=== PATIENT | female | born 1955 | race Hispanic/Latino ===

== ENCOUNTER 2020-09-01 01:18 | Inpatient (IN) | payer MEDICAID ==
[2020-09-01 03:05] LABS: Hematocrit 48.5 % (30.3-42.9); Hemoglobin 16.3 gm/dl (10.1-14.3); Mean Corpuscular HGB Conc 34 % (30-34); Mean Corpuscular Volume 88 fl (79-97); Platelet Count 312 K/mm3 (140-440); Red Blood Count 5.49 M/mm3 (3.65-5.03)
[2020-09-01 03:14] LABS: Calcium 10.5 mg/dL (8.4-10.2)
[2020-09-01 04:36] LABS: Bilirubin,Urine NEG (Negative); Blood,Urine NEG (Negative); Color,Urine Yellow (Yellow); Mucus,Urine 1+ /HPF
[2020-09-01 05:12] LABS: Band Neutrophils # (Manual) 0.6 K/mm3; Basophils % (Manual) 0 % (0.0-1.8); Eosinophils % (Manual) 0 % (0.0-4.3); Total Cells Counted 100
[2020-09-01 05:13] LABS: Platelet Estimate Consistent w Auto
[2020-09-01] MEDS ORDERED: ONDANSETRON 4 MG/2 ML INJ IV ONE (06:23)
[2020-09-01] MEDS ORDERED: SODIUM CHLORIDE 0.9% 1000 ML 1,000 ML IV ONE (06:23)
[2020-09-01] MEDS ORDERED: MORPHINE 4 MG/1 ML INJ IV ONE (06:33)
--- NOTE | 2020-09-01 07:54 | Emergency Department Report ---
ED Abdominal Pain HPI - General Chief Complaint: Abdominal Pain Stated Complaint: ABDOMINAL PAIN/SOB Time Seen by Provider: 09/01/20 06:21 Source: patient Mode of arrival: Wheelchair Limitations: No Limitations - History of Present Illness Initial Comments: 65-year-old female with a past medical history of right-sided breast cancer diagnosed 2 weeks ago via biopsy (still undergoing work-up) presents to the hospital complaining of sudden onset of abdominal pain with nausea and vomiting at 1 AM. Pain is stabbing in the lower abdomen. At time of onset pain was 10/10 in intensity and currently 5/10. Pain worse with palpation. No alleviating factors. Patient denies urinary symptoms, fever, or diarrhea. No previous abdominal surgeries reported Severity scale (0 -10): 5 - Related Data Allergies Allergy/AdvReac Type Severity Reaction Status Date / Time No Known Allergies Allergy Unverified 09/01/20 02:26 ED Review of Systems ROS: Stated complaint: ABDOMINAL PAIN/SOB Other details as noted in HPI Comment: All other systems reviewed and negative ED Past Medical Hx - Past Medical History Previous Medical History?: Yes Hx of Cancer: Yes (Right breast) - Surgical History Past Surgical History?: No - Social History Smoking Status: Current Every Day Smoker Substance Use Type: None ED Physical Exam - General Limitations: No Limitations - Other Other exam information: General: No acute distress Head: Atraumatic Eyes: normal appearance ENT: Moist mucous membranes Neck: Normal appearance, no midline tenderness Chest: Clear to auscultation bilaterally. Right breast invasive breast mass at skin surface CV: Regular rate and rhythm Abdomen: Soft, normal bowel sounds, diffuse abdominal tenderness greatest in the lower abdomen and right lower quadrant, nondistended, no rebound or guarding Back: Normal inspection Extremity: Normal inspection, full range of motion Neuro: Alert O x 3, no facial asymmetry, speech clear, no gross motor sensory deficit Psych: Appropriate behavior Skin: No rash ED Course Vital Signs 09/01/20 09/01/20 09/01/20 01:34 04:11 06:44 Temperature 97.5 F L 98 F Pulse Rate 77 85 Respiratory 18 18 18 Rate Blood Pressure 124/70 Blood Pressure 127/81 [Left] O2 Sat by Pulse 97 95 Oximetry 09/01/20 08:09 Temperature Pulse Rate 76 Respiratory 16 Rate Blood Pressure Blood Pressure 149/70 [Left] O2 Sat by Pulse 94 Oximetry - Consultations Consultation #1: 10/03/20 08:55 case d/w gen surgeon Mervin who will manage case ED Medical Decision Making - Lab Data Result diagrams: 09/01/20 02:30 09/01/20 02:30 Lab Results 09/01/20 09/01/20 09/01/20 Range/Units 02:26 02:30 02:30 WBC 21.0 H (4.5-11.0) K/mm3 RBC 5.49 H (3.65-5.03) M/mm3 Hgb 16.3 H (10.1-14.3) gm/dl Hct 48.5 H (30.3-42.9) % MCV 88 (79-97) fl MCH 30 (28-32) pg MCHC 34 (30-34) % RDW 15.0 (13.2-15.2) % Plt Count 312 (140-440) K/mm3 Add Manual Diff Complete Total Counted 100 Seg Neutrophils % Hazmat Cdl A Driver Seg Neuts % (Manual) 90.0 H (40.0-70.0) % Band Neutrophils % 3.0 % Lymphocytes % (Manual) 4.0 L (13.4-35.0) % Reactive Lymphs % (Man) 0 % Monocytes % (Manual) 3.0 (0.0-7.3) % Eosinophils % (Manual) 0 (0.0-4.3) % Basophils % (Manual) 0 (0.0-1.8) % Metamyelocytes % 0 % Myelocytes % 0 % Promyelocytes % 0 % Blast Cells % 0 % Nucleated RBC % Not Reportable Seg Neutrophils # Man 18.9 H (1.8-7.7) K/mm3 Band Neutrophils # 0.6 K/mm3 Lymphocytes # (Manual) 0.8 L (1.2-5.4) K/mm3 Abs React Lymphs (Man) 0.0 K/mm3 Monocytes # (Manual) 0.6 (0.0-0.8) K/mm3 Eosinophils # (Manual) 0.0 (0.0-0.4) K/mm3 Basophils # (Manual) 0.0 (0.0-0.1) K/mm3 Metamyelocytes # 0.0 K/mm3 Myelocytes # 0.0 K/mm3 Promyelocytes # 0.0 K/mm3 Blast Cells # 0.0 K/mm3 WBC Morphology Not Reportable Hypersegmented Neuts Not Reportable Hyposegmented Neuts Not Reportable Hypogranular Neuts Not Reportable Smudge Cells Not Reportable Toxic Granulation Not Reportable Toxic Vacuolation Not Reportable Dohle Bodies Not Reportable Pelger-Huet Anomaly Not Reportable [place] Rods Not Reportable Platelet Estimate Consistent w auto Clumped Platelets Not Reportable Plt Clumps, EDTA Not Reportable Large Platelets Not Reportable Giant Platelets Not Reportable Platelet Satelliting Not Reportable Plt Morphology Comment Not Reportable RBC Morphology Not Reportable Dimorphic RBCs Not Reportable Polychromasia Not Reportable Hypochromasia Not Reportable Poikilocytosis Not Reportable Anisocytosis Not Reportable Microcytosis Not Reportable Macrocytosis Not Reportable Spherocytes Not Reportable Pappenheimer Bodies Not Reportable Sickle Cells Not Reportable Target Cells Not Reportable Tear Drop Cells Not Reportable Ovalocytes Not Reportable Helmet Cells Not Reportable [place] Bodies Not Reportable [place] Rings Not Reportable Ginger Cells Not Reportable Bite Cells Not Reportable Crenated Cell Not Reportable Elliptocytes Not Reportable Acanthocytes (Spur) Not Reportable Rouleaux Not Reportable Hemoglobin C Crystals Not Reportable Schistocytes Not Reportable Malaria parasites Not Reportable [place] Bodies Not Reportable Hem Pathologist Commnt No Sodium 134 L (137-145) mmol/L Potassium 3.7 (3.6-5.0) mmol/L Chloride 89.2 L (98-107) mmol/L Carbon Dioxide 29 (22-30) mmol/L Anion Gap 20 mmol/L BUN 20 H (7-17) mg/dL Creatinine 1.1 (0.6-1.2) mg/dL Estimated GFR 50 ml/min BUN/Creatinine Ratio 18 % Glucose 190 H (65-100) mg/dL Calcium 10.5 H (8.4-10.2) mg/dL Total Bilirubin 0.40 (0.1-1.2) mg/dL AST 18 (5-40) units/L ALT 18 (7-56) units/L Alkaline Phosphatase 78 (35-129) units/L Total Protein 8.6 H (6.3-8.2) g/dL Albumin 4.0 (3.9-5) g/dL Albumin/Globulin Ratio 0.9 % Lipase 24 (13-60) units/L Urine Color Yellow (Yellow) Urine Turbidity Clear (Clear) Urine pH 6.0 (5.0-7.0) Ur Specific [place] 1.023 (1.003-1.030) Urine Protein 30 mg/dl (Negative) mg/dL Urine Glucose (UA) Neg (Negative) mg/dL Urine Ketones Neg (Negative) mg/dL Urine Blood Neg (Negative) Urine Nitrite Neg (Negative) Urine Bilirubin Neg (Negative) Urine Urobilinogen 4.0 (<2.0) mg/dL Ur Leukocyte Esterase Tr (Negative) Urine WBC (Auto) 5.0 (0.0-6.0) /HPF Urine RBC (Auto) 4.0 (0.0-6.0) /HPF U Epithel Cells (Auto) 3.0 (0-13.0) /HPF Urine Mucus 1+ /HPF - Radiology Data Radiology results: report reviewed CT ABDOMEN AND PELVIS WITH CONTRAST INDICATION: Right lower quadrant pain with newly diagnosed breast cancer. TECHNIQUE: Axial CT images were obtained through the abdomen and pelvis after 100 cc IV contrast. All CT scans at this location are performed using CT dose reduction for Teladoc by means of automated exposure control. COMPARISON: None available. FINDINGS: LOWER CHEST: Large 4.8 cm incompletely visualized lobulated right breast mass characteristic for patient's known breast cancer. Large 8 cm mass within the right axilla, incompletely visualized. LIVER: No significant abnormality. GALLBLADDER: Calcified gallstones in collapsed gallbladder. BILE DUCTS: No significant abnormality. PANCREAS: No significant abnormality. SPLEEN: No significant abnormality. ADRENALS: Indeterminate bilateral adrenal nodules measuring 2 cm on right and 1.5 cm in left adrenal gland. RIGHT KIDNEY and URETER: No significant abnormality. LEFT KIDNEY and URETER: 2 simple left renal cysts, largest of which measures 3.3 cm. STOMACH and SMALL BOWEL: Suspected ulcer within the anterior aspect of gastric antrum with associated moderate mucosal wall thickening and moderate amount of adjacent inflammation COLON: Moderate colonic diverticulosis without diverticulitis. APPENDIX: Contains appendicolith without CT evidence for acute appendicitis. PERITONEUM: Moderate amount of free pelvic fluid Moderate amount of free air. No fluid collection. LYMPH NODES: No significant adenopathy. AORTA and ARTERIES: No significant abnormality. IVC and VEINS: No significant abnormality. URINARY BLADDER: No significant abnormality. REPRODUCTIVE ORGANS: No significant abnormality. ADDITIONAL FINDINGS: Moderate subcutaneous edema right forearm SKELETAL SYSTEM: No significant abnormality. IMPRESSION: 1. Perforated gastric ulcer with pneumoperitoneum 2. Large right breast mass and axillary adenopathy, incompletely visualized. Chest CT or PET CT scan may be useful for further staging and evaluation. 3. Indeterminate bilateral adrenal nodules suspicious for possible adrenal metastases. Follow-up adrenal MRI or noncontrast CT may be useful to confirm presence or absence of adenomas. 4. Moderate subcutaneous edema right forearm of uncertain etiology. DVT versus cellulitis is in the differential considerations. CRITICAL RESULT: Perforated gastric ulcer - Medical Decision Making Patient presents to the hospital with sudden onset abdominal pain with nausea vomiting. Positive significant leukocytosis. CT shows a perforated gastric ulcer. Patient made n.p.o., treated with normal saline, morphine, Protonix, and Zosyn. Case discussed with general surgeon on-call who will manage patient. Patient to be admitted to the hospitalist service Case discussed with patient's son Will Weinstein per patient's request. He was informed of patient's diagnosis, plan for admission, and probable need for surgical treatment Critical Care Time: No Critical care attestation.: If time is entered above; I have spent that time in minutes in the direct care of this critically ill patient, excluding procedure time. ED Disposition Clinical Impression: Perforated gastric ulcer, Breast cancer Disposition: -09 OP ADMIT IP TO THIS HOSP Is pt being admited?: Yes Condition: Stable Time of Disposition: 08:56 (Dr Marie/hospitalist)
[2020-09-01] MEDS ORDERED: PANTOPRAZOLE 40 MG INJ IV ONE (08:24)
[2020-09-01] MEDS ORDERED: PIPERACIL/TAZOBACTA 4.5/NS 100 4.5 GM/100 ML VIAL IV ONE (08:25)
--- NOTE | 2020-09-01 08:34 | Cat Scan Report ---
CT ABDOMEN AND PELVIS WITH CONTRAST INDICATION: Right lower quadrant pain with newly diagnosed breast cancer. TECHNIQUE: Axial CT images were obtained through the abdomen and pelvis after 100 cc IV contrast. All CT scans at this location are performed using CT dose reduction for ALARA by means of automated exposure contr ol. COMPARISON: None available. FINDINGS: LOWER CHEST: Large 4.8 cm incompletely visualized lobulated right breast mass characteristic for kaylin ent's known breast cancer. Large 8 cm mass within the right axilla, incompletely visualized. LIVER: No significant abnormality. GALLBLADDER: Calcified gallstones in collapsed gallbladder. BILE DUCTS: No significant abnormality. PANCREAS: No significant abnormality. SPLEEN: No significant abnormality. ADRENALS: Indeterminate bilateral adrenal nodules measuring 2 cm on right and 1.5 cm in left adrenal gland. RIGHT KIDNEY and URETER: No significant abnormality. LEFT KIDNEY and URETER: 2 simple left renal cysts, largest of which measures 3.3 cm. STOMACH and SMALL BOWEL: Suspected ulcer within the anterior aspect of gastric antrum with associated moderate mucosal wall thickening and moderate amount of adjacent inflammation COLON: Moderate colonic diverticulosis without diverticulitis. APPENDIX: Contains appendicolith without CT evidence for acute appendicitis. PERITONEUM: Moderate amount of free pelvic fluid Moderate amount of free air. No fluid collection. LYMPH NODES: No significant adenopathy. AORTA and ARTERIES: No significant abnormality. IVC and VEINS: No significant abnormality. URINARY BLADDER: No significant abnormality. REPRODUCTIVE ORGANS: No significant abnormality. ADDITIONAL FINDINGS: Moderate subcutaneous edema right forearm SKELETAL SYSTEM: No significant abnormality. IMPRESSION: 1. Perforated gastric ulcer with pneumoperitoneum 2. Large right breast mass and axillary adenopathy, incompletely visualized. Chest CT or PET CT scan may be useful for further staging and evaluation. 3. Indeterminate bilateral adrenal nodules suspicious for possible adrenal metastases. Follow-up adre nal MRI or noncontrast CT may be useful to confirm presence or absence of adenomas. 4. Moderate subcutaneous edema right forearm of uncertain etiology. DVT versus cellulitis is in the d ifferential considerations. CRITICAL RESULT: Perforated gastric ulcer Time of Discovery: 7:20 AM central time 09/01/2020 Time of Communication: 7:25 AM central time Licensed Practitioner Receiving Report: Jessica Jurado Read Back Performed: Yes. Signer Name: Paxton Gibbs MD Signed: 09/01/2020 8:30 AM Workstation Name: [id number]
--- NOTE | 2020-09-01 09:21 | History and Physical Report ---
History of Present Illness Date of examination: 09/01/20 Date of admission: 09/01/2020 Chief complaint: Abdominal pain History of present illness: 65-year-old female with a past medical history of right-sided breast cancer diagnosed 2 weeks ago via biopsy (still undergoing work-up) presents to the hospital complaining of sudden onset of abdominal pain with nausea and vomiting at 1 AM. Pain is described of a stabbing character in the lower abdomen. Patient reports improvement of the pain from 09/08 to now currently 5/10. Pain worse with palpation. No alleviating factors. Patient denies urinary symptoms, fever, or diarrhea. No previous abdominal surgeries reported. CT scan of the abdomen pelvis reveals perforated gastric ulcer with pneumoperitoneum. Patient denies any hematemesis, hematochezia or melena. Past History Past Medical History: other (Newly diagnosed breast cancer) Past Surgical History: No surgical history Social history: no significant social history Family history: no significant family history Medications and Allergies Allergies Allergy/AdvReac Type Severity Reaction Status Date / Time No Known Allergies Allergy Unverified 09/01/20 02:26 Review of Systems All systems: negative Exam - Constitutional Vitals: Temp Pulse Resp BP Pulse Ox 98 F 76 16 149/70 94 09/01/20 04:11 09/01/20 08:09 09/01/20 08:09 09/01/20 08:09 09/01/20 08:09 General appearance: Present: no acute distress, well-nourished - EENT Eyes: Present: PERRL ENT: hearing intact, clear oral mucosa - Neck Neck: Present: supple, normal ROM - Respiratory Respiratory effort: normal Respiratory: bilateral: CTA - Cardiovascular Heart Sounds: Present: S1 & S2. Absent: rub, click - Extremities Extremities: pulses symmetrical, No edema Peripheral Pulses: within normal limits - Abdominal General gastrointestinal: Present: soft, tender, non-distended, normal bowel sounds Localized gastrointestinal: tender: diffuse Female genitourinary: Present: normal - Integumentary Integumentary: Present: clear, warm, dry - Musculoskeletal Musculoskeletal: gait normal, strength equal bilaterally - Psychiatric Psychiatric: appropriate mood/affect, intact judgment & insight - Neurologic Neurologic: CNII-XII intact, moves all extremities Results - Labs CBC & Chem 7: 09/01/20 02:30 09/01/20 02:30 Labs: Laboratory Last Values WBC 21.0 K/mm3 (4.5-11.0) H 09/01/20 02:30 RBC 5.49 M/mm3 (3.65-5.03) H 09/01/20 02:30 Hgb 16.3 gm/dl (10.1-14.3) H 09/01/20 02:30 Hct 48.5 % (30.3-42.9) H 09/01/20 02:30 MCV 88 fl (79-97) 09/01/20 02:30 MCH 30 pg (28-32) 09/01/20 02:30 MCHC 34 % (30-34) 09/01/20 02:30 RDW 15.0 % (13.2-15.2) 09/01/20 02:30 Plt Count 312 K/mm3 (140-440) 09/01/20 02:30 Add Manual Diff Complete 09/01/20 02:30 Total Counted 100 09/01/20 02:30 Seg Neutrophils % Coding Technician 09/01/20 02:30 Seg Neuts % (Manual) 90.0 % (40.0-70.0) H 09/01/20 02:30 Band Neutrophils % 3.0 % 09/01/20 02:30 Lymphocytes % (Manual) 4.0 % (13.4-35.0) L 09/01/20 02:30 Reactive Lymphs % (Man) 0 % 09/01/20 02:30 Monocytes % (Manual) 3.0 % (0.0-7.3) 09/01/20 02:30 Eosinophils % (Manual) 0 % (0.0-4.3) 09/01/20 02:30 Basophils % (Manual) 0 % (0.0-1.8) 09/01/20 02:30 Metamyelocytes % 0 % 09/01/20 02:30 Myelocytes % 0 % 09/01/20 02:30 Promyelocytes % 0 % 09/01/20 02:30 Blast Cells % 0 % 09/01/20 02:30 Nucleated RBC % Not Reportable 09/01/20 02:30 Seg Neutrophils # Man 18.9 K/mm3 (1.8-7.7) H 09/01/20 02:30 Band Neutrophils # 0.6 K/mm3 09/01/20 02:30 Lymphocytes # (Manual) 0.8 K/mm3 (1.2-5.4) L 09/01/20 02:30 Abs React Lymphs (Man) 0.0 K/mm3 09/01/20 02:30 Monocytes # (Manual) 0.6 K/mm3 (0.0-0.8) 09/01/20 02:30 Eosinophils # (Manual) 0.0 K/mm3 (0.0-0.4) 09/01/20 02:30 Basophils # (Manual) 0.0 K/mm3 (0.0-0.1) 09/01/20 02:30 Metamyelocytes # 0.0 K/mm3 09/01/20 02:30 Myelocytes # 0.0 K/mm3 09/01/20 02:30 Promyelocytes # 0.0 K/mm3 09/01/20 02:30 Blast Cells # 0.0 K/mm3 09/01/20 02:30 WBC Morphology Not Reportable 09/01/20 02:30 Hypersegmented Neuts Not Reportable 09/01/20 02:30 Hyposegmented Neuts Not Reportable 09/01/20 02:30 Hypogranular Neuts Not Reportable 09/01/20 02:30 Smudge Cells Not Reportable 09/01/20 02:30 Toxic Granulation Not Reportable 09/01/20 02:30 Toxic Vacuolation Not Reportable 09/01/20 02:30 Dohle Bodies Not Reportable 09/01/20 02:30 Pelger-Huet Anomaly Not Reportable 09/01/20 02:30 [place] Rods Not Reportable 09/01/20 02:30 Platelet Estimate Consistent w auto 09/01/20 02:30 Clumped Platelets Not Reportable 09/01/20 02:30 Plt Clumps, EDTA Not Reportable 09/01/20 02:30 Large Platelets Not Reportable 09/01/20 02:30 Giant Platelets Not Reportable 09/01/20 02:30 Platelet Satelliting Not Reportable 09/01/20 02:30 Plt Morphology Comment Not Reportable 09/01/20 02:30 RBC Morphology Not Reportable 09/01/20 02:30 Dimorphic RBCs Not Reportable 09/01/20 02:30 Polychromasia Not Reportable 09/01/20 02:30 Hypochromasia Not Reportable 09/01/20 02:30 Poikilocytosis Not Reportable 09/01/20 02:30 Anisocytosis Not Reportable 09/01/20 02:30 Microcytosis Not Reportable 09/01/20 02:30 Macrocytosis Not Reportable 09/01/20 02:30 Spherocytes Not Reportable 09/01/20 02:30 Pappenheimer Bodies Not Reportable 09/01/20 02:30 Sickle Cells Not Reportable 09/01/20 02:30 Target Cells Not Reportable 09/01/20 02:30 Tear Drop Cells Not Reportable 09/01/20 02:30 Ovalocytes Not Reportable 09/01/20 02:30 Helmet Cells Not Reportable 09/01/20 02:30 Fernandez-[place] Bodies Not Reportable 09/01/20 02:30 [place] Rings Not Reportable 09/01/20 02:30 [place] Cells Not Reportable 09/01/20 02:30 Bite Cells Not Reportable 09/01/20 02:30 Crenated Cell Not Reportable 09/01/20 02:30 Elliptocytes Not Reportable 09/01/20 02:30 Acanthocytes (Spur) Not Reportable 09/01/20 02:30 Rouleaux Not Reportable 09/01/20 02:30 Hemoglobin C Crystals Not Reportable 09/01/20 02:30 Schistocytes Not Reportable 09/01/20 02:30 Malaria parasites Not Reportable 09/01/20 02:30 [place] Bodies Not Reportable 09/01/20 02:30 Hem Pathologist Commnt No 09/01/20 02:30 Sodium 134 mmol/L (137-145) L 09/01/20 02:30 Potassium 3.7 mmol/L (3.6-5.0) 09/01/20 02:30 Chloride 89.2 mmol/L (98-107) L 09/01/20 02:30 Carbon Dioxide 29 mmol/L (22-30) 09/01/20 02:30 Anion Gap 20 mmol/L 09/01/20 02:30 BUN 20 mg/dL (7-17) H 09/01/20 02:30 Creatinine 1.1 mg/dL (0.6-1.2) 09/01/20 02:30 Estimated GFR 50 ml/min 09/01/20 02:30 BUN/Creatinine Ratio 18 % 09/01/20 02:30 Glucose 190 mg/dL (65-100) H 09/01/20 02:30 Calcium 10.5 mg/dL (8.4-10.2) H 09/01/20 02:30 Total Bilirubin 0.40 mg/dL (0.1-1.2) 09/01/20 02:30 AST 18 units/L (5-40) 09/01/20 02:30 ALT 18 units/L (7-56) 09/01/20 02:30 Alkaline Phosphatase 78 units/L (35-129) 09/01/20 02:30 Total Protein 8.6 g/dL (6.3-8.2) H 09/01/20 02:30 Albumin 4.0 g/dL (3.9-5) 09/01/20 02:30 Albumin/Globulin Ratio 0.9 % 09/01/20 02:30 Lipase 24 units/L (13-60) 09/01/20 02:30 Urine Color Yellow (Yellow) 09/01/20 02:26 Urine Turbidity Clear (Clear) 09/01/20 02:26 Urine pH 6.0 (5.0-7.0) 09/01/20 02:26 Ur Specific [place] 1.023 (1.003-1.030) 09/01/20 02:26 Urine Protein 30 mg/dl mg/dL (Negative) 09/01/20 02:26 Urine Glucose (UA) Neg mg/dL (Negative) 09/01/20 02:26 Urine Ketones Neg mg/dL (Negative) 09/01/20 02:26 Urine Blood Neg (Negative) 09/01/20 02:26 Urine Nitrite Neg (Negative) 09/01/20 02:26 Urine Bilirubin Neg (Negative) 09/01/20 02:26 Urine Urobilinogen 4.0 mg/dL (<2.0) 09/01/20 02:26 Ur Leukocyte Esterase Tr (Negative) 09/01/20 02:26 Urine WBC (Auto) 5.0 /HPF (0.0-6.0) 09/01/20 02:26 Urine RBC (Auto) 4.0 /HPF (0.0-6.0) 09/01/20 02:26 U Epithel Cells (Auto) 3.0 /HPF (0-13.0) 09/01/20 02:26 Urine Mucus 1+ /HPF 09/01/20 02:26 Carey/IV: IV Catheter Type [Left Hand] INT / [place] Assessment and Plan Assessment and plan: Perforated gastric ulcer with pneumoperitoneum. Surgery has been consulted and awaiting evaluation. Continue n.p.o. status. IV fluid hydration. Patient will likely need TPN. Right breast cancer.? Metastatic. CT scan reveals questionable adrenal metastasis Right upper extremity edema. Etiology likely secondary to occluded lymphatics from breast CA. Right upper extremity ultrasound to rule out DVT given history of cancer.
[2020-09-01] MEDS: SODIUM CHLORIDE 0.9% 1000 ML 1,000 ML IV SCH ×2 (09:49→20:11)
[2020-09-01] MEDS: MORPHINE 2 MG/1 ML INJ IV PRN ×4 (09:49→23:55)
--- NOTE | 2020-09-01 10:30 | Consultation ---
History of Present Illness Consult date: 09/01/20 Reason for consult: abdominal pain - History of present illness History of present illness: 65 yo WF with recent dx metastatic breast cancer undergoing work-up presents with severe abd pain diffusely since 1am today. No hx NSAID abuse. No hx GI dz. +tob abuse (50-60pyhx) Ct with pneumoperitoneum-- suspected perforated gastric ulcer as acute finding- see report for other abnormalities. Past History Past Medical History: COPD, other (Newly diagnosed breast cancer). denies: acute [place], heart failure Past Surgical History: No surgical history Social history: no significant social history, smoking Family history: no significant family history Medications and Allergies Allergies Allergy/AdvReac Type Severity Reaction Status Date / Time No Known Allergies Allergy Unverified 09/01/20 02:26 Active Meds: Active Medications Enoxaparin Sodium (Enoxaparin) 40 mg SUB-Q QDAY JAIME Sodium Chloride (Nacl 0.9% 1000 Ml) 1,000 mls @ 75 mls/hr IV DIRECT JAIME Last Admin: 09/01/20 09:49 Dose: 75 mls/hr Documented by: Morphine Sulfate (Morphine) 2 mg IV Q4H PRN PRN Reason: Pain, Moderate (4-6) Last Admin: 09/01/20 09:49 Dose: 2 mg Documented by: Sodium Chloride (Sodium Chloride Flush Syringe 10 Ml) 10 ml IV BID JAIME Sodium Chloride (Sodium Chloride Flush Syringe 10 Ml) 10 ml IV PRN PRN PRN Reason: LINE FLUSH Exam Vital Signs Temp Pulse Resp BP Pulse Ox 97.5 F L 77 18 124/70 97 09/01/20 01:34 09/01/20 01:34 09/01/20 01:34 09/01/20 01:34 09/01/20 01:34 - General physical appearance Positive: chronically ill - Respiratory Positive: normal respiratory effort wheezing: bilateral, rales: bilateral - Cardiovascular Rhythm: regular - Abdomen Abdomen: Present: tender, rebound, guarding, rigid. Absent: wound, surgical scars Hernia: none (pt clearly in severe pain; wincing often) Results - Labs 09/01/20 02:30 09/01/20 02:30 Abnormal lab results 09/01/20 09/01/20 Range/Units 02:30 02:30 WBC 21.0 H (4.5-11.0) K/mm3 RBC 5.49 H (3.65-5.03) M/mm3 Hgb 16.3 H (10.1-14.3) gm/dl Hct 48.5 H (30.3-42.9) % Seg Neuts % (Manual) 90.0 H (40.0-70.0) % Lymphocytes % (Manual) 4.0 L (13.4-35.0) % Seg Neutrophils # Man 18.9 H (1.8-7.7) K/mm3 Lymphocytes # (Manual) 0.8 L (1.2-5.4) K/mm3 Sodium 134 L (137-145) mmol/L Chloride 89.2 L (98-107) mmol/L BUN 20 H (7-17) mg/dL Glucose 190 H (65-100) mg/dL Calcium 10.5 H (8.4-10.2) mg/dL Total Protein 8.6 H (6.3-8.2) g/dL Diabetes panel 09/01/20 Range/Units 02:30 Sodium 134 L (137-145) mmol/L Potassium 3.7 (3.6-5.0) mmol/L Chloride 89.2 L (98-107) mmol/L Carbon Dioxide 29 (22-30) mmol/L BUN 20 H (7-17) mg/dL Creatinine 1.1 (0.6-1.2) mg/dL Glucose 190 H (65-100) mg/dL Calcium 10.5 H (8.4-10.2) mg/dL AST 18 (5-40) units/L ALT 18 (7-56) units/L Alkaline Phosphatase 78 (35-129) units/L Total Protein 8.6 H (6.3-8.2) g/dL Albumin 4.0 (3.9-5) g/dL Calcium panel 09/01/20 Range/Units 02:30 Calcium 10.5 H (8.4-10.2) mg/dL Albumin 4.0 (3.9-5) g/dL Pituitary panel 09/01/20 Range/Units 02:30 Sodium 134 L (137-145) mmol/L Potassium 3.7 (3.6-5.0) mmol/L Chloride 89.2 L (98-107) mmol/L Carbon Dioxide 29 (22-30) mmol/L BUN 20 H (7-17) mg/dL Creatinine 1.1 (0.6-1.2) mg/dL Glucose 190 H (65-100) mg/dL Calcium 10.5 H (8.4-10.2) mg/dL Adrenal panel 09/01/20 Range/Units 02:30 Sodium 134 L (137-145) mmol/L Potassium 3.7 (3.6-5.0) mmol/L Chloride 89.2 L (98-107) mmol/L Carbon Dioxide 29 (22-30) mmol/L BUN 20 H (7-17) mg/dL Creatinine 1.1 (0.6-1.2) mg/dL Glucose 190 H (65-100) mg/dL Calcium 10.5 H (8.4-10.2) mg/dL Total Bilirubin 0.40 (0.1-1.2) mg/dL AST 18 (5-40) units/L ALT 18 (7-56) units/L Alkaline Phosphatase 78 (35-129) units/L Total Protein 8.6 H (6.3-8.2) g/dL Albumin 4.0 (3.9-5) g/dL Assessment and Plan Pneumoperitoneum-- to OR for Ex Lap/oversew perforated ulcer Ulcer likely to be duodenal over gastric by my review of Ct images/most common pathology. No known risk factors. Due to pt's metastatic cancer and COPD, she will be high-risk pt with higher than normal complication rates. Surgical risks d/w pt in front of RN- see consent signed. Pt will likely need ICU bed post-op
[2020-09-01] MEDS ORDERED: HYDROmorphone 2 MG/1 ML INJ IV ONE (11:00)
--- NOTE | 2020-09-01 11:34 | Progress Note ---
Subjective Narrative: Note: unable to reach lenora (pt's son) by phone- number disconnected. Went to waiting room- not present x2 over 45min span. Will attempt to reach after surgery Objective Vital Signs - 12hr 09/01/20 09/01/20 09/01/20 01:34 04:11 06:44 Temperature 97.5 F L 98 F Pulse Rate 77 85 Respiratory 18 18 18 Rate Blood Pressure 124/70 Blood Pressure 127/81 [Left] O2 Sat by Pulse 97 95 Oximetry 09/01/20 09/01/20 09/01/20 08:09 10:15 10:47 Temperature Pulse Rate 76 65 72 Respiratory 16 16 16 Rate Blood Pressure Blood Pressure 149/70 113/65 140/100 [Left] O2 Sat by Pulse 94 96 96 Oximetry 09/01/20 11:18 Temperature Pulse Rate 72 Respiratory 16 Rate Blood Pressure Blood Pressure 148/76 [Left] O2 Sat by Pulse 96 Oximetry - Labs 09/01/20 02:30 09/01/20 02:30 Diabetes panel 09/01/20 Range/Units 02:30 Sodium 134 L (137-145) mmol/L Potassium 3.7 (3.6-5.0) mmol/L Chloride 89.2 L (98-107) mmol/L Carbon Dioxide 29 (22-30) mmol/L BUN 20 H (7-17) mg/dL Creatinine 1.1 (0.6-1.2) mg/dL Glucose 190 H (65-100) mg/dL Calcium 10.5 H (8.4-10.2) mg/dL AST 18 (5-40) units/L ALT 18 (7-56) units/L Alkaline Phosphatase 78 (35-129) units/L Total Protein 8.6 H (6.3-8.2) g/dL Albumin 4.0 (3.9-5) g/dL Calcium panel 09/01/20 Range/Units 02:30 Calcium 10.5 H (8.4-10.2) mg/dL Albumin 4.0 (3.9-5) g/dL Pituitary panel 09/01/20 Range/Units 02:30 Sodium 134 L (137-145) mmol/L Potassium 3.7 (3.6-5.0) mmol/L Chloride 89.2 L (98-107) mmol/L Carbon Dioxide 29 (22-30) mmol/L BUN 20 H (7-17) mg/dL Creatinine 1.1 (0.6-1.2) mg/dL Glucose 190 H (65-100) mg/dL Calcium 10.5 H (8.4-10.2) mg/dL Adrenal panel 09/01/20 Range/Units 02:30 Sodium 134 L (137-145) mmol/L Potassium 3.7 (3.6-5.0) mmol/L Chloride 89.2 L (98-107) mmol/L Carbon Dioxide 29 (22-30) mmol/L BUN 20 H (7-17) mg/dL Creatinine 1.1 (0.6-1.2) mg/dL Glucose 190 H (65-100) mg/dL Calcium 10.5 H (8.4-10.2) mg/dL Total Bilirubin 0.40 (0.1-1.2) mg/dL AST 18 (5-40) units/L ALT 18 (7-56) units/L Alkaline Phosphatase 78 (35-129) units/L Total Protein 8.6 H (6.3-8.2) g/dL Albumin 4.0 (3.9-5) g/dL
--- NOTE | 2020-09-01 11:47 | Anesthesia Consultation ---
Anesthesia Consult and Med Hx Date of service: 09/01/20 - Airway Anesthetic Teeth Evaluation: Poor ROM Head & Neck: Adequate Mental/Hyoid Distance: Adequate Mallampati Class: Class I Intubation Access Assessment: Probably Good - Pulmonary Exam CTA: Yes - Cardiac Exam Cardiac Exam: RRR - Pre-Operative Health Status ASA Pre-Surgery Classification: ASA3, Emergency Proposed Anesthetic Plan: General - Pulmonary Hx Smoking: Yes (1 pk. per day) SOB: Yes COPD: Yes (As per ER physician) Home Oxygen Therapy: No Hx Sleep Apnea: No - Cardiovascular System Hx Heart Attack/AMI: No Hx Angina: No - Central Nervous System Hx Neuromuscular Disorder: No Hx Seizures: No CVA: No Hx Psychiatric Problems: No - Gastrointestinal Hx Gastroesophageal Reflux Disease: No - Endocrine Hx Renal Disease: No Hx Liver Disease: No Hx Insulin Dependent Diabetes: No Hx Non-Insulin Dependent Diabetes: No Hx Thyroid Disease: No - Hematic Hx Anemia: No - Other Systems Hx Alcohol Use: No Hx Substance Use: No Hx Cancer: Yes (Right Breast) Hx Obesity: No - Additional Comments Anesthesia Medical History Comments: Patient denied previous anesthesia complications
--- NOTE | 2020-09-01 11:47 | Anesthesia Day of Surgery ---
Anesthesia Day of Surgery - Day of Surgery Patient Examined: Yes Patient H&P Reviewed: Yes Patient is NPO: Yes Beta Blockers: No Cardiac Clearance: No Pulmonary Clearance: No
[2020-09-01] MEDS ORDERED: ONDANSETRON 4 MG/2 ML INJ ONE (11:56)
[2020-09-01] MEDS ORDERED: ROCURONIUM 50 MG/5 ML INJ IV ONE (11:56)
[2020-09-01] MEDS ORDERED: LIDOCAINE MPF (2%) 20 MG/1 ML VIAL 5 ML ONE (11:56)
[2020-09-01] MEDS ORDERED: fentaNYL 100 MCG/2 ML INJ ONE (11:56)
[2020-09-01] MEDS ORDERED: propofoL 200 MG/20 ML VIAL IV ONE (11:56)
[2020-09-01] MEDS ORDERED: SUCCINYLCHOLINE CHLORIDE 200 MG/10 ML INJ MDV ONE (12:27)
[2020-09-01] MEDS ORDERED: LACTATED RINGERS 1,000 ML ONE ×2 (13:16)
[2020-09-01] MEDS ORDERED: HYDROmorphone 1 MG/1 ML INJ ONE (13:26)
--- NOTE | 2020-09-01 14:20 | Consultation ---
History of Present Illness Consult date: 09/01/20 Requesting physician: CHARY KEMP Reason for consult: other (Acute Hypoxemic Respiratyory Failure; Perforated Abdominal Viscus) History of present illness: PULMONARY/CCM CONSULT NOTE (Full dictation # [id number]) Please see dictated notes for full details Past History Past Medical History: COPD, other (Newly diagnosed breast cancer). denies: acute [place], heart failure Past Surgical History: No surgical history Social history: no significant social history, smoking Family history: no significant family history Medications and Allergies Allergies Allergy/AdvReac Type Severity Reaction Status Date / Time No Known Allergies Allergy Unverified 09/01/20 02:26 Active Meds: Active Medications Enoxaparin Sodium (Enoxaparin) 40 mg SUB-Q QDAY JAIME Sodium Chloride (Nacl 0.9% 1000 Ml) 1,000 mls @ 75 mls/hr IV DIRECT JAIME Last Admin: 09/01/20 09:49 Dose: 75 mls/hr Documented by: Morphine Sulfate (Morphine) 2 mg IV Q4H PRN PRN Reason: Pain, Moderate (4-6) Last Admin: 09/01/20 09:49 Dose: 2 mg Documented by: Sodium Chloride (Sodium Chloride Flush Syringe 10 Ml) 10 ml IV BID JAIME Sodium Chloride (Sodium Chloride Flush Syringe 10 Ml) 10 ml IV PRN PRN PRN Reason: LINE FLUSH Physical Examination Vital signs: Vital Signs Temp Pulse Resp BP Pulse Ox 97.5 F L 77 18 124/70 97 09/01/20 01:34 09/01/20 01:34 09/01/20 01:34 09/01/20 01:34 09/01/20 01:34 Results - Laboratory Findings CBC and BMP: 09/01/20 02:30 09/01/20 02:30 Abnormal lab findings: Abnormal Labs 09/01/20 09/01/20 02:30 02:30 WBC 21.0 H RBC 5.49 H Hgb 16.3 H Hct 48.5 H Seg Neuts % (Manual) 90.0 H Lymphocytes % (Manual) 4.0 L Seg Neutrophils # Man 18.9 H Lymphocytes # (Manual) 0.8 L Sodium 134 L Chloride 89.2 L BUN 20 H Glucose 190 H Calcium 10.5 H Total Protein 8.6 H
[2020-09-01] MEDS ORDERED: ONDANSETRON 4 MG/2 ML INJ IV PRN (14:35)
[2020-09-01] MEDS: HYDROmorphone 1 MG/1 ML INJ IV PRN ×2 (14:40→14:50)
[2020-09-01] MEDS ORDERED: fentaNYL 100 MCG/2 ML INJ IV PRN (14:47)
[2020-09-01] MEDS ORDERED: MINERAL OIL/PETROLATUM, WHITE OPHTH OINT 3.5 GM OU PRN (14:47)
[2020-09-01] MEDS ORDERED: LIP THERAPY VASELINE TP PRN (14:47)
--- NOTE | 2020-09-01 14:47 | Post Anesthesia Evaluation ---
- Post Anesthesia Evaluation Patient Participated: No Airway Patent: Yes Stable Respiratory Function: No Nausea/Vomiting: No Temp > 96.8F: Yes Pain Manageable: Yes Adequeate Hydration: Yes Anesthesia Complications: No Block Receding Appropriately: Not Applicable Patient on Ventilator: Yes (Transferred to Surgical ICU for further management.) Other Comments: Patient presented with history of metastatic breast cancer, COPD and Tobacco abuse of one pack per day for more than 30 years. Her oxygen saturation was 90% pre-induction and no intra-operative complications were noted. For a more cautious post-operative management, Dr. Vargas consented to ICU transfer.
[2020-09-01] MEDS ORDERED: fentaNYL DRIP Premix 2,000 MCG/100 ML BAG IV SCH (15:00)
--- NOTE | 2020-09-01 15:10 | Consultation ---
PULMONARY CRITICAL CARE CONSULTATION NOTE CONSULTING PHYSICIAN: Dr. Dillon Vargas. REASON FOR CONSULTATION: 1. Perforated abdominal viscus. 2. Acute respiratory failure, on mechanical ventilatory support. CHIEF COMPLAINT AND HISTORY OF PRESENT ILLNESS: The patient is a now 65-year-old female with past medical history most significant for recently diagnosed right-sided breast cancer about 2 weeks ago via biopsy, presented to the Emergency Room complaining of sudden onset of abdominal pain with nausea, vomiting, stabbing in nature, 10/10 in intensity, evaluated in the Emergency Room. Denied any prior history of abdominal surgeries. After evaluation, a CT of the abdomen and pelvis revealed a perforated gastric ulcer with pneumoperitoneum. She was taken to the operating room and postoperatively received a call from the surgeon asking that she be brought back into the Intensive Care Unit on mechanical ventilatory support, just to observe overnight and see if she can be weaned. When I stopped by to see her, she was resting in bed, on mechanical ventilator, able to respond appropriately. Denied any acute uncontrolled pain. She does have a 50+ pack year tobacco smoking history. She was having nausea and vomiting, but denied overt aspiration prior to coming to the hospital. This really is as much of the history of presentation as I have. PAST MEDICAL HISTORY: Again, significant for the right breast cancer, tobacco abuse. PAST SURGICAL HISTORY: Now status post right breast biopsy and now status post exploratory laparotomy with repair of perforated abdominal viscus. MEDICATIONS: She was on at the time I stopped by to see her were reviewed, pertinent medications include the following: Lovenox 40 mg subcutaneous daily, morphine 2 mg IV q.4 hours p.r.n. mild pain or fevers. ALLERGIES: No known drug allergies. DIET: Well-built lady. Denies significant weight loss or gain preceding few weeks to months. FAMILY AND SOCIAL HISTORY: Lives in the community. No current alcohol or illicit drug use or abuse. She does admit to about a 14-[id number] tobacco smoking history. FAMILY HISTORY: Otherwise, unknown. REVIEW OF SYSTEMS: Difficult to obtain secondary the patient's medical and mental condition. Since she has been here, she has had no gross hematochezia or melena. No gross hematuria. She denies dysuria. She had emesis. Denies hematemesis. Denies heat or cold intolerance. Denies polydipsia or polyuria. Complete 13-system review of systems obtained as best as I could. Pertinent positives and/or negatives as in body of the history above, otherwise are noncontributory. PHYSICAL EXAMINATION: VITAL SIGNS: On examination at presentation in the Emergency Room shows afebrile, temperature 97.5 degrees Fahrenheit with a pulse of 77, respiratory rate of 18, blood pressure 124/70, O2 sats were 97%, inspired oxygen concentration at that time was not recorded. When I stopped by to see her, O2 sats were 99% that was on the mechanical ventilator, assist control, tidal volumes 400, rate of 24, PEEP of 6, and 50% FiO2. GENERAL: She is elderly looking female, normocephalic, atraumatic, on the mechanical ventilator with mildly increased respiratory effort at rest. HEAD, EYES, EARS, NOSE AND THROAT: Anicteric. No conjunctival erythema. Oropharynx was moist. Endotracheal tube was taped at the lips around 23-24 cm. No gross jugular venous distention, no thyromegaly. NECK: Grossly, there were no palpable lymph nodes in the supraclavicular lymph node chains. She has a large right axillary lymph node. LUNGS: Auscultation of both lung nguyễn. Good bilateral air movement, slightly diminished. No wheezing. HEART: Heart sounds 1 and 2 are heard. They were regular in rate and rhythm at time of my evaluation without overt rubs or murmurs. Of note, she had a right breast mass. Examination was deferred at that time by which having a full breast examination. ABDOMEN: Soft. Bowel sounds are positive, but hypoactive. Mildly tender in the perioperative nguyễn. No palpable hepatosplenomegaly. EXTREMITIES: Without overt digital clubbing, no cyanosis, no pedal edema. Pedal pulses are 2+ bilaterally. She has subcutaneous compression devices to both lower extremities. NEUROLOGIC: Pupils are equal, round, about 3 mm, reactive to light. Extraocular muscle movements were intact. She moves all 4 extremities spontaneously. SKIN: Normal turgor without overt cellulitis or rash. She has the postoperative changes. Please see the wound care nurse's notes for full description of her skin. PSYCHIATRIC: Mood and affect were flat. LABORATORY DATA: From my review are as follows: White cell count 21,000, hemoglobin 16.3, hematocrit 48.5, platelet count 312. Only 3% band forms reported. Serum sodium 137, potassium 3.7, chloride 89, bicarbonate was 29, BUN 20, creatinine 1.1, glucose 190. Liver function tests essentially within normal limits. Calcium was slightly elevated at 10.5. Urinalysis was negative for nitrites. It showed trace leukocyte esterase with 5 white cells per high power field, no bacteria. No microbiology studies for my review. A CT of the abdomen and pelvis was done. I have reviewed the image and I have also reviewed the radiologist's interpretation, essentially shows a perforated gastric ulcer with a pneumoperitoneum, a large right breast mass and axillary adenopathy, indeterminate bilateral adrenal lymph node suspicious for possible metastasis, moderate subcutaneous edema in the right forearm of uncertain etiology, could not rule out a deep venous thrombosis. The long windows do not show any significant consolidation. ASSESSMENT: 1. Acute hypoxemic respiratory failure, now on mechanical ventilatory support. 2. Perforated gastric ulcer with pneumoperitoneum, status post exploratory laparotomy. 3. Breast cancer, possibly metastatic with right axillary lymphadenopathy. 4. Bilateral adrenal enlargement. 5. Oropharyngeal dysphagia. 6. Tobacco use disorder. 7. Leukocytosis. 8. Hemoconcentration. 9. Mild hyponatremia. 10. Hyperglycemia. 11. Right upper extremity swelling. PLAN: We will keep on full mechanical ventilatory support in the short term. Ventilator-associated pneumonia bundle has been introduced. Oxygen will be weaned to keep sats greater than or equal to about 90%. Aspiration precautions included will be maintained. I will get an arterial blood gas and make changes from there. We will plan to begin daily spontaneous breathing trials as early as tomorrow. Sedation will be for a target RASS scale of about 0 to -1. She will remain n.p.o. for now. I am bothered about a possible deep venous thrombosis. I will order bilateral upper extremity Dopplers and address as necessary. For now, she will remain on DVT prophylaxis doses of anticoagulation. She will also be placed on GI prophylaxis. I will put her empirically on broad-spectrum antibiotic therapy, but in particular targeting GI pathogens. I will probably go with Flagyl and Levaquin in case we are also dealing with a urinary tract infection. I will send urine for cultures. Again oxygen will be weaned to keep sats greater than or equal to about 90%. P.r.n. analgesia will be per her pain score. Flu and pneumonia vaccination will be addressed per protocol. Oncology consultation will be at the behest of the attending physician. Thank you very much for the consult. We will follow along and make further recommendations as picture progresses/becomes clearer as she is critically ill, on life-sustaining interventions including mechanical ventilatory support at very high risk of from cardiopulmonary system and GI system decompensation. At this time, I spent about 35-40 minutes of critical care time without overlap excluding any procedural time that may be necessary. JOB# [id number] YADIRA/GOLDEN MEDINA
--- NOTE | 2020-09-01 15:47 | XRay Report ---
CHEST 1 VIEW, 09/01/2020 2:33 PM CLINICAL INFORMATION/INDICATION: Endotracheal tube placement COMPARISON: None. FINDINGS: SUPPORT DEVICES: An endotracheal tube is present with tip approximately 3 cm above the level of the c [place]. An esophagogastric tube is also present with distal end overlying the stomach. HEART: The cardiac silhouette is normal in size. LUNGS/PLEURA: The lungs appear clear of focal airspace disease or significant pleural effusion. A sma ll calcified granuloma is incidentally noted in the left upper lung field. ADDITIONAL FINDINGS: No additional acute findings. IMPRESSION: 1. Placement of esophagogastric tube and endotracheal tube as above. Signer Name: Bhakti Jean MD Signed: 09/01/2020 3:42 PM Workstation Name: [id number]
[2020-09-01] MEDS: ENOXAPARIN 40 MG/0.4 ML INJ SUB-Q SCH (16:11)
[2020-09-01] MEDS: metroNIDAZOLE/NS 500 MG/100 ML 500 MG/100 ML BAG IV SCH ×2 (16:12→23:15)
[2020-09-01] MEDS ORDERED: FLUCONAZOLE 400 MG 200 ML IV ONE (17:00)
[2020-09-01] MEDS: PANTOPRAZOLE 80 MG in SODIUM CHLORIDE 0.9% 100 ML IV SCH (22:14)
[2020-09-02 06:03] LABS: ABG Base Excess 0.3 mmol/L (-2.0-3.0); ABG HCO3 23.7 mmol/L (20.0-26.0); ABG Methemoglobin 0.4 % (0.0-1.5); ABG Oxygen Saturation 99.5 % (95.0-99.0); ABG PCO2 34.7 mm Hg; ABG PH 7.452 pH Units (7.350-7.450)
[2020-09-02 06:14] LABS: Calcium 8.5 mg/dL (8.4-10.2)
[2020-09-02 06:20] LABS: ABG PO2 270.7 mm Hg (80.0-90.0)
[2020-09-02 06:25] LABS: Red Blood Count TNR M/mm3 (3.65-5.03)
[2020-09-02 06:26] LABS: Hematocrit TNR % (30.3-42.9); Hemoglobin TNR gm/dl (10.1-14.3); Mean Corpuscular HGB Conc TNR % (30-34); Mean Corpuscular Volume TNR fl (79-97); Mean Platelet Volume TNR fl (6-12); Red Cell Distribution Width TNR % (13.2-15.2)
[2020-09-02 06:27] LABS: Basophils % (Auto) TNR % (0.0-1.8); Eosinophils % (Auto) TNR % (0.0-4.3); Lymphocytes # (Auto) TNR K/mm3 (1.2-5.4); Lymphocytes % (Auto) TNR % (13.4-35.0); Monocytes # (Auto) TNR K/mm3 (0.0-0.8); Monocytes % (Auto) TNR % (0.0-7.3)
[2020-09-02 06:28] LABS: Basophils # (Auto) TNR K/mm3 (0.0-0.1); Eosinophils # (Auto) TNR K/mm3 (0.0-0.4); Platelet Count TNR K/mm3 (140-440)
[2020-09-02] MEDS: PANTOPRAZOLE 80 MG in SODIUM CHLORIDE 0.9% 100 ML IV SCH ×2 (07:12→18:14)
[2020-09-02] MEDS: metroNIDAZOLE/NS 500 MG/100 ML 500 MG/100 ML BAG IV SCH ×3 (08:30→23:46)
[2020-09-02] MEDS ORDERED: ePHEDrine SULFATE 50 MG/1 ML INJ ONE (08:46)
[2020-09-02 09:20] LABS: Basophils % (Auto) 0.1 % (0.0-1.8); Hematocrit 40.6 % (30.3-42.9); Hemoglobin 13.5 gm/dl (10.1-14.3); Lymphocytes # (Auto) 0.7 K/mm3 (1.2-5.4); Mean Corpuscular HGB Conc 33 % (30-34); Mean Corpuscular Volume 89 fl (79-97); Monocytes # (Auto) 1.1 K/mm3 (0.0-0.8); Monocytes % (Auto) 6.1 % (0.0-7.3); Platelet Count 224 K/mm3 (140-440); Red Blood Count 4.54 M/mm3 (3.65-5.03); Red Cell Distribution Width 15.1 % (13.2-15.2)
[2020-09-02] MEDS: ENOXAPARIN 40 MG/0.4 ML INJ SUB-Q SCH (09:27)
--- NOTE | 2020-09-02 09:41 | Progress Note ---
Assessment and Plan Assessment and plan: Perforated gastric ulcer with pneumoperitoneum. Surgery has been consulted and awaiting evaluation. Continue n.p.o. status. IV fluid hydration. Patient will likely need TPN. Sepsis. Present on admission. Etiology secondary to intra-abdominal source secondary to above. Continue antibiotics. Metastatic breast cancer. Continue supportive care Right upper extremity edema. Etiology likely secondary to occluded lymphatics from breast CA. Right upper extremity ultrasound to rule out DVT given history of cancer. 09/02/2020. Patient s/p exploratory laparotomy for repair of perforated viscus. Continue IV anti-infectives of Diflucan, Levaquin and Flagyl. Patient currently intubated postoperatively with PSVT FiO2 40% pressure support 10 and PEEP of 6. Extubate per pulmonary. Initiate TPN. The high probability of a clinically significant, sudden or life threatening deterioration of the [respiratory and GI] system(s) required my full and direct attention, intervention and personal management. The aggregate critical care time was [32] minutes. This time is in addition to time spent performing reported procedures but includes the following: [x] Data Review and interpretation [x] Patient assessment and monitoring of vital signs [x] Documentation [x] Medication orders and management History Interval history: No new issues overnight. Hospitalist Physical - Constitutional Vitals: Temp Pulse Resp BP Pulse Ox 98.7 F 79 26 H 134/73 94 09/02/20 08:00 09/02/20 07:41 09/02/20 07:41 09/02/20 07:41 09/02/20 07:41 General appearance: Present: no acute distress, well-nourished - EENT Eyes: Present: PERRL, EOM intact ENT: hearing intact, clear oral mucosa, dentition normal - Neck Neck: Present: supple, normal ROM - Respiratory Respiratory effort: normal Respiratory: bilateral: CTA - Cardiovascular Rhythm: regular Heart Sounds: Present: S1 & S2. Absent: gallop, rub - Extremities Extremities: no ischemia, No edema, Full ROM - Abdominal General gastrointestinal: soft, non-tender, non-distended, normal bowel sounds - Integumentary Integumentary: Present: clear, warm, dry - Neurologic Neurologic: CNII-XII intact, moves all extremities Results - Labs CBC & Chem 7: 09/02/20 08:40 09/02/20 05:15 Labs: Laboratory Last Values WBC 18.2 K/mm3 (4.5-11.0) H 09/02/20 08:40 RBC 4.54 M/mm3 (3.65-5.03) 09/02/20 08:40 Hgb 13.5 gm/dl (10.1-14.3) 09/02/20 08:40 Hct 40.6 % (30.3-42.9) D 09/02/20 08:40 MCV 89 fl (79-97) 09/02/20 08:40 MCH 30 pg (28-32) 09/02/20 08:40 MCHC 33 % (30-34) 09/02/20 08:40 RDW 15.1 % (13.2-15.2) 09/02/20 08:40 Plt Count 224 K/mm3 (140-440) 09/02/20 08:40 Lymph % (Auto) 4.0 % (13.4-35.0) L 09/02/20 08:40 Wright % (Auto) 6.1 % (0.0-7.3) 09/02/20 08:40 Eos % (Auto) 0.0 % (0.0-4.3) 09/02/20 08:40 Baso % (Auto) 0.1 % (0.0-1.8) 09/02/20 08:40 Lymph # (Auto) 0.7 K/mm3 (1.2-5.4) L 09/02/20 08:40 Wright # (Auto) 1.1 K/mm3 (0.0-0.8) H 09/02/20 08:40 Eos # (Auto) 0.0 K/mm3 (0.0-0.4) 09/02/20 08:40 Baso # (Auto) 0.0 K/mm3 (0.0-0.1) 09/02/20 08:40 Add Manual Diff TNR 09/02/20 05:15 Total Counted 100 09/01/20 02:30 Seg Neutrophils % 89.8 % (40.0-70.0) H 09/02/20 08:40 Seg Neuts % (Manual) 90.0 % (40.0-70.0) H 09/01/20 02:30 Band Neutrophils % 3.0 % 09/01/20 02:30 Lymphocytes % (Manual) 4.0 % (13.4-35.0) L 09/01/20 02:30 Reactive Lymphs % (Man) 0 % 09/01/20 02:30 Monocytes % (Manual) 3.0 % (0.0-7.3) 09/01/20 02:30 Eosinophils % (Manual) 0 % (0.0-4.3) 09/01/20 02:30 Basophils % (Manual) 0 % (0.0-1.8) 09/01/20 02:30 Metamyelocytes % 0 % 09/01/20 02:30 Myelocytes % 0 % 09/01/20 02:30 Promyelocytes % 0 % 09/01/20 02:30 Blast Cells % 0 % 09/01/20 02:30 Nucleated RBC % Not Reportable 09/01/20 02:30 Seg Neutrophils # 16.3 K/mm3 (1.8-7.7) H 09/02/20 08:40 Seg Neutrophils # Man 18.9 K/mm3 (1.8-7.7) H 09/01/20 02:30 Band Neutrophils # 0.6 K/mm3 09/01/20 02:30 Lymphocytes # (Manual) 0.8 K/mm3 (1.2-5.4) L 09/01/20 02:30 Abs React Lymphs (Man) 0.0 K/mm3 09/01/20 02:30 Monocytes # (Manual) 0.6 K/mm3 (0.0-0.8) 09/01/20 02:30 Eosinophils # (Manual) 0.0 K/mm3 (0.0-0.4) 09/01/20 02:30 Basophils # (Manual) 0.0 K/mm3 (0.0-0.1) 09/01/20 02:30 Metamyelocytes # 0.0 K/mm3 09/01/20 02:30 Myelocytes # 0.0 K/mm3 09/01/20 02:30 Promyelocytes # 0.0 K/mm3 09/01/20 02:30 Blast Cells # 0.0 K/mm3 09/01/20 02:30 WBC Morphology Not Reportable 09/01/20 02:30 Hypersegmented Neuts Not Reportable 09/01/20 02:30 Hyposegmented Neuts Not Reportable 09/01/20 02:30 Hypogranular Neuts Not Reportable 09/01/20 02:30 Smudge Cells Not Reportable 09/01/20 02:30 Toxic Granulation Not Reportable 09/01/20 02:30 Toxic Vacuolation Not Reportable 09/01/20 02:30 Dohle Bodies Not Reportable 09/01/20 02:30 Pelger-Huet Anomaly Not Reportable 09/01/20 02:30 [place] Rods Not Reportable 09/01/20 02:30 Platelet Estimate Consistent w auto 09/01/20 02:30 Clumped Platelets Not Reportable 09/01/20 02:30 Plt Clumps, EDTA Not Reportable 09/01/20 02:30 Large Platelets Not Reportable 09/01/20 02:30 Giant Platelets Not Reportable 09/01/20 02:30 Platelet Satelliting Not Reportable 09/01/20 02:30 Plt Morphology Comment Not Reportable 09/01/20 02:30 RBC Morphology Not Reportable 09/01/20 02:30 Dimorphic RBCs Not Reportable 09/01/20 02:30 Polychromasia Not Reportable 09/01/20 02:30 Hypochromasia Not Reportable 09/01/20 02:30 Poikilocytosis Not Reportable 09/01/20 02:30 Anisocytosis Not Reportable 09/01/20 02:30 Microcytosis Not Reportable 09/01/20 02:30 Macrocytosis Not Reportable 09/01/20 02:30 Spherocytes Not Reportable 09/01/20 02:30 Pappenheimer Bodies Not Reportable 09/01/20 02:30 Sickle Cells Not Reportable 09/01/20 02:30 Target Cells Not Reportable 09/01/20 02:30 Tear Drop Cells Not Reportable 09/01/20 02:30 Ovalocytes Not Reportable 09/01/20 02:30 Helmet Cells Not Reportable 09/01/20 02:30 Fernandez-Keenes Bodies Not Reportable 09/01/20 02:30 Elk Rings Not Reportable 09/01/20 02:30 Chrisney Cells Not Reportable 09/01/20 02:30 Bite Cells Not Reportable 09/01/20 02:30 Crenated Cell Not Reportable 09/01/20 02:30 Elliptocytes Not Reportable 09/01/20 02:30 Acanthocytes (Spur) Not Reportable 09/01/20 02:30 Rouleaux Not Reportable 09/01/20 02:30 Hemoglobin C Crystals Not Reportable 09/01/20 02:30 Schistocytes Not Reportable 09/01/20 02:30 Malaria parasites Not Reportable 09/01/20 02:30 Quinton Bodies Not Reportable 09/01/20 02:30 Hem Pathologist Commnt No 09/01/20 02:30 ABG pH 7.452 pH Units (7.350-7.450) H 09/02/20 05:20 POC ABG pCO2 36.5 mmHg (32.0-48.0) 09/01/20 14:42 ABG pCO2 34.7 mm Hg 09/02/20 05:20 POC ABG pO2 182.2 mmHg (83-108) H 09/01/20 14:42 ABG pO2 270.7 mm Hg (80.0-90.0) H 09/02/20 05:20 POC ABG HCO3 23.8 09/01/20 14:42 ABG HCO3 23.7 mmol/L (20.0-26.0) 09/02/20 05:20 ABG O2 Saturation 99.5 % (95.0-99.0) H 09/02/20 05:20 ABG O2 Content 20.6 (0.0-44) 09/02/20 05:20 POC ABG Base Excess 0 09/01/20 14:42 ABG Base Excess 0.3 mmol/L (-2.0-3.0) 09/02/20 05:20 ABG Hemoglobin 14.5 gm/dl (12.0-16.0) 09/02/20 05:20 ABG Carboxyhemoglobin 1.3 % (0.0-5.0) 09/02/20 05:20 ABG Methemoglobin 0.4 % (0.0-1.5) 09/02/20 05:20 ABG Sodium 133.4 mmol/L (136.0-145.0) L 09/01/20 14:42 ABG Potassium 3.9 mmol/L (3.40-4.50) 09/01/20 14:42 ABG Chloride 100.0 mmol/L (98-107) 09/01/20 14:42 ABG Glucose 132 mg/dL (65-95) H 09/01/20 14:42 Oxyhemoglobin 97.7 % (95.0-99.0) 09/02/20 05:20 FiO2 50 % 09/02/20 05:20 Sodium 139 mmol/L (137-145) 09/02/20 05:15 Potassium 4.4 mmol/L (3.6-5.0) 09/02/20 05:15 Chloride 101.2 mmol/L (98-107) 09/02/20 05:15 Carbon Dioxide 24 mmol/L (22-30) 09/02/20 05:15 Anion Gap 18 mmol/L 09/02/20 05:15 BUN 18 mg/dL (7-17) H 09/02/20 05:15 Creatinine 1.0 mg/dL (0.6-1.2) 09/02/20 05:15 Estimated GFR 56 ml/min 09/02/20 05:15 BUN/Creatinine Ratio 18 % 09/02/20 05:15 Glucose 93 mg/dL (65-100) 09/02/20 05:15 POC Glucose 79 (70-105) 09/02/20 05:41 Calcium 8.5 mg/dL (8.4-10.2) D 09/02/20 05:15 Phosphorus 5.40 mg/dL (2.5-4.5) H 09/01/20 15:22 Magnesium 1.90 mg/dL (1.7-2.3) 09/01/20 15:22 Total Bilirubin 0.40 mg/dL (0.1-1.2) 09/01/20 02:30 AST 18 units/L (5-40) 09/01/20 02:30 ALT 18 units/L (7-56) 09/01/20 02:30 Alkaline Phosphatase 78 units/L (35-129) 09/01/20 02:30 Total Protein 8.6 g/dL (6.3-8.2) H 09/01/20 02:30 Albumin 4.0 g/dL (3.9-5) 09/01/20 02:30 Albumin/Globulin Ratio 0.9 % 09/01/20 02:30 Lipase 24 units/L (13-60) 09/01/20 02:30 Arterial Blood Glucose 132 mg/dL (65-95) H 09/01/20 14:42 Arterial Blood Ionized Calcium 4.7 mg/dL (4.6-5.3) 09/01/20 14:42 Urine Color Yellow (Yellow) 09/01/20 02:26 Urine Turbidity Clear (Clear) 09/01/20 02:26 Urine pH 6.0 (5.0-7.0) 09/01/20 02:26 Ur Specific Cammal 1.023 (1.003-1.030) 09/01/20 02:26 Urine Protein 30 mg/dl mg/dL (Negative) 09/01/20 02:26 Urine Glucose (UA) Neg mg/dL (Negative) 09/01/20 02:26 Urine Ketones Neg mg/dL (Negative) 09/01/20 02:26 Urine Blood Neg (Negative) 09/01/20 02:26 Urine Nitrite Neg (Negative) 09/01/20 02:26 Urine Bilirubin Neg (Negative) 09/01/20 02:26 Urine Urobilinogen 4.0 mg/dL (<2.0) 09/01/20 02:26 Ur Leukocyte Esterase Tr (Negative) 09/01/20 02:26 Urine WBC (Auto) 5.0 /HPF (0.0-6.0) 09/01/20 02:26 Urine RBC (Auto) 4.0 /HPF (0.0-6.0) 09/01/20 02:26 U Epithel Cells (Auto) 3.0 /HPF (0-13.0) 09/01/20 02:26 Urine Mucus 1+ /HPF 09/01/20 02:26 Carey/IV: Voiding Method Indwelling Catheter IV Catheter Type [Left Peripheral IV Antecubital] IV Catheter Type [Left Forearm Peripheral IV ] IV Catheter Type [Left Hand] INT / Saline Lock Active Medications - Current Medications Current Medications: Generic Name Dose Route Start Last Admin Trade Name Freq PRN Reason Stop Dose Admin Enoxaparin Sodium 40 mg 09/01/20 10:00 09/02/20 09:27 Enoxaparin SUB-Q 40 mg QDAY JAIME Administration Fentanyl 50 mcg 09/01/20 14:47 Sublimaze IV Q10MIN PRN ANALGESIA Hydromorphone HCl 0.5 mg 09/01/20 14:35 09/01/20 14:50 Dilaudid IV 0.5 mg Q10MIN PRN Administration Pain , Severe (7-10) Hydrophilic Ointment 1 applic 09/01/20 14:47 Vaseline Lip Therapy TP Q2H PRN Dry Lips Sodium Chloride 1,000 mls @ 75 mls/hr 09/01/20 09:30 09/01/20 20:11 Nacl 0.9% 1000 Ml IV 75 mls/hr DIRECT JAIME Administration Fentanyl Citrate 2,000 mcg in 100 mls @ 4.309 mls/hr 09/01/20 15:00 Fentanyl Drip Premix IV TITR JAIME Protocol 1 MCG/KG/HR Metronidazole 500 mg in 100 mls @ 100 mls/hr 09/01/20 16:00 09/02/20 08:30 Flagyl 500 Mg/100 Ml IV 100 mls/hr Q8H JAIME Administration Protocol Levofloxacin/Dextrose 250 mg in 50 mls @ 100 mls/hr 09/02/20 17:00 Levaquin 250mg/50ml IV Q24H JAIME Fluconazole 200 mg in 100 mls @ 100 mls/hr 09/02/20 17:00 Diflucan IV Q24H JAIME Protocol Pantoprazole Sodium 80 mg/ 100 mls @ 10 mls/hr 09/01/20 22:00 09/02/20 07:12 Sodium Chloride IV 8 mg/hr DIRECT JAIME 10 mls/hr Administration 8 MG/HR Morphine Sulfate 2 mg 09/01/20 09:21 09/01/20 23:55 Morphine IV 2 mg Q4H PRN Administration Pain, Moderate (4-6) Multi-Ingred Cream/Lotion/Oil/Oint 1 applic 09/01/20 14:47 Artificial Tears Ophth Oint OU Q4H PRN Dry Eye(s) Sodium Chloride 10 ml 09/01/20 10:00 09/02/20 09:28 Sodium Chloride Flush Syringe 10 Ml IV 10 ml BID JAIME Administration Sodium Chloride 10 ml 09/01/20 09:21 Sodium Chloride Flush Syringe 10 Ml IV PRN PRN LINE FLUSH
--- NOTE | 2020-09-02 09:55 | XRay Report ---
CHEST 1 VIEW, 09/02/2020 9:06 AM CLINICAL INFORMATION/INDICATION: Respiratory failure COMPARISON: Chest radiograph, 09/01/2020 at 3:14 PM FINDINGS: SUPPORT DEVICES: The endotracheal tube and esophagogastric tube project in stable position. HEART: The cardiac silhouette is normal in size. LUNGS/PLEURA: No focal airspace consolidation or pneumothorax is visualized. ADDITIONAL FINDINGS: No additional acute findings. IMPRESSION: 1. Stable appearance of the chest. Signer Name: Bhakti Jean MD Signed: 09/02/2020 9:51 AM Workstation Name: [id number]
--- NOTE | 2020-09-02 12:41 | Progress Note ---
Assessment and Plan s/p Ex alp with oversew perforated duodenal ulcer--- appreciate ICU/hosp care Cont NGT/drain/NPO/TPN Abx/anti-fungals Protonix drip Doing well overall- hopefully extubate today Rec GI consult to meet pt for f/u as outpt for EGD/etc Subjective Date of service: 09/02/20 Patient Reports: Positive: no new complaints (pt intubated but awake/alert/appropriate-- comm by writing pad) Objective Vital Signs - 12hr 09/02/20 09/02/20 09/02/20 01:00 01:30 02:00 Temperature Pulse Rate 72 68 74 Pulse Rate [ From Monitor] Respiratory 17 18 19 Rate Blood Pressure 108/58 119/58 121/65 O2 Sat by Pulse 89 87 89 Oximetry 09/02/20 09/02/20 09/02/20 02:30 03:00 03:30 Temperature Pulse Rate 103 H 80 82 Pulse Rate [ From Monitor] Respiratory 21 18 21 Rate Blood Pressure 121/65 103/67 123/72 O2 Sat by Pulse 93 90 93 Oximetry 09/02/20 09/02/20 09/02/20 04:00 04:30 05:00 Temperature 99.7 F H Pulse Rate 79 79 71 Pulse Rate [ 71 From Monitor] Respiratory 21 20 19 Rate Blood Pressure 123/72 128/67 129/69 O2 Sat by Pulse 94 94 91 Oximetry 09/02/20 09/02/20 09/02/20 05:30 06:00 06:30 Temperature Pulse Rate 80 81 79 Pulse Rate [ From Monitor] Respiratory 23 18 19 Rate Blood Pressure 121/64 131/74 132/73 O2 Sat by Pulse 85 88 87 Oximetry 09/02/20 09/02/20 09/02/20 07:00 07:30 07:37 Temperature Pulse Rate 76 74 73 Pulse Rate [ From Monitor] Respiratory 24 21 Rate Blood Pressure 127/69 134/73 134/73 O2 Sat by Pulse 88 88 95 Oximetry 09/02/20 09/02/20 09/02/20 07:41 08:00 08:30 Temperature 98.7 F Pulse Rate 79 76 74 Pulse Rate [ From Monitor] Respiratory 26 H 22 23 Rate Blood Pressure 134/73 142/73 134/76 O2 Sat by Pulse 94 85 87 Oximetry 09/02/20 09/02/20 09/02/20 09:00 09:30 10:00 Temperature Pulse Rate 73 72 80 Pulse Rate [ From Monitor] Respiratory 21 24 25 H Rate Blood Pressure 139/73 137/71 142/74 O2 Sat by Pulse 84 86 85 Oximetry 09/02/20 09/02/20 09/02/20 10:30 11:00 11:30 Temperature Pulse Rate 80 71 77 Pulse Rate [ From Monitor] Respiratory 26 H 22 26 H Rate Blood Pressure 137/71 151/82 155/83 O2 Sat by Pulse 93 90 92 Oximetry 09/02/20 09/02/20 11:34 12:00 Temperature Pulse Rate 78 77 Pulse Rate [ From Monitor] Respiratory 27 H 22 Rate Blood Pressure 155/83 147/74 O2 Sat by Pulse 95 84 Oximetry - Abdomen soft, tender, bowel sounds hypoactive (drain- serosang; approp TTP) - Labs 09/02/20 08:40 09/02/20 05:15 Diabetes panel 09/02/20 Range/Units 05:15 Sodium 139 (137-145) mmol/L Potassium 4.4 (3.6-5.0) mmol/L Chloride 101.2 (98-107) mmol/L Carbon Dioxide 24 (22-30) mmol/L BUN 18 H (7-17) mg/dL Creatinine 1.0 (0.6-1.2) mg/dL Glucose 93 (65-100) mg/dL Calcium 8.5 D (8.4-10.2) mg/dL Calcium panel 09/01/20 09/02/20 Range/Units 15:22 05:15 Calcium 8.5 D (8.4-10.2) mg/dL Phosphorus 5.40 H (2.5-4.5) mg/dL Pituitary panel 09/02/20 Range/Units 05:15 Sodium 139 (137-145) mmol/L Potassium 4.4 (3.6-5.0) mmol/L Chloride 101.2 (98-107) mmol/L Carbon Dioxide 24 (22-30) mmol/L BUN 18 H (7-17) mg/dL Creatinine 1.0 (0.6-1.2) mg/dL Glucose 93 (65-100) mg/dL Calcium 8.5 D (8.4-10.2) mg/dL Adrenal panel 09/02/20 Range/Units 05:15 Sodium 139 (137-145) mmol/L Potassium 4.4 (3.6-5.0) mmol/L Chloride 101.2 (98-107) mmol/L Carbon Dioxide 24 (22-30) mmol/L BUN 18 H (7-17) mg/dL Creatinine 1.0 (0.6-1.2) mg/dL Glucose 93 (65-100) mg/dL Calcium 8.5 D (8.4-10.2) mg/dL
--- NOTE | 2020-09-02 13:51 | Consultation ---
History of Present Illness - Reason for Consult Consult date: 09/02/20 Sepsis Requesting physician: MARYELLEN DENNISON - History of Present Illness The patient is a 55-year-old female with a recent diagnosis of breast cancer undergoing work-up was admitted to the hospital with abdominal pain. CT scan of her abdomen and pelvis revealed a perforated gastric ulcer with pneumoperitoneum. She was seen by general surgery and on 09/01/2020, underwent an exploratory laparotomy and was found to have a perforated duodenal ulcer which was repaired. She is currently intubated, afebrile. In ICU. Infectious diseases was consulted for sepsis. Review of Systems: Limited due to vent. Past History Past Medical History: COPD, other (Newly diagnosed breast cancer). denies: acute [place], heart failure Past Surgical History: No surgical history Social history: no significant social history, smoking Family history: no significant family history Medications and Allergies Allergies Allergy/AdvReac Type Severity Reaction Status Date / Time No Known Allergies Allergy Unverified 09/01/20 02:26 Active Meds: Active Medications Enoxaparin Sodium (Enoxaparin) 40 mg SUB-Q QDAY [facility] Last Admin: 09/02/20 09:27 Dose: 40 mg Documented by: Fentanyl (Sublimaze) 50 mcg IV Q10MIN PRN PRN Reason: ANALGESIA Hydromorphone HCl (Dilaudid) 0.5 mg IV Q10MIN PRN PRN Reason: Pain , Severe (7-10) Last Admin: 09/01/20 14:50 Dose: 0.5 mg Documented by: Hydrophilic Ointment (Vaseline Lip Therapy) 1 applic TP Q2H PRN PRN Reason: Dry Lips Sodium Chloride (Nacl 0.9% 1000 Ml) 1,000 mls @ 75 mls/hr IV DIRECT JAIME Stop: 09/02/20 20:00 Last Admin: 09/01/20 20:11 Dose: 75 mls/hr Documented by: Fentanyl Citrate (Fentanyl Drip Premix) 2,000 mcg in 100 mls @ 4.309 mls/hr IV TITR JAIME; Protocol Metronidazole (Flagyl 500 Mg/100 Ml) 500 mg in 100 mls @ 100 mls/hr IV Q8H JAIME; Protocol Last Admin: 09/02/20 08:30 Dose: 100 mls/hr Documented by: Levofloxacin/Dextrose (Levaquin 250mg/50ml) 250 mg in 50 mls @ 100 mls/hr IV Q24H JAIME Fluconazole (Diflucan) 200 mg in 100 mls @ 100 mls/hr IV Q24H JAIME; Protocol Pantoprazole Sodium 80 mg/ (Sodium Chloride) 100 mls @ 10 mls/hr IV DIRECT JAIME Last Admin: 09/02/20 07:12 Dose: 8 mg/hr, 10 mls/hr Documented by: Amino Acids/Electrolytes/Dextrose (Tpn Adult) 2,016 mls @ 84 mls/hr IV DA AIME@1999 JAIME; Protocol Stop: 09/03/20 19:59 Morphine Sulfate (Morphine) 2 mg IV Q4H PRN PRN Reason: Pain, Moderate (4-6) Last Admin: 09/01/20 23:55 Dose: 2 mg Documented by: Multi-Ingred Cream/Lotion/Oil/Oint (Artificial Tears Ophth Oint) 1 applic OU Q4H PRN PRN Reason: Dry Eye(s) Sodium Chloride (Sodium Chloride Flush Syringe 10 Ml) 10 ml IV BID JAIME Last Admin: 09/02/20 09:28 Dose: 10 ml Documented by: Sodium Chloride (Sodium Chloride Flush Syringe 10 Ml) 10 ml IV PRN PRN PRN Reason: LINE FLUSH Physical Examination - Physical Exam Narrative exam: Physical Exam: Constitutional: Awake, intubated, on the vent Head, Ears, Nose: Normocephalic, atraumatic. External ears, nose normal Eyes: Conjunctivae/corneas clear. No icterus. No ptosis. Neck: intubated Oral: intubated Cardiovascular: S1, S2 + Respiratory: AE fair bilaterally and equal GI: Soft, bowel sounds hypoactive Musculoskeletal: No pedal edema, no cyanosis. Skin: No rash or abscess Hem/Lymphatic: No palpable cervical or supraclavicular nodes. No lymphangitis Psych: no agitation Neurological: Awake, intubated, on the vent, exam limited - Constitutional Vitals: Vital Signs Temp Pulse Resp BP Pulse Ox 99.3 F 77 22 147/74 84 09/02/20 12:00 09/02/20 12:00 09/02/20 12:00 09/02/20 12:00 09/02/20 12:00 Temperature -Last 24 Hours Temperature 99.3 F Temperature 98.7 F Temperature 99.7 F Temperature 98.8 F Temperature 98.0 F Temperature 97.9 F Temperature 97.6 F Temperature 97.4 F Results - Labs CBC & Chem 7: 09/02/20 08:40 09/02/20 05:15 Labs: Abnormal lab results 09/01/20 09/01/20 09/02/20 Range/Units 14:42 15:22 05:15 WBC (4.5-11.0) K/mm3 Lymph % (Auto) (13.4-35.0) % Lymph # (Auto) (1.2-5.4) K/mm3 [place] # (Auto) (0.0-0.8) K/mm3 Seg Neutrophils % (40.0-70.0) % Seg Neutrophils # (1.8-7.7) K/mm3 ABG pH (7.350-7.450) pH Units POC ABG pO2 182.2 H (83-108) mmHg ABG pO2 (80.0-90.0) mm Hg ABG O2 Saturation (95.0-99.0) % ABG Sodium 133.4 L (136.0-145.0) mmol/L ABG Glucose 132 H (65-95) mg/dL BUN 18 H (7-17) mg/dL Phosphorus 5.40 H (2.5-4.5) mg/dL Arterial Blood Glucose 132 H (65-95) mg/dL 09/02/20 09/02/20 09/02/20 Range/Units 05:20 08:40 11:24 WBC 18.2 H (4.5-11.0) K/mm3 Lymph % (Auto) 4.0 L (13.4-35.0) % Lymph # (Auto) 0.7 L (1.2-5.4) K/mm3 [place] # (Auto) 1.1 H (0.0-0.8) K/mm3 Seg Neutrophils % 89.8 H (40.0-70.0) % Seg Neutrophils # 16.3 H (1.8-7.7) K/mm3 ABG pH 7.452 H (7.350-7.450) pH Units POC ABG pO2 75.5 L (83-108) mmHg ABG pO2 270.7 H (80.0-90.0) mm Hg ABG O2 Saturation 99.5 H (95.0-99.0) % ABG Sodium 134.2 L (136.0-145.0) mmol/L ABG Glucose (65-95) mg/dL BUN (7-17) mg/dL Phosphorus (2.5-4.5) mg/dL Arterial Blood Glucose (65-95) mg/dL - Imaging and Cardiology Chest x-ray: report reviewed, image reviewed (ET tube +. No pneumonia) Assessment and Plan Cultures: None A/P: 55-year-old female with a recent diagnosis of breast cancer undergoing work-up was admitted to the hospital with abdominal pain: #Sepsis, secondary to perforated duodenal ulcer: Status post exploratory laparotomy and repair by Dr. Vargas on 09/01/2020. Recs: IV Ceftriaxone, Flagyl and fluconazole Bobbi Samaniego MD, FACP [facility] O: [phone] F: [phone]
[2020-09-02] MEDS: cefTRIAXone/NS 2 GM/100 ML 2 GM/100 ML BAG IV SCH (14:14)
[2020-09-02] MEDS: MORPHINE 2 MG/1 ML INJ IV PRN ×2 (15:12→23:44)
[2020-09-02] MEDS: SODIUM CHLORIDE 0.9% 1000 ML 1,000 ML IV SCH (15:13)
--- NOTE | 2020-09-02 16:08 | Progress Note ---
Assessment and Plan Acute hypoxemic respiratory failure, now on mechanical ventilatory support. Perforated gastric ulcer with pneumoperitoneum, status post exploratory laparotomy. Breast cancer, possibly metastatic with right axillary lymphadenopathy. Bilateral adrenal enlargement. Oropharyngeal dysphagia. Tobacco use disorder. Leukocytosis. Hemoconcentration. Mild hyponatremia. Hyperglycemia. Right upper extremity swelling. - continue Daily SAT and SBT assessment as tolerated (tentative extubation today if passes SBT) - continue accuchecks with glycemic control per SSI (While critically ill target blood glucose of 140-180 mg/dL; avoid hypoglycemia) - sedation prn for target RASS 0 to -1 - continue to wean supplemental oxygen for target O2 sat's > 90% acutely - VAP bundle addressed - continue lung protective strategies - continue bronchodilators with pulmonary hygiene per RT - wean per pulmonary driven protocols otherwise - avoid nephrotoxins, renally dose all medications - continue to avoid benzodiazepine's, reduce the possibility of delirium - AB's per ID rec's - prn analgesia per CPOT score - Maintenance of sleep-wake cycle, avoid delirium - enteral nutritional support at goal rate as tolerated (NPO till cleared by surgery) - G.I. & VTE prophylaxis - PT/OT/ROM exercises - continue mobility protocols for pressure ulcer prophylaxis - Monitor hemodynamics closely - continue other care per attending / other consultants - discharge planning ongoing concurrently .... Re-evaluate in am & prn CONDITION: CRITICAL PROGNOSIS: GUARDED CODE STATUS: FULL CODE The high probability of a clinically significant, sudden or life-threatening deterioration of the [respiratory, cardiovascular, GI & neurologic] system(s) required my full and direct attention, intervention and personal management. The aggregate critical care time was [35] minutes without overlap. Time includes spent on; [x] Data Review and interpretation [x] Patient assessment and monitoring of vital signs [x] Documentation [x] Medication orders and management Subjective Date of service: 09/02/20 Principal diagnosis: Ac hypoxemic resp failure; Perforated gastric ulcer; pne umoperitoneum Interval history: Patient is seen today for: Acute hypoxemic respiratory failure; Perforated gastric; pneumoperitoneum; Breast cancer; Oropharyngeal dysphagia; Tobacco use disorder; Leukocytosis. Seen and examined at bedside; 24hour events reviewed; nursing and respiratory care staff consulted; no adverse overnight events reported to me; resting peacefully in bed; on SBT and tolerating very well; alert; No N/V/F/C; denies acute chest or abdominal pain Objective Vital Signs - 12hr 09/02/20 09/02/20 09/02/20 04:30 05:00 05:30 Temperature Pulse Rate 79 71 80 Respiratory 20 19 23 Rate Blood Pressure 128/67 129/69 121/64 O2 Sat by Pulse 94 91 85 Oximetry 09/02/20 09/02/20 09/02/20 06:00 06:30 07:00 Temperature Pulse Rate 81 79 76 Respiratory 18 19 24 Rate Blood Pressure 131/74 132/73 127/69 O2 Sat by Pulse 88 87 88 Oximetry 09/02/20 09/02/20 09/02/20 07:30 07:37 07:41 Temperature Pulse Rate 74 73 79 Respiratory 21 26 H Rate Blood Pressure 134/73 134/73 134/73 O2 Sat by Pulse 88 95 94 Oximetry 09/02/20 09/02/20 09/02/20 08:00 08:30 09:00 Temperature 98.7 F Pulse Rate 76 74 73 Respiratory 22 23 21 Rate Blood Pressure 142/73 134/76 139/73 O2 Sat by Pulse 85 87 84 Oximetry 09/02/20 09/02/20 09/02/20 09:30 10:00 10:30 Temperature Pulse Rate 72 80 80 Respiratory 24 25 H 26 H Rate Blood Pressure 137/71 142/74 137/71 O2 Sat by Pulse 86 85 93 Oximetry 09/02/20 09/02/20 09/02/20 11:00 11:30 11:34 Temperature Pulse Rate 71 77 78 Respiratory 22 26 H 27 H Rate Blood Pressure 151/82 155/83 155/83 O2 Sat by Pulse 90 92 95 Oximetry 09/02/20 09/02/20 12:00 14:45 Temperature 99.3 F Pulse Rate 77 Respiratory 22 Rate Blood Pressure 147/74 O2 Sat by Pulse 84 95 Oximetry Constitutional: no acute distress, other (elderly female with normal respiratory effort at rest on MVS) Eyes: non-icteric ENT: oropharynx moist, other (ETT 23 cm NATASHA) Effort: normal Ascultation: Bilateral: diminished breath sounds, rhonchi (scant in bases) Percussion: Bilateral: not dull Cardiovascular: regular rate and rhythm Gastrointestinal: hypoactive bowel sounds, soft, non-tender, non-distended (protuberant) Integumentary: normal, other (post-op changes) Extremities: no cyanosis, pink and warm, pulses normal, edema (trace) Neurologic: normal mental status, non-focal exam, pupils equal and round, motor strength normal and Psychiatric: mood appropriate, affect normal CBC and BMP: 09/02/20 08:40 09/02/20 05:15 ABG, PT/INR, D-dimer: ABG ABG pH 7.412 (7.320-7.450) 09/02/20 11:24 POC ABG pCO2 39.8 mmHg (32.0-48.0) 09/02/20 11:24 ABG pCO2 34.7 mm Hg 09/02/20 05:20 POC ABG pO2 75.5 mmHg (83-108) L 09/02/20 11:24 ABG pO2 270.7 mm Hg (80.0-90.0) H 09/02/20 05:20 POC ABG HCO3 24.8 09/02/20 11:24 ABG O2 Saturation 99.5 % (95.0-99.0) H 09/02/20 05:20 Abnormal lab findings: Abnormal Labs 09/01/20 09/01/20 09/01/20 02:30 02:30 14:42 WBC 21.0 H RBC 5.49 H Hgb 16.3 H Hct 48.5 H Lymph % (Auto) Lymph # (Auto) [place] # (Auto) Seg Neutrophils % Seg Neuts % (Manual) 90.0 H Lymphocytes % (Manual) 4.0 L Seg Neutrophils # Seg Neutrophils # Man 18.9 H Lymphocytes # (Manual) 0.8 L ABG pH POC ABG pO2 182.2 H ABG pO2 ABG O2 Saturation ABG Sodium 133.4 L ABG Glucose 132 H Sodium 134 L Chloride 89.2 L BUN 20 H Glucose 190 H Calcium 10.5 H Phosphorus Total Protein 8.6 H Arterial Blood Glucose 132 H 09/01/20 09/02/20 09/02/20 15:22 05:15 05:20 WBC RBC Hgb Hct Lymph % (Auto) Lymph # (Auto) [place] # (Auto) Seg Neutrophils % Seg Neuts % (Manual) Lymphocytes % (Manual) Seg Neutrophils # Seg Neutrophils # Man Lymphocytes # (Manual) ABG pH 7.452 H POC ABG pO2 ABG pO2 270.7 H ABG O2 Saturation 99.5 H ABG Sodium ABG Glucose Sodium Chloride BUN 18 H Glucose Calcium Phosphorus 5.40 H Total Protein Arterial Blood Glucose 09/02/20 09/02/20 08:40 11:24 WBC 18.2 H RBC Hgb Hct Lymph % (Auto) 4.0 L Lymph # (Auto) 0.[address] [place] # (Auto) 1.1 H Seg Neutrophils % 89.8 H Seg Neuts % (Manual) Lymphocytes % (Manual) Seg Neutrophils # 16.3 H Seg Neutrophils # Man Lymphocytes # (Manual) ABG pH POC ABG pO2 75.5 L ABG pO2 ABG O2 Saturation ABG Sodium 134.2 L ABG Glucose Sodium Chloride BUN Glucose Calcium Phosphorus Total Protein Arterial Blood Glucose Chest x-ray: image reviewed Allied health notes reviewed: nursing
[2020-09-02] MEDS: FLUCONAZOLE 200 MG 200 MG/100 ML BAG IV SCH (16:58)
[2020-09-02] MEDS ORDERED: DEXTROSE 50% IN WATER (25GM) 50 ML SYRINGE IV PRN (18:38)
[2020-09-02] MEDS ORDERED: TOTAL PARENTERAL NUTRITION 2,016 ML IV SCH (20:00)
[2020-09-02] MEDS ORDERED: cloNIDine TTS 0.2 MG/24 HR PATCH TD SCH (22:00)
--- NOTE | 2020-09-03 03:58 | XRay Report ---
CHEST 1 VIEW INDICATION: follow up respiratory failure COMPARISON: One day prior. FINDINGS: Support devices: Unchanged. Heart: Normal and unchanged Lungs/Pleura: Slight parenchymal density in the left base, probably atelectasis, is unchanged. No new disease. IMPRESSION: 1. No significant change. Signer Name: Nishant Bush MD Signed: 09/03/2020 3:54 AM Workstation Name: [id number]
[2020-09-03] MEDS: PANTOPRAZOLE 80 MG in SODIUM CHLORIDE 0.9% 100 ML IV SCH (04:45)
[2020-09-03 05:32] LABS: Hematocrit 42.8 % (30.3-42.9); Hemoglobin 14.4 gm/dl (10.1-14.3); Mean Corpuscular HGB Conc 34 % (30-34); Mean Corpuscular Volume 89 fl (79-97); Platelet Count 202 K/mm3 (140-440); Red Cell Distribution Width 15.2 % (13.2-15.2)
[2020-09-03 05:49] LABS: BUN/Creatinine Ratio 29; Blood Urea Nitrogen 23 mg/dL (7-17); Calcium 9.1 mg/dL (8.4-10.2); Hemolysis Index 3
[2020-09-03] MEDS: metroNIDAZOLE/NS 500 MG/100 ML 500 MG/100 ML BAG IV SCH ×2 (09:26→15:44)
[2020-09-03 09:51] LABS: Band Neutrophils # (Manual) 0.2 K/mm3; Basophils % (Manual) 0 % (0.0-1.8); Eosinophils % (Manual) 0 % (0.0-4.3); Platelet Estimate Consistent w Auto; RBC Morphology Normal; Total Cells Counted 100
--- NOTE | 2020-09-03 10:16 | Progress Note ---
Assessment and Plan Assessment and plan: Perforated gastric ulcer with pneumoperitoneum. Surgery has been consulted and awaiting evaluation. Continue n.p.o. status. IV fluid hydration. Patient will likely need TPN. Sepsis. Present on admission. Etiology secondary to intra-abdominal source secondary to above. Continue antibiotics. Metastatic breast cancer. Continue supportive care Right upper extremity edema. Etiology likely secondary to occluded lymphatics from breast CA. Right upper extremity ultrasound to rule out DVT given history of cancer. 09/02/2020. Patient s/p exploratory laparotomy for repair of perforated viscus. Continue IV anti-infectives of Diflucan, Levaquin and Flagyl. Patient currently intubated postoperatively with PSVT FiO2 40% pressure support 10 and PEEP of 6. Extubate per pulmonary. Initiate TPN. 09/03/2020. Patient s/p exploratory laparotomy for repair of perforated duodenal ulcer. Continue IV ceftriaxone, Flagyl and fluconazole per ID recommendations. TPN has been initiated. Patient is extubated and stable. We will transfer to the floor. The high probability of a clinically significant, sudden or life threatening deterioration of the [respiratory and GI] system(s) required my full and direct attention, intervention and personal management. The aggregate critical care time was [32] minutes. This time is in addition to time spent performing reported procedures but includes the following: [x] Data Review and interpretation [x] Patient assessment and monitoring of vital signs [x] Documentation [x] Medication orders and management History Interval history: No new issues overnight. Hospitalist Physical - Constitutional Vitals: Temp Pulse Resp BP Pulse Ox 97.5 F L 72 23 185/98 96 09/03/20 08:00 09/03/20 09:00 09/03/20 09:00 09/03/20 09:00 09/03/20 09:00 General appearance: Present: no acute distress, well-nourished - EENT Eyes: Present: PERRL, EOM intact ENT: hearing intact, clear oral mucosa, dentition normal - Neck Neck: Present: supple, normal ROM - Respiratory Respiratory effort: normal Respiratory: bilateral: CTA - Cardiovascular Rhythm: regular Heart Sounds: Present: S1 & S2. Absent: gallop, rub - Extremities Extremities: no ischemia, No edema, Full ROM - Abdominal General gastrointestinal: soft, non-tender, non-distended, normal bowel sounds - Integumentary Integumentary: Present: clear, warm, dry - Neurologic Neurologic: CNII-XII intact, moves all extremities Results - Labs CBC & Chem 7: 09/03/20 04:00 09/03/20 04:00 Labs: Laboratory Last Values WBC 19.1 K/mm3 (4.5-11.0) H 09/03/20 04:00 RBC 4.80 M/mm3 (3.65-5.03) 09/03/20 04:00 Hgb 14.4 gm/dl (10.1-14.3) H 09/03/20 04:00 Hct 42.8 % (30.3-42.9) 09/03/20 04:00 MCV 89 fl (79-97) 09/03/20 04:00 MCH 30 pg (28-32) 09/03/20 04:00 MCHC 34 % (30-34) 09/03/20 04:00 RDW 15.2 % (13.2-15.2) 09/03/20 04:00 Plt Count 202 K/mm3 (140-440) 09/03/20 04:00 Lymph % (Auto) 4.0 % (13.4-35.0) L 09/02/20 08:40 [place] % (Auto) 6.1 % (0.0-7.3) 09/02/20 08:40 Eos % (Auto) 0.0 % (0.0-4.3) 09/02/20 08:40 Baso % (Auto) 0.1 % (0.0-1.8) 09/02/20 08:40 Lymph # (Auto) 0.7 K/mm3 (1.2-5.4) L 09/02/20 08:40 [place] # (Auto) 1.1 K/mm3 (0.0-0.8) H 09/02/20 08:40 Eos # (Auto) 0.0 K/mm3 (0.0-0.4) 09/02/20 08:40 Baso # (Auto) 0.0 K/mm3 (0.0-0.1) 09/02/20 08:40 Add Manual Diff Complete 09/03/20 04:00 Total Counted 100 09/03/20 04:00 Seg Neutrophils % [employer] 09/03/20 04:00 Seg Neuts % (Manual) 93.0 % (40.0-70.0) H 09/03/20 04:00 Band Neutrophils % 1.0 % 09/03/20 04:00 Lymphocytes % (Manual) 3.0 % (13.4-35.0) L 09/03/20 04:00 Reactive Lymphs % (Man) 0 % 09/03/20 04:00 Monocytes % (Manual) 3.0 % (0.0-7.3) 09/03/20 04:00 Eosinophils % (Manual) 0 % (0.0-4.3) 09/03/20 04:00 Basophils % (Manual) 0 % (0.0-1.8) 09/03/20 04:00 Metamyelocytes % 0 % 09/03/20 04:00 Myelocytes % 0 % 09/03/20 04:00 Promyelocytes % 0 % 09/03/20 04:00 Blast Cells % 0 % 09/03/20 04:00 Nucleated RBC % Not Reportable 09/03/20 04:00 Seg Neutrophils # 16.3 K/mm3 (1.8-7.7) H 09/02/20 08:40 Seg Neutrophils # Man 17.8 K/mm3 (1.8-7.7) H 09/03/20 04:00 Band Neutrophils # 0.2 K/mm3 09/03/20 04:00 Lymphocytes # (Manual) 0.6 K/mm3 (1.2-5.4) L 09/03/20 04:00 Abs React Lymphs (Man) 0.0 K/mm3 09/03/20 04:00 Monocytes # (Manual) 0.6 K/mm3 (0.0-0.8) 09/03/20 04:00 Eosinophils # (Manual) 0.0 K/mm3 (0.0-0.4) 09/03/20 04:00 Basophils # (Manual) 0.0 K/mm3 (0.0-0.1) 09/03/20 04:00 Metamyelocytes # 0.0 K/mm3 09/03/20 04:00 Myelocytes # 0.0 K/mm3 09/03/20 04:00 Promyelocytes # 0.0 K/mm3 09/03/20 04:00 Blast Cells # 0.0 K/mm3 09/03/20 04:00 WBC Morphology Not Reportable 09/03/20 04:00 Hypersegmented Neuts Not Reportable 09/03/20 04:00 Hyposegmented Neuts Not Reportable 09/03/20 04:00 Hypogranular Neuts Not Reportable 09/03/20 04:00 Smudge Cells Not Reportable 09/03/20 04:00 Toxic Granulation Not Reportable 09/03/20 04:00 Toxic Vacuolation Not Reportable 09/03/20 04:00 Dohle Bodies Not Reportable 09/03/20 04:00 Pelger-Huet Anomaly Not Reportable 09/03/20 04:00 [place] Rods Not Reportable 09/03/20 04:00 Platelet Estimate Consistent w auto 09/03/20 04:00 Clumped Platelets Not Reportable 09/03/20 04:00 Plt Clumps, EDTA Not Reportable 09/03/20 04:00 Large Platelets Not Reportable 09/03/20 04:00 Giant Platelets Not Reportable 09/03/20 04:00 Platelet Satelliting Not Reportable 09/03/20 04:00 Plt Morphology Comment Not Reportable 09/03/20 04:00 RBC Morphology Normal 09/03/20 04:00 Dimorphic RBCs Not Reportable 09/03/20 04:00 Polychromasia Not Reportable 09/03/20 04:00 Hypochromasia Not Reportable 09/03/20 04:00 Poikilocytosis Not Reportable 09/03/20 04:00 Anisocytosis Not Reportable 09/03/20 04:00 Microcytosis Not Reportable 09/03/20 04:00 Macrocytosis Not Reportable 09/03/20 04:00 Spherocytes Not Reportable 09/03/20 04:00 Pappenheimer Bodies Not Reportable 09/03/20 04:00 Sickle Cells Not Reportable 09/03/20 04:00 Target Cells Not Reportable 09/03/20 04:00 Tear Drop Cells Not Reportable 09/03/20 04:00 Ovalocytes Not Reportable 09/03/20 04:00 Helmet Cells Not Reportable 09/03/20 04:00 [place] Bodies Not Reportable 09/03/20 04:00 [place] Rings Not Reportable 09/03/20 04:00 [place] Cells Not Reportable 09/03/20 04:00 Bite Cells Not Reportable 09/03/20 04:00 Crenated Cell Not Reportable 09/03/20 04:00 Elliptocytes Not Reportable 09/03/20 04:00 Acanthocytes (Spur) Not Reportable 09/03/20 04:00 Rouleaux Not Reportable 09/03/20 04:00 Hemoglobin C Crystals Not Reportable 09/03/20 04:00 Schistocytes Not Reportable 09/03/20 04:00 Malaria parasites Not Reportable 09/03/20 04:00 [place] Bodies Not Reportable 09/03/20 04:00 Hem Pathologist Commnt No 09/03/20 04:00 ABG pH 7.412 (7.320-7.450) 09/02/20 11:24 POC ABG pCO2 39.8 mmHg (32.0-48.0) 09/02/20 11:24 ABG pCO2 34.7 mm Hg 09/02/20 05:20 POC ABG pO2 75.5 mmHg (83-108) L 09/02/20 11:24 ABG pO2 270.7 mm Hg (80.0-90.0) H 09/02/20 05:20 POC ABG HCO3 24.8 09/02/20 11:24 ABG HCO3 23.7 mmol/L (20.0-26.0) 09/02/20 05:20 ABG O2 Saturation 99.5 % (95.0-99.0) H 09/02/20 05:20 ABG O2 Content 20.6 (0.0-44) 09/02/20 05:20 POC ABG Base Excess 0.2 09/02/20 11:24 ABG Base Excess 0.3 mmol/L (-2.0-3.0) 09/02/20 05:20 ABG Hemoglobin 13.9 (12.0-17.5) 09/02/20 11:24 ABG Carboxyhemoglobin 1.3 % (0.0-5.0) 09/02/20 05:20 ABG Methemoglobin 0.4 % (0.0-1.5) 09/02/20 05:20 ABG Sodium 134.2 mmol/L (136.0-145.0) L 09/02/20 11:24 ABG Potassium 4.0 mmol/L (3.40-4.50) 09/02/20 11:24 ABG Chloride 103.0 mmol/L (98-107) 09/02/20 11:24 ABG Glucose 84 mg/dL (65-95) 09/02/20 11:24 Oxyhemoglobin 97.7 % (95.0-99.0) 09/02/20 05:20 FiO2 40.0 09/02/20 11:24 Sodium 139 mmol/L (137-145) 09/03/20 04:00 Potassium 3.6 mmol/L (3.6-5.0) 09/03/20 04:00 Chloride 101.4 mmol/L (98-107) 09/03/20 04:00 Carbon Dioxide 24 mmol/L (22-30) 09/03/20 04:00 Anion Gap 17 mmol/L 09/03/20 04:00 BUN 23 mg/dL (7-17) H 09/03/20 04:00 Creatinine 0.8 mg/dL (0.6-1.2) 09/03/20 04:00 Estimated GFR > 60 ml/min 09/03/20 04:00 BUN/Creatinine Ratio 29 % 09/03/20 04:00 Glucose 124 mg/dL (65-100) H 09/03/20 04:00 POC Glucose 123 (70-105) H 09/03/20 05:48 Calcium 9.1 mg/dL (8.4-10.2) 09/03/20 04:00 Phosphorus 2.80 mg/dL (2.5-4.5) D 09/03/20 04:00 Magnesium 2.00 mg/dL (1.7-2.3) 09/03/20 04:00 Total Bilirubin 0.40 mg/dL (0.1-1.2) 09/01/20 02:30 AST 18 units/L (5-40) 09/01/20 02:30 ALT 18 units/L (7-56) 09/01/20 02:30 Alkaline Phosphatase 78 units/L (35-129) 09/01/20 02:30 Total Protein 8.6 g/dL (6.3-8.2) H 09/01/20 02:30 Albumin 4.0 g/dL (3.9-5) 09/01/20 02:30 Albumin/Globulin Ratio 0.9 % 09/01/20 02:30 Lipase 24 units/L (13-60) 09/01/20 02:30 Procalcitonin 5.44 ng/mL (<0.15) 09/01/20 20:23 Arterial Blood Glucose 84 mg/dL (65-95) 09/02/20 11:24 Arterial Blood Ionized Calcium 4.7 mg/dL (4.6-5.3) 09/02/20 11:24 Urine Color Yellow (Yellow) 09/01/20 02:26 Urine Turbidity Clear (Clear) 09/01/20 02:26 Urine pH 6.0 (5.0-7.0) 09/01/20 02:26 Ur Specific [place] 1.023 (1.003-1.030) 09/01/20 02:26 Urine Protein 30 mg/dl mg/dL (Negative) 09/01/20 02:26 Urine Glucose (UA) Neg mg/dL (Negative) 09/01/20 02:26 Urine Ketones Neg mg/dL (Negative) 09/01/20 02:26 Urine Blood Neg (Negative) 09/01/20 02:26 Urine Nitrite Neg (Negative) 09/01/20 02:26 Urine Bilirubin Neg (Negative) 09/01/20 02:26 Urine Urobilinogen 4.0 mg/dL (<2.0) 09/01/20 02:26 Ur Leukocyte Esterase Tr (Negative) 09/01/20 02:26 Urine WBC (Auto) 5.0 /HPF (0.0-6.0) 09/01/20 02:26 Urine RBC (Auto) 4.0 /HPF (0.0-6.0) 09/01/20 02:26 U Epithel Cells (Auto) 3.0 /HPF (0-13.0) 09/01/20 02:26 Urine Mucus 1+ /HPF 09/01/20 02:26 Carey/IV: Voiding Method Indwelling Catheter IV Catheter Type [Left Peripheral IV Antecubital] IV Catheter Type [Left Upper PICC Line arm] IV Catheter Type [Left Forearm Peripheral IV ] IV Catheter Type [Left Hand] INT / Saline Lock Active Medications - Current Medications Current Medications: Generic Name Dose Route Start Last Admin Trade Name Freq PRN Reason Stop Dose Admin Clonidine HCl 0.2 mg 09/02/20 22:00 09/02/20 21:16 Catapres-Tts Patch TD 0.2 mg Gary JAIME Administration Dextrose 25 ml 09/02/20 18:38 09/02/20 18:50 D50w (25gm) Syringe IV 15 ml Q30MIN PRN Administration Hypoglycemia Protocol Enoxaparin Sodium 40 mg 09/01/20 10:00 09/02/20 09:27 Enoxaparin SUB-Q 40 mg QDAY JAIME Administration Fentanyl 50 mcg 09/01/20 14:47 Sublimaze IV Q10MIN PRN ANALGESIA Hydrophilic Ointment 1 applic 09/01/20 14:47 Vaseline Lip Therapy TP Q2H PRN Dry Lips Fentanyl Citrate 2,000 mcg in 100 mls @ 4.309 mls/hr 09/01/20 15:00 Fentanyl Drip Premix IV TITR JAIME Protocol 1 MCG/KG/HR Metronidazole 500 mg in 100 mls @ 100 mls/hr 09/01/20 16:00 09/03/20 09:26 Flagyl 500 Mg/100 Ml IV 100 mls/hr Q8H JAIME Administration Protocol Fluconazole 200 mg in 100 mls @ 100 mls/hr 09/02/20 17:00 09/02/20 16:58 Diflucan IV 100 mls/hr Q24H JAIME Administration Protocol Pantoprazole Sodium 80 mg/ 100 mls @ 10 mls/hr 09/01/20 22:00 09/03/20 04:45 Sodium Chloride IV 8 mg/hr DIRECT JAIME 10 mls/hr Administration 8 MG/HR Amino Acids/Electrolytes/Dextrose 2,016 mls @ 84 mls/hr 09/02/20 20:00 09/02/20 21:00 Tpn Adult IV 09/03/20 19:59 84 mls/hr DAILY@2000 JAIME Administration Protocol Ceftriaxone Sodium 2 gm in 100 mls @ 200 mls/hr 09/02/20 14:00 09/02/20 14:14 Rocephin/Ns 2 Gm/100 Ml IV 200 mls/hr Q24H JAIME Administration Protocol Labetalol HCl 10 mg 09/02/20 17:42 09/02/20 23:45 Labetalol IV 09/07/20 17:41 10 mg Q6H PRN Administration blood pressure Morphine Sulfate 2 mg 09/01/20 09:21 09/02/20 23:44 Morphine IV 2 mg Q4H PRN Administration Pain, Moderate (4-6) Multi-Ingred Cream/Lotion/Oil/Oint 1 applic 09/01/20 14:47 Artificial Tears Ophth Oint OU Q4H PRN Dry Eye(s) Sodium Chloride 10 ml 09/01/20 10:00 09/02/20 21:14 Sodium Chloride Flush Syringe 10 Ml IV 10 ml BID JAIME Administration Sodium Chloride 10 ml 09/01/20 09:21 Sodium Chloride Flush Syringe 10 Ml IV PRN PRN LINE FLUSH Nutrition/Malnutrition Assess - Dietary Evaluation Nutrition/Malnutrition Findings: Nutrition Notes Start: 09/02/20 09:42 Freq: Status: Active Protocol: Document 09/02/20 09:42 LP (Rec: 09/02/20 10:23 LP [id number]) Nutrition Notes Need for Assessment generated from: MD Order Initial or Follow up Assessment Current Diagnosis COPD Other Pertinent Diagnosis Breast Ca with Mets, Abdominal pain S/P exp lap Current Diet NPO Labs/Tests Reviewed Pertinent Medications NS at 75ml/hr Height 5 ft 11 in Weight 86.183 kg [facility] Body Weight (kg) 70.45 BMI 26.4 Weight Status Overweight Subjective/Other Information Consult for TPN. Pt on vent. Unable to obtain nutrition hx at this time. Had sudden onset of abdominal pain and had exp lap. Burn Absent Trauma Absent GI Symptoms Other Food Allergy No Current % PO Negligible Minimum of two criteria No physical signs of malnutrition #1 Nutrition Diagnosis Inadequate oral intake Etiology ARF As Evidenced by Signs and Symptoms Pt on vent unable to consume PO Is patient on ventilator? Yes Is Patient Ambulatory and/or Out of Bed No REE-([facility]-confined to bed) 5921.319 Calculation Used for Recommendations [facility] Additional Notes Protein needs are 103-172g (1. 2-2g/kg) Fluid needs are 1ml/kcal Nutrition Intervention Change Diet Order: PPN Nutrition Support: PPN at 84ml/hr: 5% dextrose, 3 .7% amino acid, 150mEq Na, 30mEq K, 5mEq Mg, 5mEq CA, 0mmol phos, Chloride:Acetate 50:50, MVI, Thiamine. Osmolality: 809 Kcal 640 Protein (gm) 75 Carbohydrates (gm) 100 Fat (gm) 0 Fluid (mL) 2,016 Fiber (gm) 0 Goal #1 Meet kcal and protein needs as best as possible via PPN Anticipated Discharge Needs: Unable to determine at this time Follow-Up By: 09/03/20 Additional Comments Labs in AM: Mg ROOPA. Sanchezs
--- NOTE | 2020-09-03 10:43 | Progress Note ---
Assessment and Plan Cultures: None A/P: 55-year-old female with a recent diagnosis of breast cancer undergoing work-up was admitted to the hospital with abdominal pain: #Sepsis, secondary to perforated duodenal ulcer: Status post exploratory laparotomy and repair by Dr. Vargas on 09/01/2020. Recs: Continue IV Ceftriaxone, Flagyl and Fluconazole, plan to stop at day 3-5 post surgical source control Drain output is serous Leucocytosis is likely reactive Bobbi Samaniego MD, FACP [facility] O: [phone] F: [phone] Subjective Date of service: 09/03/20 Principal diagnosis: Ac hypoxemic resp failure; Perforated gastric ulcer; pneumoperitoneum Interval history: No fever. Extubated. Denies any complaints. No gas or BM yet. Objective - Exam Narrative Exam: Physical Exam: Constitutional: Awake, alert, no distress Head, Ears, Nose: Normocephalic, atraumatic. External ears, nose normal Eyes: Conjunctivae/corneas clear. No icterus. No ptosis. Neck: supple, no meningeal signs Cardiovascular: S1, S2 + Respiratory: AE fair bilaterally and equal GI: Soft, bowel sounds hypoactive, drain + serous output Musculoskeletal: No pedal edema, no cyanosis. Skin: No rash or abscess Hem/Lymphatic: No palpable cervical or supraclavicular nodes. No lymphangitis Psych: no agitation Neurological: Awake, alert, answers questions - Constitutional Vitals: Vital Signs Temp Pulse Resp BP Pulse Ox 97.5 F L 72 23 185/98 96 09/03/20 08:00 09/03/20 09:00 09/03/20 09:00 09/03/20 09:00 09/03/20 09:00 Temperature -Last 24 Hours Temperature 97.5 F Temperature 97.5 F Temperature 99.0 F Temperature 98.2 F Temperature 98.8 F Temperature 98.9 F Temperature 99.3 F - Labs CBC & Chem 7: 09/03/20 04:00 09/03/20 04:00 Labs: Abnormal lab results 09/02/20 09/02/20 09/03/20 Range/Units 11:24 17:35 00:01 WBC (4.5-11.0) K/mm3 Hgb (10.1-14.3) gm/dl Seg Neuts % (Manual) (40.0-70.0) % Lymphocytes % (Manual) (13.4-35.0) % Seg Neutrophils # Man (1.8-7.7) K/mm3 Lymphocytes # (Manual) (1.2-5.4) K/mm3 POC ABG pO2 75.5 L (83-108) mmHg ABG Sodium 134.2 L (136.0-145.0) mmol/L BUN (7-17) mg/dL Glucose (65-100) mg/dL POC Glucose 68 L 114 H (70-105) 09/03/20 09/03/20 09/03/20 Range/Units 04:00 04:00 05:48 WBC 19.1 H (4.5-11.0) K/mm3 Hgb 14.4 H (10.1-14.3) gm/dl Seg Neuts % (Manual) 93.0 H (40.0-70.0) % Lymphocytes % (Manual) 3.0 L (13.4-35.0) % Seg Neutrophils # Man 17.8 H (1.8-7.7) K/mm3 Lymphocytes # (Manual) 0.6 L (1.2-5.4) K/mm3 POC ABG pO2 (83-108) mmHg ABG Sodium (136.0-145.0) mmol/L BUN 23 H (7-17) mg/dL Glucose 124 H (65-100) mg/dL POC Glucose 123 H (70-105)
--- NOTE | 2020-09-03 11:17 | Progress Note ---
Assessment and Plan Acute hypoxemic respiratory failure, s/p mechanical ventilatory support. Perforated gastric ulcer with pneumoperitoneum, status post exploratory laparotomy. Breast cancer, possibly metastatic with right axillary lymphadenopathy. Bilateral adrenal enlargement. Oropharyngeal dysphagia. Tobacco use disorder. Leukocytosis. Hemoconcentration. Mild hyponatremia. Hyperglycemia. Right upper extremity swelling. LUExt thrombus at the tip of PICC - continue to wean supplemental oxygen for target O2 sats > 90% - continue bronchodilators with pulmonary hygiene per RT -Incentive spirometry - avoid nephrotoxins, renally dose all medications - continue to avoid benzodiazepines, reduce the possibility of delirium - Antibitoics per ID recs to complete course ( Ceftriaxone, Metronidazole, Fluconazole) - prn analgesia per CPOT score - Maintenance of sleep-wake cycle, avoid delirium -TPN (NPO till cleared by surgery) - Stress ulcer prophylaxis -Therapeutic anticoagulation fro DVT. Once the TPN is stopped and PICC line is discontinued, change therapeutic anticoagulation to VTE prophylaxis dosing - PT/OT/ROM exercises - continue mobility protocols for pressure ulcer prevention -Nicotine withdrawal precautions, smoking cessation counselling - Monitor hemodynamics closely - continue other care per attending / other consultants Stable to transfer out of ICU Subjective Date of service: 09/03/20 Principal diagnosis: Ac hypoxemic resp failure; Perforated gastric ulcer; pneumoperitoneum Interval history: Patient is seen today for: Acute hypoxemic respiratory failure; Perforated gastric; pneumoperitoneum; Breast cancer; Oropharyngeal dysphagia; Tobacco use disorder; Leukocytosis. Seen and examined at bedside; 24hour events reviewed; nursing and respiratory care staff consulted; no adverse overnight events reported to me; resting peacefully in bed; extubated, tolerating very well; alert; No N/V/F/C; denies acute chest or abdominal pain wants something to drink on TPN Objective Vital Signs - 12hr 09/02/20 09/02/20 09/02/20 23:25 23:26 23:30 Temperature Pulse Rate 64 63 Pulse Rate [ From Monitor] Respiratory 23 22 Rate Blood Pressure 161/89 161/89 180/89 O2 Sat by Pulse 98 98 Oximetry 09/02/20 09/03/20 09/03/20 23:45 00:00 00:30 Temperature 98.2 F Pulse Rate 67 62 75 Pulse Rate [ 62 From Monitor] Respiratory 18 16 Rate Blood Pressure 180/89 184/88 169/88 O2 Sat by Pulse 98 98 Oximetry 09/03/20 09/03/20 09/03/20 01:00 02:00 02:30 Temperature Pulse Rate 74 67 66 Pulse Rate [ From Monitor] Respiratory 21 18 18 Rate Blood Pressure 176/100 169/90 162/90 O2 Sat by Pulse 98 97 97 Oximetry 09/03/20 09/03/20 09/03/20 03:00 03:30 04:00 Temperature 99.0 F Pulse Rate 72 62 67 Pulse Rate [ 67 From Monitor] Respiratory 25 H 23 26 H Rate Blood Pressure 171/91 170/85 178/90 O2 Sat by Pulse 97 97 97 Oximetry 09/03/20 09/03/20 09/03/20 04:31 05:00 05:30 Temperature Pulse Rate 62 56 L 62 Pulse Rate [ From Monitor] Respiratory 29 H 23 18 Rate Blood Pressure 178/90 167/87 168/88 O2 Sat by Pulse 96 96 96 Oximetry 09/03/20 09/03/20 09/03/20 06:00 06:30 07:00 Temperature Pulse Rate 65 60 62 Pulse Rate [ From Monitor] Respiratory 28 H 23 20 Rate Blood Pressure 167/87 169/92 176/85 O2 Sat by Pulse 98 98 98 Oximetry 09/03/20 09/03/20 09/03/20 07:30 07:50 08:00 Temperature 97.5 F L Pulse Rate 59 L 67 60 Pulse Rate [ 67 From Monitor] Respiratory 17 26 H 16 Rate Blood Pressure 179/86 192/87 O2 Sat by Pulse 98 97 95 Oximetry 09/03/20 09/03/20 09/03/20 08:30 09:00 09:30 Temperature Pulse Rate 63 72 63 Pulse Rate [ From Monitor] Respiratory 18 23 22 Rate Blood Pressure 183/90 185/98 185/92 O2 Sat by Pulse 97 96 97 Oximetry 09/03/20 09/03/20 09/03/20 10:00 10:30 11:00 Temperature Pulse Rate 67 71 Pulse Rate [ From Monitor] Respiratory 29 H 22 27 H Rate Blood Pressure 183/85 176/90 168/90 O2 Sat by Pulse 96 98 97 Oximetry Constitutional: no acute distress, alert Eyes: non-icteric ENT: oropharynx moist, other (ETT 23 cm NATASHA) Effort: normal, other (Chest wall- right mastectomy scar with nodularity of the scar) Ascultation: Bilateral: diminished breath sounds, rhonchi (scant in bases) Percussion: Bilateral: not dull Cardiovascular: regular rate and rhythm, other (S1,S2) Gastrointestinal: hypoactive bowel sounds, soft, non-tender, non-distended (protuberant), other (midline clean, dry surgical dressing, AMARI lizy) Integumentary: normal, other (post-op changes) Extremities: no cyanosis, pink and warm, pulses normal, edema (trace) Neurologic: normal mental status, non-focal exam, pupils equal and round, motor strength normal and Psychiatric: mood appropriate, affect normal CBC and BMP: 09/03/20 04:00 09/04/20 06:00 ABG, PT/INR, D-dimer: ABG ABG pH 7.412 (7.320-7.450) 09/02/20 11:24 POC ABG pCO2 39.8 mmHg (32.0-48.0) 09/02/20 11:24 ABG pCO2 34.7 mm Hg 09/02/20 05:20 POC ABG pO2 75.5 mmHg (83-108) L 09/02/20 11:24 ABG pO2 270.7 mm Hg (80.0-90.0) H 09/02/20 05:20 POC ABG HCO3 24.8 09/02/20 11:24 ABG O2 Saturation 99.5 % (95.0-99.0) H 09/02/20 05:20 Abnormal lab findings: Abnormal Labs 09/01/20 09/01/20 09/01/20 02:30 02:30 14:42 WBC 21.0 H RBC 5.49 H Hgb 16.3 H Hct 48.5 H Lymph % (Auto) Lymph # (Auto) [place] # (Auto) Seg Neutrophils % Seg Neuts % (Manual) 90.0 H Lymphocytes % (Manual) 4.0 L Seg Neutrophils # Seg Neutrophils # Man 18.9 H Lymphocytes # (Manual) 0.8 L ABG pH POC ABG pO2 182.2 H ABG pO2 ABG O2 Saturation ABG Sodium 133.4 L ABG Glucose 132 H Sodium 134 L Chloride 89.2 L BUN 20 H Glucose 190 H POC Glucose Calcium 10.5 H Phosphorus Total Protein 8.6 H Arterial Blood Glucose 132 H 09/01/20 09/02/20 09/02/20 15:22 05:15 05:20 WBC RBC Hgb Hct Lymph % (Auto) Lymph # (Auto) [place] # (Auto) Seg Neutrophils % Seg Neuts % (Manual) Lymphocytes % (Manual) Seg Neutrophils # Seg Neutrophils # Man Lymphocytes # (Manual) ABG pH 7.452 H POC ABG pO2 ABG pO2 270.7 H ABG O2 Saturation 99.5 H ABG Sodium ABG Glucose Sodium Chloride BUN 18 H Glucose POC Glucose Calcium Phosphorus 5.40 H Total Protein Arterial Blood Glucose 09/02/20 09/02/20 09/02/20 08:40 11:24 17:35 WBC 18.2 H RBC Hgb Hct Lymph % (Auto) 4.0 L Lymph # (Auto) 0.7 L [place] # (Auto) 1.1 H Seg Neutrophils % 89.8 H Seg Neuts % (Manual) Lymphocytes % (Manual) Seg Neutrophils # 16.3 H Seg Neutrophils # Man Lymphocytes # (Manual) ABG pH POC ABG pO2 75.5 L ABG pO2 ABG O2 Saturation ABG Sodium 134.2 L ABG Glucose Sodium Chloride BUN Glucose POC Glucose 68 L Calcium Phosphorus Total Protein Arterial Blood Glucose 09/03/20 09/03/20 09/03/20 00:01 04:00 04:00 WBC 19.1 H RBC Hgb 14.4 H Hct Lymph % (Auto) Lymph # (Auto) [place] # (Auto) Seg Neutrophils % Seg Neuts % (Manual) 93.0 H Lymphocytes % (Manual) 3.0 L Seg Neutrophils # Seg Neutrophils # Man 17.8 H Lymphocytes # (Manual) 0.6 L ABG pH POC ABG pO2 ABG pO2 ABG O2 Saturation ABG Sodium ABG Glucose Sodium Chloride BUN 23 H Glucose 124 H POC Glucose 114 H Calcium Phosphorus Total Protein Arterial Blood Glucose 09/03/20 05:48 WBC RBC Hgb Hct Lymph % (Auto) Lymph # (Auto) [place] # (Auto) Seg Neutrophils % Seg Neuts % (Manual) Lymphocytes % (Manual) Seg Neutrophils # Seg Neutrophils # Man Lymphocytes # (Manual) ABG pH POC ABG pO2 ABG pO2 ABG O2 Saturation ABG Sodium ABG Glucose Sodium Chloride BUN Glucose POC Glucose 123 H Calcium Phosphorus Total Protein Arterial Blood Glucose Chest x-ray: image reviewed Allied health notes reviewed: RT
[2020-09-03] MEDS: ENOXAPARIN 40 MG/0.4 ML INJ SUB-Q SCH (11:23)
[2020-09-03] MEDS: MORPHINE 2 MG/1 ML INJ IV PRN ×2 (12:13→23:29)
--- NOTE | 2020-09-03 13:14 | Vascular Lab Report ---
BILATERAL UPPER EXTREMITY VENOUS DOPPLER ULTRASOUND HISTORY: Upper extremity pain and swelling. COMPARISON: None. TECHNIQUE: Grayscale, color and spectral Doppler imaging of the venous system of both upper extremiti es was performed. FINDINGS: Right Upper Extremity: Internal Jugular Vein: Normal grayscale appearance and flow. Subclavian Vein: Normal grayscale appearance and flow. Axillary Vein: Normal venous flow, compressibility and augmentation. Brachial vein: Normal venous flow, compressibility and augmentation. Radial vein: Normal venous flow, compressibility and augmentation. Ulnar vein: Normal venous flow, compressibility and augmentation. Left Upper Extremity: Internal Jugular Vein: Normal grayscale appearance and flow. Subclavian Vein: Normal grayscale appearance and flow. Axillary Vein: Normal venous flow, compressibility and augmentation. Brachial vein: Normal venous flow, compressibility and augmentation. Radial vein: Normal venous flow, compressibility and augmentation. Ulnar vein: Normal venous flow, compressibility and augmentation. Additional Findings: Nonoccluding acute thrombus is noted in the left basilic vein just proximal to t he elbow at the level of the PICC line. IMPRESSION: No evidence for deep venous thrombosis. Focal superficial venous thrombosis is noted in the left basilic vein along the PICC line. Signer Name: Mark Mcdonald Jr, MD Signed: 09/03/2020 1:09 PM Workstation Name: [id number]
--- NOTE | 2020-09-03 13:43 | Operative Report ---
STAFF PHYSICIAN: Dillon Vargas MD PREOPERATIVE DIAGNOSES: 1. Pneumoperitoneum. 2. Suspected perforated duodenal or gastric ulcer. POSTOPERATIVE DIAGNOSES: 1. Pneumoperitoneum. 2. Perforated duodenal ulcer. OPERATION PERFORMED: 1. Exploratory laparotomy. 2. Oversew of perforated duodenal ulcer. INDICATIONS: A 65-year-old female with past medical history significant for recently diagnosed metastatic breast cancer and COPD, brought to the operating room emergently after one day of pain and CAT scan evidence consistent with pneumoperitoneum and possible perforated gastric or duodenal ulcer. The patient was brought to the operating room emergently. ANESTHESIA: General endotracheal anesthesia. SPECIMEN SENT: None. FINDINGS: 1. Approximately 1 cm perforated ulcer in proximal duodenum very close to the pylorus. 2. Extravasated gastric contents with some inflammatory peel throughout all aspects of the abdomen with bilious drainage near the actual perforation. BLOOD LOSS: Minimal. COMPLICATIONS: None. DRAINS: A 15-[place] Chad near the duodenal repair. DESCRIPTION OF PROCEDURE: After informed consent was obtained, the patient was taken to the operating room, placed under general endotracheal anesthesia, the patient was prepped and draped in standard surgical fashion. Surgical timeout was performed. Routine antibiotic prophylaxis had been given appropriately, then made an upper midline incision and a section in the abdominal cavity was performed without complication. The patient had a virgin abdomen and this was done easily. Then, placed a Bookwalter retraction and found the given pathology, which was noted as above. We suctioned out all the abnormal fluid in the abdomen upon entry and irrigated out with 3 liters of warm saline. We then closed the duodenal ulcer as the tissue around it was of adequate strength and closed it with interrupted 2-0 silk sutures x 3. We then placed an omental patch over the repair and sew that in also with interrupted 3-0 silk sutures x 3. We placed a drain through a separate stab incision and placed it right near the repair and sewed it in with a silk suture. We then closed the abdomen with #1 PDS running looped suture in 7-8 mm staggered bites, irrigated the wound out thoroughly and ensured full hemostasis and closed the skin with diane. Sterile dressings were applied. The patient was extubated and taken to recovery room in stable fashion. JOB# [id number] TF/NTS
[2020-09-03] MEDS: cefTRIAXone/NS 2 GM/100 ML 2 GM/100 ML BAG IV SCH (17:06)
[2020-09-03] MEDS ORDERED: dilTIAZem 25 MG/5 ML INJ IV ONE (18:15)
[2020-09-03] MEDS: dilTIAZem/D5W 100 MG/100 ML BAG IV SCH (18:41)
--- NOTE | 2020-09-03 19:26 | Progress Note ---
Assessment and Plan POD#2 Perforated Duodenal Ulcer Repair-- cont NPO/NGT/TPN will check UGI to monitor for healing in 2-3 days Inc act-- rec PT consult (once cardiac situation stable) Afib-- per RN report to me; management per cards Subjective Date of service: 09/03/20 Patient Reports: Positive: no new complaints, still having pain, pain is less, no flatus, other (npo/tpn; NOT oob YET; PAIN CONTROLLED) Objective Vital Signs - 12hr 09/03/20 09/03/20 09/03/20 07:30 07:50 08:00 Temperature 97.5 F L Pulse Rate 59 L 67 60 Pulse Rate [ 67 From Monitor] Respiratory 17 26 H 16 Rate Blood Pressure 179/86 192/87 Blood Pressure [Left] O2 Sat by Pulse 98 97 95 Oximetry 09/03/20 09/03/20 09/03/20 08:30 09:00 09:30 Temperature Pulse Rate 63 72 63 Pulse Rate [ From Monitor] Respiratory 18 23 22 Rate Blood Pressure 183/90 185/98 185/92 Blood Pressure [Left] O2 Sat by Pulse 97 96 97 Oximetry 09/03/20 09/03/20 09/03/20 10:00 10:30 11:00 Temperature Pulse Rate 67 71 Pulse Rate [ From Monitor] Respiratory 29 H 22 27 H Rate Blood Pressure 183/85 176/90 168/90 Blood Pressure [Left] O2 Sat by Pulse 96 98 97 Oximetry 09/03/20 09/03/20 09/03/20 11:21 11:30 11:41 Temperature Pulse Rate 63 58 L 67 Pulse Rate [ From Monitor] Respiratory 26 H 16 24 Rate Blood Pressure 168/90 173/85 173/85 Blood Pressure [Left] O2 Sat by Pulse 98 98 97 Oximetry 09/03/20 09/03/20 09/03/20 11:51 12:31 15:52 Temperature 99.1 F 98.6 F Pulse Rate 65 66 Pulse Rate [ From Monitor] Respiratory 20 20 18 Rate Blood Pressure 173/85 170/90 Blood Pressure 165/98 [Left] O2 Sat by Pulse 97 92 93 Oximetry 09/03/20 09/03/20 17:21 18:54 Temperature Pulse Rate 64 85 Pulse Rate [ From Monitor] Respiratory Rate Blood Pressure 171/90 148/94 Blood Pressure [Left] O2 Sat by Pulse Oximetry - Abdomen soft, tender, bowel sounds normal, distended, other (keven- SEROSANG) - Labs 09/03/20 04:00 09/03/20 04:00 Diabetes panel 09/03/20 Range/Units 04:00 Sodium 139 (137-145) mmol/L Potassium 3.6 (3.6-5.0) mmol/L Chloride 101.4 (98-107) mmol/L Carbon Dioxide 24 (22-30) mmol/L BUN 23 H (7-17) mg/dL Creatinine 0.8 (0.6-1.2) mg/dL Glucose 124 H (65-100) mg/dL Calcium 9.1 (8.4-10.2) mg/dL Calcium panel 09/03/20 Range/Units 04:00 Calcium 9.1 (8.4-10.2) mg/dL Phosphorus 2.80 D (2.5-4.5) mg/dL Pituitary panel 09/03/20 Range/Units 04:00 Sodium 139 (137-145) mmol/L Potassium 3.6 (3.6-5.0) mmol/L Chloride 101.4 (98-107) mmol/L Carbon Dioxide 24 (22-30) mmol/L BUN 23 H (7-17) mg/dL Creatinine 0.8 (0.6-1.2) mg/dL Glucose 124 H (65-100) mg/dL Calcium 9.1 (8.4-10.2) mg/dL Adrenal panel 09/03/20 Range/Units 04:00 Sodium 139 (137-145) mmol/L Potassium 3.6 (3.6-5.0) mmol/L Chloride 101.4 (98-107) mmol/L Carbon Dioxide 24 (22-30) mmol/L BUN 23 H (7-17) mg/dL Creatinine 0.8 (0.6-1.2) mg/dL Glucose 124 H (65-100) mg/dL Calcium 9.1 (8.4-10.2) mg/dL
[2020-09-03] MEDS ORDERED: TOTAL PARENTERAL NUTRITION 2,016 ML IV SCH (20:00)
[2020-09-03] MEDS: FLUCONAZOLE 200 MG 200 MG/100 ML BAG IV SCH (21:59)
[2020-09-04] MEDS: metroNIDAZOLE/NS 500 MG/100 ML 500 MG/100 ML BAG IV SCH ×4 (03:30→23:08)
[2020-09-04 06:54] LABS: Blood Urea Nitrogen 27 mg/dL (7-17); Calcium 8.9 mg/dL (8.4-10.2); Hemolysis Index 7; Prealbumin 0.109 g/L (0.200-0.400)
[2020-09-04 06:55] LABS: BUN/Creatinine Ratio 45
--- NOTE | 2020-09-04 08:32 | XRay Report ---
CHEST 1 VIEW INDICATION / CLINICAL INFORMATION: follow up respiratory failure. FINDINGS: SUPPORT DEVICES: No significant change in position. HEART / MEDIASTINUM: The cardiomediastinal silhouette has not significantly changed in the interim. LUNGS / PLEURA: Worsening pleural-parenchymal opacity of the left lower lung when compared to yesterd ay's exam. Signer Name: Chalres Bañuelos MD Signed: 09/04/2020 8:28 AM Workstation Name: [id number]
[2020-09-04] MEDS: ENOXAPARIN 40 MG/0.4 ML INJ SUB-Q SCH (09:37)
--- NOTE | 2020-09-04 10:39 | Progress Note ---
Assessment and Plan Assessment and plan: --Perforated gastric ulcer with pneumoperitoneum: 09/01/20 s/p exploratory laparotomy for repair of perforated duodenal ulcer. Patient on TPN and supportive care Postop care per surgery --Sepsis. Present on admission. Perforated viscus secondary to intra-abdominal source secondary to above. Continue Rocephin Flagyl and Diflucan, ID following --Hypertension uncontrolled; Partly due to pain, optimal pain medications Increase PRN labetalol to every 4 hours, increase clonidine --Metastatic breast cancer. Continue supportive care --Right upper extremity edema: Etiology likely secondary to occluded lymphatics from breast CA. RUE Doppler .negative for DVT superficial thrombophlebitis Continue supportive care --DVT prophylaxis; Lovenox We will closely monitor the patient and adjust management as needed 09/02/2020. Patient s/p exploratory laparotomy for repair of perforated viscus. Continue IV anti-infectives of Diflucan, Levaquin and Flagyl. Patient currently intubated postoperatively with PSVT FiO2 40% pressure support 10 and PEEP of 6. Extubate per pulmonary. Initiate TPN. 09/03/2020. Patient s/p exploratory laparotomy for repair of perforated duodenal ulcer. Continue IV ceftriaxone, Flagyl and fluconazole per ID recommendations. TPN has been initiated. Patient is extubated and stable. We will transfer to the floor 09/04: Add IV hydralazine, closely monitor blood pressures and adjust as needed. The high probability of a clinically significant, sudden or life threatening deterioration of the [respiratory and GI] system(s) required my full and direct attention, intervention and personal management. The aggregate critical care time was [32] minutes. This time is in addition to time spent performing reported procedures but includes the following: [x] Data Review and interpretation [x] Patient assessment and monitoring of vital signs [x] Documentation [x] Medication orders and management History Interval history: I have seen and examined the patient at the bedside this morning Patient's chart and medications reviewed Patient had an episode of hypoxemia with O2 sats of 82% however After rechecking by respiratory therapist, patient's O2 sats are more than 90 Patient had flatus On TPN and Protonix drip Hospitalist Physical - Constitutional Vitals: Temp Pulse Resp BP Pulse Ox 98.3 F 73 28 H 142/90 93 09/04/20 07:51 09/04/20 07:51 09/04/20 08:31 09/04/20 07:51 09/04/20 10:00 General appearance: Present: mild distress, well-nourished - EENT Eyes: Present: PERRL, EOM intact - Neck Neck: Present: supple, other (Dobbhoff in place) - Respiratory Respiratory effort: normal Respiratory: bilateral: diminished, rales, negative: rhonchi, wheezing - Cardiovascular Rhythm: regular Heart Sounds: Present: S1 & S2 - Extremities Extremities: no ischemia, No edema - Abdominal General gastrointestinal: soft, tender (No guarding no rigidity), hypoactive bowel sounds - Integumentary Integumentary: Present: clear, warm - Psychiatric Psychiatric: appropriate mood/affect, cooperative - Neurologic Neurologic: CNII-XII intact, moves all extremities Results - Labs CBC & Chem 7: 09/03/20 04:00 09/04/20 06:00 Labs: Laboratory Last Values WBC 19.1 K/mm3 (4.5-11.0) H 09/03/20 04:00 RBC 4.80 M/mm3 (3.65-5.03) 09/03/20 04:00 Hgb 14.4 gm/dl (10.1-14.3) H 09/03/20 04:00 Hct 42.8 % (30.3-42.9) 09/03/20 04:00 MCV 89 fl (79-97) 09/03/20 04:00 MCH 30 pg (28-32) 09/03/20 04:00 MCHC 34 % (30-34) 09/03/20 04:00 RDW 15.2 % (13.2-15.2) 09/03/20 04:00 Plt Count 202 K/mm3 (140-440) 09/03/20 04:00 Lymph % (Auto) 4.0 % (13.4-35.0) L 09/02/20 08:40 [place] % (Auto) 6.1 % (0.0-7.3) 09/02/20 08:40 Eos % (Auto) 0.0 % (0.0-4.3) 09/02/20 08:40 Baso % (Auto) 0.1 % (0.0-1.8) 09/02/20 08:40 Lymph # (Auto) 0.7 K/mm3 (1.2-5.4) L 09/02/20 08:40 [place] # (Auto) 1.1 K/mm3 (0.0-0.8) H 09/02/20 08:40 Eos # (Auto) 0.0 K/mm3 (0.0-0.4) 09/02/20 08:40 Baso # (Auto) 0.0 K/mm3 (0.0-0.1) 09/02/20 08:40 Add Manual Diff Complete 09/03/20 04:00 Total Counted 100 09/03/20 04:00 Seg Neutrophils % [employer] 09/03/20 04:00 Seg Neuts % (Manual) 93.0 % (40.0-70.0) H 09/03/20 04:00 Band Neutrophils % 1.0 % 09/03/20 04:00 Lymphocytes % (Manual) 3.0 % (13.4-35.0) L 09/03/20 04:00 Reactive Lymphs % (Man) 0 % 09/03/20 04:00 Monocytes % (Manual) 3.0 % (0.0-7.3) 09/03/20 04:00 Eosinophils % (Manual) 0 % (0.0-4.3) 09/03/20 04:00 Basophils % (Manual) 0 % (0.0-1.8) 09/03/20 04:00 Metamyelocytes % 0 % 09/03/20 04:00 Myelocytes % 0 % 09/03/20 04:00 Promyelocytes % 0 % 09/03/20 04:00 Blast Cells % 0 % 09/03/20 04:00 Nucleated RBC % Not Reportable 09/03/20 04:00 Seg Neutrophils # 16.3 K/mm3 (1.8-7.7) H 09/02/20 08:40 Seg Neutrophils # Man 17.8 K/mm3 (1.8-7.7) H 09/03/20 04:00 Band Neutrophils # 0.2 K/mm3 09/03/20 04:00 Lymphocytes # (Manual) 0.6 K/mm3 (1.2-5.4) L 09/03/20 04:00 Abs React Lymphs (Man) 0.0 K/mm3 09/03/20 04:00 Monocytes # (Manual) 0.6 K/mm3 (0.0-0.8) 09/03/20 04:00 Eosinophils # (Manual) 0.0 K/mm3 (0.0-0.4) 09/03/20 04:00 Basophils # (Manual) 0.0 K/mm3 (0.0-0.1) 09/03/20 04:00 Metamyelocytes # 0.0 K/mm3 09/03/20 04:00 Myelocytes # 0.0 K/mm3 09/03/20 04:00 Promyelocytes # 0.0 K/mm3 09/03/20 04:00 Blast Cells # 0.0 K/mm3 09/03/20 04:00 WBC Morphology Not Reportable 09/03/20 04:00 Hypersegmented Neuts Not Reportable 09/03/20 04:00 Hyposegmented Neuts Not Reportable 09/03/20 04:00 Hypogranular Neuts Not Reportable 09/03/20 04:00 Smudge Cells Not Reportable 09/03/20 04:00 Toxic Granulation Not Reportable 09/03/20 04:00 Toxic Vacuolation Not Reportable 09/03/20 04:00 Dohle Bodies Not Reportable 09/03/20 04:00 Pelger-Huet Anomaly Not Reportable 09/03/20 04:00 [place] Rods Not Reportable 09/03/20 04:00 Platelet Estimate Consistent w auto 09/03/20 04:00 Clumped Platelets Not Reportable 09/03/20 04:00 Plt Clumps, EDTA Not Reportable 09/03/20 04:00 Large Platelets Not Reportable 09/03/20 04:00 Giant Platelets Not Reportable 09/03/20 04:00 Platelet Satelliting Not Reportable 09/03/20 04:00 Plt Morphology Comment Not Reportable 09/03/20 04:00 RBC Morphology Normal 09/03/20 04:00 Dimorphic RBCs Not Reportable 09/03/20 04:00 Polychromasia Not Reportable 09/03/20 04:00 Hypochromasia Not Reportable 09/03/20 04:00 Poikilocytosis Not Reportable 09/03/20 04:00 Anisocytosis Not Reportable 09/03/20 04:00 Microcytosis Not Reportable 09/03/20 04:00 Macrocytosis Not Reportable 09/03/20 04:00 Spherocytes Not Reportable 09/03/20 04:00 Pappenheimer Bodies Not Reportable 09/03/20 04:00 Sickle Cells Not Reportable 09/03/20 04:00 Target Cells Not Reportable 09/03/20 04:00 Tear Drop Cells Not Reportable 09/03/20 04:00 Ovalocytes Not Reportable 09/03/20 04:00 Helmet Cells Not Reportable 09/03/20 04:00 Fernandez-Frazer Bodies Not Reportable 09/03/20 04:00 Stanton Rings Not Reportable 09/03/20 04:00 Ginger Cells Not Reportable 09/03/20 04:00 Bite Cells Not Reportable 09/03/20 04:00 Crenated Cell Not Reportable 09/03/20 04:00 Elliptocytes Not Reportable 09/03/20 04:00 Acanthocytes (Spur) Not Reportable 09/03/20 04:00 Rouleaux Not Reportable 09/03/20 04:00 Hemoglobin C Crystals Not Reportable 09/03/20 04:00 Schistocytes Not Reportable 09/03/20 04:00 Malaria parasites Not Reportable 09/03/20 04:00 [place] Bodies Not Reportable 09/03/20 04:00 Hem Pathologist Commnt No 09/03/20 04:00 ABG pH 7.463 (7.320-7.450) H 09/04/20 09:27 POC ABG pCO2 30.1 mmHg (32.0-48.0) L 09/04/20 09:27 ABG pCO2 34.7 mm Hg 09/02/20 05:20 POC ABG pO2 45.6 mmHg (83-108) L 09/04/20 09:27 ABG pO2 270.7 mm Hg (80.0-90.0) H 09/02/20 05:20 POC ABG HCO3 21.1 09/04/20 09:27 ABG HCO3 23.7 mmol/L (20.0-26.0) 09/02/20 05:20 ABG O2 Saturation 99.5 % (95.0-99.0) H 09/02/20 05:20 ABG O2 Content 20.6 (0.0-44) 09/02/20 05:20 POC ABG Base Excess -1.4 09/04/20 09:27 ABG Base Excess 0.3 mmol/L (-2.0-3.0) 09/02/20 05:20 ABG Hemoglobin 15.8 (12.0-17.5) 09/04/20 09:27 ABG Carboxyhemoglobin 1.3 % (0.0-5.0) 09/02/20 05: ABG Methemoglobin 0.4 % (0.0-1.5) 09/02/20 05:20 ABG Sodium 132.6 mmol/L (136.0-145.0) L 09/04/20 09:27 ABG Potassium 3.7 mmol/L (3.40-4.50) 09/04/20 09:27 ABG Chloride 102.0 mmol/L (98-107) 09/04/20 09:27 ABG Glucose 135 mg/dL (65-95) H 09/04/20 09:27 Oxyhemoglobin 97.7 % (95.0-99.0) 09/02/20 05: FiO2 21.0 09/04/20 09:27 Sodium 137 mmol/L (137-145) 09/04/20 06:00 Potassium 3.6 mmol/L (3.6-5.0) 09/04/20 06:00 Chloride 99.3 mmol/L (98-107) 09/04/20 06:00 Carbon Dioxide 29 mmol/L (22-30) 09/04/20 06:00 Anion Gap 12 mmol/L 09/04/20 06:00 BUN 27 mg/dL (7-17) H 09/04/20 06:00 Creatinine 0.6 mg/dL (0.6-1.2) 09/04/20 06:00 Estimated GFR > 60 ml/min 09/04/20 06:00 BUN/Creatinine Ratio 45 % 09/04/20 06:00 Glucose 113 mg/dL (65-100) H 09/04/20 06:00 POC Glucose 121 (70-105) H 09/04/20 00:57 Calcium 8.9 mg/dL (8.4-10.2) 09/04/20 06:00 Phosphorus 2.90 mg/dL (2.5-4.5) 09/04/20 06:00 Magnesium 1.90 mg/dL (1.7-2.3) 09/04/20 06:00 Total Bilirubin 0.40 mg/dL (0.1-1.2) 09/01/20 02:30 AST 18 units/L (5-40) 09/01/20 02:30 ALT 18 units/L (7-56) 09/01/20 02:30 Alkaline Phosphatase 78 units/L (35-129) 09/01/20 02:30 Total Protein 8.6 g/dL (6.3-8.2) H 09/01/20 02:30 Albumin 4.0 g/dL (3.9-5) 09/01/20 02:30 Albumin/Globulin Ratio 0.9 % 09/01/20 02:30 Prealbumin 0.109 g/L (0.200-0.400) L 09/04/20 06:00 Triglycerides 86 mg/dL (2-149) 09/04/20 06:00 Lipase 24 units/L (13-60) 09/01/20 02:30 Procalcitonin 5.44 ng/mL (<0.15) 09/01/20 20:23 Arterial Blood Glucose 135 mg/dL (65-95) H 09/04/20 09:27 Arterial Blood Ionized Calcium 4.9 mg/dL (4.6-5.3) 09/04/20 09:27 Urine Color Yellow (Yellow) 09/01/20 02:26 Urine Turbidity Clear (Clear) 09/01/20 02:26 Urine pH 6.0 (5.0-7.0) 09/01/20 02:26 Ur Specific [place] 1.023 (1.003-1.030) 09/01/20 02:26 Urine Protein 30 mg/dl mg/dL (Negative) 09/01/20 02:26 Urine Glucose (UA) Neg mg/dL (Negative) 09/01/20 02:26 Urine Ketones Neg mg/dL (Negative) 09/01/20 02:26 Urine Blood Neg (Negative) 09/01/20 02:26 Urine Nitrite Neg (Negative) 09/01/20 02:26 Urine Bilirubin Neg (Negative) 09/01/20 02:26 Urine Urobilinogen 4.0 mg/dL (<2.0) 09/01/20 02:26 Ur Leukocyte Esterase Tr (Negative) 09/01/20 02:26 Urine WBC (Auto) 5.0 /HPF (0.0-6.0) 09/01/20 02:26 Urine RBC (Auto) 4.0 /HPF (0.0-6.0) 09/01/20 02:26 U Epithel Cells (Auto) 3.0 /HPF (0-13.0) 09/01/20 02:26 Urine Mucus 1+ /HPF 09/01/20 02:26 Carey/IV: Voiding Method Indwelling Catheter IV Catheter Type [Left Peripheral IV Antecubital] IV Catheter Type [Left Upper PICC Line arm] IV Catheter Type [Left Forearm Peripheral IV ] IV Catheter Type [Left Hand] INT / Saline Lock Active Medications - Current Medications Current Medications: Generic Name Dose Route Start Last Admin Trade Name Freq PRN Reason Stop Dose Admin Clonidine HCl 0.2 mg 09/02/20 22:00 09/02/20 21:16 Catapres-Tts Patch TD 0.2 mg Gary JAIME Administration Dextrose 25 ml 09/02/20 18:38 09/02/20 18:50 D50w (25gm) Syringe IV 15 ml Q30MIN PRN Administration Hypoglycemia Protocol Enoxaparin Sodium 40 mg 09/01/20 10:00 09/04/20 09:37 Enoxaparin SUB-Q 40 mg QDAY JAIME Administration Hydrophilic Ointment 1 applic 09/01/20 14:47 Vaseline Lip Therapy TP Q2H PRN Dry Lips Metronidazole 500 mg in 100 mls @ 100 mls/hr 09/01/20 16:00 09/04/20 03:30 Flagyl 500 Mg/100 Ml IV 100 mls/hr Q8H JAIME Administration Protocol Fluconazole 200 mg in 100 mls @ 100 mls/hr 09/02/20 17:00 09/03/20 21:59 Diflucan IV 100 mls/hr Q24H JAIME Administration Protocol Pantoprazole Sodium 80 mg/ 100 mls @ 10 mls/hr 09/01/20 22:00 09/03/20 04:45 Sodium Chloride IV 8 mg/hr DIRECT JAMIE 10 mls/hr Administration 8 MG/HR Ceftriaxone Sodium 2 gm in 100 mls @ 200 mls/hr 09/02/20 14:00 09/03/20 17:06 Rocephin/Ns 2 Gm/100 Ml IV 200 mls/hr Q24H JAIME Administration Protocol Amino Acids/Electrolytes/Dextrose 2,016 mls @ 84 mls/hr 09/03/20 20:00 09/03/20 22:44 Tpn Adult IV 09/04/20 19:59 84 mls/hr DAILY@2000 JAIME Administration Protocol Diltiazem HCl 100 mg in 100 mls @ 7.5 mls/hr 09/03/20 19:00 09/03/20 18:41 Cardizem/D5w 100mg/100ml IV 7.5 mg/hr DIRECT JAIME 7.5 mls/hr Administration Protocol 7.5 MG/HR Labetalol HCl 10 mg 09/02/20 17:42 09/03/20 17:21 Labetalol IV 09/07/20 17:41 10 mg Q6H PRN Administration blood pressure Morphine Sulfate 2 mg 09/01/20 09:21 09/03/20 23:29 Morphine IV 2 mg Q4H PRN Administration Pain, Moderate (4-6) Multi-Ingred Cream/Lotion/Oil/Oint 1 applic 09/01/20 14:47 Artificial Tears Ophth Oint OU Q4H PRN Dry Eye(s) Sodium Chloride 10 ml 09/01/20 10:00 09/03/20 22:07 Sodium Chloride Flush Syringe 10 Ml IV 10 ml BID JAIME Administration Sodium Chloride 10 ml 09/01/20 09:21 09/03/20 23:33 Sodium Chloride Flush Syringe 10 Ml IV 10 ml PRN PRN Administration LINE FLUSH Nutrition/Malnutrition Assess - Dietary Evaluation Nutrition/Malnutrition Findings: Nutrition Notes Start: 09/02/20 09:42 Freq: Status: Active Protocol: Document 09/03/20 12:27 (Rec: 09/03/20 13:49 [id number]) Nutrition Notes Initial or Follow up Reassessment Current Diagnosis COPD Other Pertinent Diagnosis Breast Ca with Mets, Abdominal pain S/P exp lap Current Diet CPN at 84 ml/hr Labs/Tests BUN 23 Pertinent Medications Reviewed Height 5 ft 11 in Weight 86.183 kg [place] Body Weight (kg) 70.45 BMI 26.4 Weight Status Overweight Subjective/Other Information CPN day 2. Pt extubated. Pt reports no unintended wt loss and is feeling hungry. Percent of energy/protein needs met: 35%/73% Burn Absent Trauma Absent GI Symptoms Other Food Allergy No Current % PO Negligible Minimum of two criteria No physical signs of malnutrition #1 Nutrition Diagnosis Inadequate oral intake Etiology perforated duodenal ulcer As Evidenced by Signs and Symptoms NPO Diagnosis Progress(for reassessment Continues documentation) Is patient on ventilator? No Is Patient Ambulatory and/or Out of Bed No REE-([facility]-confined to bed) [phone] Calculation Used for Recommendations [facility] Additional Notes Protein needs are 86-103g (1-1 .2g/kg) Fluid needs are 1ml/kcal Nutrition Intervention Change Diet Order: CPN Nutrition Support: CPN at 84 ml/hr: 7.4% dextrose , 4.5% amino acid, 90 mEq K, 25 mEq phos, MTV, Thaimine. Osmolality: 1066 Kcal 870 Protein (gm) 90 Carbohydrates (gm) 150 Fat (gm) 0 Fluid (mL) 2,016 Fiber (gm) 0 Goal #1 Meet kcal and protein needs as best as possible via CPN Anticipated Discharge Needs: Unable to determine at this time Follow-Up By: 09/04/20 Additional Comments Labs in AM: BMP, Mg. Phos, Triglycerides
--- NOTE | 2020-09-04 12:11 | Progress Note ---
Assessment and Plan Patient alert, awake, resting on 4 litres O2. O2 saturation 94%. No complaint of chest pain, shortness of breath or cough. ABG on room air ABG pH 7.463 (7.320-7.450) H 09/04/20 09:27 POC ABG pCO2 30.1 mmHg (32.0-48.0) L 09/04/20 09:27 ABG pCO2 34.7 mm Hg 09/02/20 05:20 POC ABG pO2 45.6 mmHg (83-108) L 09/04/20 09:27 ABG pO2 270.7 mm Hg (80.0-90.0) H 09/02/20 05:20 POC ABG HCO3 21.1 09/04/20 09:27 ABG O2 Saturation 99.5 % (95.0-99.0) H 09/02/20 05:20 Patient is candidate for home O2. Chest xray 09/04/20 reported Worsening pleural-parenchymal opacity of the left lower lung when compared to yesterday's exam. Appears Atelectasis. Recommend Chest PT. Continue incentive spirometry. Patient afebrile. Has leukocytosis. Patient is on ceftriaxone and metronidazole and Fluconazole. Venous doppler studies of legs reported superficial thrombosis. Patient is on S/C Lovenox. - Patient Problems (1) Breast cancer Current Visit: Yes Status: Acute Plan to address problem: Management as per primary care and Oncology. (2) Perforated gastric ulcer Current Visit: Yes Status: Acute Plan to address problem: S/P Exploratory laparotomy and repair of perforated gastric ulcer. Management as per surgery. (3) Atelectasis of left lung Current Visit: Yes Status: Acute Plan to address problem: O2 supplementation 4 litres. Recommend Chest PT. Continue incentive spirometry. Patient afebrile. Has leukocytosis. Patient is on ceftriaxone and metronidazole and Fluconazole. Subjective Date of service: 09/04/20 Principal diagnosis: Ac hypoxemic resp failure; Perforated gastric ulcer; pneumoperitoneum Interval history: Patient alert, awake, resting on 4 litres O2. O2 saturation 94%. No complaint of chest pain, shortness of breath or cough. ABG on room air ABG pH 7.463 (7.320-7.450) H 09/04/20 09:27 POC ABG pCO2 30.1 mmHg (32.0-48.0) L 09/04/20 09:27 ABG pCO2 34.7 mm Hg 09/02/20 05:20 POC ABG pO2 45.6 mmHg (83-108) L 09/04/20 09:27 ABG pO2 270.7 mm Hg (80.0-90.0) H 09/02/20 05:20 POC ABG HCO3 21.1 09/04/20 09:27 ABG O2 Saturation 99.5 % (95.0-99.0) H 09/02/20 05:20 Patient is candidate for home O2. Chest xray 09/04/20 reported Worsening pleural-parenchymal opacity of the left lower lung when compared to yesterday's exam. Appears Atelectasis. Recommend Chest PT. Continue incentive spirometry. Patient afebrile. Has leukocytosis. Patient is on ceftriaxone and metronidazole and Fluconazole. Venous doppler studies of legs reported superficial thrombosis. Patient is on S/C Lovenox. Objective Vital Signs - 12hr 09/04/20 09/04/20 09/04/20 04:00 05:00 07:51 Temperature 98.3 F Pulse Rate 86 73 Pulse Rate [ 67 From Monitor] Pulse Rate [ 100 H Right Dorsalis Pedis] Respiratory 26 H 20 Rate Blood Pressure 142/90 O2 Sat by Pulse 97 82 L Oximetry 09/04/20 09/04/20 09/04/20 08:00 08:31 10:00 Temperature Pulse Rate 67 Pulse Rate [ From Monitor] Pulse Rate [ Right Dorsalis Pedis] Respiratory 28 H Rate Blood Pressure O2 Sat by Pulse 86 93 Oximetry Constitutional: no acute distress, alert, other (elderly female with normal respiratory effort at rest.) Eyes: non-icteric ENT: oropharynx moist, other (ETT 23 cm NATASHA) Effort: normal Ascultation: Bilateral: diminished breath sounds, rhonchi (scant in bases), other (Diminished breath sounds left lower lobe.) Cardiovascular: regular rate and rhythm Gastrointestinal: hypoactive bowel sounds, soft, non-tender, non-distended (protuberant) Integumentary: normal, other (post-op changes) Extremities: no cyanosis, pink and warm, pulses normal, edema (trace) Neurologic: normal mental status, non-focal exam, pupils equal and round, motor strength normal and Psychiatric: mood appropriate, affect normal CBC and BMP: 09/03/20 04:00 09/04/20 06:00 ABG, PT/INR, D-dimer: ABG ABG pH 7.463 (7.320-7.450) H 09/04/20 09:27 POC ABG pCO2 30.1 mmHg (32.0-48.0) L 09/04/20 09:27 ABG pCO2 34.7 mm Hg 09/02/20 05:20 POC ABG pO2 45.6 mmHg (83-108) L 09/04/20 09:27 ABG pO2 270.7 mm Hg (80.0-90.0) H 09/02/20 05:20 POC ABG HCO3 21.1 09/04/20 09:27 ABG O2 Saturation 99.5 % (95.0-99.0) H 09/02/20 05:20 Abnormal lab findings: Abnormal Labs 09/01/20 09/01/20 09/01/20 02:30 02:30 14:42 WBC 21.0 H RBC 5.49 H Hgb 16.3 H Hct 48.5 H Lymph % (Auto) Lymph # (Auto) [place] # (Auto) Seg Neutrophils % Seg Neuts % (Manual) 90.0 H Lymphocytes % (Manual) 4.0 L Seg Neutrophils # Seg Neutrophils # Man 18.9 H Lymphocytes # (Manual) 0.8 L ABG pH POC ABG pCO2 POC ABG pO2 182.2 H ABG pO2 ABG O2 Saturation ABG Sodium 133.4 L ABG Glucose 132 H Sodium 134 L Chloride 89.2 L BUN 20 H Glucose 190 H POC Glucose Calcium 10.5 H Phosphorus Total Protein 8.6 H Prealbumin Arterial Blood Glucose 132 H 09/01/20 09/02/20 09/02/20 15:22 05:15 05:20 WBC RBC Hgb Hct Lymph % (Auto) Lymph # (Auto) [place] # (Auto) Seg Neutrophils % Seg Neuts % (Manual) Lymphocytes % (Manual) Seg Neutrophils # Seg Neutrophils # Man Lymphocytes # (Manual) ABG pH 7.452 H POC ABG pCO2 POC ABG pO2 ABG pO2 270.7 H ABG O2 Saturation 99.5 H ABG Sodium ABG Glucose Sodium Chloride BUN 18 H Glucose POC Glucose Calcium Phosphorus 5.40 H Total Protein Prealbumin Arterial Blood Glucose 10/03/1909/02/20 09/02/20 08:40 11:24 17:35 WBC 18.2 H RBC Hgb Hct Lymph % (Auto) 4.0 L Lymph # (Auto) 0.7 L [place] # (Auto) 1.1 H Seg Neutrophils % 89.8 H Seg Neuts % (Manual) Lymphocytes % (Manual) Seg Neutrophils # 16.3 H Seg Neutrophils # Man Lymphocytes # (Manual) ABG pH POC ABG pCO2 POC ABG pO2 75.5 L ABG pO2 ABG O2 Saturation ABG Sodium 134.2 L ABG Glucose Sodium Chloride BUN Glucose POC Glucose 68 L Calcium Phosphorus Total Protein Prealbumin Arterial Blood Glucose 09/03/20 09/03/20 09/03/20 00:01 04:00 04:00 WBC 19.1 H RBC Hgb 14.4 H Hct Lymph % (Auto) Lymph # (Auto) [place] # (Auto) Seg Neutrophils % Seg Neuts % (Manual) 93.0 H Lymphocytes % (Manual) 3.0 L Seg Neutrophils # Seg Neutrophils # Man 17.8 H Lymphocytes # (Manual) 0.6 L ABG pH POC ABG pCO2 POC ABG pO2 ABG pO2 ABG O2 Saturation ABG Sodium ABG Glucose Sodium Chloride BUN 23 H Glucose 124 H POC Glucose 114 H Calcium Phosphorus Total Protein Prealbumin Arterial Blood Glucose 09/03/20 09/03/20 09/04/20 05:48 17:01 00:57 WBC RBC Hgb Hct Lymph % (Auto) Lymph # (Auto) [place] # (Auto) Seg Neutrophils % Seg Neuts % (Manual) Lymphocytes % (Manual) Seg Neutrophils # Seg Neutrophils # Man Lymphocytes # (Manual) ABG pH POC ABG pCO2 POC ABG pO2 ABG pO2 ABG O2 Saturation ABG Sodium ABG Glucose Sodium Chloride BUN Glucose POC Glucose 123 H 120 H 121 H Calcium Phosphorus Total Protein Prealbumin Arterial Blood Glucose 09/04/20 09/04/20 06:00 09:27 WBC RBC Hgb Hct Lymph % (Auto) Lymph # (Auto) [place] # (Auto) Seg Neutrophils % Seg Neuts % (Manual) Lymphocytes % (Manual) Seg Neutrophils # Seg Neutrophils # Man Lymphocytes # (Manual) ABG pH 7.463 H POC ABG pCO2 30.1 L POC ABG pO2 45.6 L ABG pO2 ABG O2 Saturation ABG Sodium 132.6 L ABG Glucose 135 H Sodium Chloride BUN 27 H Glucose 113 H POC Glucose Calcium Phosphorus Total Protein Prealbumin 0.109 L Arterial Blood Glucose 135 H Chest x-ray: report reviewed, image reviewed Prior PFT's, U/S of legs: report reviewed (Reported superficial thrombosis.), image reviewed Additional Studies: CHEST 1 VIEW 09/04/20 INDICATION / CLINICAL INFORMATION: follow up respiratory failure. FINDINGS: SUPPORT DEVICES: No significant change in position. HEART / MEDIASTINUM: The cardiomediastinal silhouette has not significantly changed in the interim. LUNGS / PLEURA: Worsening pleural-parenchymal opacity of the left lower lung when compared to yesterday's exam. CHEST 1 VIEW 09/03/20 INDICATION: follow up respiratory failure COMPARISON: One day prior. FINDINGS: Support devices: Unchanged. Heart: Normal and unchanged Lungs/Pleura: Slight parenchymal density in the left base, probably atelectasis, is unchanged. No new disease. IMPRESSION: 1. No significant change. Allied health notes reviewed: nursing
[2020-09-04] MEDS: dilTIAZem/D5W 100 MG/100 ML BAG IV SCH ×2 (12:55→16:28)
[2020-09-04] MEDS: PANTOPRAZOLE 80 MG in SODIUM CHLORIDE 0.9% 100 ML IV SCH ×2 (12:55→23:08)
--- NOTE | 2020-09-04 13:04 | XRay Report ---
ABDOMEN ONE VIEW INDICATION / CLINICAL INFORMATION: tube placement verification. COMPARISON: None available. FINDINGS: A nasogastric tube is present with the tip superimposed over the expected position of the hypopharynx Signer Name: Eleazar Lima MD FACR Signed: 09/04/2020 12:59 PM Workstation Name: [id number]
--- NOTE | 2020-09-04 13:06 | Consultation ---
History of Present Illness Consult date: 09/04/20 Requesting physician: FRANKLIN JUÁREZ Consult reason: atrial fibrillation History of present illness: The pt is a 65-year-old female with a past medical history of right-sided breast cancer diagnosed 2 weeks ago via biopsy (still undergoing work-up), HTN, nonobstructive CAD, SBO, TIA (per Pep discharge summary from 2012). She is previously unknown to our practice. She presented on 09/01 with c/o of sudden onset abdominal pain with nausea and vomiting. CT scan of the abdomen pelvis showed perforated gastric ulcer with pneumoperitoneum. Pt subsequently underwent exploratory laparotomy and perforated duodenal ulcer repair on 09/01/2020. Pt was noted to have atrial fibrillation and thus cardiology has been consulted. Pt denies any known prior cardiac issues or cardiac complaints. Initial ECG done yesterday evening shows AFib with HR 104bpm. Telemetry was initiated yesterday evening. Telemetry reviewed - pt in AFib with HR 120s yesterday evening, she was initiated on IV cardizem overnight and currently in AFib HR 60-70s. She is strict NPO, receiving TPN. LHC done 02/2014 showed moderate nonobstructive CAD - LI's in LM, 50% mid LAD, LI's in LCx, 40% prox and distal RCA. Medical therapy was recommended. tte done 10/2013 showed EF 60-65%, no significant abnormalities. Past History Past Medical History: other (as per HPI) Social history: smoking Medications and Allergies Allergies Allergy/AdvReac Type Severity Reaction Status Date / Time No Known Allergies Allergy Unverified 09/01/20 02:26 Home Medications Medication Instructions Recorded Confirmed Last Taken Type Unobtainable 09/02/20 09/02/20 Unknown History Active Meds: Active Medications Clonidine HCl (Catapres-Tts Patch) 0.2 mg TD Gary JAIME Last Admin: 09/02/20 21:16 Dose: 0.2 mg Documented by: Dextrose (D50w (25gm) Syringe) 25 ml IV Q30MIN PRN; Protocol PRN Reason: Hypoglycemia Last Admin: 09/02/20 18:50 Dose: 15 ml Documented by: Enoxaparin Sodium (Enoxaparin) 40 mg SUB-Q QDAY JAIME Last Admin: 09/04/20 09:37 Dose: 40 mg Documented by: Hydrophilic Ointment (Vaseline Lip Therapy) 1 applic TP Q2H PRN PRN Reason: Dry Lips Metronidazole (Flagyl 500 Mg/100 Ml) 500 mg in 100 mls @ 100 mls/hr IV Q8H JAIME; Protocol Last Admin: 09/04/20 12:56 Dose: 100 mls/hr Documented by: Fluconazole (Diflucan) 200 mg in 100 mls @ 100 mls/hr IV Q24H JAIME; Protocol Last Admin: 09/03/20 21:59 Dose: 100 mls/hr Documented by: Pantoprazole Sodium 80 mg/ (Sodium Chloride) 100 mls @ 10 mls/hr IV DIRECT JAIME Last Admin: 09/04/20 12:55 Dose: 8 mg/hr, 10 mls/hr Documented by: Ceftriaxone Sodium (Rocephin/Ns 2 Gm/100 Ml) 2 gm in 100 mls @ 200 mls/hr IV Q24H JAIME; Protocol Last Admin: 09/03/20 17:06 Dose: 200 mls/hr Documented by: Amino Acids/Electrolytes/Dextrose (Tpn Adult) 2,016 mls @ 84 mls/hr IV DAILY@1999 [facility]; Protocol Stop: 09/04/20 19:59 Last Admin: 09/03/20 22:44 Dose: 84 mls/hr Documented by: Diltiazem HCl (Cardizem/D5w 100mg/100ml) 100 mg in 100 mls @ 7.5 mls/hr IV DIRECT JAIME; Protocol Last Admin: 09/04/20 12:55 Dose: 7.5 mg/hr, 7.5 mls/hr Documented by: Amino Acids/Electrolytes/Dextrose (Tpn Adult) 2,016 mls @ 84 mls/hr IV DAILY@1999 JAIME; Protocol Stop: 09/05/20 19:59 Labetalol HCl (Labetalol) 10 mg IV Q6H PRN PRN Reason: blood pressure Stop: 09/07/20 17:41 Last Admin: 09/03/20 17:21 Dose: 10 mg Documented by: Morphine Sulfate (Morphine) 2 mg IV Q4H PRN PRN Reason: Pain, Moderate (4-6) Last Admin: 09/03/20 23:29 Dose: 2 mg Documented by: Multi-Ingred Cream/Lotion/Oil/Oint (Artificial Tears Ophth Oint) 1 applic OU Q4H PRN PRN Reason: Dry Eye(s) Sodium Chloride (Sodium Chloride Flush Syringe 10 Ml) 10 ml IV BID JAIME Last Admin: 09/04/20 12:56 Dose: 10 ml Documented by: Sodium Chloride (Sodium Chloride Flush Syringe 10 Ml) 10 ml IV PRN PRN PRN Reason: LINE FLUSH Last Admin: 09/03/20 23:33 Dose: 10 ml Documented by: Review of Systems Constitutional: no fever, no chills, no sweats Ears, nose, mouth and throat: no ear pain, no nose pain, no sinus pressure, no sinus pain Cardiovascular: no chest pain, no orthopnea, no palpitations, no rapid/irregular heart beat, no edema, no syncope, no lightheadedness, no shortness of breath, no dyspnea on exertion, no high blood pressure Respiratory: no cough, no shortness of breath, no dyspnea on exertion, no congestion, no wheezing, no pain on inspiration Gastrointestinal: abdominal pain, nausea, vomiting, no diarrhea, no constipation Genitourinary Female: no pelvic pain, no flank pain, no dysuria, no urinary frequency, no urgency Musculoskeletal: no neck stiffness, no neck pain, no shooting arm pain, no arm numbness/tingling, no low back pain, no shooting leg pain Integumentary: no rash, no pruritis, no redness, no sores Neurological: no head injury, no paralysis, no weakness, no parathesias, no numbness, no tingling, no seizures, no syncope Psychiatric: no anxiety Endocrine: no cold intolerance, no heat intolerance Hematologic/Lymphatic: no easy bruising, no easy bleeding Allergic/Immunologic: no urticaria Physical Examination Vital Signs Temp Pulse Resp BP Pulse Ox 97.5 F L 77 18 124/70 97 09/01/20 01:34 09/01/20 01:34 09/01/20 01:34 09/01/20 01:34 09/01/20 01:34 General appearance: other (lethargic, NGT in place) HEENT: Positive: PERRL Neck: Positive: neck supple, trachea midline Cardiac: Positive: irregularly irregular, S1/S2 Lungs: Positive: Decreased Breath Sounds Neuro: Positive: Grossly Intact Abdomen: Negative: Tender Skin: Negative: Rash Extremities: Absent: edema Results 09/03/20 04:00 09/04/20 06:00 Lipids 09/04/20 Range/Units 06:00 Triglycerides 86 (2-149) mg/dL Comprehensive Metabolic Panel 09/04/20 Range/Units 06:00 Sodium 137 (137-145) mmol/L Potassium 3.6 (3.6-5.0) mmol/L Chloride 99.3 (98-107) mmol/L Carbon Dioxide 29 (22-30) mmol/L BUN 27 H (7-17) mg/dL Creatinine 0.6 (0.6-1.2) mg/dL Glucose 113 H (65-100) mg/dL Calcium 8.9 (8.4-10.2) mg/dL - Imaging and Cardiology Echo: report reviewed (10/2013 showed EF 60-65%, no significant abnormalities. ) Cardiac cath: report reviewed (02/2014 showed moderate nonobstructive CAD - LI's in LM, 50% mid LAD, LI's in LCx, 40% prox and distal RCA. Medical therapy was recommended. ) EKG: report reviewed, image reviewed EKG interpretations - Telemetry EKG Rhythm: Atrial Fibrillation - EKG Supraventricular dysrhythmia: atrial fibrillation Assessment and Plan Agree with IV cardizem in setting of currently strict NPO status. Will plan to transition to PO cardizem once enteral intake is resumed. Pt would benefit from supervisor shuttle veneering systemic AC. However, given recent surgical intervention, will defer recommendations regarding timing of initiation of OAC to general surgery team. Check thyroid profile and await echo. Cont to monitor closely on telemetry. Will follow. The patient has been seen in conjunction with Dr. Arnett who agrees with the assessment and plan of care. - Patient Problems (1) Atrial fibrillation with RVR Current Visit: Yes Status: Acute (2) Perforated gastric ulcer Current Visit: Yes Status: Acute (3) Metastatic breast cancer Current Visit: Yes Status: Acute (4) HTN (hypertension) Current Visit: Yes Status: Chronic (5) Nonobstructive atherosclerosis of coronary artery Current Visit: Yes Status: Chronic (6) History of TIA (transient ischemic attack) Current Visit: Yes Status: Chronic
[2020-09-04] MEDS: cefTRIAXone/NS 2 GM/100 ML 2 GM/100 ML BAG IV SCH (14:37)
--- NOTE | 2020-09-04 16:00 | Progress Note ---
Assessment and Plan s/p[ Perf Ulcer repair---> check UGI tomorrow and if OK, start clears and adv diet over 1-2 days. Will allow NGT to remain out now as pt refusing to have it replaced. I told her that if she has n/v, it will need to go back in. Pneumonia/Afib per other [facility] act Subjective Date of service: 09/04/20 Patient Reports: Positive: no new complaints, feels better, pain is less (NGT fell out) Objective Vital Signs - 12hr 09/04/20 09/04/20 09/04/20 04:00 05:00 07:51 Temperature 98.3 F Pulse Rate 86 73 Pulse Rate [ 67 From Monitor] Pulse Rate [ 100 H Right Dorsalis Pedis] Respiratory 26 H 20 Rate Blood Pressure 142/90 O2 Sat by Pulse 97 82 L Oximetry 09/04/20 09/04/20 09/04/20 08:00 08:31 09:38 Temperature Pulse Rate 67 72 Pulse Rate [ From Monitor] Pulse Rate [ Right Dorsalis Pedis] Respiratory 28 H Rate Blood Pressure O2 Sat by Pulse 86 87 Oximetry 09/04/20 09/04/20 10:00 12:36 Temperature 99.4 F Pulse Rate 68 Pulse Rate [ From Monitor] Pulse Rate [ Right Dorsalis Pedis] Respiratory 22 Rate Blood Pressure 181/88 O2 Sat by Pulse 93 92 Oximetry - Abdomen soft, bowel sounds normal, wound (wound c/d/i; soft, approp TTP; ND; +bs) - Labs 09/03/20 04:00 09/04/20 06:00 Diabetes panel 09/04/20 Range/Units 06:00 Sodium 137 (137-145) mmol/L Potassium 3.6 (3.6-5.0) mmol/L Chloride 99.3 (98-107) mmol/L Carbon Dioxide 29 (22-30) mmol/L BUN 27 H (7-17) mg/dL Creatinine 0.6 (0.6-1.2) mg/dL Glucose 113 H (65-100) mg/dL Calcium 8.9 (8.4-10.2) mg/dL Triglycerides 86 (2-149) mg/dL Thyroid panel 09/04/20 Range/Units 14:16 TSH 0.776 (0.270-4.200) mlU/mL Calcium panel 09/04/20 Range/Units 06:00 Calcium 8.9 (8.4-10.2) mg/dL Phosphorus 2.90 (2.5-4.5) mg/dL Pituitary panel 09/04/20 09/04/20 Range/Units 06:00 14:16 Sodium 137 (137-145) mmol/L Potassium 3.6 (3.6-5.0) mmol/L Chloride 99.3 (98-107) mmol/L Carbon Dioxide 29 (22-30) mmol/L BUN 27 H (7-17) mg/dL Creatinine 0.6 (0.6-1.2) mg/dL Glucose 113 H (65-100) mg/dL Calcium 8.9 (8.4-10.2) mg/dL TSH 0.776 (0.270-4.200) mlU/mL Adrenal panel 09/04/20 Range/Units 06:00 Sodium 137 (137-145) mmol/L Potassium 3.6 (3.6-5.0) mmol/L Chloride 99.3 (98-107) mmol/L Carbon Dioxide 29 (22-30) mmol/L BUN 27 H (7-17) mg/dL Creatinine 0.6 (0.6-1.2) mg/dL Glucose 113 H (65-100) mg/dL Calcium 8.9 (8.4-10.2) mg/dL
[2020-09-04] MEDS: FLUCONAZOLE 200 MG 200 MG/100 ML BAG IV SCH (16:06)
--- NOTE | 2020-09-04 16:26 | Progress Note ---
Assessment and Plan Cultures: None A/P: 55-year-old female with a recent diagnosis of breast cancer undergoing work-up was admitted to the hospital with abdominal pain: #Sepsis, secondary to perforated duodenal ulcer: Status post exploratory laparotomy and repair by Dr. Vargas on 09/01/2020. Recs: Continue IV Ceftriaxone, Flagyl and Fluconazole, D3 recheck CBC in AM, if improved, plan to stop abx Bobbi Samaniego MD, FACP [facility] O: [phone] F: [phone] Subjective Date of service: 09/04/20 Principal diagnosis: Ac hypoxemic resp failure; Perforated gastric ulcer; pneumoperitoneum Interval history: No fever. NG tube out. Passing gas, no BM yet. Sitting in a chair. Asking for water Objective - Exam Narrative Exam: Physical Exam: Constitutional: Awake, alert, no distress Head, Ears, Nose: Normocephalic, atraumatic. External ears, nose normal Eyes: Conjunctivae/corneas clear. No icterus. No ptosis. Neck: supple, no meningeal signs Cardiovascular: S1, S2 + Respiratory: AE fair bilaterally and equal GI: Soft, bowel sounds+ drain + serous output Musculoskeletal: No pedal edema, no cyanosis. Skin: No rash or abscess Hem/Lymphatic: No palpable cervical or supraclavicular nodes. No lymphangitis Psych: no agitation Neurological: Awake, alert, answers questions - Constitutional Vitals: Vital Signs Temp Pulse Resp BP Pulse Ox 99.4 F 68 22 181/88 92 09/04/20 12:36 09/04/20 12:36 09/04/20 12:36 09/04/20 12:36 09/04/20 12:36 Temperature -Last 24 Hours Temperature 99.4 F Temperature 98.3 F - Labs CBC & Chem 7: 09/03/20 04:00 09/04/20 06:00 Labs: Abnormal lab results 09/03/20 09/04/20 09/04/20 Range/Units 17:01 00:57 06:00 ABG pH (7.320-7.450) POC ABG pCO2 (32.0-48.0) mmHg POC ABG pO2 (83-108) mmHg ABG Sodium (136.0-145.0) mmol/L ABG Glucose (65-95) mg/dL BUN 27 H (7-17) mg/dL Glucose 113 H (65-100) mg/dL POC Glucose 120 H 121 H (70-105) Prealbumin 0.109 L (0.200-0.400) g/L Arterial Blood Glucose (65-95) mg/dL 09/04/20 Range/Units 09:27 ABG pH 7.463 H (7.320-7.450) POC ABG pCO2 30.1 L (32.0-48.0) mmHg POC ABG pO2 45.6 L (83-108) mmHg ABG Sodium 132.6 L (136.0-145.0) mmol/L ABG Glucose 135 H (65-95) mg/dL BUN (7-17) mg/dL Glucose (65-100) mg/dL POC Glucose (70-105) Prealbumin (0.200-0.400) g/L Arterial Blood Glucose 135 H (65-95) mg/dL
[2020-09-04] MEDS ORDERED: TOTAL PARENTERAL NUTRITION 2,016 ML IV SCH (20:00)
[2020-09-04] MEDS: hydrALAZINE 20 MG/1 ML INJ IV SCH (20:18)
[2020-09-04] MEDS: MORPHINE 2 MG/1 ML INJ IV PRN (21:04)
[2020-09-05] MEDS: hydrALAZINE 20 MG/1 ML INJ IV SCH ×3 (02:27→15:22)
[2020-09-05] MEDS: dilTIAZem/D5W 100 MG/100 ML BAG IV SCH ×2 (06:16→17:55)
[2020-09-05 06:51] LABS: Hematocrit 40.8 % (30.3-42.9); Hemoglobin 13.4 gm/dl (10.1-14.3); Mean Corpuscular HGB Conc 33 % (30-34); Mean Corpuscular Volume 90 fl (79-97); Platelet Count 183 K/mm3 (140-440); Red Blood Count 4.54 M/mm3 (3.65-5.03); Red Cell Distribution Width 15.1 % (13.2-15.2)
[2020-09-05] MEDS: metroNIDAZOLE/NS 500 MG/100 ML 500 MG/100 ML BAG IV SCH (08:26)
[2020-09-05 08:34] LABS: Alanine Aminotransferase 8 units/L (7-56); Albumin 2.3 g/dL (3.9-5); Blood Urea Nitrogen 25 mg/dL (7-17); Calcium 8.5 mg/dL (8.4-10.2); Hemolysis Index 35
[2020-09-05 08:35] LABS: BUN/Creatinine Ratio 50
--- NOTE | 2020-09-05 10:15 | Progress Note ---
Assessment and Plan Assessment and plan: --A. fib with RVR; On Cardizem drip., Cardiology evaluation noted and appreciated No anticoagulation at this point in view of postop state --Hypertension uncontrolled; Partly due to pain, optimal pain medications Increase PRN labetalol to every 4 hours, increase clonidine to TTS 0.3 mg q. weekly --Perforated gastric ulcer with pneumoperitoneum: 09/01/20 s/p exploratory laparotomy for repair of perforated duodenal ulcer. Patient on TPN and supportive care Postop care per surgery, follow-up with GI if no leak or obstruction, start clears --Sepsis. Present on admission. Perforated viscus secondary to intra-abdominal source secondary to above. Continue Rocephin Flagyl and Diflucan, ID following --Metastatic breast cancer. Continue supportive care --Right upper extremity edema: Etiology likely secondary to occluded lymphatics from breast CA. RUE Doppler .negative for DVT superficial thrombophlebitis, Elevate the limb --Severe protein calorie malnutrition; Continue TPN and supportive care --DVT prophylaxis; Lovenox We will closely monitor the patient and adjust management as needed 09/02/2020. Patient s/p exploratory laparotomy for repair of perforated viscus. Continue IV anti-infectives of Diflucan, Levaquin and Flagyl. Patient currently intubated postoperatively with PSVT FiO2 40% pressure support 10 and PEEP of 6. Extubate per pulmonary. Initiate TPN. 09/03/2020. Patient s/p exploratory laparotomy for repair of perforated duodenal ulcer. Continue IV ceftriaxone, Flagyl and fluconazole per ID recommendations. TPN has been initiated. Patient is extubated and stable. We will transfer to the floor 09/04: Add IV hydralazine, closely monitor blood pressures and adjust as needed. 09/05; A. fib with rapid ventricular rate on Cardizem drip, upper GI, if negative start clear liquids Discussed with surgeon Dr. Barnes History Interval history: I have seen and examined the patient at the bedside this morning Patient's chart and medications reviewed Patient feels slightly better Scheduled for upper GI Vital signs noted Patient has A. fib with rapid ventricular rate On Cardizem drip, cardiology following Hospitalist Physical - Constitutional Vitals: Temp Pulse Resp BP Pulse Ox 97.2 F L 75 23 182/94 99 09/05/20 07:20 09/05/20 08:26 09/05/20 07:20 09/05/20 07:20 09/05/20 03:36 General appearance: Present: mild distress, well-nourished - EENT Eyes: Present: PERRL, EOM intact - Neck Neck: Present: supple, normal ROM - Respiratory Respiratory effort: normal Respiratory: bilateral: diminished, negative: rales, rhonchi, wheezing - Cardiovascular Rhythm: regular Heart Sounds: Present: S1 & S2 - Extremities Extremities: no ischemia, No edema - Abdominal General gastrointestinal: soft, non-tender, non-distended, hypoactive bowel sounds - Integumentary Integumentary: Present: clear, warm - Psychiatric Psychiatric: appropriate mood/affect, cooperative - Neurologic Neurologic: moves all extremities Results - Labs CBC & Chem 7: 09/05/20 06:20 09/05/20 07:12 Labs: Laboratory Last Values WBC 12.8 K/mm3 (4.5-11.0) H 09/05/20 06:20 RBC 4.54 M/mm3 (3.65-5.03) 09/05/20 06:20 Hgb 13.4 gm/dl (10.1-14.3) 09/05/20 06:20 Hct 40.8 % (30.3-42.9) 09/05/20 06:20 MCV 90 fl (79-97) 09/05/20 06:20 MCH 30 pg (28-32) 09/05/20 06:20 MCHC 33 % (30-34) 09/05/20 06:20 RDW 15.1 % (13.2-15.2) 09/05/20 06:20 Plt Count 183 K/mm3 (140-440) 09/05/20 06:20 Lymph % (Auto) 4.0 % (13.4-35.0) L 09/02/20 08:40 [place] % (Auto) 6.1 % (0.0-7.3) 09/02/20 08:40 Eos % (Auto) 0.0 % (0.0-4.3) 09/02/20 08:40 Baso % (Auto) 0.1 % (0.0-1.8) 09/02/20 08:40 Lymph # (Auto) 0.7 K/mm3 (1.2-5.4) L 09/02/20 08:40 [place] # (Auto) 1.1 K/mm3 (0.0-0.8) H 09/02/20 08:40 Eos # (Auto) 0.0 K/mm3 (0.0-0.4) 09/02/20 08:40 Baso # (Auto) 0.0 K/mm3 (0.0-0.1) 09/02/20 08:40 Add Manual Diff Complete 09/03/20 04:00 Total Counted 100 09/03/20 04:00 Seg Neutrophils % Toy Designer 09/03/20 04:00 Seg Neuts % (Manual) 93.0 % (40.0-70.0) H 09/03/20 04:00 Band Neutrophils % 1.0 % 09/03/20 04:00 Lymphocytes % (Manual) 3.0 % (13.4-35.0) L 09/03/20 04:00 Reactive Lymphs % (Man) 0 % 09/03/20 04:00 Monocytes % (Manual) 3.0 % (0.0-7.3) 09/03/20 04:00 Eosinophils % (Manual) 0 % (0.0-4.3) 09/03/20 04:00 Basophils % (Manual) 0 % (0.0-1.8) 09/03/20 04:00 Metamyelocytes % 0 % 09/03/20 04:00 Myelocytes % 0 % 09/03/20 04:00 Promyelocytes % 0 % 09/03/20 04:00 Blast Cells % 0 % 09/03/20 04:00 Nucleated RBC % Not Reportable 09/03/20 04:00 Seg Neutrophils # 16.3 K/mm3 (1.8-7.7) H 09/02/20 08:40 Seg Neutrophils # Man 17.8 K/mm3 (1.8-7.7) H 09/03/20 04:00 Band Neutrophils # 0.2 K/mm3 09/03/20 04:00 Lymphocytes # (Manual) 0.6 K/mm3 (1.2-5.4) L 09/03/20 04:00 Abs React Lymphs (Man) 0.0 K/mm3 09/03/20 04:00 Monocytes # (Manual) 0.6 K/mm3 (0.0-0.8) 09/03/20 04:00 Eosinophils # (Manual) 0.0 K/mm3 (0.0-0.4) 09/03/20 04:00 Basophils # (Manual) 0.0 K/mm3 (0.0-0.1) 09/03/20 04:00 Metamyelocytes # 0.0 K/mm3 09/03/20 04:00 Myelocytes # 0.0 K/mm3 09/03/20 04:00 Promyelocytes # 0.0 K/mm3 09/03/20 04:00 Blast Cells # 0.0 K/mm3 09/03/20 04:00 WBC Morphology Not Reportable 09/03/20 04:00 Hypersegmented Neuts Not Reportable 09/03/20 04:00 Hyposegmented Neuts Not Reportable 09/03/20 04:00 Hypogranular Neuts Not Reportable 09/03/20 04:00 Smudge Cells Not Reportable 09/03/20 04:00 Toxic Granulation Not Reportable 09/03/20 04:00 Toxic Vacuolation Not Reportable 09/03/20 04:00 Dohle Bodies Not Reportable 09/03/20 04:00 Pelger-Huet Anomaly Not Reportable 09/03/20 04:00 [place] Rods Not Reportable 09/03/20 04:00 Platelet Estimate Consistent w auto 09/03/20 04:00 Clumped Platelets Not Reportable 09/03/20 04:00 Plt Clumps, EDTA Not Reportable 09/03/20 04:00 Large Platelets Not Reportable 09/03/20 04:00 Giant Platelets Not Reportable 09/03/20 04:00 Platelet Satelliting Not Reportable 09/03/20 04:00 Plt Morphology Comment Not Reportable 09/03/20 04:00 RBC Morphology Normal 09/03/20 04:00 Dimorphic RBCs Not Reportable 09/03/20 04:00 Polychromasia Not Reportable 09/03/20 04:00 Hypochromasia Not Reportable 09/03/20 04:00 Poikilocytosis Not Reportable 09/03/20 04:00 Anisocytosis Not Reportable 09/03/20 04:00 Microcytosis Not Reportable 09/03/20 04:00 Macrocytosis Not Reportable 09/03/20 04:00 Spherocytes Not Reportable 09/03/20 04:00 Pappenheimer Bodies Not Reportable 09/03/20 04:00 Sickle Cells Not Reportable 09/03/20 04:00 Target Cells Not Reportable 09/03/20 04:00 Tear Drop Cells Not Reportable 09/03/20 04:00 Ovalocytes Not Reportable 09/03/20 04:00 Helmet Cells Not Reportable 09/03/20 04:00 Fernandez-[place] Bodies Not Reportable 09/03/20 04:00 [place] Rings Not Reportable 09/03/20 04:00 [place] Cells Not Reportable 09/03/20 04:00 Bite Cells Not Reportable 09/03/20 04:00 Crenated Cell Not Reportable 09/03/20 04:00 Elliptocytes Not Reportable 09/03/20 04:00 Acanthocytes (Spur) Not Reportable 09/03/20 04:00 Rouleaux Not Reportable 09/03/20 04:00 Hemoglobin C Crystals Not Reportable 09/03/20 04:00 Schistocytes Not Reportable 09/03/20 04:00 Malaria parasites Not Reportable 09/03/20 04:00 [place] Bodies Not Reportable 09/03/20 04:00 Hem Pathologist Commnt No 09/03/20 04:00 ABG pH 7.463 (7.320-7.450) H 09/04/20 09:27 POC ABG pCO2 30.1 mmHg (32.0-48.0) L 09/04/20 09:27 ABG pCO2 34.7 mm Hg 09/02/20 05:20 POC ABG pO2 45.6 mmHg (83-108) L 09/04/20 09:27 ABG pO2 270.7 mm Hg (80.0-90.0) H 09/02/20 05:20 POC ABG HCO3 21.1 09/04/20 09:27 ABG HCO3 23.7 mmol/L (20.0-26.0) 09/02/20 05:20 ABG O2 Saturation 99.5 % (95.0-99.0) H 09/02/20 05:20 ABG O2 Content 20.6 (0.0-44) 09/02/20 05:20 POC ABG Base Excess -1.4 09/04/20 09:27 ABG Base Excess 0.3 mmol/L (-2.0-3.0) 09/02/20 05:20 ABG Hemoglobin 15.8 (12.0-17.5) 09/04/20 09:27 ABG Carboxyhemoglobin 1.3 % (0.0-5.0) 09/02/20 05:20 ABG Methemoglobin 0.4 % (0.0-1.5) 09/02/20 05:20 ABG Sodium 132.6 mmol/L (136.0-145.0) L 09/04/20 09:27 ABG Potassium 3.7 mmol/L (3.40-4.50) 09/04/20 09:27 ABG Chloride 102.0 mmol/L (98-107) 09/04/20 09:27 ABG Glucose 135 mg/dL (65-95) H 09/04/20 09:27 Oxyhemoglobin 97.7 % (95.0-99.0) 09/02/20 05:20 FiO2 21.0 09/04/20 09:27 Sodium 136 mmol/L (137-145) L 09/05/20 07:12 Potassium 4.0 mmol/L (3.6-5.0) 09/05/20 07:12 Chloride 100.2 mmol/L (98-107) 09/05/20 07:12 Carbon Dioxide 27 mmol/L (22-30) 09/05/20 07:12 Anion Gap 13 mmol/L 09/05/20 07:12 BUN 25 mg/dL (7-17) H 09/05/20 07:12 Creatinine 0.5 mg/dL (0.6-1.2) L 09/05/20 07:12 Estimated GFR > 60 ml/min 09/05/20 07:12 BUN/Creatinine Ratio 50 % 09/05/20 07:12 Glucose 113 mg/dL (65-100) H 09/05/20 07:12 POC Glucose 100 (70-105) 09/05/20 07:41 Calcium 8.5 mg/dL (8.4-10.2) 09/05/20 07:12 Phosphorus 3.30 mg/dL (2.5-4.5) 09/05/20 07:12 Magnesium 1.70 mg/dL (1.7-2.3) 09/05/20 07:12 Total Bilirubin 0.30 mg/dL (0.1-1.2) 09/05/20 07:12 AST 17 units/L (5-40) 09/05/20 07:12 ALT 8 units/L (7-56) 09/05/20 07:12 Alkaline Phosphatase 52 units/L (35-129) 09/05/20 07:12 Total Protein 5.7 g/dL (6.3-8.2) L D 09/05/20 07:12 Albumin 2.3 g/dL (3.9-5) L 09/05/20 07:12 Albumin/Globulin Ratio 0.7 % 09/05/20 07:12 Prealbumin 0.109 g/L (0.200-0.400) L 09/04/20 06:00 Triglycerides 86 mg/dL (2-149) 09/04/20 06:00 Lipase 24 units/L (13-60) 09/01/20 02:30 Procalcitonin 5.44 ng/mL (<0.15) 09/01/20 20:23 TSH 0.776 mlU/mL (0.270-4.200) 09/04/20 14:16 Free T4 0.89 ng/dL (0.76-1.46) 09/04/20 14:16 Arterial Blood Glucose 135 mg/dL (65-95) H 09/04/20 09:27 Arterial Blood Ionized Calcium 4.9 mg/dL (4.6-5.3) 09/04/20 09:27 Urine Color Yellow (Yellow) 09/01/20 02:26 Urine Turbidity Clear (Clear) 09/01/20 02:26 Urine pH 6.0 (5.0-7.0) 09/01/20 02:26 Ur Specific [place] 1.023 (1.003-1.030) 09/01/20 02:26 Urine Protein 30 mg/dl mg/dL (Negative) 09/01/20 02:26 Urine Glucose (UA) Neg mg/dL (Negative) 09/01/20 02:26 Urine Ketones Neg mg/dL (Negative) 09/01/20 02:26 Urine Blood Neg (Negative) 09/01/20 02:26 Urine Nitrite Neg (Negative) 09/01/20 02:26 Urine Bilirubin Neg (Negative) 09/01/20 02:26 Urine Urobilinogen 4.0 mg/dL (<2.0) 09/01/20 02:26 Ur Leukocyte Esterase Tr (Negative) 09/01/20 02:26 Urine WBC (Auto) 5.0 /HPF (0.0-6.0) 09/01/20 02:26 Urine RBC (Auto) 4.0 /HPF (0.0-6.0) 09/01/20 02:26 U Epithel Cells (Auto) 3.0 /HPF (0-13.0) 09/01/20 02:26 Urine Mucus 1+ /HPF 09/01/20 02:26 - Diagnostic Impressions Diagnostic Impressions: Echocardiogram 09/03/20 18:17 Transthoracic Echocardiogram Indication: A-fib BP: 142/90 HR: 67 Conclusions *The left ventricular chamber size is normal. *Global left ventricular wall motion and contractility are within normal limits. *The estimated ejection fraction is 60-65%. *Abnormal left ventricular diastolic filling is observed, consistent with impaired relaxation. *The right ventricular cavity size is normal. *The right ventricular systolic pressure is calculated at 27 mmHg. *There is a moderate pleural effusion. Findings Left Ventricle: The left ventricular chamber size is normal. Global left ventricular wall motion and contractility are within normal limits. Global left ventricular systolic function is normal. The estimated ejection fraction is 60-65%. Abnormal left ventricular diastolic filling is observed, consistent with impaired relaxation. Right Ventricle: The right ventricular cavity size is normal. Right Atrium: The right atrial cavity size is normal. Aortic Valve: The aortic valve leaflets are mildly thickened. There is no evidence of aortic regurgitation. Mitral Valve: The mitral valve leaflets are mildly thickened. There is no evidence of mitral regurgitation. Tricuspid Valve: The tricuspid valve leaflets are normal. There is trace tricuspid regurgitation. The right ventricular systolic pressure is calculated at 27 mmHg. Pulmonic Valve: The pulmonic valve appears normal. There is trace pulmonic regurgitation. Pericardium: There is no pericardial effusion. There is a moderate pleural effusion. Aorta: The aorta appears normal. Venous: The inferior vena cava is not visualized. Measurements Chambers 2D Name Value Normal Range IVSd (2D) 0.94 cm (0.6 - 1.1) LVPWd (2D) 0.99 cm (0.6 - 1.1) LVIDd (2D) 4.76 cm (3.7 - 5.6) LVIDs (2D) 2.72 cm (2 - 3.8) LV FS (2D) 42.82 % - EF Teichholz (2D) 73.86 % - Ao root diameter (2D) 3.08 cm (2 - 3.7) Volumes/Mass Name Value Normal Range LA ESV SP 4CH (A/L) 32.25 ml - LA ESV SP 2CH (A/L) 31.78 ml - LA ESV BP (A/L) 34.38 ml - LA ESV BP (A/L) index 16.69 ml/m2 - LA ESV SP 4CH (MOD) 29.95 ml - LA ESV SP 2CH (MOD) 29.49 ml - LA ESV BP (MOD) 31.87 ml - LA ESV BP (MOD) index 15.47 ml/m2 - Diastolic/Systolic Function Name Value Normal Range MV E-wave Vmax 0.63 m/sec - MV deceleration time 180.43 msec - MV A-wave Vmax 0.71 m/sec - MV E:A ratio 0.89 ratio - Aortic Valve Name Value Normal Range AV Vmax 1.81 m/sec - AV VTI 29.91 cm - AV peak gradient 13.12 mmHg - AV mean gradient 6.84 mmHg - LVOT diameter 2.02 cm - LVOT Vmax 1.34 m/sec - LVOT VTI 24.44 cm - LVOT peak gradient 7.15 mmHg - LVOT mean gradient 3.72 mmHg - SV LVOT 77.91 ml - JUANITA (continuity Vmax) 2.35 cm2 - JUANITA (continuity VTI) 2.6 cm2 - Tricuspid Valve Name Value Normal Range TR Vmax 2.46 m/sec - TR peak gradient 24 mmHg - RAP 3 mmHg - RVSP 27 mmHg - Pulmonic Valve/Qp:Qs Name Value Normal Range PV Vmax 0.82 m/sec - PV peak gradient 2.67 mmHg - PV acceleration time 102.76 msec - Carey/IV: Voiding Method Bedpan IV Catheter Type [Left Peripheral IV Antecubital] IV Catheter Type [Left Upper PICC Line arm] IV Catheter Type [Left Forearm Peripheral IV ] IV Catheter Type [Left Hand] INT / Saline Lock Active Medications - Current Medications Current Medications: Generic Name Dose Route Start Last Admin Trade Name Freq PRN Reason Stop Dose Admin Clonidine HCl 0.2 mg 09/02/20 22:00 09/02/20 21:16 Catapres-Tts Patch TD 0.2 mg Gary JAIME Administration Dextrose 25 ml 09/02/20 18:38 09/02/20 18:50 D50w (25gm) Syringe IV 15 ml Q30MIN PRN Administration Hypoglycemia Protocol Enoxaparin Sodium 40 mg 09/01/20 10:00 09/04/20 09:37 Enoxaparin SUB-Q 40 mg QDAY JAIME Administration Hydralazine HCl 20 mg 09/04/20 20:00 09/05/20 08:28 Apresoline IV Not Given Q6H JAIME Hydrophilic Ointment 1 applic 09/01/20 14:47 Vaseline Lip Therapy TP Q2H PRN Dry Lips Metronidazole 500 mg in 100 mls @ 100 mls/hr 09/01/20 16:00 09/05/20 08:26 Flagyl 500 Mg/100 Ml IV 100 mls/hr Q8H JAIME Administration Protocol Fluconazole 200 mg in 100 mls @ 100 mls/hr 09/02/20 17:00 09/04/20 16:06 Diflucan IV 100 mls/hr Q24H JAIME Administration Protocol Pantoprazole Sodium 80 mg/ 100 mls @ 10 mls/hr 09/01/20 22:00 09/04/20 23:08 Sodium Chloride IV 8 mg/hr DIRECT JAIME 10 mls/hr Administration 8 MG/HR Ceftriaxone Sodium 2 gm in 100 mls @ 200 mls/hr 09/02/20 14:00 09/04/20 14:37 Rocephin/Ns 2 Gm/100 Ml IV 200 mls/hr Q24H JAIME Administration Protocol Diltiazem HCl 100 mg in 100 mls @ 5 mls/hr 09/03/20 19:00 09/05/20 06:16 Cardizem/D5w 100mg/100ml IV 7.5 mg/hr DIRECT JAIME 7.5 mls/hr Administration Protocol 5 MG/HR Amino Acids/Electrolytes/Dextrose 2,016 mls @ 84 mls/hr 09/04/20 20:00 10/06/20 21:09 Tpn Adult IV 09/05/20 19:59 84 mls/hr DAILY@2000 JAIME Administration Protocol Labetalol HCl 10 mg 09/04/20 19:01 09/05/20 08:26 Labetalol IV 09/07/20 17:41 10 mg Q4H PRN Administration HTN >160/90 Morphine Sulfate 2 mg 09/01/20 09:21 09/04/20 21:04 Morphine IV 2 mg Q4H PRN Administration Pain, Moderate (4-6) Multi-Ingred Cream/Lotion/Oil/Oint 1 applic 09/01/20 14:47 Artificial Tears Ophth Oint OU Q4H PRN Dry Eye(s) Sodium Chloride 10 ml 09/01/20 10:00 09/04/20 21:12 Sodium Chloride Flush Syringe 10 Ml IV 10 ml BID JAIME Administration Sodium Chloride 10 ml 09/01/20 09:21 09/03/20 23:33 Sodium Chloride Flush Syringe 10 Ml IV 10 ml PRN PRN Administration LINE FLUSH Nutrition/Malnutrition Assess - Dietary Evaluation Nutrition/Malnutrition Findings: Nutrition Notes Start: 09/02/20 09:42 Freq: Status: Active Protocol: Document 09/04/20 12:42 YANIRA (Rec: 09/04/20 13:12 YANIRA [id number]) Co-Sign 09/04/20 12:42 SHAEALL Nutrition Notes Initial or Follow up Reassessment Current Diagnosis COPD Other Pertinent Diagnosis Breast Ca with Mets, Abdominal pain S/P exp lap Current Diet CPN at 84 ml/hr Labs/Tests Reviewed Pertinent Medications Reviewed Height 5 ft 11 in Weight 86.183 kg [place] Body Weight (kg) 70.45 BMI 26.4 Weight Status Overweight Subjective/Other Information CPN day 3. Pt has onset Afib and high BP. Percent of energy/protein needs met: 48%/100% Burn Absent Trauma Absent GI Symptoms Other Food Allergy No Current % PO Negligible Minimum of two criteria No physical signs of malnutrition #1 Nutrition Diagnosis Inadequate oral intake Diagnosis Progress(for reassessment Continues documentation) Is patient on ventilator? No Is Patient Ambulatory and/or Out of Bed No REE-([facility]-confined to bed) 5748.316 Calculation Used for Recommendations [facility] Additional Notes Protein needs are 86-103g (1-1 .2g/kg) Fluid needs are 1ml/kcal Nutrition Intervention Change Diet Order: CPN Nutrition Support: CPN at 84ml/hr: 9.9% dextrose, MVI, Thiamine. Osmolality: 1190 Kcal 1,040 Protein (gm) 90 Carbohydrates (gm) 200 Fat (gm) 0 Fluid (mL) 2,016 Fiber (gm) 0 Goal #1 Meet kcal and protein needs as best as possible via CPN Anticipated Discharge Needs: Unable to determine at this time Follow-Up By: 09/05/20 Additional Comments Labs in AM: CMP, Mg, Phos
--- NOTE | 2020-09-05 10:40 | Progress Note ---
Assessment and Plan tte reviewed - EF 60-65%, impaired relaxation, mod pleural effusion. Thyroid profile WNL. Tele reviewed - pt converted to NSR yesterday evening and remains in NSR on evaluation. Reduce cardizem gtt to 5mg/hr. Will plan to transition to PO cardizem once enteral intake is resumed. Pt would benefit from correction systemic AC. However, given recent surgical intervention, will defer recommendations regarding timing of initiation of OAC to general surgery team. The patient has been seen in conjunction with Dr. Astorga who agrees with the assessment and plan of care. - Patient Problems (1) Atrial fibrillation with RVR Current Visit: Yes Status: Acute Plan to address problem: --> NSR (2) Perforated gastric ulcer Current Visit: Yes Status: Acute (3) Metastatic breast cancer Current Visit: Yes Status: Acute (4) HTN (hypertension) Current Visit: Yes Status: Chronic (5) Nonobstructive atherosclerosis of coronary artery Current Visit: Yes Status: Chronic (6) History of TIA (transient ischemic attack) Current Visit: Yes Status: Chronic Subjective Date of service: 09/05/20 Principal diagnosis: Ac hypoxemic resp failure; Perforated gastric ulcer; pneumoperitoneum Interval history: pt sitting up at bedside, feeling a little better today. NGT in place, had BM last night. tele reviewed - pt converted to NSR yesterday evening and remains in NSR on evaluation. Cardizem gtt infusing @ 7.5mg/hr. Objective Last Vital Signs Temp 97.2 F L 09/05/20 07:20 Pulse 75 09/05/20 08:26 Resp 23 09/05/20 07:20 BP 182/94 09/05/20 07:20 Pulse Ox 99 09/05/20 03:36 - Physical Examination General: No Apparent Distress HEENT: Positive: PERRL Neck: Positive: neck supple, trachea midline Cardiac: Positive: Reg Rate and Rhythm, S1/S2 Lungs: Positive: Decreased Breath Sounds Neuro: Positive: Grossly Intact Skin: Negative: Rash Extremities: Absent: edema - Labs and Meds Cardiac Enzymes 09/05/20 Range/Units 07:12 AST 17 (5-40) units/L CBC 09/05/20 Range/Units 06:20 WBC 12.8 H (4.5-11.0) K/mm3 RBC 4.54 (3.65-5.03) M/mm3 Hgb 13.4 (10.1-14.3) gm/dl Hct 40.8 (30.3-42.9) % Plt Count 183 (140-440) K/mm3 Comprehensive Metabolic Panel 09/05/20 Range/Units 07:12 Sodium 136 L (137-145) mmol/L Potassium 4.0 (3.6-5.0) mmol/L Chloride 100.2 (98-107) mmol/L Carbon Dioxide 27 (22-30) mmol/L BUN 25 H (7-17) mg/dL Creatinine 0.5 L (0.6-1.2) mg/dL Glucose 113 H (65-100) mg/dL Calcium 8.5 (8.4-10.2) mg/dL AST 17 (5-40) units/L ALT 8 (7-56) units/L Alkaline Phosphatase 52 (35-129) units/L Total Protein 5.7 L D (6.3-8.2) g/dL Albumin 2.3 L (3.9-5) g/dL - Imaging and Cardiology EKG: report reviewed, image reviewed Echo: report reviewed (10/2013 showed EF 60-65%, no significant abnormalities. ) Cardiac cath: report reviewed (02/2014 showed moderate nonobstructive CAD - LI's in LM, 50% mid LAD, LI's in LCx, 40% prox and distal RCA. Medical therapy was recommended. ) - Telemetry EKG Rhythm: Sinus Rhythm - Allied health notes Allied health notes reviewed: nursing
[2020-09-05 11:05] LABS: Total Cells Counted 100
[2020-09-05 11:06] LABS: Band Neutrophils # (Manual) 0.1 K/mm3; Basophils % (Manual) 0 % (0.0-1.8); Eosinophils % (Manual) 0 % (0.0-4.3); Platelet Estimate Consistent w Auto; RBC Morphology Normal
[2020-09-05] MEDS: ENOXAPARIN 40 MG/0.4 ML INJ SUB-Q SCH (11:06)
--- NOTE | 2020-09-05 11:22 | Progress Note ---
Assessment and Plan POD#4 Await UGI-- if no leak, can start clears and adv diet over 3-4 days as pt strength improves. She has several family members at home to assist her- does not want rehab. Cont abx/anti-fungals/PPI Subjective Date of service: 09/05/20 Patient Reports: Positive: no new complaints, pain is less, other (ambulating small amts; pain controlled; AMARI pulled out; NPO; UGI not done yet) Objective Vital Signs - 12hr 09/04/20 09/05/20 09/05/20 23:48 02:26 03:36 Temperature 98.0 F 98 F Pulse Rate 62 62 68 Respiratory 18 18 Rate Blood Pressure 178/95 178/95 Blood Pressure 161/100 [Left] O2 Sat by Pulse 96 99 Oximetry 09/05/20 09/05/20 07:20 08:26 Temperature 97.2 F L Pulse Rate 75 Respiratory 23 Rate Blood Pressure 182/94 Blood Pressure [Left] O2 Sat by Pulse Oximetry pt looks like she is working to breath but OK - Abdomen soft, tender, bowel sounds normal, not distended, wound (wound c/d/i; AMARI pulled out beyond black dot- no suction) - Labs 09/05/20 06:20 09/05/20 07:12 Diabetes panel 09/05/20 Range/Units 07:12 Sodium 136 L (137-145) mmol/L Potassium 4.0 (3.6-5.0) mmol/L Chloride 100.2 (98-107) mmol/L Carbon Dioxide 27 (22-30) mmol/L BUN 25 H (7-17) mg/dL Creatinine 0.5 L (0.6-1.2) mg/dL Glucose 113 H (65-100) mg/dL Calcium 8.5 (8.4-10.2) mg/dL AST 17 (5-40) units/L ALT 8 (7-56) units/L Alkaline Phosphatase 52 (35-129) units/L Total Protein 5.7 L D (6.3-8.2) g/dL Albumin 2.3 L (3.9-5) g/dL Thyroid panel 09/04/20 Range/Units 14:16 TSH 0.776 (0.270-4.200) mlU/mL Calcium panel 09/05/20 Range/Units 07:12 Calcium 8.5 (8.4-10.2) mg/dL Phosphorus 3.30 (2.5-4.5) mg/dL Albumin 2.3 L (3.9-5) g/dL Pituitary panel 09/04/20 09/05/20 Range/Units 14:16 07:12 Sodium 136 L (137-145) mmol/L Potassium 4.0 (3.6-5.0) mmol/L Chloride 100.2 (98-107) mmol/L Carbon Dioxide 27 (22-30) mmol/L BUN 25 H (7-17) mg/dL Creatinine 0.5 L (0.6-1.2) mg/dL Glucose 113 H (65-100) mg/dL Calcium 8.5 (8.4-10.2) mg/dL TSH 0.776 (0.270-4.200) mlU/mL Adrenal panel 09/05/20 Range/Units 07:12 Sodium 136 L (137-145) mmol/L Potassium 4.0 (3.6-5.0) mmol/L Chloride 100.2 (98-107) mmol/L Carbon Dioxide 27 (22-30) mmol/L BUN 25 H (7-17) mg/dL Creatinine 0.5 L (0.6-1.2) mg/dL Glucose 113 H (65-100) mg/dL Calcium 8.5 (8.4-10.2) mg/dL Total Bilirubin 0.30 (0.1-1.2) mg/dL AST 17 (5-40) units/L ALT 8 (7-56) units/L Alkaline Phosphatase 52 (35-129) units/L Total Protein 5.7 L D (6.3-8.2) g/dL Albumin 2.3 L (3.9-5) g/dL
[2020-09-05] MEDS: cloNIDine TTS 0.3 MG/24 HR PATCH TD SCH (12:59)
--- NOTE | 2020-09-05 13:48 | Progress Note ---
Assessment and Plan Patient alert, awake, resting on 4 litres O2. O2 saturation 95%. No complaint of chest pain, shortness of breath or cough. Patient says breathing better. ABG on room air ABG pH 7.463 (7.320-7.450) H 09/04/20 09:27 POC ABG pCO2 30.1 mmHg (32.0-48.0) L 09/04/20 09:27 ABG pCO2 34.7 mm Hg 09/02/20 05:20 POC ABG pO2 45.6 mmHg (83-108) L 09/04/20 09:27 ABG pO2 270.7 mm Hg (80.0-90.0) H 09/02/20 05:20 POC ABG HCO3 21.1 09/04/20 09:27 ABG O2 Saturation 99.5 % (95.0-99.0) H 09/02/20 05:20 Patient is candidate for home O2. Chest xray 09/04/20 reported Worsening pleural-parenchymal opacity of the left lower lung when compared to yesterday's exam. Appears Atelectasis. Recommend Chest PT. Continue incentive spirometry. Patient afebrile. Has leukocytosis. Patient is on ceftriaxone and metronidazole and Fluconazole. Venous doppler studies of legs reported superficial thrombosis. Patient is on S/C Lovenox. - Patient Problems (1) Breast cancer Current Visit: Yes Status: Acute Plan to address problem: Management as per primary care and Oncology. (2) Perforated gastric ulcer Current Visit: Yes Status: Acute Plan to address problem: S/P Exploratory laparotomy and repair of perforated gastric ulcer. Management as per surgery. (3) Atelectasis of left lung Current Visit: Yes Status: Acute Plan to address problem: O2 supplementation 3 litres. Recommend Chest PT. Continue incentive spirometry. Albuterol/atrovent aerosol treatments q 6 hours. Patient afebrile. Has leukocytosis. Patient is on ceftriaxone and metronidazole and Fluconazole. Subjective Date of service: 09/05/20 Principal diagnosis: Ac hypoxemic resp failure; Perforated gastric ulcer; pneumoperitoneum Interval history: Patient alert, awake, resting on 4 litres O2. O2 saturation 95%. No complaint of chest pain, shortness of breath or cough. Patient says breathing better. ABG on room air ABG pH 7.463 (7.320-7.450) H 09/04/20 09:27 POC ABG pCO2 30.1 mmHg (32.0-48.0) L 09/04/20 09:27 ABG pCO2 34.7 mm Hg 09/02/20 05:20 POC ABG pO2 45.6 mmHg (83-108) L 09/04/20 09:27 ABG pO2 270.7 mm Hg (80.0-90.0) H 09/02/20 05:20 POC ABG HCO3 21.1 09/04/20 09:27 ABG O2 Saturation 99.5 % (95.0-99.0) H 09/02/20 05:20 Patient is candidate for home O2. Chest xray 09/04/20 reported Worsening pleural-parenchymal opacity of the left lower lung when compared to yesterday's exam. Appears Atelectasis. Recommend Chest PT. Continue incentive spirometry. Patient afebrile. Has leukocytosis. Patient is on ceftriaxone and metronidazole and Fluconazole. Venous doppler studies of legs reported superficial thrombosis. Patient is on S/C Lovenox. Objective Vital Signs - 12hr 09/05/20 09/05/20 09/05/20 02:26 03:36 07:20 Temperature 98 F 97.2 F L Pulse Rate 62 68 Respiratory 18 23 Rate Blood Pressure 178/95 182/94 Blood Pressure 161/100 [Left] O2 Sat by Pulse 99 Oximetry 09/05/20 09/05/20 08:26 11:11 Temperature Pulse Rate 75 72 Respiratory 31 H Rate Blood Pressure 161/96 Blood Pressure [Left] O2 Sat by Pulse 91 Oximetry Constitutional: no acute distress, alert, other (elderly female with normal respiratory effort at rest.) Eyes: non-icteric ENT: oropharynx moist, other (ETT 23 cm NATASHA) Effort: normal Ascultation: Bilateral: diminished breath sounds, rhonchi (scant in bases), other (Diminished breath sounds left lower lobe.) Percussion: Bilateral: not dull Cardiovascular: regular rate and rhythm Gastrointestinal: hypoactive bowel sounds, soft, non-tender, non-distended (protuberant) Integumentary: normal, other (post-op changes) Extremities: no cyanosis, pink and warm, pulses normal, edema (trace) Neurologic: normal mental status, non-focal exam, pupils equal and round, motor strength normal and Psychiatric: mood appropriate, affect normal CBC and BMP: 09/05/20 06:20 09/05/20 07:12 ABG, PT/INR, D-dimer: ABG ABG pH 7.463 (7.320-7.450) H 09/04/20 09:27 POC ABG pCO2 30.1 mmHg (32.0-48.0) L 09/04/20 09:27 ABG pCO2 34.7 mm Hg 09/02/20 05:20 POC ABG pO2 45.6 mmHg (83-108) L 09/04/20 09:27 ABG pO2 270.7 mm Hg (80.0-90.0) H 09/02/20 05:20 POC ABG HCO3 21.1 09/04/20 09:27 ABG O2 Saturation 99.5 % (95.0-99.0) H 09/02/20 05:20 Abnormal lab findings: Abnormal Labs 09/01/20 09/01/20 09/01/20 02:30 02:30 14:42 WBC 21.0 H RBC 5.49 H Hgb 16.3 H Hct 48.5 H Lymph % (Auto) Lymph # (Auto) [place] # (Auto) Seg Neutrophils % Seg Neuts % (Manual) 90.0 H Lymphocytes % (Manual) 4.0 L Seg Neutrophils # Seg Neutrophils # Man 18.9 H Lymphocytes # (Manual) 0.8 L ABG pH POC ABG pCO2 POC ABG pO2 182.2 H ABG pO2 ABG O2 Saturation ABG Sodium 133.4 L ABG Glucose 132 H Sodium 134 L Chloride 89.2 L BUN 20 H Creatinine Glucose 190 H POC Glucose Calcium 10.5 H Phosphorus Total Protein 8.6 H Albumin Prealbumin Arterial Blood Glucose 132 H 09/01/20 09/02/20 09/02/20 15:22 05:15 05:20 WBC RBC Hgb Hct Lymph % (Auto) Lymph # (Auto) [place] # (Auto) Seg Neutrophils % Seg Neuts % (Manual) Lymphocytes % (Manual) Seg Neutrophils # Seg Neutrophils # Man Lymphocytes # (Manual) ABG pH 7.452 H POC ABG pCO2 POC ABG pO2 ABG pO2 270.7 H ABG O2 Saturation 99.5 H ABG Sodium ABG Glucose Sodium Chloride BUN 18 H Creatinine Glucose POC Glucose Calcium Phosphorus 5.40 H Total Protein Albumin Prealbumin Arterial Blood Glucose 09/02/20 09/02/20 09/02/20 08:40 11:24 17:35 WBC 18.2 H RBC Hgb Hct Lymph % (Auto) 4.0 L Lymph # (Auto) 0.7 L [place] # (Auto) 1.1 H Seg Neutrophils % 89.8 H Seg Neuts % (Manual) Lymphocytes % (Manual) Seg Neutrophils # 16.3 H Seg Neutrophils # Man Lymphocytes # (Manual) ABG pH POC ABG pCO2 POC ABG pO2 75.5 L ABG pO2 ABG O2 Saturation ABG Sodium 134.2 L ABG Glucose Sodium Chloride BUN Creatinine Glucose POC Glucose 68 L Calcium Phosphorus Total Protein Albumin Prealbumin Arterial Blood Glucose 09/03/20 09/03/20 09/03/20 00:01 04:00 04:00 WBC 19.1 H RBC Hgb 14.4 H Hct Lymph % (Auto) Lymph # (Auto) [place] # (Auto) Seg Neutrophils % Seg Neuts % (Manual) 93.0 H Lymphocytes % (Manual) 3.0 L Seg Neutrophils # Seg Neutrophils # Man 17.8 H Lymphocytes # (Manual) 0.6 L ABG pH POC ABG pCO2 POC ABG pO2 ABG pO2 ABG O2 Saturation ABG Sodium ABG Glucose Sodium Chloride BUN 23 H Creatinine Glucose 124 H POC Glucose 114 H Calcium Phosphorus Total Protein Albumin Prealbumin Arterial Blood Glucose 09/03/20 09/03/20 09/04/20 05:48 17:01 00:57 WBC RBC Hgb Hct Lymph % (Auto) Lymph # (Auto) [place] # (Auto) Seg Neutrophils % Seg Neuts % (Manual) Lymphocytes % (Manual) Seg Neutrophils # Seg Neutrophils # Man Lymphocytes # (Manual) ABG pH POC ABG pCO2 POC ABG pO2 ABG pO2 ABG O2 Saturation ABG Sodium ABG Glucose Sodium Chloride BUN Creatinine Glucose POC Glucose 123 H 120 H 121 H Calcium Phosphorus Total Protein Albumin Prealbumin Arterial Blood Glucose 09/04/20 09/04/20 09/05/20 06:00 09:27 06:20 WBC 12.8 H RBC Hgb Hct Lymph % (Auto) Lymph # (Auto) [place] # (Auto) Seg Neutrophils % Seg Neuts % (Manual) 92.0 H Lymphocytes % (Manual) 4.0 L Seg Neutrophils # Seg Neutrophils # Man 11.8 H Lymphocytes # (Manual) 0.5 L ABG pH 7.463 H POC ABG pCO2 30.1 L POC ABG pO2 45.6 L ABG pO2 ABG O2 Saturation ABG Sodium 132.6 L ABG Glucose 135 H Sodium Chloride BUN 27 H Creatinine Glucose 113 H POC Glucose Calcium Phosphorus Total Protein Albumin Prealbumin 0.109 L Arterial Blood Glucose 135 H 09/05/20 09/05/20 09/05/20 06:34 07:12 11:39 WBC RBC Hgb Hct Lymph % (Auto) Lymph # (Auto) [place] # (Auto) Seg Neutrophils % Seg Neuts % (Manual) Lymphocytes % (Manual) Seg Neutrophils # Seg Neutrophils # Man Lymphocytes # (Manual) ABG pH POC ABG pCO2 POC ABG pO2 ABG pO2 ABG O2 Saturation ABG Sodium ABG Glucose Sodium 136 L Chloride BUN 25 H Creatinine 0.5 L Glucose 113 H POC Glucose 123 H 115 H Calcium Phosphorus Total Protein 5.7 L D Albumin 2.3 L Prealbumin Arterial Blood Glucose Allied health notes reviewed: nursing
--- NOTE | 2020-09-05 14:06 | Progress Note ---
Assessment and Plan Cultures: None A/P: 55-year-old female with a recent diagnosis of breast cancer undergoing work-up was admitted to the hospital with abdominal pain: #Sepsis, secondary to perforated duodenal ulcer: Status post exploratory laparotomy and repair by Dr. Vargas on 09/01/2020. Recs: doing well clinically. antibiotics stopped f/u UGI series to eval for leak Bobbi Samaniego MD, FACP [facility] ([facility] O: [phone] F: [phone] Subjective Date of service: 09/05/20 Principal diagnosis: Ac hypoxemic resp failure; Perforated gastric ulcer; pneumoperitoneum Interval history: No fever. Passing gas, had a small BM yesterday. Feels well. Pain is controlled. Objective - Exam Narrative Exam: Physical Exam: Constitutional: Awake, alert, no distress Head, Ears, Nose: Normocephalic, atraumatic. External ears, nose normal Eyes: Conjunctivae/corneas clear. No icterus. No ptosis. Neck: supple, no meningeal signs Cardiovascular: S1, S2 + Respiratory: AE fair bilaterally and equal GI: Soft, bowel sounds+ drain + serous output Musculoskeletal: No pedal edema, no cyanosis. Skin: No rash or abscess Hem/Lymphatic: No palpable cervical or supraclavicular nodes. No lymphangitis Psych: no agitation Neurological: Awake, alert, answers questions - Constitutional Vitals: Vital Signs Temp Pulse Resp BP Pulse Ox 97.2 F L 72 31 H 161/96 91 09/05/20 07:20 09/05/20 11:11 09/05/20 11:11 09/05/20 11:11 09/05/20 11:11 Temperature -Last 24 Hours Temperature 97.2 F Temperature 98 F Temperature 98.0 F Temperature 98.5 F Temperature 98.9 F - Labs CBC & Chem 7: 09/05/20 06:20 09/05/20 07:12 Labs: Abnormal lab results 09/05/20 09/05/20 09/05/20 Range/Units 06:20 06:34 07:12 WBC 12.8 H (4.5-11.0) K/mm3 Seg Neuts % (Manual) 92.0 H (40.0-70.0) % Lymphocytes % (Manual) 4.0 L (13.4-35.0) % Seg Neutrophils # Man 11.8 H (1.8-7.7) K/mm3 Lymphocytes # (Manual) 0.5 L (1.2-5.4) K/mm3 Sodium 136 L (137-145) mmol/L BUN 25 H (7-17) mg/dL Creatinine 0.5 L (0.6-1.2) mg/dL Glucose 113 H (65-100) mg/dL POC Glucose 123 H (70-105) Total Protein 5.7 L D (6.3-8.2) g/dL Albumin 2.3 L (3.9-5) g/dL 09/05/20 Range/Units 11:39 WBC (4.5-11.0) K/mm3 Seg Neuts % (Manual) (40.0-70.0) % Lymphocytes % (Manual) (13.4-35.0) % Seg Neutrophils # Man (1.8-7.7) K/mm3 Lymphocytes # (Manual) (1.2-5.4) K/mm3 Sodium (137-145) mmol/L BUN (7-17) mg/dL Creatinine (0.6-1.2) mg/dL Glucose (65-100) mg/dL POC Glucose 115 H (70-105) Total Protein (6.3-8.2) g/dL Albumin (3.9-5) g/dL
--- NOTE | 2020-09-05 14:20 | Fluoroscopy Report ---
UPPER GI SERIES HISTORY: Perforated duodenal ulcer repair, evaluate for leak COMPARISON: CT abdomen pelvis dated 09/01/2020 FINDINGS: [employer] film of the abdomen demonstrates moderate gas throughout the abdomen consistent with a mild dif fuse ileus. Gastrografin was ingested under fluoroscopic observation. The distal esophagus, stomach a nd duodenum are unremarkable. There is no evidence for obstruction or extravasation of oral contrast. IMPRESSION: No evidence for obstruction or extravasation of contrast. Fluoroscopy time: 3.6 minutes. Fluoroscopic images: 15 Signer Name: Mark Mcdonald Jr, MD Signed: 09/05/2020 2:15 PM Workstation Name: [id number]
[2020-09-05] MEDS: cefTRIAXone/NS 2 GM/100 ML 2 GM/100 ML BAG IV SCH (15:22)
[2020-09-05] MEDS ORDERED: TOTAL PARENTERAL NUTRITION 2,016 ML IV SCH (20:00)
[2020-09-05] MEDS: PANTOPRAZOLE 40 MG INJ IV SCH (21:10)
[2020-09-05] MEDS: IPRATROPIUM 0.02% NEBU 2.5 ML IH SCH (21:36)
[2020-09-05] MEDS: ALBUTEROL 2.5 MG/3 ML NEBU IH SCH (21:36)
[2020-09-06] MEDS: IPRATROPIUM 0.02% NEBU 2.5 ML IH SCH ×4 (02:38→21:39)
[2020-09-06] MEDS: ALBUTEROL 2.5 MG/3 ML NEBU IH SCH ×4 (02:38→21:39)
[2020-09-06 08:36] LABS: Hemoglobin 13.5 gm/dl (10.1-14.3); Mean Corpuscular HGB Conc 34 % (30-34); Mean Corpuscular Volume 88 fl (79-97); Platelet Count 171 K/mm3 (140-440); Red Blood Count 4.54 M/mm3 (3.65-5.03)
[2020-09-06 09:11] LABS: Blood Urea Nitrogen 20 mg/dL (7-17); Calcium 8.6 mg/dL (8.4-10.2); Hemolysis Index 1
[2020-09-06 09:15] LABS: BUN/Creatinine Ratio 40
[2020-09-06 09:33] LABS: Basophils % (Manual) 0 % (0.0-1.8); Total Cells Counted 100
[2020-09-06 09:36] LABS: Platelet Estimate Consistent w Auto; RBC Morphology Normal
[2020-09-06] MEDS: PANTOPRAZOLE 40 MG INJ IV SCH ×2 (11:17→22:04)
--- NOTE | 2020-09-06 11:55 | Progress Note ---
Assessment and Plan tte reviewed - EF 60-65%, impaired relaxation, mod pleural effusion. Thyroid profile WNL. Pt remains in NSR. NGT removed and clear liquid diet initiated. D/c IV cardizem and initiate PO cardizem CD. Pt would benefit from [facility] systemic AC. However, given recent surgical intervention, will defer recommendations regarding timing of initiation of OAC to general surgery team. The patient has been seen in conjunction with Dr. Arnett who agrees with the assessment and plan of care. - Patient Problems (1) Atrial fibrillation with RVR Current Visit: Yes Status: Acute Plan to address problem: --> NSR (2) Perforated gastric ulcer Current Visit: Yes Status: Acute (3) Metastatic breast cancer Current Visit: Yes Status: Acute (4) HTN (hypertension) Current Visit: Yes Status: Chronic (5) Nonobstructive atherosclerosis of coronary artery Current Visit: Yes Status: Chronic (6) History of TIA (transient ischemic attack) Current Visit: Yes Status: Chronic Subjective Date of service: 09/06/20 Principal diagnosis: Ac hypoxemic resp failure; Perforated gastric ulcer; pneumoperitoneum Interval history: pt resting in bed, feeling a little better today. NGT removed and she has been advanced to clear liquid diet. tele reviewed - pt remains in NSR. Cardizem gtt infusing. Objective Last Vital Signs Temp 98.6 F 09/06/20 08:32 Pulse 62 09/06/20 09:07 Resp 18 09/06/20 09:07 BP 174/83 09/06/20 08:32 Pulse Ox 91 09/06/20 09:12 - Physical Examination General: No Apparent Distress HEENT: Positive: PERRL Neck: Positive: neck supple, trachea midline Cardiac: Positive: Reg Rate and Rhythm, S1/S2 Lungs: Positive: Decreased Breath Sounds Neuro: Positive: Grossly Intact Skin: Negative: Rash Extremities: Absent: edema - Labs and Meds CBC 09/06/20 Range/Units 08:12 WBC 14.3 H (4.5-11.0) K/mm3 RBC 4.54 (3.65-5.03) M/mm3 Hgb 13.5 (10.1-14.3) gm/dl Hct 40.0 (30.3-42.9) % Plt Count 171 (140-440) K/mm3 Comprehensive Metabolic Panel 10/08/20 Range/Units 08:12 Sodium 141 (137-145) mmol/L Potassium 3.5 L (3.6-5.0) mmol/L Chloride 101.0 (98-107) mmol/L Carbon Dioxide 29 (22-30) mmol/L BUN 20 H (7-17) mg/dL Creatinine 0.5 L (0.6-1.2) mg/dL Glucose 138 H (65-100) mg/dL Calcium 8.6 (8.4-10.2) mg/dL - Imaging and Cardiology EKG: report reviewed, image reviewed Echo: report reviewed (08/2020: EF 60-65%, impaired relaxation, mod pleural effusion. 10/2013 showed EF 60-65%, no significant abnormalities. ) Cardiac cath: report reviewed (02/2014 showed moderate nonobstructive CAD - LI's in LM, 50% mid LAD, LI's in LCx, 40% prox and distal RCA. Medical therapy was recommended. ) - Telemetry EKG Rhythm: Sinus Rhythm - Allied health notes Allied health notes reviewed: nursing
[2020-09-06] MEDS: ENOXAPARIN 40 MG/0.4 ML INJ SUB-Q SCH (12:38)
--- NOTE | 2020-09-06 13:09 | Progress Note ---
Assessment and Plan Cultures: None A/P: 55-year-old female with a recent diagnosis of breast cancer undergoing work-up was admitted to the hospital with abdominal pain: #Sepsis, secondary to perforated duodenal ulcer: Status post exploratory laparotomy and repair by Dr. Vargas on 09/01/2020. UGI series did not show any leak. Tolerating clear liquids. Recs: -clinically improving, abx stopped -monitor for fever and WBC count Bobbi Samaniego MD, FACP [facility] O: [phone] F: [phone] Subjective Date of service: 09/06/20 Principal diagnosis: Ac hypoxemic resp failure; Perforated gastric ulcer; pneumoperitoneum Interval history: No fever. Feeling well, started clear liquids. BM +, passing gas + Objective - Exam Narrative Exam: Physical Exam: Constitutional: Awake, alert, no distress Head, Ears, Nose: Normocephalic, atraumatic. External ears, nose normal Eyes: Conjunctivae/corneas clear. No icterus. No ptosis. Neck: supple, no meningeal signs Cardiovascular: S1, S2 + Respiratory: AE fair bilaterally and equal GI: Soft, bowel sounds+, midline line dressing + Musculoskeletal: No pedal edema, no cyanosis. Skin: No rash or abscess Hem/Lymphatic: No palpable cervical or supraclavicular nodes. No lymphangitis Psych: no agitation Neurological: Awake, alert, answers questions - Constitutional Vitals: Vital Signs Temp Pulse Resp BP Pulse Ox 98.6 F 62 18 174/83 91 09/06/20 08:32 09/06/20 09:07 09/06/20 09:07 09/06/20 08:32 09/06/20 09:12 Temperature -Last 24 Hours Temperature 98.6 F Temperature 97.7 F Temperature 97.9 F Temperature 100.2 F - Labs CBC & Chem 7: 09/06/20 08:12 09/06/20 08:12 Labs: Abnormal lab results 09/05/20 09/06/20 09/06/20 Range/Units 15:54 01:16 07:03 WBC (4.5-11.0) K/mm3 Seg Neuts % (Manual) (40.0-70.0) % Lymphocytes % (Manual) (13.4-35.0) % Seg Neutrophils # Man (1.8-7.7) K/mm3 Potassium (3.6-5.0) mmol/L BUN (7-17) mg/dL Creatinine (0.6-1.2) mg/dL Glucose (65-100) mg/dL POC Glucose 116 H 130 H 115 H (70-105) 09/06/20 09/06/20 09/06/20 Range/Units 08:12 08:12 11:46 WBC 14.3 H (4.5-11.0) K/mm3 Seg Neuts % (Manual) 84.0 H (40.0-70.0) % Lymphocytes % (Manual) 13.0 L (13.4-35.0) % Seg Neutrophils # Man 12.0 H (1.8-7.7) K/mm3 Potassium 3.5 L (3.6-5.0) mmol/L BUN 20 H (7-17) mg/dL Creatinine 0.5 L (0.6-1.2) mg/dL Glucose 138 H (65-100) mg/dL POC Glucose 126 H (70-105)
[2020-09-06] MEDS: MORPHINE 2 MG/1 ML INJ IV PRN (14:00)
[2020-09-06] MEDS: dilTIAZem CD 120 MG CAP PO SCH (14:17)
--- NOTE | 2020-09-06 14:52 | Progress Note ---
Assessment and Plan Assessment and plan: --A. fib with RVR; On Cardizem drip transitioned to oral Cardizem, Cardiology evaluation noted and appreciated No anticoagulation at this point in view of postop state --Hypertension uncontrolled; Partly due to pain, optimal pain medications Increase PRN labetalol to every 4 hours, increase clonidine to TTS 0.3 mg q. weekly --Perforated gastric ulcer with pneumoperitoneum: 09/01/20 s/p exploratory laparotomy for repair of perforated duodenal ulcer. Patient on TPN and supportive care Postop care per surgery, Upper GI 09/05/2020; no leak no obstruction --Sepsis. Present on admission. Perforated viscus secondary to intra-abdominal source secondary to above. Continue Rocephin Flagyl and Diflucan, ID following --Metastatic breast cancer. Continue supportive care --Right upper extremity edema: Etiology likely secondary to occluded lymphatics from breast CA. RUE Doppler .negative for DVT superficial thrombophlebitis, Elevate the limb --Severe protein calorie malnutrition; Continue TPN and supportive care --DVT prophylaxis; Lovenox We will closely monitor the patient and adjust management as needed Surgery recommendations noted and appreciated 09/02/2020. Patient s/p exploratory laparotomy for repair of perforated viscus. Continue IV anti-infectives of Diflucan, Levaquin and Flagyl. Patient currently intubated postoperatively with PSVT FiO2 40% pressure support 10 and PEEP of 6. Extubate per pulmonary. Initiate TPN. 09/03/2020. Patient s/p exploratory laparotomy for repair of perforated duodenal ulcer. Continue IV ceftriaxone, Flagyl and fluconazole per ID recommendations. TPN has been initiated. Patient is extubated and stable. We will transfer to the floor 09/04: Add IV hydralazine, closely monitor blood pressures and adjust as needed. 09/05; A. fib with rapid ventricular rate on Cardizem drip, upper GI, if negative start clear liquids Discussed with surgeon Dr. Barnes 09/06; Cardizem drip transition to oral Cardizem, on TPN and clear liquids History Interval history: I have seen and examined the patient at the bedside Patient's chart and medications reviewed Patient is tolerating clear liquids Feels slightly better Vital signs noted Hospitalist Physical - Constitutional Vitals: Temp Pulse Resp BP Pulse Ox 98.0 F 67 20 171/84 100 09/06/20 14:34 10/08/20 14:34 09/06/20 14:34 09/06/20 14:34 09/06/20 14:34 General appearance: Present: no acute distress, well-nourished - EENT Eyes: Present: PERRL, EOM intact - Neck Neck: Present: supple, normal ROM - Respiratory Respiratory effort: normal Respiratory: bilateral: diminished, negative: rales, rhonchi, wheezing - Cardiovascular Rhythm: regular Heart Sounds: Present: S1 & S2 - Extremities Extremities: no ischemia, No edema - Abdominal General gastrointestinal: soft, non-tender, non-distended - Integumentary Integumentary: Present: clear, warm - Psychiatric Psychiatric: appropriate mood/affect, cooperative - Neurologic Neurologic: moves all extremities Results - Labs CBC & Chem 7: 09/06/20 08:12 09/06/20 08:12 Labs: Laboratory Last Values WBC 14.3 K/mm3 (4.5-11.0) H 09/06/20 08:12 RBC 4.54 M/mm3 (3.65-5.03) 09/06/20 08:12 Hgb 13.5 gm/dl (10.1-14.3) 09/06/20 08:12 Hct 40.0 % (30.3-42.9) 09/06/20 08:12 MCV 88 fl (79-97) 09/06/20 08:12 MCH 30 pg (28-32) 09/06/20 08:12 MCHC 34 % (30-34) 09/06/20 08:12 RDW 15.0 % (13.2-15.2) 09/06/20 08:12 Plt Count 171 K/mm3 (140-440) 09/06/20 08:12 Lymph % (Auto) 4.0 % (13.4-35.0) L 09/02/20 08:40 [place] % (Auto) 6.1 % (0.0-7.3) 09/02/20 08:40 Eos % (Auto) 0.0 % (0.0-4.3) 09/02/20 08:40 Baso % (Auto) 0.1 % (0.0-1.8) 09/02/20 08:40 Lymph # (Auto) 0.7 K/mm3 (1.2-5.4) L 09/02/20 08:40 [place] # (Auto) 1.1 K/mm3 (0.0-0.8) H 09/02/20 08:40 Eos # (Auto) 0.0 K/mm3 (0.0-0.4) 09/02/20 08:40 Baso # (Auto) 0.0 K/mm3 (0.0-0.1) 09/02/20 08:40 Add Manual Diff Complete 09/06/20 08:12 Total Counted 100 09/06/20 08:12 Seg Neutrophils % Charge Machine Operator 09/03/20 04:00 Seg Neuts % (Manual) 84.0 % (40.0-70.0) H 09/06/20 08:12 Band Neutrophils % 0 % 09/06/20 08:12 Lymphocytes % (Manual) 13.0 % (13.4-35.0) L 09/06/20 08:12 Reactive Lymphs % (Man) 0 % 09/06/20 08:12 Monocytes % (Manual) 2.0 % (0.0-7.3) 09/06/20 08:12 Eosinophils % (Manual) 1.0 % (0.0-4.3) 09/06/20 08:12 Basophils % (Manual) 0 % (0.0-1.8) 09/06/20 08:12 Metamyelocytes % 0 % 09/06/20 08:12 Myelocytes % 0 % 09/06/20 08:12 Promyelocytes % 0 % 09/06/20 08:12 Blast Cells % 0 % 09/06/20 08:12 Nucleated RBC % Not Reportable 09/06/20 08:12 Seg Neutrophils # 16.3 K/mm3 (1.8-7.7) H 09/02/20 08:40 Seg Neutrophils # Man 12.0 K/mm3 (1.8-7.7) H 09/06/20 08:12 Band Neutrophils # 0.0 K/mm3 09/06/20 08:12 Lymphocytes # (Manual) 1.9 K/mm3 (1.2-5.4) 09/06/20 08:12 Abs React Lymphs (Man) 0.0 K/mm3 09/06/20 08:12 Monocytes # (Manual) 0.3 K/mm3 (0.0-0.8) 09/06/20 08:12 Eosinophils # (Manual) 0.1 K/mm3 (0.0-0.4) 09/06/20 08:12 Basophils # (Manual) 0.0 K/mm3 (0.0-0.1) 09/06/20 08:12 Metamyelocytes # 0.0 K/mm3 09/06/20 08:12 Myelocytes # 0.0 K/mm3 09/06/20 08:12 Promyelocytes # 0.0 K/mm3 09/06/20 08:12 Blast Cells # 0.0 K/mm3 09/06/20 08:12 WBC Morphology Not Reportable 09/06/20 08:12 Hypersegmented Neuts Not Reportable 09/06/20 08:12 Hyposegmented Neuts Not Reportable 09/06/20 08:12 Hypogranular Neuts Not Reportable 09/06/20 08:12 Smudge Cells Not Reportable 09/06/20 08:12 Toxic Granulation Not Reportable 09/06/20 08:12 Toxic Vacuolation Not Reportable 09/06/20 08:12 Dohle Bodies Not Reportable 09/06/20 08:12 Pelger-Huet Anomaly Not Reportable 09/06/20 08:12 [place] Rods Not Reportable 09/06/20 08:12 Platelet Estimate Consistent w auto 09/06/20 08:12 Clumped Platelets Not Reportable 09/06/20 08:12 Plt Clumps, EDTA Not Reportable 09/06/20 08:12 Large Platelets Not Reportable 09/06/20 08:12 Giant Platelets Not Reportable 09/06/20 08:12 Platelet Satelliting Not Reportable 09/06/20 08:12 Plt Morphology Comment Not Reportable 09/06/20 08:12 RBC Morphology Normal 09/06/20 08:12 Dimorphic RBCs Not Reportable 09/06/20 08:12 Polychromasia Not Reportable 09/06/20 08:12 Hypochromasia Not Reportable 09/06/20 08:12 Poikilocytosis Not Reportable 09/06/20 08:12 Anisocytosis Not Reportable 09/06/20 08:12 Microcytosis Not Reportable 09/06/20 08:12 Macrocytosis Not Reportable 09/06/20 08:12 Spherocytes Not Reportable 09/06/20 08:12 Pappenheimer Bodies Not Reportable 09/06/20 08:12 Sickle Cells Not Reportable 09/06/20 08:12 Target Cells Not Reportable 09/06/20 08:12 Tear Drop Cells Not Reportable 09/06/20 08:12 Ovalocytes Not Reportable 09/06/20 08:12 Helmet Cells Not Reportable 09/06/20 08:12 Fernandez-[place] Bodies Not Reportable 09/06/20 08:12 [place] Rings Not Reportable 09/06/20 08:12 Ina Cells Not Reportable 09/06/20 08:12 Bite Cells Not Reportable 09/06/20 08:12 Crenated Cell Not Reportable 09/06/20 08:12 Elliptocytes Not Reportable 09/06/20 08:12 Acanthocytes (Spur) Not Reportable 09/06/20 08:12 Rouleaux Not Reportable 09/06/20 08:12 Hemoglobin C Crystals Not Reportable 09/06/20 08:12 Schistocytes Not Reportable 09/06/20 08:12 Malaria parasites Not Reportable 09/06/20 08:12 [place] Bodies Not Reportable 09/06/20 08:12 Hem Pathologist Commnt No 09/06/20 08:12 ABG pH 7.463 (7.320-7.450) H 09/04/20 09:27 POC ABG pCO2 30.1 mmHg (32.0-48.0) L 09/04/20 09:27 ABG pCO2 34.7 mm Hg 09/02/20 05:20 POC ABG pO2 45.6 mmHg (83-108) L 09/04/20 09:27 ABG pO2 270.7 mm Hg (80.0-90.0) H 09/02/20 05:20 POC ABG HCO3 21.1 09/04/20 09:27 ABG HCO3 23.7 mmol/L (20.0-26.0) 09/02/20 05:20 ABG O2 Saturation 99.5 % (95.0-99.0) H 09/02/20 05:20 ABG O2 Content 20.6 (0.0-44) 09/02/20 05:20 POC ABG Base Excess -1.4 09/04/20 09:27 ABG Base Excess 0.3 mmol/L (-2.0-3.0) 09/02/20 05:20 ABG Hemoglobin 15.8 (12.0-17.5) 09/04/20 09:27 ABG Carboxyhemoglobin 1.3 % (0.0-5.0) 09/02/20 05:20 ABG Methemoglobin 0.4 % (0.0-1.5) 09/02/20 05:20 ABG Sodium 132.6 mmol/L (136.0-145.0) L 09/04/20 09:27 ABG Potassium 3.7 mmol/L (3.40-4.50) 09/04/20 09:27 ABG Chloride 102.0 mmol/L (98-107) 09/04/20 09:27 ABG Glucose 135 mg/dL (65-95) H 09/04/20 09:27 Oxyhemoglobin 97.7 % (95.0-99.0) 09/02/20 05:20 FiO2 21.0 09/04/20 09:27 Sodium 141 mmol/L (137-145) 09/06/20 08:12 Potassium 3.5 mmol/L (3.6-5.0) L 09/06/20 08:12 Chloride 101.0 mmol/L (98-107) 09/06/20 08:12 Carbon Dioxide 29 mmol/L (22-30) 09/06/20 08:12 Anion Gap 15 mmol/L 09/06/20 08:12 BUN 20 mg/dL (7-17) H 09/06/20 08:12 Creatinine 0.5 mg/dL (0.6-1.2) L 09/06/20 08:12 Estimated GFR > 60 ml/min 09/06/20 08:12 BUN/Creatinine Ratio 40 % 09/06/20 08:12 Glucose 138 mg/dL (65-100) H 09/06/20 08:12 POC Glucose 126 (70-105) H 09/06/20 11:46 Calcium 8.6 mg/dL (8.4-10.2) 09/06/20 08:12 Phosphorus 3.10 mg/dL (2.5-4.5) 09/06/20 08:12 Magnesium 1.80 mg/dL (1.7-2.3) 09/06/20 08:12 Total Bilirubin 0.30 mg/dL (0.1-1.2) 09/05/20 07:12 AST 17 units/L (5-40) 09/05/20 07:12 ALT 8 units/L (7-56) 09/05/20 07:12 Alkaline Phosphatase 52 units/L (35-129) 09/05/20 07:12 Total Protein 5.7 g/dL (6.3-8.2) L D 09/05/20 07:12 Albumin 2.3 g/dL (3.9-5) L 09/05/20 07:12 Albumin/Globulin Ratio 0.7 % 09/05/20 07:12 Prealbumin 0.109 g/L (0.200-0.400) L 09/04/20 06:00 Triglycerides 86 mg/dL (2-149) 09/04/20 06:00 Lipase 24 units/L (13-60) 09/01/20 02:30 Procalcitonin 5.44 ng/mL (<0.15) 09/01/20 20:23 TSH 0.776 mlU/mL (0.270-4.200) 09/04/20 14:16 Free T4 0.89 ng/dL (0.76-1.46) 09/04/20 14:16 Arterial Blood Glucose 135 mg/dL (65-95) H 09/04/20 09:27 Arterial Blood Ionized Calcium 4.9 mg/dL (4.6-5.3) 09/04/20 09:27 Urine Color Yellow (Yellow) 09/01/20 02:26 Urine Turbidity Clear (Clear) 09/01/20 02:26 Urine pH 6.0 (5.0-7.0) 09/01/20 02:26 Ur Specific [place] 1.023 (1.003-1.030) 09/01/20 02:26 Urine Protein 30 mg/dl mg/dL (Negative) 09/01/20 02:26 Urine Glucose (UA) Neg mg/dL (Negative) 09/01/20 02:26 Urine Ketones Neg mg/dL (Negative) 09/01/20 02:26 Urine Blood Neg (Negative) 09/01/20 02:26 Urine Nitrite Neg (Negative) 09/01/20 02:26 Urine Bilirubin Neg (Negative) 09/01/20 02:26 Urine Urobilinogen 4.0 mg/dL (<2.0) 09/01/20 02:26 Ur Leukocyte Esterase Tr (Negative) 09/01/20 02:26 Urine WBC (Auto) 5.0 /HPF (0.0-6.0) 09/01/20 02:26 Urine RBC (Auto) 4.0 /HPF (0.0-6.0) 09/01/20 02:26 U Epithel Cells (Auto) 3.0 /HPF (0-13.0) 09/01/20 02:26 Urine Mucus 1+ /HPF 09/01/20 02:26 - Diagnostic Impressions Diagnostic Impressions: Echocardiogram 09/03/20 18:17 Transthoracic Echocardiogram Indication: A-fib BP: 142/90 HR: 67 Conclusions *The left ventricular chamber size is normal. *Global left ventricular wall motion and contractility are within normal limits. *The estimated ejection fraction is 60-65%. *Abnormal left ventricular diastolic filling is observed, consistent with impaired relaxation. *The right ventricular cavity size is normal. *The right ventricular systolic pressure is calculated at 27 mmHg. *There is a moderate pleural effusion. Findings Left Ventricle: The left ventricular chamber size is normal. Global left ventricular wall motion and contractility are within normal limits. Global left ventricular systolic function is normal. The estimated ejection fraction is 60-65%. Abnormal left ventricular diastolic filling is observed, consistent with impaired relaxation. Right Ventricle: The right ventricular cavity size is normal. Right Atrium: The right atrial cavity size is normal. Aortic Valve: The aortic valve leaflets are mildly thickened. There is no evidence of aortic regurgitation. Mitral Valve: The mitral valve leaflets are mildly thickened. There is no evidence of mitral regurgitation. Tricuspid Valve: The tricuspid valve leaflets are normal. There is trace tricuspid regurgitation. The right ventricular systolic pressure is calculated at 27 mmHg. Pulmonic Valve: The pulmonic valve appears normal. There is trace pulmonic regurgitation. Pericardium: There is no pericardial effusion. There is a moderate pleural effusion. Aorta: The aorta appears normal. Venous: The inferior vena cava is not visualized. Measurements Chambers 2D Name Value Normal Range IVSd (2D) 0.94 cm (0.6 - 1.1) LVPWd (2D) 0.99 cm (0.6 - 1.1) LVIDd (2D) 4.76 cm (3.7 - 5.6) LVIDs (2D) 2.72 cm (2 - 3.8) LV FS (2D) 42.82 % - EF Teichholz (2D) 73.86 % - Ao root diameter (2D) 3.08 cm (2 - 3.7) Volumes/Mass Name Value Normal Range LA ESV SP 4CH (A/L) 32.25 ml - LA ESV SP 2CH (A/L) 31.78 ml - LA ESV BP (A/L) 34.38 ml - LA ESV BP (A/L) index 16.69 ml/m2 - LA ESV SP 4CH (MOD) 29.95 ml - LA ESV SP 2CH (MOD) 29.49 ml - LA ESV BP (MOD) 31.87 ml - LA ESV BP (MOD) index 15.47 ml/m2 - Diastolic/Systolic Function Name Value Normal Range MV E-wave Vmax 0.63 m/sec - MV deceleration time 180.43 msec - MV A-wave Vmax 0.71 m/sec - MV E:A ratio 0.89 ratio - Aortic Valve Name Value Normal Range AV Vmax 1.81 m/sec - AV VTI 29.91 cm - AV peak gradient 13.12 mmHg - AV mean gradient 6.84 mmHg - LVOT diameter 2.02 cm - LVOT Vmax 1.34 m/sec - LVOT VTI 24.44 cm - LVOT peak gradient 7.15 mmHg - LVOT mean gradient 3.72 mmHg - SV LVOT 77.91 ml - JUANITA (continuity Vmax) 2.35 cm2 - JUANITA (continuity VTI) 2.6 cm2 - Tricuspid Valve Name Value Normal Range TR Vmax 2.46 m/sec - TR peak gradient 24 mmHg - RAP 3 mmHg - RVSP 27 mmHg - Pulmonic Valve/Qp:Qs Name Value Normal Range PV Vmax 0.82 m/sec - PV peak gradient 2.67 mmHg - PV acceleration time 102.76 msec - Carey/IV: Voiding Method Bedpan IV Catheter Type [Left Peripheral IV Antecubital] IV Catheter Type [Left Upper PICC Line arm] IV Catheter Type [Left Forearm Peripheral IV ] IV Catheter Type [Left Hand] INT / Saline Lock Active Medications - Current Medications Current Medications: Generic Name Dose Route Start Last Admin Trade Name Freq PRN Reason Stop Dose Admin Albuterol 2.5 mg 09/05/20 20:00 09/06/20 09:06 Proventil IH 2.5 mg Q6HRT JAIME Administration Clonidine HCl 0.3 mg 09/05/20 11:00 09/05/20 12:59 Catapres-Tts Patch TD 0.3 mg We JAIME Administration Dextrose 25 ml 09/02/20 18:38 09/02/20 18:50 D50w (25gm) Syringe IV 15 ml Q30MIN PRN Administration Hypoglycemia Protocol Diltiazem HCl 120 mg 09/06/20 12:00 Cardizem Cd PO QDAY JAIME Enoxaparin Sodium 40 mg 09/01/20 10:00 09/06/20 12:38 Enoxaparin SUB-Q 40 mg QDAY [facility] Administration Hydrophilic Ointment 1 applic 09/01/20 14:47 Vaseline Lip Therapy TP Q2H PRN Dry Lips Amino Acids/Electrolytes/Dextrose 2,016 mls @ 84 mls/hr 09/05/20 20:00 20:55 Tpn Adult IV 09/06/20 19:59 84 mls/hr DAILY@[email or web address] [facility] Administration Protocol Amino Acids/Electrolytes/Dextrose 2,016 mls @ 84 mls/hr 09/06/20 20:00 Tpn Adult IV 09/07/20 19:59 DAILY@[email or web address] [facility] Protocol Ipratropium [place] 0.5 mg 09/05/20 20:00 09/06/20 09:06 Atrovent IH 0.5 mg Q6HRT JAIME Administration Labetalol HCl 10 mg 09/04/20 19:01 09/06/20 14:40 Labetalol IV 09/07/20 17:41 10 mg Q4H PRN Administration HTN >160/90 Morphine Sulfate 2 mg 09/01/20 09:21 09/04/20 21:04 Morphine IV 2 mg Q4H PRN Administration Pain, Moderate (4-6) Multi-Ingred Cream/Lotion/Oil/Oint 1 applic 09/01/20 14:47 Artificial Tears Ophth Oint OU Q4H PRN Dry Eye(s) Oxycodone/Acetaminophen 1 tab 10/08/20 14:07 Percocet 5/325 PO Q6H PRN Pain, Moderate (4-6) Pantoprazole Sodium 40 mg 09/05/20 22:00 09/05/20 21:10 Protonix IV 40 mg BID JAIME Administration Sodium Chloride 10 ml 09/01/20 10:00 09/06/20 14:39 Sodium Chloride Flush Syringe 10 Ml IV 10 ml BID JAIME Administration Sodium Chloride 10 ml 09/01/20 09:21 09/03/20 23:33 Sodium Chloride Flush Syringe 10 Ml IV 10 ml PRN PRN Administration LINE FLUSH Nutrition/Malnutrition Assess - Dietary Evaluation Nutrition/Malnutrition Findings: Nutrition Notes Start: 09/02/20 09:42 Freq: Status: Active Protocol: Document 09/06/20 11:10 LP (Rec: 09/06/20 11:14 LP [id number]) Nutrition Notes Initial or Follow up Reassessment Current Diagnosis COPD Other Pertinent Diagnosis Breast Ca with Mets, perforated gastric ulcer S/P exp lap Current Diet CPN at 84 ml/hr Labs/Tests Reviewed Pertinent Medications Reviewed Height 5 ft 11 in Weight 86.[address] [place] Body Weight (kg) 70.45 BMI 26.4 Weight Status Overweight Subjective/Other Information CPN day 5. Pt noted with dark stool X6 last night. Percent of energy/protein needs met: 67%/100% Burn Absent Trauma Absent GI Symptoms Other Food Allergy No Current % PO Negligible Minimum of two criteria No physical signs of malnutrition #1 Nutrition Diagnosis Inadequate oral intake Diagnosis Progress(for reassessment Continues documentation) Is patient on ventilator? No Is Patient Ambulatory and/or Out of Bed No REE-([facility]-confined to bed) 2276.607 Calculation Used for Recommendations [facility] Additional Notes Protein needs are 86-103g (1-1 .2g/kg) Fluid needs are 1ml/kcal Nutrition Intervention Change Diet Order: CPN Nutrition Support: CPN at 84ml/hr: 120mEq K, MVI. Osmolality: 1344 Kcal 1,210 Protein (gm) 90 Carbohydrates (gm) 250 Fat (gm) 0 Fluid (mL) 2,016 Fiber (gm) 0 Goal #1 Meet kcal and protein needs as best as possible via CPN Anticipated Discharge Needs: Unable to determine at this time Follow-Up By: 09/07/20 Additional Comments Labs in AM: Mg Abelardo BLAS
[2020-09-06] MEDS: oxyCODONE /ACETAMINOPHEN 5-325MG TAB PO PRN (16:15)
--- NOTE | 2020-09-06 17:31 | Progress Note ---
Assessment and Plan POD#5 Doing well. UGI shows healing of perf ulcer repair. Max clears- to full liquid diet tomorrow and reg the next day. OK to start oral anti-coagulation as we are far enough out from surgery. WBC slightly up (noted that abx were stopped by ID)- follow trend From surg standpoint, may be able to be d/c as soon as Sat if cont to max a dvancing diet Subjective Date of service: 09/06/20 Patient Reports: Positive: no new complaints, feels better, pain is less, tolerating liquids well Narrative: ambulated in [place] yesterday Objective Vital Signs - 12hr 09/06/20 09/06/20 09/06/20 06:10 08:32 09:07 Temperature 98.6 F Pulse Rate 70 54 L Pulse Rate [ 62 Anterior Bilateral Throughout] Respiratory 18 Rate Respiratory 18 Rate [Anterior Bilateral Throughout] Blood Pressure 171/91 174/83 Blood Pressure [Left] O2 Sat by Pulse 90 Oximetry 09/06/20 09/06/20 09/06/20 09:12 14:34 15:12 Temperature 98.0 F 99.5 F Pulse Rate 67 59 L Pulse Rate [ Anterior Bilateral Throughout] Respiratory 20 18 Rate Respiratory Rate [Anterior Bilateral Throughout] Blood Pressure 149/83 Blood Pressure 171/84 [Left] O2 Sat by Pulse 91 100 95 Oximetry 09/06/20 15:23 Temperature Pulse Rate Pulse Rate [ 65 Anterior Bilateral Throughout] Respiratory Rate Respiratory 18 Rate [Anterior Bilateral Throughout] Blood Pressure Blood Pressure [Left] O2 Sat by Pulse Oximetry pt looks good; slight breathing difficulty (4L nc O2) but close to baseline - Abdomen soft, tender, bowel sounds normal, not distended, wound (wound c/d/i; drain out (fell partially out yest); approp TTP) - Labs 09/06/20 08:12 09/06/20 08:12 Diabetes panel 09/06/20 Range/Units 08:12 Sodium 141 (137-145) mmol/L Potassium 3.5 L (3.6-5.0) mmol/L Chloride 101.0 (98-107) mmol/L Carbon Dioxide 29 (22-30) mmol/L BUN 20 H (7-17) mg/dL Creatinine 0.5 L (0.6-1.2) mg/dL Glucose 138 H (65-100) mg/dL Calcium 8.6 (8.4-10.2) mg/dL Calcium panel 09/06/20 Range/Units 08:12 Calcium 8.6 (8.4-10.2) mg/dL Phosphorus 3.10 (2.5-4.5) mg/dL Pituitary panel 09/06/20 Range/Units 08:12 Sodium 141 (137-145) mmol/L Potassium 3.5 L (3.6-5.0) mmol/L Chloride 101.0 (98-107) mmol/L Carbon Dioxide 29 (22-30) mmol/L BUN 20 H (7-17) mg/dL Creatinine 0.5 L (0.6-1.2) mg/dL Glucose 138 H (65-100) mg/dL Calcium 8.6 (8.4-10.2) mg/dL Adrenal panel 09/06/20 Range/Units 08:12 Sodium 141 (137-145) mmol/L Potassium 3.5 L (3.6-5.0) mmol/L Chloride 101.0 (98-107) mmol/L Carbon Dioxide 29 (22-30) mmol/L BUN 20 H (7-17) mg/dL Creatinine 0.5 L (0.6-1.2) mg/dL Glucose 138 H (65-100) mg/dL Calcium 8.6 (8.4-10.2) mg/dL
--- NOTE | 2020-09-06 17:33 | Progress Note ---
Assessment and Plan Cont TPN until pt max reg diet for malnutrition (alb=2.3 and metastatic breast cancer). Objective Vital Signs - 12hr 09/06/20 09/06/20 09/06/20 06:10 08:32 09:07 Temperature 98.6 F Pulse Rate 70 54 L Pulse Rate [ 62 Anterior Bilateral Throughout] Respiratory 18 Rate Respiratory 18 Rate [Anterior Bilateral Throughout] Blood Pressure 171/91 174/83 Blood Pressure [Left] O2 Sat by Pulse 90 Oximetry 09/06/20 09/06/20 09/06/20 09:12 14:34 15:12 Temperature 98.0 F 99.5 F Pulse Rate 67 59 L Pulse Rate [ Anterior Bilateral Throughout] Respiratory 20 18 Rate Respiratory Rate [Anterior Bilateral Throughout] Blood Pressure 149/83 Blood Pressure 171/84 [Left] O2 Sat by Pulse 91 100 95 Oximetry 09/06/20 15:23 Temperature Pulse Rate Pulse Rate [ 65 Anterior Bilateral Throughout] Respiratory Rate Respiratory 18 Rate [Anterior Bilateral Throughout] Blood Pressure Blood Pressure [Left] O2 Sat by Pulse Oximetry - Labs 09/06/20 08:12 09/06/20 08:12 Diabetes panel 09/06/20 Range/Units 08:12 Sodium 141 (137-145) mmol/L Potassium 3.5 L (3.6-5.0) mmol/L Chloride 101.0 (98-107) mmol/L Carbon Dioxide 29 (22-30) mmol/L BUN 20 H (7-17) mg/dL Creatinine 0.5 L (0.6-1.2) mg/dL Glucose 138 H (65-100) mg/dL Calcium 8.6 (8.4-10.2) mg/dL Calcium panel 09/06/20 Range/Units 08:12 Calcium 8.6 (8.4-10.2) mg/dL Phosphorus 3.10 (2.5-4.5) mg/dL Pituitary panel 09/06/20 Range/Units 08:12 Sodium 141 (137-145) mmol/L Potassium 3.5 L (3.6-5.0) mmol/L Chloride 101.0 (98-107) mmol/L Carbon Dioxide 29 (22-30) mmol/L BUN 20 H (7-17) mg/dL Creatinine 0.5 L (0.6-1.2) mg/dL Glucose 138 H (65-100) mg/dL Calcium 8.6 (8.4-10.2) mg/dL Adrenal panel 09/06/20 Range/Units 08:12 Sodium 141 (137-145) mmol/L Potassium 3.5 L (3.6-5.0) mmol/L Chloride 101.0 (98-107) mmol/L Carbon Dioxide 29 (22-30) mmol/L BUN 20 H (7-17) mg/dL Creatinine 0.5 L (0.6-1.2) mg/dL Glucose 138 H (65-100) mg/dL Calcium 8.6 (8.4-10.2) mg/dL
[2020-09-06] MEDS ORDERED: TOTAL PARENTERAL NUTRITION 2,016 ML IV SCH (20:00)
[2020-09-07] MEDS: MORPHINE 2 MG/1 ML INJ IV PRN ×2 (03:25→09:46)
[2020-09-07] MEDS: ALBUTEROL 2.5 MG/3 ML NEBU IH SCH ×3 (04:48→14:21)
[2020-09-07] MEDS: IPRATROPIUM 0.02% NEBU 2.5 ML IH SCH ×3 (04:48→14:21)
[2020-09-07 08:44] LABS: Blood Urea Nitrogen 18 mg/dL (7-17); Calcium 8.7 mg/dL (8.4-10.2); Hemolysis Index 1
[2020-09-07 08:58] LABS: BUN/Creatinine Ratio 30
[2020-09-07] MEDS: PANTOPRAZOLE 40 MG INJ IV SCH (09:42)
[2020-09-07] MEDS: ENOXAPARIN 40 MG/0.4 ML INJ SUB-Q SCH (09:43)
[2020-09-07] MEDS: dilTIAZem CD 120 MG CAP PO SCH (09:43)
--- NOTE | 2020-09-07 10:38 | Progress Note ---
Assessment and Plan Pt remains in NSR HR 60s - 70s. Cont PO cardizem CD. BPs elevated - hydralazine initiated today per primary team. Pt would benefit from skilled nursing systemic AC. However, given recent surgical intervention, will defer recommendations regarding timing of initiation of OAC to general surgery team. Recommend Eliquis 5mg BID if/when anticoagulation may be initiated. Currently stable cardiac status. Nothing further to add from cardiac perspective at this time. Will sign off. Recommend pt follow up in our office with Dr. Arnett within 2 weeks of discharge ([phone]). The patient has been seen in conjunction with Dr. Arnett who agrees with the assessment and plan of care. - Patient Problems (1) Atrial fibrillation with RVR Current Visit: Yes Status: Acute Plan to address problem: --> NSR (2) Perforated gastric ulcer Current Visit: Yes Status: Acute (3) Metastatic breast cancer Current Visit: Yes Status: Acute (4) HTN (hypertension) Current Visit: Yes Status: Chronic (5) Nonobstructive atherosclerosis of coronary artery Current Visit: Yes Status: Chronic (6) History of TIA (transient ischemic attack) Current Visit: Yes Status: Chronic Subjective Date of service: 09/07/20 Principal diagnosis: Ac hypoxemic resp failure; Perforated gastric ulcer; pneumoperitoneum Interval history: pt resting in bed, feeling better today, tolerating clear liquid diet. tele reviewed - pt remains in NSR HR 60-70s. Objective Last Vital Signs Temp 98.0 F 09/07/20 04:02 Pulse 69 09/07/20 09:43 Resp 20 09/07/20 08:17 BP 201/88 09/07/20 09:43 Pulse Ox 97 09/07/20 09:05 - Physical Examination General: No Apparent Distress HEENT: Positive: PERRL Neck: Positive: neck supple, trachea midline Cardiac: Positive: Reg Rate and Rhythm, S1/S2 Lungs: Positive: Decreased Breath Sounds Neuro: Positive: Grossly Intact Abdomen: Negative: Tender Skin: Negative: Rash Extremities: Absent: edema - Labs and Meds Comprehensive Metabolic Panel 09/07/20 Range/Units 04:35 Sodium 147 H (137-145) mmol/L Potassium 4.3 D (3.6-5.0) mmol/L Chloride 103.8 (98-107) mmol/L Carbon Dioxide 24 (22-30) mmol/L BUN 18 H (7-17) mg/dL Creatinine 0.6 (0.6-1.2) mg/dL Glucose 114 H (65-100) mg/dL Calcium 8.7 (8.4-10.2) mg/dL - Imaging and Cardiology EKG: report reviewed, image reviewed Echo: report reviewed (08/2020: EF 60-65%, impaired relaxation, mod pleural effusion. 10/2013 showed EF 60-65%, no significant abnormalities. ) Cardiac cath: report reviewed (02/2014 showed moderate nonobstructive CAD - LI's in LM, 50% mid LAD, LI's in LCx, 40% prox and distal RCA. Medical therapy was recommended. ) - Telemetry EKG Rhythm: Sinus Rhythm - Allied health notes Allied health notes reviewed: nursing
--- NOTE | 2020-09-07 12:12 | Progress Note ---
Assessment and Plan Cultures: None A/P: 55-year-old female with a recent diagnosis of breast cancer undergoing work-up was admitted to the hospital with abdominal pain: #Sepsis, secondary to perforated duodenal ulcer: Status post exploratory laparotomy and repair by Dr. Vargas on 09/01/2020. UGI series did not show any leak. Tolerating clear liquids. Recs: -remains stable and clinically improving, off abx Will sign off. Please call with questions. Bobbi Samaniego MD, FACP [facility] ([facility] O: [phone] F: [phone] Subjective Date of service: 09/07/20 Principal diagnosis: Ac hypoxemic resp failure; Perforated gastric ulcer; pneumoperitoneum Interval history: No fever. Feeling well, tolerating clear liquids. Objective - Exam Narrative Exam: Physical Exam: Constitutional: Awake, alert, no distress Head, Ears, Nose: Normocephalic, atraumatic. External ears, nose normal Eyes: Conjunctivae/corneas clear. No icterus. No ptosis. Neck: supple, no meningeal signs Cardiovascular: S1, S2 + Respiratory: AE fair bilaterally and equal GI: Soft, bowel sounds+, midline line dressing + Musculoskeletal: No pedal edema, no cyanosis. Skin: No rash or abscess Hem/Lymphatic: No palpable cervical or supraclavicular nodes. No lymphangitis Psych: no agitation Neurological: Awake, alert, answers questions - Constitutional Vitals: Vital Signs Temp Pulse Resp BP Pulse Ox 98.0 F 72 20 163/79 97 09/07/20 04:02 09/07/20 10:52 09/07/20 08:17 09/07/20 10:52 09/07/20 09:05 Temperature -Last 24 Hours Temperature 98.0 F Temperature 98.0 F Temperature 98.2 F Temperature 99.5 F Temperature 98.0 F - Labs CBC & Chem 7: 09/06/20 08:12 09/07/20 04:35 Labs: Abnormal lab results 09/06/20 09/07/20 09/07/20 Range/Units 16:49 04:35 06:19 Sodium 147 H (137-145) mmol/L BUN 18 H (7-17) mg/dL Glucose 114 H (65-100) mg/dL POC Glucose 119 H 111 H (70-105)
[2020-09-07] MEDS: hydrALAZINE 25 MG TAB PO SCH ×2 (13:55→22:35)
--- NOTE | 2020-09-07 14:15 | Progress Note ---
Assessment and Plan POD#6 Repair of perforated duodenal ulcer Adv to reg diet. Can stop TPN after this bag. Pt may be d/c'd from my standpoint tomorrow if max reg diet. Pt needs GI f/u for etiology of ulcer and poss EGD to eval healing/rule out tumor. Dr. Pena will be covering me this weekend- will NOT round on pt unless asked to. Please call him if surgical problems/issues. Pt aware. WBC elevated yesterday. I ordered CBC this AM-not done as of now- RN to correct. May need CXR to eval pneumonia. Low suspicion of operative intra-abd complication but would obtain CT A/P with oral and IV contrast IF pt leukocytosis worsens and/or other clinical signs--- per hospitalist please. Will sign off. Subjective Date of service: 09/07/20 Patient Reports: Positive: no new complaints, pain is less, tolerating liquids well, flatus, bowel movement Objective Vital Signs - 12hr 09/07/20 09/07/20 09/07/20 04:02 08:00 08:17 Temperature 98.0 F Pulse Rate 71 69 Pulse Rate [ 73 Anterior Bilateral Throughout] Respiratory 18 Rate Respiratory 20 Rate [Anterior Bilateral Throughout] Blood Pressure 173/87 201/88 O2 Sat by Pulse 97 Oximetry 09/07/20 09/07/20 09/07/20 09:05 09:43 10:52 Temperature Pulse Rate 69 72 Pulse Rate [ Anterior Bilateral Throughout] Respiratory Rate Respiratory Rate [Anterior Bilateral Throughout] Blood Pressure 201/88 163/79 O2 Sat by Pulse 97 Oximetry 09/07/20 13:55 Temperature Pulse Rate 76 Pulse Rate [ Anterior Bilateral Throughout] Respiratory Rate Respiratory Rate [Anterior Bilateral Throughout] Blood Pressure 163/79 O2 Sat by Pulse Oximetry - General physical appearance Narrative Exam: pt looks good; NAD - Abdomen soft, tender, bowel sounds normal, not distended, wound (wound c/d/i; approp TTP; +BS) - Labs 09/06/20 08:12 09/07/20 04:35 Diabetes panel 09/07/20 Range/Units 04:35 Sodium 147 H (137-145) mmol/L Potassium 4.3 D (3.6-5.0) mmol/L Chloride 103.8 (98-107) mmol/L Carbon Dioxide 24 (22-30) mmol/L BUN 18 H (7-17) mg/dL Creatinine 0.6 (0.6-1.2) mg/dL Glucose 114 H (65-100) mg/dL Calcium 8.7 (8.4-10.2) mg/dL Calcium panel 09/07/20 Range/Units 04:35 Calcium 8.7 (8.4-10.2) mg/dL Phosphorus 3.30 (2.5-4.5) mg/dL Pituitary panel 09/07/20 Range/Units 04:35 Sodium 147 H (137-145) mmol/L Potassium 4.3 D (3.6-5.0) mmol/L Chloride 103.8 (98-107) mmol/L Carbon Dioxide 24 (22-30) mmol/L BUN 18 H (7-17) mg/dL Creatinine 0.6 (0.6-1.2) mg/dL Glucose 114 H (65-100) mg/dL Calcium 8.7 (8.4-10.2) mg/dL Adrenal panel 09/07/20 Range/Units 04:35 Sodium 147 H (137-145) mmol/L Potassium 4.3 D (3.6-5.0) mmol/L Chloride 103.8 (98-107) mmol/L Carbon Dioxide 24 (22-30) mmol/L BUN 18 H (7-17) mg/dL Creatinine 0.6 (0.6-1.2) mg/dL Glucose 114 H (65-100) mg/dL Calcium 8.7 (8.4-10.2) mg/dL
[2020-09-07 15:21] LABS: Hematocrit 39.8 % (30.3-42.9); Hemoglobin 13.3 gm/dl (10.1-14.3); Mean Corpuscular HGB Conc 33 % (30-34); Mean Corpuscular Volume 88 fl (79-97); Platelet Count 172 K/mm3 (140-440); Red Blood Count 4.52 M/mm3 (3.65-5.03); Red Cell Distribution Width 15.1 % (13.2-15.2)
[2020-09-07] MEDS: PANTOPRAZOLE 40 MG TAB PO SCH (16:30)
[2020-09-07 17:07] LABS: Basophils % (Manual) 0 % (0.0-1.8); RBC Morphology Normal; Total Cells Counted 100
[2020-09-07] MEDS ORDERED: ALBUTEROL 2.5 MG/3 ML NEBU IH PRN (17:46)
--- NOTE | 2020-09-07 18:13 | Progress Note ---
Assessment and Plan Assessment and plan: --A. fib with RVR; On Cardizem drip transitioned to oral Cardizem, Cardiology evaluation noted and appreciated No anticoagulation at this point in view of postop state --Hypertension uncontrolled; Partly due to pain, optimal pain medications Increase PRN labetalol to every 4 hours, increase clonidine to TTS 0.3 mg q. weekly --Perforated gastric ulcer with pneumoperitoneum: 09/01/20 s/p exploratory laparotomy for repair of perforated duodenal ulcer. Taper and DC TPN Postop care per surgery, Upper GI 09/05/2020; no leak no obstruction --Sepsis. Present on admission. Perforated viscus secondary to intra-abdominal source secondary to above. Completed Rocephin Flagyl and Diflucan, per ID , monitor off antibiotics --Metastatic breast cancer. Continue supportive care --Right upper extremity edema: Etiology likely secondary to occluded lymphatics from breast CA. RUE Doppler .negative for DVT superficial thrombophlebitis, Elevate the limb --Severe protein calorie malnutrition; Continue TPN and supportive care --DVT prophylaxis; Lovenox We will closely monitor the patient and adjust management as needed Surgery recommendations noted and appreciated 09/02/2020. Patient s/p exploratory laparotomy for repair of perforated viscus. Continue IV anti-infectives of Diflucan, Levaquin and Flagyl. Patient currently intubated postoperatively with PSVT FiO2 40% pressure support 10 and PEEP of 6. Extubate per pulmonary. Initiate TPN. 09/03/2020. Patient s/p exploratory laparotomy for repair of perforated duodenal ulcer. Continue IV ceftriaxone, Flagyl and fluconazole per ID recommendations. TPN has been initiated. Patient is extubated and stable. We will transfer to the floor 09/04: Add IV hydralazine, closely monitor blood pressures and adjust as needed. 09/05; A. fib with rapid ventricular rate on Cardizem drip, upper GI, if negative start clear liquids Discussed with surgeon Dr. Barnes 09/06; Cardizem drip transition to oral Cardizem, on TPN and clear liquids 09/07; patient on regular diet, ambulate as tolerated, DC TPN History Interval history: I have seen and examined the patient at the bedside Patient's chart and medications reviewed Patient feels slightly better Sitting in the chair not in acute distress Vital signs noted Tolerating regular diet Hospitalist Physical - Constitutional Vitals: Temp Pulse Resp BP Pulse Ox 98.3 F 70 20 137/70 94 09/07/20 15:16 09/07/20 15:16 09/07/20 15:16 09/07/20 15:16 09/07/20 15:16 General appearance: Present: no acute distress, well-nourished - EENT Eyes: Present: PERRL, EOM intact - Neck Neck: Present: supple, normal ROM - Respiratory Respiratory effort: normal Respiratory: bilateral: diminished, negative: rales, rhonchi, wheezing - Cardiovascular Rhythm: regular Heart Sounds: Present: S1 & S2 - Extremities Extremities: no ischemia, No edema - Abdominal General gastrointestinal: soft, non-tender, non-distended, normal bowel sounds - Integumentary Integumentary: Present: clear, warm - Psychiatric Psychiatric: appropriate mood/affect, cooperative - Neurologic Neurologic: moves all extremities Results - Labs CBC & Chem 7: 09/07/20 14:57 09/07/20 04:35 Labs: Laboratory Last Values WBC 14.1 K/mm3 (4.5-11.0) H 09/07/20 14:57 RBC 4.52 M/mm3 (3.65-5.03) 09/07/20 14:57 Hgb 13.3 gm/dl (10.1-14.3) 09/07/20 14:57 Hct 39.8 % (30.3-42.9) 09/07/20 14:57 MCV 88 fl (79-97) 09/07/20 14:57 MCH 29 pg (28-32) 09/07/20 14:57 MCHC 33 % (30-34) 09/07/20 14:57 RDW 15.1 % (13.2-15.2) 09/07/20 14:57 Plt Count 172 K/mm3 (140-440) 09/07/20 14:57 Lymph % (Auto) 4.0 % (13.4-35.0) L 09/02/20 08:40 [place] % (Auto) 6.1 % (0.0-7.3) 09/02/20 08:40 Eos % (Auto) 0.0 % (0.0-4.3) 09/02/20 08:40 Baso % (Auto) 0.1 % (0.0-1.8) 09/02/20 08:40 Lymph # (Auto) 0.7 K/mm3 (1.2-5.4) L 09/02/20 08:40 [place] # (Auto) 1.1 K/mm3 (0.0-0.8) H 09/02/20 08:40 Eos # (Auto) 0.0 K/mm3 (0.0-0.4) 09/02/20 08:40 Baso # (Auto) 0.0 K/mm3 (0.0-0.1) 09/02/20 08:40 Add Manual Diff Complete 09/07/20 14:57 Total Counted 100 09/07/20 14:57 Seg Neutrophils % [employer] 09/03/20 04:00 Seg Neuts % (Manual) 78.0 % (40.0-70.0) H 09/07/20 14:57 Band Neutrophils % 0 % 09/07/20 14:57 Lymphocytes % (Manual) 9.0 % (13.4-35.0) L 09/07/20 14:57 Reactive Lymphs % (Man) 0 % 09/07/20 14:57 Monocytes % (Manual) 9.0 % (0.0-7.3) H 09/07/20 14:57 Eosinophils % (Manual) 4.0 % (0.0-4.3) 09/07/20 14:57 Basophils % (Manual) 0 % (0.0-1.8) 09/07/20 14:57 Metamyelocytes % 0 % 09/07/20 14:57 Myelocytes % 0 % 09/07/20 14:57 Promyelocytes % 0 % 09/07/20 14:57 Blast Cells % 0 % 09/07/20 14:57 Nucleated RBC % Not Reportable 09/07/20 14:57 Seg Neutrophils # 16.3 K/mm3 (1.8-7.7) H 09/02/20 08:40 Seg Neutrophils # Man 11.0 K/mm3 (1.8-7.7) H 09/07/20 14:57 Band Neutrophils # 0.0 K/mm3 09/07/20 14:57 Lymphocytes # (Manual) 1.3 K/mm3 (1.2-5.4) 09/07/20 14:57 Abs React Lymphs (Man) 0.0 K/mm3 09/07/20 14:57 Monocytes # (Manual) 1.3 K/mm3 (0.0-0.8) H 09/07/20 14:57 Eosinophils # (Manual) 0.6 K/mm3 (0.0-0.4) H 09/07/20 14:57 Basophils # (Manual) 0.0 K/mm3 (0.0-0.1) 09/07/20 14:57 Metamyelocytes # 0.0 K/mm3 09/07/20 14:57 Myelocytes # 0.0 K/mm3 09/07/20 14:57 Promyelocytes # 0.0 K/mm3 09/07/20 14:57 Blast Cells # 0.0 K/mm3 09/07/20 14:57 WBC Morphology Not Reportable 09/07/20 14:57 Hypersegmented Neuts Not Reportable 09/07/20 14:57 Hyposegmented Neuts Not Reportable 09/07/20 14:57 Hypogranular Neuts Not Reportable 09/07/20 14:57 Smudge Cells Not Reportable 09/07/20 14:57 Toxic Granulation Not Reportable 09/07/20 14:57 Toxic Vacuolation Not Reportable 09/07/20 14:57 Dohle Bodies Not Reportable 09/07/20 14:57 Pelger-Huet Anomaly Not Reportable 09/07/20 14:57 [place] Rods Not Reportable 09/07/20 14:57 Platelet Estimate Not Reportable 09/07/20 14:57 Clumped Platelets Not Reportable 09/07/20 14:57 Plt Clumps, EDTA Not Reportable 09/07/20 14:57 Large Platelets Not Reportable 09/07/20 14:57 Giant Platelets Not Reportable 09/07/20 14:57 Platelet Satelliting Not Reportable 09/07/20 14:57 Plt Morphology Comment Not Reportable 09/07/20 14:57 RBC Morphology Normal 09/07/20 14:57 Dimorphic RBCs Not Reportable 09/07/20 14:57 Polychromasia Not Reportable 09/07/20 14:57 Hypochromasia Not Reportable 09/07/20 14:57 Poikilocytosis Not Reportable 09/07/20 14:57 Anisocytosis Not Reportable 09/07/20 14:57 Microcytosis Not Reportable 09/07/20 14:57 Macrocytosis Not Reportable 09/07/20 14:57 Spherocytes Not Reportable 09/07/20 14:57 Pappenheimer Bodies Not Reportable 09/07/20 14:57 Sickle Cells Not Reportable 09/07/20 14:57 Target Cells Not Reportable 09/07/20 14:57 Tear Drop Cells Not Reportable 09/07/20 14:57 Ovalocytes Not Reportable 09/07/20 14:57 Helmet Cells Not Reportable 09/07/20 14:57 [place] Bodies Not Reportable 09/07/20 14:57 [place] Rings Not Reportable 09/07/20 14:57 [place] Cells Not Reportable 09/07/20 14:57 Bite Cells Not Reportable 09/07/20 14:57 Crenated Cell Not Reportable 09/07/20 14:57 Elliptocytes Not Reportable 09/07/20 14:57 Acanthocytes (Spur) Not Reportable 09/07/20 14:57 Rouleaux Not Reportable 09/07/20 14:57 Hemoglobin C Crystals Not Reportable 09/07/20 14:57 Schistocytes Not Reportable 09/07/20 14:57 Malaria parasites Not Reportable 09/07/20 14:57 [place] Bodies Not Reportable 09/07/20 14:57 Hem Pathologist Commnt No 09/07/20 14:57 ABG pH 7.463 (7.320-7.450) H 09/04/20 09:27 POC ABG pCO2 30.1 mmHg (32.0-48.0) L 09/04/20 09:27 ABG pCO2 34.7 mm Hg 09/02/20 05:20 POC ABG pO2 45.6 mmHg (83-108) L 09/04/20 09:27 ABG pO2 270.7 mm Hg (80.0-90.0) H 09/02/20 05:20 POC ABG HCO3 21.1 09/04/20 09:27 ABG HCO3 23.7 mmol/L (20.0-26.0) 09/02/20 05:20 ABG O2 Saturation 99.5 % (95.0-99.0) H 09/02/20 05:20 ABG O2 Content 20.6 (0.0-44) 09/02/20 05:20 POC ABG Base Excess -1.4 09/04/20 09:27 ABG Base Excess 0.3 mmol/L (-2.0-3.0) 09/02/20 05:20 ABG Hemoglobin 15.8 (12.0-17.5) 09/04/20 09:27 ABG Carboxyhemoglobin 1.3 % (0.0-5.0) 09/02/20 05:20 ABG Methemoglobin 0.4 % (0.0-1.5) 09/02/20 05:20 ABG Sodium 132.6 mmol/L (136.0-145.0) L 09/04/20 09:27 ABG Potassium 3.7 mmol/L (3.40-4.50) 09/04/20 09:27 ABG Chloride 102.0 mmol/L (98-107) 09/04/20 09:27 ABG Glucose 135 mg/dL (65-95) H 09/04/20 09:27 Oxyhemoglobin 97.7 % (95.0-99.0) 09/02/20 05:20 FiO2 21.0 09/04/20 09:27 Sodium 147 mmol/L (137-145) H 09/07/20 04:35 Potassium 4.3 mmol/L (3.6-5.0) D 09/07/20 04:35 Chloride 103.8 mmol/L (98-107) 09/07/20 04:35 Carbon Dioxide 24 mmol/L (22-30) 09/07/20 04:35 Anion Gap 24 mmol/L 09/07/20 04:35 BUN 18 mg/dL (7-17) H 09/07/20 04:35 Creatinine 0.6 mg/dL (0.6-1.2) 09/07/20 04:35 Estimated GFR > 60 ml/min 09/07/20 04:35 BUN/Creatinine Ratio 30 % 09/07/20 04:35 Glucose 114 mg/dL (65-100) H 09/07/20 04:35 POC Glucose 88 (70-105) 09/07/20 17:06 Calcium 8.7 mg/dL (8.4-10.2) 09/07/20 04:35 Phosphorus 3.30 mg/dL (2.5-4.5) 09/07/20 04:35 Magnesium 1.80 mg/dL (1.7-2.3) 09/07/20 04:35 Total Bilirubin 0.30 mg/dL (0.1-1.2) 09/05/20 07:12 AST 17 units/L (5-40) 09/05/20 07:12 ALT 8 units/L (7-56) 09/05/20 07:12 Alkaline Phosphatase 52 units/L (35-129) 09/05/20 07:12 Total Protein 5.7 g/dL (6.3-8.2) L D 09/05/20 07:12 Albumin 2.3 g/dL (3.9-5) L 09/05/20 07:12 Albumin/Globulin Ratio 0.7 % 09/05/20 07:12 Prealbumin 0.109 g/L (0.200-0.400) L 09/04/20 06:00 Triglycerides 86 mg/dL (2-149) 09/04/20 06:00 Lipase 24 units/L (13-60) 09/01/20 02:30 Procalcitonin 5.44 ng/mL (<0.15) 09/01/20 20:23 TSH 0.776 mlU/mL (0.270-4.200) 09/04/20 14:16 Free T4 0.89 ng/dL (0.76-1.46) 09/04/20 14:16 Arterial Blood Glucose 135 mg/dL (65-95) H 09/04/20 09:27 Arterial Blood Ionized Calcium 4.9 mg/dL (4.6-5.3) 09/04/20 09:27 Urine Color Yellow (Yellow) 09/01/20 02:26 Urine Turbidity Clear (Clear) 09/01/20 02:26 Urine pH 6.0 (5.0-7.0) 09/01/20 02:26 Ur Specific [place] 1.023 (1.003-1.030) 09/01/20 02:26 Urine Protein 30 mg/dl mg/dL (Negative) 09/01/20 02:26 Urine Glucose (UA) Neg mg/dL (Negative) 09/01/20 02:26 Urine Ketones Neg mg/dL (Negative) 09/01/20 02:26 Urine Blood Neg (Negative) 09/01/20 02:26 Urine Nitrite Neg (Negative) 09/01/20 02:26 Urine Bilirubin Neg (Negative) 09/01/20 02:26 Urine Urobilinogen 4.0 mg/dL (<2.0) 09/01/20 02:26 Ur Leukocyte Esterase Tr (Negative) 09/01/20 02:26 Urine WBC (Auto) 5.0 /HPF (0.0-6.0) 09/01/20 02:26 Urine RBC (Auto) 4.0 /HPF (0.0-6.0) 09/01/20 02:26 U Epithel Cells (Auto) 3.0 /HPF (0-13.0) 09/01/20 02:26 Urine Mucus 1+ /HPF 09/01/20 02:26 - Diagnostic Impressions Diagnostic Impressions: Echocardiogram 09/03/20 18:17 Transthoracic Echocardiogram Indication: A-fib BP: 142/90 HR: 67 Conclusions *The left ventricular chamber size is normal. *Global left ventricular wall motion and contractility are within normal limits. *The estimated ejection fraction is 60-65%. *Abnormal left ventricular diastolic filling is observed, consistent with impaired relaxation. *The right ventricular cavity size is normal. *The right ventricular systolic pressure is calculated at 27 mmHg. *There is a moderate pleural effusion. Findings Left Ventricle: The left ventricular chamber size is normal. Global left ventricular wall motion and contractility are within normal limits. Global left ventricular systolic function is normal. The estimated ejection fraction is 60-65%. Abnormal left ventricular diastolic filling is observed, consistent with impaired relaxation. Right Ventricle: The right ventricular cavity size is normal. Right Atrium: The right atrial cavity size is normal. Aortic Valve: The aortic valve leaflets are mildly thickened. There is no evidence of aortic regurgitation. Mitral Valve: The mitral valve leaflets are mildly thickened. There is no evidence of mitral regurgitation. Tricuspid Valve: The tricuspid valve leaflets are normal. There is trace tricuspid regurgitation. The right ventricular systolic pressure is calculated at 27 mmHg. Pulmonic Valve: The pulmonic valve appears normal. There is trace pulmonic regurgitation. Pericardium: There is no pericardial effusion. There is a moderate pleural effusion. Aorta: The aorta appears normal. Venous: The inferior vena cava is not visualized. Measurements Chambers 2D Name Value Normal Range IVSd (2D) 0.94 cm (0.6 - 1.1) LVPWd (2D) 0.99 cm (0.6 - 1.1) LVIDd (2D) 4.76 cm (3.7 - 5.6) LVIDs (2D) 2.72 cm (2 - 3.8) LV FS (2D) 42.82 % - EF Teichholz (2D) 73.86 % - Ao root diameter (2D) 3.08 cm (2 - 3.7) Volumes/Mass Name Value Normal Range LA ESV SP 4CH (A/L) 32.25 ml - LA ESV SP 2CH (A/L) 31.78 ml - LA ESV BP (A/L) 34.38 ml - LA ESV BP (A/L) index 16.69 ml/m2 - LA ESV SP 4CH (MOD) 29.95 ml - LA ESV SP 2CH (MOD) 29.49 ml - LA ESV BP (MOD) 31.87 ml - LA ESV BP (MOD) index 15.47 ml/m2 - Diastolic/Systolic Function Name Value Normal Range MV E-wave Vmax 0.63 m/sec - MV deceleration time 180.43 msec - MV A-wave Vmax 0.71 m/sec - MV E:A ratio 0.89 ratio - Aortic Valve Name Value Normal Range AV Vmax 1.81 m/sec - AV VTI 29.91 cm - AV peak gradient 13.12 mmHg - AV mean gradient 6.84 mmHg - LVOT diameter 2.02 cm - LVOT Vmax 1.34 m/sec - LVOT VTI 24.44 cm - LVOT peak gradient 7.15 mmHg - LVOT mean gradient 3.72 mmHg - SV LVOT 77.91 ml - JUANITA (continuity Vmax) 2.35 cm2 - JUANITA (continuity VTI) 2.6 cm2 - Tricuspid Valve Name Value Normal Range TR Vmax 2.46 m/sec - TR peak gradient 24 mmHg - RAP 3 mmHg - RVSP 27 mmHg - Pulmonic Valve/Qp:Qs Name Value Normal Range PV Vmax 0.82 m/sec - PV peak gradient 2.67 mmHg - PV acceleration time 102.76 msec - Carey/IV: Voiding Method Bedside Commode IV Catheter Type [Left Peripheral IV Antecubital] IV Catheter Type [Left Upper PICC Line arm] IV Catheter Type [Left Forearm Peripheral IV ] IV Catheter Type [Left Hand] INT / Saline Lock Active Medications - Current Medications Current Medications: Generic Name Dose Route Start Last Admin Trade Name Freq PRN Reason Stop Dose Admin Albuterol 2.5 mg 09/07/20 17:46 Proventil IH Q6HRT PRN Wheezing Albuterol/Ipratropium 1 ampul 09/07/20 20:00 Duoneb *Not For Prn Use* IH Q6HRT JAIME Clonidine HCl 0.3 mg 09/05/20 11:00 09/05/20 12:59 Catapres-Tts Patch TD 0.3 mg We JAIME Administration Dextrose 25 ml 09/02/20 18:38 09/02/20 18:50 D50w (25gm) Syringe IV 15 ml Q30MIN PRN Administration Hypoglycemia Protocol Diltiazem HCl 120 mg 09/06/20 12:00 09/07/20 09:43 Cardizem Cd PO 120 mg QDAY JAIME Administration Enoxaparin Sodium 40 mg 09/01/20 10:00 09/07/20 09:43 Enoxaparin SUB-Q 40 mg QDAY JAIME Administration Hydralazine HCl 50 mg 09/07/20 14:00 09/07/20 13:55 Apresoline PO 50 mg Q8HR JAIME Administration Hydrophilic Ointment 1 applic 09/01/20 14:47 Vaseline Lip Therapy TP Q2H PRN Dry Lips Amino Acids/Electrolytes/Dextrose 2,016 mls @ 84 mls/hr 09/06/20 20:00 09/06/20 22:04 Tpn Adult IV 09/07/20 19:59 84 mls/hr DAILY@[email or web address] JAIME Administration Protocol Amino Acids/Electrolytes/Dextrose 2,400 mls @ 100 mls/hr 09/07/20 20:00 Tpn Adult IV 09/08/20 19:59 DAILY@1999 JAIME Protocol Fat Emulsion Intravenous 250 mls @ 21 mls/hr 09/07/20 20:00 Intralipid 20% IV 09/08/20 08:00 DAILY@1999 JAIME Morphine Sulfate 2 mg 09/01/20 09:21 09/07/20 09:46 Morphine IV 2 mg Q4H PRN Administration Pain, Moderate (4-6) Multi-Ingred Cream/Lotion/Oil/Oint 1 applic 09/01/20 14:47 Artificial Tears Ophth Oint OU Q4H PRN Dry Eye(s) Oxycodone/Acetaminophen 1 tab 09/06/20 14:07 09/06/20 16:15 Percocet 5/325 PO 1 tab Q6H PRN Administration Pain, Moderate (4-6) Pantoprazole Sodium 40 mg 09/07/20 16:30 09/07/20 16:30 Protonix PO 40 mg BIDAC JAIME Administration Sodium Chloride 10 ml 09/01/20 10:00 09/07/20 09:44 Sodium Chloride Flush Syringe 10 Ml IV 10 ml BID JAIME Administration Sodium Chloride 10 ml 09/01/20 09:21 09/03/20 23:33 Sodium Chloride Flush Syringe 10 Ml IV 10 ml PRN PRN Administration LINE FLUSH Nutrition/Malnutrition Assess - Dietary Evaluation Nutrition/Malnutrition Findings: Nutrition Notes Start: 09/02/20 09:42 Freq: Status: Active Protocol: Document 09/07/20 13:28 YANIRA (Rec: 09/07/20 13:40 YANIRA [id number]) Co-Sign 09/07/20 13:28 LM Nutrition Notes Initial or Follow up Reassessment Current Diagnosis COPD Other Pertinent Diagnosis Breast Ca with Mets, perforated gastric ulcer S/P exp lap Current Diet CPN at 84 ml/hr Labs/Tests Na 147 K 4.3 Pertinent Medications Reviewed Height 5 ft 11 in Weight 86.183 kg Usual Body Weight 86.36 kg [place] Body Weight (kg) 70.45 BMI 26.4 Weight change and time frame Pt reported UBW 190lb (86.36kg ) Weight Status Overweight Subjective/Other Information CPN day 6. Pt reported diarrhea resolved. She feels hungry and drinking all her fluids. Did not receive Ensure Clear this morning. Called the kitchen, Ensure will be sent up now. Referred her to the doctor for diet advancement. Percent of energy/protein needs met: 99%/100% Burn Absent Trauma Absent GI Symptoms None Current % PO Poor (25-49%) Minimum of two criteria No physical signs of malnutrition #1 Nutrition Diagnosis Inadequate oral intake As Evidenced by Signs and Symptoms Cl liq diet Diagnosis Progress(for reassessment Continues documentation) Is patient on ventilator? No Is Patient Ambulatory and/or Out of Bed No REE-([facility]-confined to bed) 0074.579 Calculation Used for Recommendations [facility] Additional Notes Protein needs are 86-103g (1-1 .2g/kg) Fluid needs are 1ml/kcal Nutrition Intervention Change Diet Order: advance diet as tolerated. Recommend CPN as main nutrition source until pt able to meet at least 75% of energy needs PO. Nutrition Support: CPN at 100ml/hr: 10.4% dextrose, 3.8% amino acids, 50g lipids, 105 mEq K. Kcal 1,710 Protein (gm) 90 Carbohydrates (gm) 250 Fat (gm) 50 Fluid (mL) 2,400 Fiber (gm) 0 Add Supplement/Snack (indicate name/kcal Ensure Clear Apple /protein ) Provides kCal: 240 Provides Protein (gm) 8 Goal #1 Meet at least 75% energy and protein needs Anticipated Discharge Needs: Unable to determine at this time Follow-Up By: 09/08/20 Additional Comments Labs in AM: BMP, Mg Phos
[2020-09-07] MEDS ORDERED: TOTAL PARENTERAL NUTRITION 2,400 ML IV SCH (20:00)
[2020-09-07] MEDS ORDERED: FAT EMULSIONS 20% 250 ML IV SCH (20:00)
[2020-09-07] MEDS: IPRATROPIUM/ALBUTEROL SULFATE 3 ML AMPUL.NEB IH SCH (20:49)
[2020-09-08] MEDS: IPRATROPIUM/ALBUTEROL SULFATE 3 ML AMPUL.NEB IH SCH ×4 (01:19→21:23)
[2020-09-08] MEDS: hydrALAZINE 25 MG TAB PO SCH ×3 (06:53→21:18)
[2020-09-08] MEDS: PANTOPRAZOLE 40 MG TAB PO SCH ×3 (08:14→16:41)
[2020-09-08] MEDS: dilTIAZem CD 120 MG CAP PO SCH (09:33)
[2020-09-08] MEDS: ENOXAPARIN 40 MG/0.4 ML INJ SUB-Q SCH (09:34)
--- NOTE | 2020-09-08 12:53 | Progress Note ---
Assessment and Plan Acute hypoxemic respiratory failure, s/p mechanical ventilatory support. Perforated gastric ulcer with pneumoperitoneum, status post exploratory laparotomy. Breast cancer, possibly metastatic with right axillary lymphadenopathy. Bilateral adrenal enlargement. Oropharyngeal dysphagia. Tobacco use disorder. Leukocytosis. Hemoconcentration. Mild hyponatremia. Hyperglycemia. Right upper extremity swelling. LUExt thrombus at the tip of PICC -Therapeutic anticoagulation for DVT. Once the TPN is stopped and PICC line is discontinued, change therapeutic anticoagulation to VTE prophylaxis dosing -Tolerating mechanical soft diet, recommend TPN to be disconitued, she has significant rhonchi on clinical exam with mild respiratory distress -Intermittent diuretics while monitoring reanl function and hemodynamics. -Discussed with hospitalist service - continue to wean supplemental oxygen for target O2 sats > 90% - continue bronchodilators with pulmonary hygiene per RT -Incentive spirometry - avoid nephrotoxins, renally dose all medications - continue to avoid benzodiazepines, reduce the possibility of delirium - Antibiotics per ID recs to complete course - Maintenance of sleep-wake cycle, avoid delirium - Stress ulcer prophylaxis - PT/OT/ROM exercises - continue mobility protocols for pressure ulcer prevention -Nicotine withdrawal precautions, smoking cessation counselling - Monitor hemodynamics closely - continue other care per attending / other consultants Subjective Date of service: 09/08/20 Principal diagnosis: Ac hypoxemic resp failure; Perforated gastric ulcer; pneumoperitoneum Interval history: Patient is seen today for: Acute hypoxemic respiratory failure; Perforated gastric; pneumoperitoneum; Breast cancer; Oropharyngeal dysphagia; Tobacco use disorder; Leukocytosis. Seen and examined at bedside; 24hour events reviewed; nursing and respiratory care staff consulted; no adverse overnight events reported to me; resting peacef ully in bed; extubated, tolerating very well; alert; No N/V/F/C; denies acute chest or abdominal pain wants something to drink on TPN Objective Vital Signs - 12hr 09/08/20 09/08/20 09/08/20 01:20 05:14 06:53 Temperature 97.9 F Pulse Rate 70 75 Pulse Rate [ 67 Anterior Bilateral Throughout] Respiratory 20 Rate Respiratory 15 Rate [Anterior Bilateral Throughout] Blood Pressure 138/73 138/73 O2 Sat by Pulse 96 Oximetry 09/08/20 09/08/20 09/08/20 08:00 08:59 09:24 Temperature 99.0 F Pulse Rate 76 Pulse Rate [ 63 Anterior Bilateral Throughout] Respiratory 18 Rate Respiratory 18 Rate [Anterior Bilateral Throughout] Blood Pressure 146/85 O2 Sat by Pulse 95 96 Oximetry 09/08/20 10:00 Temperature Pulse Rate 75 Pulse Rate [ Anterior Bilateral Throughout] Respiratory Rate Respiratory Rate [Anterior Bilateral Throughout] Blood Pressure O2 Sat by Pulse Oximetry Constitutional: no acute distress, alert, other (elderly female with mildly in creased respiratory effort at rest. Left mastectomy with nodular scar) Eyes: non-icteric ENT: oropharynx moist Neck: supple, no lymphadenopathy Effort: mildly labored Ascultation: Bilateral: diminished breath sounds, rhonchi (scant in bases), other (Diminished breath sounds left lower lobe.) Percussion: Bilateral: not dull Cardiovascular: regular rate and rhythm Gastrointestinal: hypoactive bowel sounds, soft, non-tender, non-distended (protuberant) Integumentary: normal, other (post-op changes) Extremities: no cyanosis, pink and warm, pulses normal, other (Left upper extemity lymphedema) Neurologic: normal mental status, non-focal exam, pupils equal and round, motor strength normal and Psychiatric: mood appropriate, affect normal CBC and BMP: 09/09/20 04:03 09/07/20 04:35 ABG, PT/INR, D-dimer: ABG ABG pH 7.463 (7.320-7.450) H 09/04/20 09:27 POC ABG pCO2 30.1 mmHg (32.0-48.0) L 09/04/20 09:27 ABG pCO2 34.7 mm Hg 09/02/20 05:20 POC ABG pO2 45.6 mmHg (83-108) L 09/04/20 09:27 ABG pO2 270.7 mm Hg (80.0-90.0) H 09/02/20 05:20 POC ABG HCO3 21.1 09/04/20 09:27 ABG O2 Saturation 99.5 % (95.0-99.0) H 09/02/20 05:20 Abnormal lab findings: Abnormal Labs 09/01/20 09/01/20 09/01/20 02:30 02:30 14:42 WBC 21.0 H RBC 5.49 H Hgb 16.3 H Hct 48.5 H Lymph % (Auto) Lymph # (Auto) [place] # (Auto) Seg Neutrophils % Seg Neuts % (Manual) 90.0 H Lymphocytes % (Manual) 4.0 L Monocytes % (Manual) Seg Neutrophils # Seg Neutrophils # Man 18.9 H Lymphocytes # (Manual) 0.8 L Monocytes # (Manual) Eosinophils # (Manual) ABG pH POC ABG pCO2 POC ABG pO2 182.2 H ABG pO2 ABG O2 Saturation ABG Sodium 133.4 L ABG Glucose 132 H Sodium 134 L Potassium Chloride 89.2 L BUN 20 H Creatinine Glucose 190 H POC Glucose Calcium 10.5 H Phosphorus Total Protein 8.6 H Albumin Prealbumin Arterial Blood Glucose 132 H 09/01/20 09/02/20 09/02/20 15:22 05:15 05:20 WBC RBC Hgb Hct Lymph % (Auto) Lymph # (Auto) [place] # (Auto) Seg Neutrophils % Seg Neuts % (Manual) Lymphocytes % (Manual) Monocytes % (Manual) Seg Neutrophils # Seg Neutrophils # Man Lymphocytes # (Manual) Monocytes # (Manual) Eosinophils # (Manual) ABG pH 7.452 H POC ABG pCO2 POC ABG pO2 ABG pO2 270.7 H ABG O2 Saturation 99.5 H ABG Sodium ABG Glucose Sodium Potassium Chloride BUN 18 H Creatinine Glucose POC Glucose Calcium Phosphorus 5.40 H Total Protein Albumin Prealbumin Arterial Blood Glucose 09/02/20 09/02/20 09/02/20 08:40 11:24 17:35 WBC 18.2 H RBC Hgb Hct Lymph % (Auto) 4.0 L Lymph # (Auto) 0.7 L [place] # (Auto) 1.1 H Seg Neutrophils % 89.8 H Seg Neuts % (Manual) Lymphocytes % (Manual) Monocytes % (Manual) Seg Neutrophils # 16.3 H Seg Neutrophils # Man Lymphocytes # (Manual) Monocytes # (Manual) Eosinophils # (Manual) ABG pH POC ABG pCO2 POC ABG pO2 75.5 L ABG pO2 ABG O2 Saturation ABG Sodium 134.2 L ABG Glucose Sodium Potassium Chloride BUN Creatinine Glucose POC Glucose 68 L Calcium Phosphorus Total Protein Albumin Prealbumin Arterial Blood Glucose 09/03/20 09/03/20 09/03/20 00:01 04:00 04:00 WBC 19.1 H RBC Hgb 14.4 H Hct Lymph % (Auto) Lymph # (Auto) [place] # (Auto) Seg Neutrophils % Seg Neuts % (Manual) 93.0 H Lymphocytes % (Manual) 3.0 L Monocytes % (Manual) Seg Neutrophils # Seg Neutrophils # Man 17.8 H Lymphocytes # (Manual) 0.6 L Monocytes # (Manual) Eosinophils # (Manual) ABG pH POC ABG pCO2 POC ABG pO2 ABG pO2 ABG O2 Saturation ABG Sodium ABG Glucose Sodium Potassium Chloride BUN 23 H Creatinine Glucose 124 H POC Glucose 114 H Calcium Phosphorus Total Protein Albumin Prealbumin Arterial Blood Glucose 09/03/20 09/03/20 09/04/20 05:48 17:01 00:57 WBC RBC Hgb Hct Lymph % (Auto) Lymph # (Auto) [place] # (Auto) Seg Neutrophils % Seg Neuts % (Manual) Lymphocytes % (Manual) Monocytes % (Manual) Seg Neutrophils # Seg Neutrophils # Man Lymphocytes # (Manual) Monocytes # (Manual) Eosinophils # (Manual) ABG pH POC ABG pCO2 POC ABG pO2 ABG pO2 ABG O2 Saturation ABG Sodium ABG Glucose Sodium Potassium Chloride BUN Creatinine Glucose POC Glucose 123 H 120 H 121 H Calcium Phosphorus Total Protein Albumin Prealbumin Arterial Blood Glucose 09/04/20 09/04/20 09/05/20 06:00 09:27 06:20 WBC 12.8 H RBC Hgb Hct Lymph % (Auto) Lymph # (Auto) [place] # (Auto) Seg Neutrophils % Seg Neuts % (Manual) 92.0 H Lymphocytes % (Manual) 4.0 L Monocytes % (Manual) Seg Neutrophils # Seg Neutrophils # Man 11.8 H Lymphocytes # (Manual) 0.5 L Monocytes # (Manual) Eosinophils # (Manual) ABG pH 7.463 H POC ABG pCO2 30.1 L POC ABG pO2 45.6 L ABG pO2 ABG O2 Saturation ABG Sodium 132.6 L ABG Glucose 135 H Sodium Potassium Chloride BUN 27 H Creatinine Glucose 113 H POC Glucose Calcium Phosphorus Total Protein Albumin Prealbumin 0.109 L Arterial Blood Glucose 135 H 09/05/20 09/05/20 09/05/20 06:34 07:12 11:39 WBC RBC Hgb Hct Lymph % (Auto) Lymph # (Auto) [place] # (Auto) Seg Neutrophils % Seg Neuts % (Manual) Lymphocytes % (Manual) Monocytes % (Manual) Seg Neutrophils # Seg Neutrophils # Man Lymphocytes # (Manual) Monocytes # (Manual) Eosinophils # (Manual) ABG pH POC ABG pCO2 POC ABG pO2 ABG pO2 ABG O2 Saturation ABG Sodium ABG Glucose Sodium 136 L Potassium Chloride BUN 25 H Creatinine 0.5 L Glucose 113 H POC Glucose 123 H 115 H Calcium Phosphorus Total Protein 5.7 L D Albumin 2.3 L Prealbumin Arterial Blood Glucose 09/05/20 09/06/20 09/06/20 15:54 01:16 07:03 WBC RBC Hgb Hct Lymph % (Auto) Lymph # (Auto) [place] # (Auto) Seg Neutrophils % Seg Neuts % (Manual) Lymphocytes % (Manual) Monocytes % (Manual) Seg Neutrophils # Seg Neutrophils # Man Lymphocytes # (Manual) Monocytes # (Manual) Eosinophils # (Manual) ABG pH POC ABG pCO2 POC ABG pO2 ABG pO2 ABG O2 Saturation ABG Sodium ABG Glucose Sodium Potassium Chloride BUN Creatinine Glucose POC Glucose 116 H 130 H 115 H Calcium Phosphorus Total Protein Albumin Prealbumin Arterial Blood Glucose 09/06/20 09/06/20 09/06/20 08:12 08:12 11:46 WBC 14.3 H RBC Hgb Hct Lymph % (Auto) Lymph # (Auto) [place] # (Auto) Seg Neutrophils % Seg Neuts % (Manual) 84.0 H Lymphocytes % (Manual) 13.0 L Monocytes % (Manual) Seg Neutrophils # Seg Neutrophils # Man 12.0 H Lymphocytes # (Manual) Monocytes # (Manual) Eosinophils # (Manual) ABG pH POC ABG pCO2 POC ABG pO2 ABG pO2 ABG O2 Saturation ABG Sodium ABG Glucose Sodium Potassium 3.5 L Chloride BUN 20 H Creatinine 0.5 L Glucose 138 H POC Glucose 126 H Calcium Phosphorus Total Protein Albumin Prealbumin Arterial Blood Glucose 09/06/20 09/07/20 09/07/20 16:49 04:35 06:19 WBC RBC Hgb Hct Lymph % (Auto) Lymph # (Auto) [place] # (Auto) Seg Neutrophils % Seg Neuts % (Manual) Lymphocytes % (Manual) Monocytes % (Manual) Seg Neutrophils # Seg Neutrophils # Man Lymphocytes # (Manual) Monocytes # (Manual) Eosinophils # (Manual) ABG pH POC ABG pCO2 POC ABG pO2 ABG pO2 ABG O2 Saturation ABG Sodium ABG Glucose Sodium 147 H Potassium Chloride BUN 18 H Creatinine Glucose 114 H POC Glucose 119 H 111 H Calcium Phosphorus Total Protein Albumin Prealbumin Arterial Blood Glucose 09/07/20 09/07/20 09/08/20 14:57 23:09 07:25 WBC 14.1 H RBC Hgb Hct Lymph % (Auto) Lymph # (Auto) [place] # (Auto) Seg Neutrophils % Seg Neuts % (Manual) 78.0 H Lymphocytes % (Manual) 9.0 L Monocytes % (Manual) 9.0 H Seg Neutrophils # Seg Neutrophils # Man 11.0 H Lymphocytes # (Manual) Monocytes # (Manual) 1.3 H Eosinophils # (Manual) 0.6 H ABG pH POC ABG pCO2 POC ABG pO2 ABG pO2 ABG O2 Saturation ABG Sodium ABG Glucose Sodium Potassium Chloride BUN Creatinine Glucose POC Glucose 110 H 108 H Calcium Phosphorus Total Protein Albumin Prealbumin Arterial Blood Glucose 09/08/20 12:07 WBC RBC Hgb Hct Lymph % (Auto) Lymph # (Auto) [place] # (Auto) Seg Neutrophils % Seg Neuts % (Manual) Lymphocytes % (Manual) Monocytes % (Manual) Seg Neutrophils # Seg Neutrophils # Man Lymphocytes # (Manual) Monocytes # (Manual) Eosinophils # (Manual) ABG pH POC ABG pCO2 POC ABG pO2 ABG pO2 ABG O2 Saturation ABG Sodium ABG Glucose Sodium Potassium Chloride BUN Creatinine Glucose POC Glucose 129 H Calcium Phosphorus Total Protein Albumin Prealbumin Arterial Blood Glucose Allied health notes reviewed: RT
--- NOTE | 2020-09-08 13:20 | Progress Note ---
Assessment and Plan Assessment and plan: --Acute hypoxic respiratory failure intubated on 09/01/2020 and extubated on 09/02/2020 On nasal cannula oxygen, evaluate for home oxygen Ambulatory nasal cannula oxygen 87% Continue oxygen. Supportive care Will repeat home oxygen evaluation tomorrow And home O2 as needed --A. fib with RVR; On Cardizem drip transitioned to oral Cardizem, Cardiology evaluation noted and appreciated No anticoagulation at this point in view of postop state --Hypertension uncontrolled; Partly due to pain, optimal pain medications Increase PRN labetalol to every 4 hours, increase clonidine to TTS 0.3 mg q. weekly --Perforated gastric ulcer with pneumoperitoneum: 09/01/20 s/p exploratory laparotomy for repair of perforated duodenal ulcer. Taper and DC TPN Postop care per surgery, Upper GI 09/05/2020; no leak no obstruction --Sepsis. Present on admission. Perforated viscus secondary to intra-abdominal source secondary to above. Completed Rocephin Flagyl and Diflucan, per ID , monitor off antibiotics --Metastatic breast cancer. Continue supportive care --Right upper extremity edema: Etiology likely secondary to occluded lymphatics from breast CA. RUE Doppler .negative for DVT superficial thrombophlebitis, Elevate the limb --Severe protein calorie malnutrition; Continue TPN and supportive care --DVT prophylaxis; Lovenox We will closely monitor the patient and adjust management as needed Surgery recommendations noted and appreciated 09/02/2020. Patient s/p exploratory laparotomy for repair of perforated viscus. Continue IV anti-infectives of Diflucan, Levaquin and Flagyl. Patient currently intubated postoperatively with PSVT FiO2 40% pressure support 10 and PEEP of 6. Extubate per pulmonary. Initiate TPN. 09/03/2020. Patient s/p exploratory laparotomy for repair of perforated duodenal ulcer. Continue IV ceftriaxone, Flagyl and fluconazole per ID recommendations. TPN has been initiated. Patient is extubated and stable. We will transfer to the floor 09/04: Add IV hydralazine, closely monitor blood pressures and adjust as needed. 09/05; A. fib with rapid ventricular rate on Cardizem drip, upper GI, if negative start clear liquids Discussed with surgeon Dr. Barnes 09/06; Cardizem drip transition to oral Cardizem, on TPN and clear liquids 09/07; patient on regular diet, ambulate as tolerated, DC TPN 09/08; Home oxygen evaluation, drop in O2 sats on ambulation room air, patient received TPN Give 1 dose of IV Lasix, reevaluate tomorrow for home oxygen, possible discharge home 09/09/20 if stable History Interval history: I have seen and examined the patient and patient's chart and medications reviewed Patient feels slightly better, anxious to go home Tolerating regular food, will DC TPN Vital signs Hospitalist Physical - Constitutional Vitals: Temp Pulse Resp BP Pulse Ox 99.0 F 75 18 146/85 96 09/08/20 08:59 09/08/20 10:00 09/08/20 08:59 09/08/20 08:59 09/08/20 09:24 General appearance: Present: no acute distress, well-nourished - EENT Eyes: Present: PERRL, EOM intact - Neck Neck: Present: supple, normal ROM - Respiratory Respiratory effort: normal Respiratory: bilateral: diminished, rales, negative: rhonchi, wheezing - Cardiovascular Rhythm: regular Heart Sounds: Present: S1 & S2 - Extremities Extremities: no ischemia, No edema - Abdominal General gastrointestinal: soft, non-tender, non-distended, normal bowel sounds - Integumentary Integumentary: Present: clear, warm - Psychiatric Psychiatric: appropriate mood/affect, cooperative - Neurologic Neurologic: moves all extremities Results - Labs CBC & Chem 7: 09/07/20 14:57 09/07/20 04:35 Labs: Laboratory Last Values WBC 14.1 K/mm3 (4.5-11.0) H 09/07/20 14:57 RBC 4.52 M/mm3 (3.65-5.03) 09/07/20 14:57 Hgb 13.3 gm/dl (10.1-14.3) 09/07/20 14:57 Hct 39.8 % (30.3-42.9) 09/07/20 14:57 MCV 88 fl (79-97) 09/07/20 14:57 MCH 29 pg (28-32) 09/07/20 14:57 MCHC 33 % (30-34) 09/07/20 14:57 RDW 15.1 % (13.2-15.2) 09/07/20 14:57 Plt Count 172 K/mm3 (140-440) 09/07/20 14:57 Lymph % (Auto) 4.0 % (13.4-35.0) L 09/02/20 08:40 [place] % (Auto) 6.1 % (0.0-7.3) 09/02/20 08:40 Eos % (Auto) 0.0 % (0.0-4.3) 09/02/20 08:40 Baso % (Auto) 0.1 % (0.0-1.8) 09/02/20 08:40 Lymph # (Auto) 0.7 K/mm3 (1.2-5.4) L 09/02/20 08:40 [place] # (Auto) 1.1 K/mm3 (0.0-0.8) H 09/02/20 08:40 Eos # (Auto) 0.0 K/mm3 (0.0-0.4) 09/02/20 08:40 Baso # (Auto) 0.0 K/mm3 (0.0-0.1) 09/02/20 08:40 Add Manual Diff Complete 09/07/20 14:57 Total Counted 100 09/07/20 14:57 Seg Neutrophils % Artist Woodblock 09/03/20 04:00 Seg Neuts % (Manual) 78.0 % (40.0-70.0) H 09/07/20 14:57 Band Neutrophils % 0 % 09/07/20 14:57 Lymphocytes % (Manual) 9.0 % (13.4-35.0) L 09/07/20 14:57 Reactive Lymphs % (Man) 0 % 09/07/20 14:57 Monocytes % (Manual) 9.0 % (0.0-7.3) H 09/07/20 14:57 Eosinophils % (Manual) 4.0 % (0.0-4.3) 09/07/20 14:57 Basophils % (Manual) 0 % (0.0-1.8) 09/07/20 14:57 Metamyelocytes % 0 % 09/07/20 14:57 Myelocytes % 0 % 09/07/20 14:57 Promyelocytes % 0 % 09/07/20 14:57 Blast Cells % 0 % 09/07/20 14:57 Nucleated RBC % Not Reportable 09/07/20 14:57 Seg Neutrophils # 16.3 K/mm3 (1.8-7.7) H 09/02/20 08:40 Seg Neutrophils # Man 11.0 K/mm3 (1.8-7.7) H 09/07/20 14:57 Band Neutrophils # 0.0 K/mm3 09/07/20 14:57 Lymphocytes # (Manual) 1.3 K/mm3 (1.2-5.4) 09/07/20 14:57 Abs React Lymphs (Man) 0.0 K/mm3 09/07/20 14:57 Monocytes # (Manual) 1.3 K/mm3 (0.0-0.8) H 09/07/20 14:57 Eosinophils # (Manual) 0.6 K/mm3 (0.0-0.4) H 09/07/20 14:57 Basophils # (Manual) 0.0 K/mm3 (0.0-0.1) 09/07/20 14:57 Metamyelocytes # 0.0 K/mm3 09/07/20 14:57 Myelocytes # 0.0 K/mm3 09/07/20 14:57 Promyelocytes # 0.0 K/mm3 09/07/20 14:57 Blast Cells # 0.0 K/mm3 09/07/20 14:57 WBC Morphology Not Reportable 09/07/20 14:57 Hypersegmented Neuts Not Reportable 09/07/20 14:57 Hyposegmented Neuts Not Reportable 09/07/20 14:57 Hypogranular Neuts Not Reportable 09/07/20 14:57 Smudge Cells Not Reportable 09/07/20 14:57 Toxic Granulation Not Reportable 09/07/20 14:57 Toxic Vacuolation Not Reportable 09/07/20 14:57 Dohle Bodies Not Reportable 09/07/20 14:57 Pelger-Huet Anomaly Not Reportable 09/07/20 14:57 [place] Rods Not Reportable 09/07/20 14:57 Platelet Estimate Not Reportable 09/07/20 14:57 Clumped Platelets Not Reportable 09/07/20 14:57 Plt Clumps, EDTA Not Reportable 09/07/20 14:57 Large Platelets Not Reportable 09/07/20 14:57 Giant Platelets Not Reportable 09/07/20 14:57 Platelet Satelliting Not Reportable 09/07/20 14:57 Plt Morphology Comment Not Reportable 09/07/20 14:57 RBC Morphology Normal 09/07/20 14:57 Dimorphic RBCs Not Reportable 09/07/20 14:57 Polychromasia Not Reportable 09/07/20 14:57 Hypochromasia Not Reportable 09/07/20 14:57 Poikilocytosis Not Reportable 09/07/20 14:57 Anisocytosis Not Reportable 09/07/20 14:57 Microcytosis Not Reportable 09/07/20 14:57 Macrocytosis Not Reportable 09/07/20 14:57 Spherocytes Not Reportable 09/07/20 14:57 Pappenheimer Bodies Not Reportable 09/07/20 14:57 Sickle Cells Not Reportable 09/07/20 14:57 Target Cells Not Reportable 09/07/20 14:57 Tear Drop Cells Not Reportable 09/07/20 14:57 Ovalocytes Not Reportable 09/07/20 14:57 Helmet Cells Not Reportable 09/07/20 14:57 [place] Bodies Not Reportable 09/07/20 14:57 [place] Rings Not Reportable 09/07/20 14:57 Ginger Cells Not Reportable 09/07/20 14:57 Bite Cells Not Reportable 09/07/20 14:57 Crenated Cell Not Reportable 09/07/20 14:57 Elliptocytes Not Reportable 09/07/20 14:57 Acanthocytes (Spur) Not Reportable 09/07/20 14:57 Rouleaux Not Reportable 09/07/20 14:57 Hemoglobin C Crystals Not Reportable 09/07/20 14:57 Schistocytes Not Reportable 09/07/20 14:57 Malaria parasites Not Reportable 09/07/20 14:57 [place] Bodies Not Reportable 09/07/20 14:57 Hem Pathologist Commnt No 09/07/20 14:57 ABG pH 7.463 (7.320-7.450) H 09/04/20 09:27 POC ABG pCO2 30.1 mmHg (32.0-48.0) L 09/04/20 09:27 ABG pCO2 34.7 mm Hg 09/02/20 05:20 POC ABG pO2 45.6 mmHg (83-108) L 09/04/20 09:27 ABG pO2 270.7 mm Hg (80.0-90.0) H 09/02/20 05:20 POC ABG HCO3 21.1 09/04/20 09:27 ABG HCO3 23.7 mmol/L (20.0-26.0) 09/02/20 05:20 ABG O2 Saturation 99.5 % (95.0-99.0) H 09/02/20 05:20 ABG O2 Content 20.6 (0.0-44) 09/02/20 05:20 POC ABG Base Excess -1.4 09/04/20 09:27 ABG Base Excess 0.3 mmol/L (-2.0-3.0) 09/02/20 05:20 ABG Hemoglobin 15.8 (12.0-17.5) 09/04/20 09:27 ABG Carboxyhemoglobin 1.3 % (0.0-5.0) 09/02/20 05:20 ABG Methemoglobin 0.4 % (0.0-1.5) 09/02/20 05:20 ABG Sodium 132.6 mmol/L (136.0-145.0) L 09/04/20 09:27 ABG Potassium 3.7 mmol/L (3.40-4.50) 09/04/20 09:27 ABG Chloride 102.0 mmol/L (98-107) 09/04/20 09:27 ABG Glucose 135 mg/dL (65-95) H 09/04/20 09:27 Oxyhemoglobin 97.7 % (95.0-99.0) 09/02/20 05:20 FiO2 21.0 09/04/20 09:27 Sodium 147 mmol/L (137-145) H 09/07/20 04:35 Potassium 4.3 mmol/L (3.6-5.0) D 09/07/20 04:35 Chloride 103.8 mmol/L (98-107) 09/07/20 04:35 Carbon Dioxide 24 mmol/L (22-30) 09/07/20 04:35 Anion Gap 24 mmol/L 09/07/20 04:35 BUN 18 mg/dL (7-17) H 09/07/20 04:35 Creatinine 0.6 mg/dL (0.6-1.2) 09/07/20 04:35 Estimated GFR > 60 ml/min 09/07/20 04:35 BUN/Creatinine Ratio 30 % 09/07/20 04:35 Glucose 114 mg/dL (65-100) H 09/07/20 04:35 POC Glucose 129 (70-105) H 09/08/20 12:07 Calcium 8.7 mg/dL (8.4-10.2) 09/07/20 04:35 Phosphorus 3.30 mg/dL (2.5-4.5) 09/07/20 04:35 Magnesium 1.80 mg/dL (1.7-2.3) 09/07/20 04:35 Total Bilirubin 0.30 mg/dL (0.1-1.2) 09/05/20 07:12 AST 17 units/L (5-40) 09/05/20 07:12 ALT 8 units/L (7-56) 09/05/20 07:12 Alkaline Phosphatase 52 units/L (35-129) 09/05/20 07:12 Total Protein 5.7 g/dL (6.3-8.2) L D 09/05/20 07:12 Albumin 2.3 g/dL (3.9-5) L 09/05/20 07:12 Albumin/Globulin Ratio 0.7 % 09/05/20 07:12 Prealbumin 0.109 g/L (0.200-0.400) L 09/04/20 06:00 Triglycerides 86 mg/dL (2-149) 09/04/20 06:00 Lipase 24 units/L (13-60) 09/01/20 02:30 Procalcitonin 5.44 ng/mL (<0.15) 09/01/20 20:23 TSH 0.776 mlU/mL (0.270-4.200) 09/04/20 14:16 Free T4 0.89 ng/dL (0.76-1.46) 09/04/20 14:16 Arterial Blood Glucose 135 mg/dL (65-95) H 09/04/20 09:27 Arterial Blood Ionized Calcium 4.9 mg/dL (4.6-5.3) 09/04/20 09:27 Urine Color Yellow (Yellow) 09/01/20 02:26 Urine Turbidity Clear (Clear) 09/01/20 02:26 Urine pH 6.0 (5.0-7.0) 09/01/20 02:26 Ur Specific [place] 1.023 (1.003-1.030) 09/01/20 02:26 Urine Protein 30 mg/dl mg/dL (Negative) 09/01/20 02:26 Urine Glucose (UA) Neg mg/dL (Negative) 09/01/20 02:26 Urine Ketones Neg mg/dL (Negative) 09/01/20 02:26 Urine Blood Neg (Negative) 09/01/20 02:26 Urine Nitrite Neg (Negative) 09/01/20 02:26 Urine Bilirubin Neg (Negative) 09/01/20 02:26 Urine Urobilinogen 4.0 mg/dL (<2.0) 09/01/20 02:26 Ur Leukocyte Esterase Tr (Negative) 09/01/20 02:26 Urine WBC (Auto) 5.0 /HPF (0.0-6.0) 09/01/20 02:26 Urine RBC (Auto) 4.0 /HPF (0.0-6.0) 09/01/20 02:26 U Epithel Cells (Auto) 3.0 /HPF (0-13.0) 09/01/20 02:26 Urine Mucus 1+ /HPF 09/01/20 02:26 - Diagnostic Impressions Diagnostic Impressions: Echocardiogram 09/03/20 18:17 Transthoracic Echocardiogram Indication: A-fib BP: 142/90 HR: 67 Conclusions *The left ventricular chamber size is normal. *Global left ventricular wall motion and contractility are within normal limits. *The estimated ejection fraction is 60-65%. *Abnormal left ventricular diastolic filling is observed, consistent with impaired relaxation. *The right ventricular cavity size is normal. *The right ventricular systolic pressure is calculated at 27 mmHg. *There is a moderate pleural effusion. Findings Left Ventricle: The left ventricular chamber size is normal. Global left ventricular wall motion and contractility are within normal limits. Global left ventricular systolic function is normal. The estimated ejection fraction is 60-65%. Abnormal left ventricular diastolic filling is observed, consistent with impaired relaxation. Right Ventricle: The right ventricular cavity size is normal. Right Atrium: The right atrial cavity size is normal. Aortic Valve: The aortic valve leaflets are mildly thickened. There is no evidence of aortic regurgitation. Mitral Valve: The mitral valve leaflets are mildly thickened. There is no evidence of mitral regurgitation. Tricuspid Valve: The tricuspid valve leaflets are normal. There is trace tricuspid regurgitation. The right ventricular systolic pressure is calculated at 27 mmHg. Pulmonic Valve: The pulmonic valve appears normal. There is trace pulmonic regurgitation. Pericardium: There is no pericardial effusion. There is a moderate pleural effusion. Aorta: The aorta appears normal. Venous: The inferior vena cava is not visualized. Measurements Chambers 2D Name Value Normal Range IVSd (2D) 0.94 cm (0.6 - 1.1) LVPWd (2D) 0.99 cm (0.6 - 1.1) LVIDd (2D) 4.76 cm (3.7 - 5.6) LVIDs (2D) 2.72 cm (2 - 3.8) LV FS (2D) 42.82 % - EF Teichholz (2D) 73.86 % - Ao root diameter (2D) 3.08 cm (2 - 3.7) Volumes/Mass Name Value Normal Range LA ESV SP 4CH (A/L) 32.25 ml - LA ESV SP 2CH (A/L) 31.78 ml - LA ESV BP (A/L) 34.38 ml - LA ESV BP (A/L) index 16.69 ml/m2 - LA ESV SP 4CH (MOD) 29.95 ml - LA ESV SP 2CH (MOD) 29.49 ml - LA ESV BP (MOD) 31.87 ml - LA ESV BP (MOD) index 15.47 ml/m2 - Diastolic/Systolic Function Name Value Normal Range MV E-wave Vmax 0.63 m/sec - MV deceleration time 180.43 msec - MV A-wave Vmax 0.71 m/sec - MV E:A ratio 0.89 ratio - Aortic Valve Name Value Normal Range AV Vmax 1.81 m/sec - AV VTI 29.91 cm - AV peak gradient 13.12 mmHg - AV mean gradient 6.84 mmHg - LVOT diameter 2.02 cm - LVOT Vmax 1.34 m/sec - LVOT VTI 24.44 cm - LVOT peak gradient 7.15 mmHg - LVOT mean gradient 3.72 mmHg - SV LVOT 77.91 ml - JUANITA (continuity Vmax) 2.35 cm2 - JUANITA (continuity VTI) 2.6 cm2 - Tricuspid Valve Name Value Normal Range TR Vmax 2.46 m/sec - TR peak gradient 24 mmHg - RAP 3 mmHg - RVSP 27 mmHg - Pulmonic Valve/Qp:Qs Name Value Normal Range PV Vmax 0.82 m/sec - PV peak gradient 2.67 mmHg - PV acceleration time 102.76 msec - Carey/IV: Voiding Method Bedside Commode IV Catheter Type [Left Peripheral IV Antecubital] IV Catheter Type [Left Upper PICC Line arm] IV Catheter Type [Left Forearm Peripheral IV ] IV Catheter Type [Left Hand] INT / Saline Lock Active Medications - Current Medications Current Medications: Generic Name Dose Route Start Last Admin Trade Name Freq PRN Reason Stop Dose Admin Albuterol 2.5 mg 09/07/20 17:46 Proventil IH Q6HRT PRN Wheezing Albuterol/Ipratropium 1 ampul 09/07/20 20:00 09/08/20 09:23 Duoneb *Not For Prn Use* IH 1 ampul Q6HRT JAIME Administration Clonidine HCl 0.3 mg 09/05/20 11:00 09/05/20 12:59 Catapres-Tts Patch TD 0.3 mg We JAIME Administration Dextrose 25 ml 09/02/20 18:38 09/02/20 18:50 D50w (25gm) Syringe IV 15 ml Q30MIN PRN Administration Hypoglycemia Protocol Diltiazem HCl 120 mg 09/06/20 12:00 09/08/20 09:33 Cardizem Cd PO 120 mg QDAY JAIME Administration Enoxaparin Sodium 40 mg 09/01/20 10:00 09/08/20 09:34 Enoxaparin SUB-Q 40 mg QDAY JAIME Administration Hydralazine HCl 50 mg 09/07/20 14:00 09/08/20 06:53 Apresoline PO 50 mg Q8HR JAIME Administration Hydrophilic Ointment 1 applic 09/01/20 14:47 Vaseline Lip Therapy TP Q2H PRN Dry Lips Amino Acids/Electrolytes/Dextrose 2,400 mls @ 100 mls/hr 09/07/20 20:00 09/07/20 22:39 Tpn Adult IV 09/08/20 19:59 100 mls/hr DAILY@2000 JAIME Administration Protocol Morphine Sulfate 2 mg 09/01/20 09:21 09/07/20 09:46 Morphine IV 2 mg Q4H PRN Administration Pain, Moderate (4-6) Multi-Ingred Cream/Lotion/Oil/Oint 1 applic 09/01/20 14:47 Artificial Tears Ophth Oint OU Q4H PRN Dry Eye(s) Oxycodone/Acetaminophen 1 tab 09/06/20 14:07 09/06/20 16:15 Percocet 5/325 PO 1 tab Q6H PRN Administration Pain, Moderate (4-6) Pantoprazole Sodium 40 mg 09/07/20 16:30 09/08/20 08:14 Protonix PO 40 mg BIDAC JAIME Administration Sodium Chloride 10 ml 09/01/20 10:00 09/08/20 09:34 Sodium Chloride Flush Syringe 10 Ml IV 10 ml BID JAIME Administration Sodium Chloride 10 ml 09/01/20 09:21 09/03/20 23:33 Sodium Chloride Flush Syringe 10 Ml IV 10 ml PRN PRN Administration LINE FLUSH Nutrition/Malnutrition Assess - Dietary Evaluation Nutrition/Malnutrition Findings: Nutrition Notes Start: 09/02/20 09:42 Freq: Status: Active Protocol: Document 09/08/20 11:21 LM (Rec: 09/08/20 11:28 LM [email or web address]) Nutrition Notes Initial or Follow up Reassessment Current Diagnosis COPD Other Pertinent Diagnosis Breast Ca with Mets, perforated gastric ulcer S/P exp lap Current Diet Regular diet Labs/Tests Reviewed Pertinent Medications Reviewed Height 5 ft 11 in Weight 86.183 kg [place] Body Weight (kg) 70.45 BMI 26.4 Weight Status Overweight Subjective/Other Information CPN will be tapered and D/C'd . Pt started on Regular diet yesterday. Pt stated she ate 100% of dinner and ate an omelet and oatmeal for breakfast this AM. Pt stated she is tolerating regular diet . Percent of energy/protein needs met: 97%/76% (regular diet only) Burn Absent Trauma Absent GI Symptoms None Current % PO Good (75-100%) Minimum of two criteria No physical signs of malnutrition #1 Nutrition Diagnosis Inadequate oral intake As Evidenced by Signs and Symptoms Pt tolerating regular diet and TPN D/C'd Diagnosis Progress(for reassessment Improved documentation) Is patient on ventilator? No Is Patient Ambulatory and/or Out of Bed No REE-([facility]-confined to bed) 5634.349 Calculation Used for Recommendations [facility] Additional Notes Protein needs are 86-103g (1-1 .2g/kg) Fluid needs are 1ml/kcal Nutrition Intervention Change Diet Order: Continue regular diet Nutrition Support: D/C Goal #1 Meet at least 75% energy and protein needs Anticipated Discharge Needs: Regular Follow-Up By: 09/10/20 Additional Comments F/U for stable intakes
[2020-09-08] MEDS ORDERED: FUROSEMIDE 40 MG/4 ML INJ IV ONE ×2 (18:55→22:00)
[2020-09-09 04:35] LABS: Hemoglobin 12.4 gm/dl (10.1-14.3); Mean Corpuscular HGB Conc 34 % (30-34); Mean Corpuscular Volume 87 fl (79-97); Platelet Count 206 K/mm3 (140-440); Red Blood Count 4.27 M/mm3 (3.65-5.03)
[2020-09-09] MEDS: hydrALAZINE 25 MG TAB PO SCH ×3 (05:51→21:47)
[2020-09-09 06:12] LABS: Anisocytosis 1+; Band Neutrophils # (Manual) 0.4 K/mm3; Basophils % (Manual) 0 % (0.0-1.8); Platelet Estimate Consistent w Auto; Total Cells Counted 100
[2020-09-09] MEDS: IPRATROPIUM/ALBUTEROL SULFATE 3 ML AMPUL.NEB IH SCH ×3 (10:27→20:26)
[2020-09-09] MEDS: ENOXAPARIN 40 MG/0.4 ML INJ SUB-Q SCH (11:44)
[2020-09-09] MEDS: dilTIAZem CD 120 MG CAP PO SCH (11:44)
[2020-09-09] MEDS: FUROSEMIDE 40 MG/4 ML INJ IV SCH (11:44)
--- NOTE | 2020-09-09 13:02 | Progress Note ---
Assessment and Plan Acute hypoxemic respiratory failure, s/p mechanical ventilatory support. Perforated gastric ulcer with pneumoperitoneum, status post exploratory laparotomy. Breast cancer, possibly metastatic with right axillary lymphadenopathy. Bilateral adrenal enlargement. Oropharyngeal dysphagia. Tobacco use disorder. Leukocytosis. Hemoconcentration. Mild hyponatremia. Hyperglycemia. Right upper extremity swelling. LUExt thrombus at the tip of PICC -Therapeutic anticoagulation for DVT. Once the TPN is stopped and PICC line is discontinued, change therapeutic anticoagulation to VTE prophylaxis dosing -Tolerating mechanical soft diet, recommend TPN to be discontinued, she has significant rhonchi on clinical exam with mild respiratory distress -Intermittent diuretics while monitoring renal function and hemodynamics. -Discussed with hospitalist service -Chest PT, mucolytics and bronchodilators left chest -Evaluate for home oxygen therapy prior to discharge - continue to wean supplemental oxygen for target O2 sats > 90% - continue bronchodilators with pulmonary hygiene per RT -Incentive spirometry - avoid nephrotoxins, renally dose all medications - continue to avoid benzodiazepines, reduce the possibility of delirium - Antibiotics per ID recs to complete course - Maintenance of sleep-wake cycle, avoid delirium - Stress ulcer prophylaxis - PT/OT/ROM exercises - continue mobility protocols for pressure ulcer prevention -Nicotine withdrawal precautions, smoking cessation counselling - Monitor hemodynamics closely - continue other care per attending / other consultants Subjective Date of service: 09/09/20 Principal diagnosis: Ac hypoxemic resp failure; Perforated gastric ulcer; pneumoperitoneum Interval history: Patient is seen today for: Acute hypoxemic respiratory failure; Perforated gastric; pneumoperitoneum; Breast cancer; Oropharyngeal dysphagia; Tobacco use disorder; Leukocytosis. Seen and examined at bedside; 24hour events reviewed; nursing and respiratory care staff consulted; no adverse overnight events reported to me; resting peacefully in bed; extubated, tolerating very well; alert; No N/V/F/C; denies acute chest or abdominal pain wants something to drink on TPN, remains on supplemental; oxygen with some tachypnea. CXR done this morning Objective Vital Signs - 12hr 09/09/20 09/09/20 09/09/20 03:57 05:51 09:51 Temperature 98.0 F 97.8 F Pulse Rate 82 72 83 Pulse Rate [ Anterior Bilateral Throughout] Respiratory 18 18 Rate Respiratory Rate [Anterior Bilateral Throughout] Blood Pressure 143/79 143/79 145/86 O2 Sat by Pulse 96 96 Oximetry 09/09/20 09/09/20 10:26 10:27 Temperature Pulse Rate Pulse Rate [ 75 Anterior Bilateral Throughout] Respiratory Rate Respiratory 18 Rate [Anterior Bilateral Throughout] Blood Pressure O2 Sat by Pulse 97 Oximetry Constitutional: no acute distress, alert, other (elderly female with mildly increased respiratory effort at rest. Left mastectomy with nodular scar) Eyes: non-icteric ENT: oropharynx moist Neck: supple, no lymphadenopathy Effort: mildly labored Ascultation: Bilateral: diminished breath sounds, rhonchi (scant in bases), other (Diminished breath sounds left lower lobe.) Percussion: Bilateral: not dull Cardiovascular: regular rate and rhythm Gastrointestinal: hypoactive bowel sounds, soft, non-tender, non-distended (protuberant) Integumentary: normal, other (post-op changes) Extremities: no cyanosis, pink and warm, pulses normal, other (Left upper extemity lymphedema) Neurologic: normal mental status, non-focal exam, pupils equal and round, motor strength normal and Psychiatric: mood appropriate, affect normal CBC and BMP: 09/10/20 05:56 09/07/20 04:35 ABG, PT/INR, D-dimer: ABG ABG pH 7.463 (7.320-7.450) H 09/04/20 09:27 POC ABG pCO2 30.1 mmHg (32.0-48.0) L 09/04/20 09:27 ABG pCO2 34.7 mm Hg 09/02/20 05:20 POC ABG pO2 45.6 mmHg (83-108) L 09/04/20 09:27 ABG pO2 270.7 mm Hg (80.0-90.0) H 09/02/20 05:20 POC ABG HCO3 21.1 09/04/20 09:27 ABG O2 Saturation 99.5 % (95.0-99.0) H 09/02/20 05:20 Abnormal lab findings: Abnormal Labs 09/01/20 09/01/20 09/01/20 02:30 02:30 14:42 WBC 21.0 H RBC 5.49 H Hgb 16.3 H Hct 48.5 H Lymph % (Auto) Lymph # (Auto) [place] # (Auto) Seg Neutrophils % Seg Neuts % (Manual) 90.0 H Lymphocytes % (Manual) 4.0 L Monocytes % (Manual) Seg Neutrophils # Seg Neutrophils # Man 18.9 H Lymphocytes # (Manual) 0.8 L Monocytes # (Manual) Eosinophils # (Manual) ABG pH POC ABG pCO2 POC ABG pO2 182.2 H ABG pO2 ABG O2 Saturation ABG Sodium 133.4 L ABG Glucose 132 H Sodium 134 L Potassium Chloride 89.2 L BUN 20 H Creatinine Glucose 190 H POC Glucose Calcium 10.5 H Phosphorus Total Protein 8.6 H Albumin Prealbumin Arterial Blood Glucose 132 H 09/01/20 09/02/20 09/02/20 15:22 05:15 05:20 WBC RBC Hgb Hct Lymph % (Auto) Lymph # (Auto) [place] # (Auto) Seg Neutrophils % Seg Neuts % (Manual) Lymphocytes % (Manual) Monocytes % (Manual) Seg Neutrophils # Seg Neutrophils # Man Lymphocytes # (Manual) Monocytes # (Manual) Eosinophils # (Manual) ABG pH 7.452 H POC ABG pCO2 POC ABG pO2 ABG pO2 270.7 H ABG O2 Saturation 99.5 H ABG Sodium ABG Glucose Sodium Potassium Chloride BUN 18 H Creatinine Glucose POC Glucose Calcium Phosphorus 5.40 H Total Protein Albumin Prealbumin Arterial Blood Glucose 09/02/20 09/02/20 09/02/20 08:40 11:24 17:35 WBC 18.2 H RBC Hgb Hct Lymph % (Auto) 4.0 L Lymph # (Auto) 0.7 L [place] # (Auto) 1.1 H Seg Neutrophils % 89.8 H Seg Neuts % (Manual) Lymphocytes % (Manual) Monocytes % (Manual) Seg Neutrophils # 16.3 H Seg Neutrophils # Man Lymphocytes # (Manual) Monocytes # (Manual) Eosinophils # (Manual) ABG pH POC ABG pCO2 POC ABG pO2 75.5 L ABG pO2 ABG O2 Saturation ABG Sodium 134.2 L ABG Glucose Sodium Potassium Chloride BUN Creatinine Glucose POC Glucose 68 L Calcium Phosphorus Total Protein Albumin Prealbumin Arterial Blood Glucose 09/03/20 09/03/20 09/03/20 00:01 04:00 04:00 WBC 19.1 H RBC Hgb 14.4 H Hct Lymph % (Auto) Lymph # (Auto) [place] # (Auto) Seg Neutrophils % Seg Neuts % (Manual) 93.0 H Lymphocytes % (Manual) 3.0 L Monocytes % (Manual) Seg Neutrophils # Seg Neutrophils # Man 17.8 H Lymphocytes # (Manual) 0.6 L Monocytes # (Manual) Eosinophils # (Manual) ABG pH POC ABG pCO2 POC ABG pO2 ABG pO2 ABG O2 Saturation ABG Sodium ABG Glucose Sodium Potassium Chloride BUN 23 H Creatinine Glucose 124 H POC Glucose 114 H Calcium Phosphorus Total Protein Albumin Prealbumin Arterial Blood Glucose 09/03/20 09/03/20 09/04/20 05:48 17:01 00:57 WBC RBC Hgb Hct Lymph % (Auto) Lymph # (Auto) [place] # (Auto) Seg Neutrophils % Seg Neuts % (Manual) Lymphocytes % (Manual) Monocytes % (Manual) Seg Neutrophils # Seg Neutrophils # Man Lymphocytes # (Manual) Monocytes # (Manual) Eosinophils # (Manual) ABG pH POC ABG pCO2 POC ABG pO2 ABG pO2 ABG O2 Saturation ABG Sodium ABG Glucose Sodium Potassium Chloride BUN Creatinine Glucose POC Glucose 123 H 120 H 121 H Calcium Phosphorus Total Protein Albumin Prealbumin Arterial Blood Glucose 09/04/20 09/04/20 09/05/20 06:00 09:27 06:20 WBC 12.8 H RBC Hgb Hct Lymph % (Auto) Lymph # (Auto) [place] # (Auto) Seg Neutrophils % Seg Neuts % (Manual) 92.0 H Lymphocytes % (Manual) 4.0 L Monocytes % (Manual) Seg Neutrophils # Seg Neutrophils # Man 11.8 H Lymphocytes # (Manual) 0.5 L Monocytes # (Manual) Eosinophils # (Manual) ABG pH 7.463 H POC ABG pCO2 30.1 L POC ABG pO2 45.6 L ABG pO2 ABG O2 Saturation ABG Sodium 132.6 L ABG Glucose 135 H Sodium Potassium Chloride BUN 27 H Creatinine Glucose 113 H POC Glucose Calcium Phosphorus Total Protein Albumin Prealbumin 0.109 L Arterial Blood Glucose 135 H 09/05/20 09/05/20 09/05/20 06:34 07:12 11:39 WBC RBC Hgb Hct Lymph % (Auto) Lymph # (Auto) [place] # (Auto) Seg Neutrophils % Seg Neuts % (Manual) Lymphocytes % (Manual) Monocytes % (Manual) Seg Neutrophils # Seg Neutrophils # Man Lymphocytes # (Manual) Monocytes # (Manual) Eosinophils # (Manual) ABG pH POC ABG pCO2 POC ABG pO2 ABG pO2 ABG O2 Saturation ABG Sodium ABG Glucose Sodium 136 L Potassium Chloride BUN 25 H Creatinine 0.5 L Glucose 113 H POC Glucose 123 H 115 H Calcium Phosphorus Total Protein 5.7 L D Albumin 2.3 L Prealbumin Arterial Blood Glucose 09/05/20 09/06/20 09/06/20 15:54 01:16 07:03 WBC RBC Hgb Hct Lymph % (Auto) Lymph # (Auto) [place] # (Auto) Seg Neutrophils % Seg Neuts % (Manual) Lymphocytes % (Manual) Monocytes % (Manual) Seg Neutrophils # Seg Neutrophils # Man Lymphocytes # (Manual) Monocytes # (Manual) Eosinophils # (Manual) ABG pH POC ABG pCO2 POC ABG pO2 ABG pO2 ABG O2 Saturation ABG Sodium ABG Glucose Sodium Potassium Chloride BUN Creatinine Glucose POC Glucose 116 H 130 H 115 H Calcium Phosphorus Total Protein Albumin Prealbumin Arterial Blood Glucose 09/06/20 09/06/20 09/06/20 08:12 08:12 11:46 WBC 14.3 H RBC Hgb Hct Lymph % (Auto) Lymph # (Auto) [place] # (Auto) Seg Neutrophils % Seg Neuts % (Manual) 84.0 H Lymphocytes % (Manual) 13.0 L Monocytes % (Manual) Seg Neutrophils # Seg Neutrophils # Man 12.0 H Lymphocytes # (Manual) Monocytes # (Manual) Eosinophils # (Manual) ABG pH POC ABG pCO2 POC ABG pO2 ABG pO2 ABG O2 Saturation ABG Sodium ABG Glucose Sodium Potassium 3.5 L Chloride BUN 20 H Creatinine 0.5 L Glucose 138 H POC Glucose 126 H Calcium Phosphorus Total Protein Albumin Prealbumin Arterial Blood Glucose 09/06/20 09/07/20 09/07/20 16:49 04:35 06:19 WBC RBC Hgb Hct Lymph % (Auto) Lymph # (Auto) [place] # (Auto) Seg Neutrophils % Seg Neuts % (Manual) Lymphocytes % (Manual) Monocytes % (Manual) Seg Neutrophils # Seg Neutrophils # Man Lymphocytes # (Manual) Monocytes # (Manual) Eosinophils # (Manual) ABG pH POC ABG pCO2 POC ABG pO2 ABG pO2 ABG O2 Saturation ABG Sodium ABG Glucose Sodium 147 H Potassium Chloride BUN 18 H Creatinine Glucose 114 H POC Glucose 119 H 111 H Calcium Phosphorus Total Protein Albumin Prealbumin Arterial Blood Glucose 09/07/20 09/07/20 09/08/20 14:57 23:09 07:25 WBC 14.1 H RBC Hgb Hct Lymph % (Auto) Lymph # (Auto) [place] # (Auto) Seg Neutrophils % Seg Neuts % (Manual) 78.0 H Lymphocytes % (Manual) 9.0 L Monocytes % (Manual) 9.0 H Seg Neutrophils # Seg Neutrophils # Man 11.0 H Lymphocytes # (Manual) Monocytes # (Manual) 1.3 H Eosinophils # (Manual) 0.6 H ABG pH POC ABG pCO2 POC ABG pO2 ABG pO2 ABG O2 Saturation ABG Sodium ABG Glucose Sodium Potassium Chloride BUN Creatinine Glucose POC Glucose 110 H 108 H Calcium Phosphorus Total Protein Albumin Prealbumin Arterial Blood Glucose 09/08/20 09/08/20 09/09/20 12:07 17:18 00:36 WBC RBC Hgb Hct Lymph % (Auto) Lymph # (Auto) [place] # (Auto) Seg Neutrophils % Seg Neuts % (Manual) Lymphocytes % (Manual) Monocytes % (Manual) Seg Neutrophils # Seg Neutrophils # Man Lymphocytes # (Manual) Monocytes # (Manual) Eosinophils # (Manual) ABG pH POC ABG pCO2 POC ABG pO2 ABG pO2 ABG O2 Saturation ABG Sodium ABG Glucose Sodium Potassium Chloride BUN Creatinine Glucose POC Glucose 129 H 122 H 122 H Calcium Phosphorus Total Protein Albumin Prealbumin Arterial Blood Glucose 09/09/20 09/09/20 04:03 12:49 WBC 13.9 H RBC Hgb Hct Lymph % (Auto) Lymph # (Auto) [place] # (Auto) Seg Neutrophils % Seg Neuts % (Manual) 90.0 H Lymphocytes % (Manual) 3.0 L Monocytes % (Manual) Seg Neutrophils # Seg Neutrophils # Man 12.5 H Lymphocytes # (Manual) 0.4 L Monocytes # (Manual) Eosinophils # (Manual) ABG pH POC ABG pCO2 POC ABG pO2 ABG pO2 ABG O2 Saturation ABG Sodium ABG Glucose Sodium Potassium Chloride BUN Creatinine Glucose POC Glucose 113 H Calcium Phosphorus Total Protein Albumin Prealbumin Arterial Blood Glucose Chest x-ray: image reviewed (Left lower lobe infiltre, probable atelectasis) Allied health notes reviewed: RT
--- NOTE | 2020-09-09 14:13 | XRay Report ---
CHEST 1 VIEW INDICATION / CLINICAL INFORMATION: Left lung infiltrates. FINDINGS: SUPPORT DEVICES: See below. HEART / MEDIASTINUM: No significant abnormality. LUNGS / PLEURA: Large left pleural effusion with underlying parenchymal airspace opacity. Left arm PI CC line terminates at the SVC/right atrial junction. Signer Name: Charles Bañuelos MD Signed: 09/09/2020 2:08 PM Workstation Name: [id number]
--- NOTE | 2020-09-09 19:17 | Progress Note ---
Assessment and Plan Assessment and plan: --Acute hypoxic respiratory failure intubated on 09/01/2020 and extubated on 09/02/2020 On nasal cannula oxygen, evaluate for home oxygen Ambulatory nasal cannula oxygen 87% Continue oxygen. Supportive care DC planning per case management Home oxygen/home OT evaluation --A. fib with RVR; rate controlled On Cardizem drip transitioned to oral Cardizem, Cardiology evaluation noted and appreciated No anticoagulation at this point in view of postop state, will check with surgery and start Eliquis if okay --Hypertension moderate control Partly due to pain, optimal pain medications Increase PRN labetalol to every 4 hours, increase clonidine to TTS 0.3 mg q. weekly --Perforated gastric ulcer with pneumoperitoneum: 09/01/20 s/p exploratory laparotomy for repair of perforated duodenal ulcer. TPN DC'd, Postop care per surgery, Upper GI 09/05/2020; no leak no obstruction Patient is stable for discharge --Sepsis. Present on admission. Perforated viscus secondary to intra-abdominal source secondary to above. Completed Rocephin Flagyl and Diflucan, per ID , monitor off antibiotics --Metastatic breast cancer. Continue supportive care --Right upper extremity edema: Etiology likely secondary to occluded lymphatics from breast CA. RUE Doppler .negative for DVT superficial thrombophlebitis, Elevate the limb --Severe protein calorie malnutrition; Continue TPN and supportive care --DVT prophylaxis; Lovenox We will closely monitor the patient and adjust management as needed Surgery recommendations noted and appreciated 09/02/2020. Patient s/p exploratory laparotomy for repair of perforated viscus. Continue IV anti-infectives of Diflucan, Levaquin and Flagyl. Patient currently intubated postoperatively with PSVT FiO2 40% pressure support 10 and PEEP of 6. Extubate per pulmonary. Initiate TPN. 09/03/2020. Patient s/p exploratory laparotomy for repair of perforated duodenal ulcer. Continue IV ceftriaxone, Flagyl and fluconazole per ID recommendations. TPN has been initiated. Patient is extubated and stable. We will transfer to the floor 09/04: Add IV hydralazine, closely monitor blood pressures and adjust as needed. 09/05; A. fib with rapid ventricular rate on Cardizem drip, upper GI, if negative start clear liquids Discussed with surgeon Dr. Barnes 09/06; Cardizem drip transition to oral Cardizem, on TPN and clear liquids 09/07; patient on regular diet, ambulate as tolerated, DC TPN 09/08; Home oxygen evaluation, drop in O2 sats on ambulation room air, patient received TPN Give 1 dose of IV Lasix, reevaluate tomorrow for home oxygen, possible discharge home 09/09/20 if stable 09/09; evaluated and set up home oxygen as needed Discharge home tomorrow if stable Hospitalist Physical - Constitutional Vitals: Temp Pulse Resp BP Pulse Ox 97.8 F 79 18 145/86 97 09/09/20 09:51 09/09/20 17:38 09/09/20 14:22 09/09/20 09:51 09/09/20 10:26 General appearance: Present: no acute distress, well-nourished Results - Labs CBC & Chem 7: 09/09/20 04:03 09/07/20 04:35 Labs: Laboratory Last Values WBC 13.9 K/mm3 (4.5-11.0) H 09/09/20 04:03 RBC 4.27 M/mm3 (3.65-5.03) 09/09/20 04:03 Hgb 12.4 gm/dl (10.1-14.3) 09/09/20 04:03 Hct 37.0 % (30.3-42.9) 09/09/20 04:03 MCV 87 fl (79-97) 09/09/20 04:03 MCH 29 pg (28-32) 09/09/20 04:03 MCHC 34 % (30-34) 09/09/20 04:03 RDW 15.0 % (13.2-15.2) 09/09/20 04:03 Plt Count 206 K/mm3 (140-440) 09/09/20 04:03 Lymph % (Auto) 4.0 % (13.4-35.0) L 09/02/20 08:40 [place] % (Auto) 6.1 % (0.0-7.3) 09/02/20 08:40 Eos % (Auto) 0.0 % (0.0-4.3) 09/02/20 08:40 Baso % (Auto) 0.1 % (0.0-1.8) 09/02/20 08:40 Lymph # (Auto) 0.7 K/mm3 (1.2-5.4) L 09/02/20 08:40 [place] # (Auto) 1.1 K/mm3 (0.0-0.8) H 09/02/20 08:40 Eos # (Auto) 0.0 K/mm3 (0.0-0.4) 09/02/20 08:40 Baso # (Auto) 0.0 K/mm3 (0.0-0.1) 09/02/20 08:40 Add Manual Diff Complete 09/09/20 04:03 Total Counted 100 09/09/20 04:03 Seg Neutrophils % Chief Crna 09/03/20 04:00 Seg Neuts % (Manual) 90.0 % (40.0-70.0) H 09/09/20 04:03 Band Neutrophils % 3.0 % 09/09/20 04:03 Lymphocytes % (Manual) 3.0 % (13.4-35.0) L 09/09/20 04:03 Reactive Lymphs % (Man) 0 % 09/09/20 04:03 Monocytes % (Manual) 2.0 % (0.0-7.3) 09/09/20 04:03 Eosinophils % (Manual) 2.0 % (0.0-4.3) 09/09/20 04:03 Basophils % (Manual) 0 % (0.0-1.8) 09/09/20 04:03 Metamyelocytes % 0 % 09/09/20 04:03 Myelocytes % 0 % 09/09/20 04:03 Promyelocytes % 0 % 09/09/20 04:03 Blast Cells % 0 % 09/09/20 04:03 Nucleated RBC % Not Reportable 09/09/20 04:03 Seg Neutrophils # 16.3 K/mm3 (1.8-7.7) H 09/02/20 08:40 Seg Neutrophils # Man 12.5 K/mm3 (1.8-7.7) H 09/09/20 04:03 Band Neutrophils # 0.4 K/mm3 09/09/20 04:03 Lymphocytes # (Manual) 0.4 K/mm3 (1.2-5.4) L 09/09/20 04:03 Abs React Lymphs (Man) 0.0 K/mm3 09/09/20 04:03 Monocytes # (Manual) 0.3 K/mm3 (0.0-0.8) 09/09/20 04:03 Eosinophils # (Manual) 0.3 K/mm3 (0.0-0.4) 09/09/20 04:03 Basophils # (Manual) 0.0 K/mm3 (0.0-0.1) 09/09/20 04:03 Metamyelocytes # 0.0 K/mm3 09/09/20 04:03 Myelocytes # 0.0 K/mm3 09/09/20 04:03 Promyelocytes # 0.0 K/mm3 09/09/20 04:03 Blast Cells # 0.0 K/mm3 09/09/20 04:03 WBC Morphology Not Reportable 09/09/20 04:03 Hypersegmented Neuts Not Reportable 09/09/20 04:03 Hyposegmented Neuts Not Reportable 09/09/20 04:03 Hypogranular Neuts Not Reportable 09/09/20 04:03 Smudge Cells Not Reportable 09/09/20 04:03 Toxic Granulation Not Reportable 09/09/20 04:03 Toxic Vacuolation Not Reportable 09/09/20 04:03 Dohle Bodies Not Reportable 09/09/20 04:03 Pelger-Huet Anomaly Not Reportable 09/09/20 04:03 [place] Rods Not Reportable 09/09/20 04:03 Platelet Estimate Consistent w auto 09/09/20 04:03 Clumped Platelets Not Reportable 09/09/20 04:03 Plt Clumps, EDTA Not Reportable 09/09/20 04:03 Large Platelets Not Reportable 09/09/20 04:03 Giant Platelets Not Reportable 09/09/20 04:03 Platelet Satelliting Not Reportable 09/09/20 04:03 Plt Morphology Comment Not Reportable 09/09/20 04:03 RBC Morphology Not Reportable 09/09/20 04:03 Dimorphic RBCs Not Reportable 09/09/20 04:03 Polychromasia Not Reportable 09/09/20 04:03 Hypochromasia Not Reportable 09/09/20 04:03 Poikilocytosis Not Reportable 09/09/20 04:03 Anisocytosis 1+ 09/09/20 04:03 Microcytosis Not Reportable 09/09/20 04:03 Macrocytosis Not Reportable 09/09/20 04:03 Spherocytes Not Reportable 09/09/20 04:03 Pappenheimer Bodies Not Reportable 09/09/20 04:03 Sickle Cells Not Reportable 09/09/20 04:03 Target Cells Not Reportable 09/09/20 04:03 Tear Drop Cells Not Reportable 09/09/20 04:03 Ovalocytes Not Reportable 09/09/20 04:03 Helmet Cells Not Reportable 09/09/20 04:03 [place] Bodies Not Reportable 09/09/20 04:03 [place] Rings Not Reportable 09/09/20 04:03 [place] Cells Not Reportable 09/09/20 04:03 Bite Cells Not Reportable 09/09/20 04:03 Crenated Cell Not Reportable 09/09/20 04:03 Elliptocytes Not Reportable 09/09/20 04:03 Acanthocytes (Spur) Not Reportable 09/09/20 04:03 Rouleaux Not Reportable 09/09/20 04:03 Hemoglobin C Crystals Not Reportable 09/09/20 04:03 Schistocytes Not Reportable 09/09/20 04:03 Malaria parasites Not Reportable 09/09/20 04:03 [place] Bodies Not Reportable 09/09/20 04:03 Hem Pathologist Commnt No 09/09/20 04:03 ABG pH 7.463 (7.320-7.450) H 09/04/20 09:27 POC ABG pCO2 30.1 mmHg (32.0-48.0) L 09/04/20 09:27 ABG pCO2 34.7 mm Hg 09/02/20 05:20 POC ABG pO2 45.6 mmHg (83-108) L 09/04/20 09:27 ABG pO2 270.7 mm Hg (80.0-90.0) H 09/02/20 05:20 POC ABG HCO3 21.1 09/04/20 09:27 ABG HCO3 23.7 mmol/L (20.0-26.0) 09/02/20 05:20 ABG O2 Saturation 99.5 % (95.0-99.0) H 09/02/20 05:20 ABG O2 Content 20.6 (0.0-44) 09/02/20 05:20 POC ABG Base Excess -1.4 09/04/20 09:27 ABG Base Excess 0.3 mmol/L (-2.0-3.0) 09/02/20 05:20 ABG Hemoglobin 15.8 (12.0-17.5) 09/04/20 09:27 ABG Carboxyhemoglobin 1.3 % (0.0-5.0) 09/02/20 05:20 ABG Methemoglobin 0.4 % (0.0-1.5) 09/02/20 05:20 ABG Sodium 132.6 mmol/L (136.0-145.0) L 09/04/20 09:27 ABG Potassium 3.7 mmol/L (3.40-4.50) 09/04/20 09:27 ABG Chloride 102.0 mmol/L (98-107) 09/04/20 09:27 ABG Glucose 135 mg/dL (65-95) H 09/04/20 09:27 Oxyhemoglobin 97.7 % (95.0-99.0) 09/02/20 05:20 FiO2 21.0 09/04/20 09:27 Sodium 147 mmol/L (137-145) H 09/07/20 04:35 Potassium 4.3 mmol/L (3.6-5.0) D 09/07/20 04:35 Chloride 103.8 mmol/L (98-107) 09/07/20 04:35 Carbon Dioxide 24 mmol/L (22-30) 09/07/20 04:35 Anion Gap 24 mmol/L 09/07/20 04:35 BUN 18 mg/dL (7-17) H 09/07/20 04:35 Creatinine 0.6 mg/dL (0.6-1.2) 09/07/20 04:35 Estimated GFR > 60 ml/min 09/07/20 04:35 BUN/Creatinine Ratio 30 % 09/07/20 04:35 Glucose 114 mg/dL (65-100) H 09/07/20 04:35 POC Glucose 91 (70-105) 09/09/20 17:21 Calcium 8.7 mg/dL (8.4-10.2) 09/07/20 04:35 Phosphorus 3.30 mg/dL (2.5-4.5) 09/07/20 04:35 Magnesium 1.80 mg/dL (1.7-2.3) 09/07/20 04:35 Total Bilirubin 0.30 mg/dL (0.1-1.2) 09/05/20 07:12 AST 17 units/L (5-40) 09/05/20 07:12 ALT 8 units/L (7-56) 09/05/20 07:12 Alkaline Phosphatase 52 units/L (35-129) 09/05/20 07:12 Total Protein 5.7 g/dL (6.3-8.2) L D 09/05/20 07:12 Albumin 2.3 g/dL (3.9-5) L 09/05/20 07:12 Albumin/Globulin Ratio 0.7 % 09/05/20 07:12 Prealbumin 0.109 g/L (0.200-0.400) L 09/04/20 06:00 Triglycerides 86 mg/dL (2-149) 09/04/20 06:00 Lipase 24 units/L (13-60) 09/01/20 02:30 Procalcitonin 5.44 ng/mL (<0.15) 09/01/20 20:23 TSH 0.776 mlU/mL (0.270-4.200) 09/04/20 14:16 Free T4 0.89 ng/dL (0.76-1.46) 09/04/20 14:16 Arterial Blood Glucose 135 mg/dL (65-95) H 09/04/20 09:27 Arterial Blood Ionized Calcium 4.9 mg/dL (4.6-5.3) 09/04/20 09:27 Urine Color Yellow (Yellow) 09/01/20 02:26 Urine Turbidity Clear (Clear) 09/01/20 02:26 Urine pH 6.0 (5.0-7.0) 09/01/20 02:26 Ur Specific [place] 1.023 (1.003-1.030) 09/01/20 02:26 Urine Protein 30 mg/dl mg/dL (Negative) 09/01/20 02:26 Urine Glucose (UA) Neg mg/dL (Negative) 09/01/20 02:26 Urine Ketones Neg mg/dL (Negative) 09/01/20 02:26 Urine Blood Neg (Negative) 09/01/20 02:26 Urine Nitrite Neg (Negative) 09/01/20 02:26 Urine Bilirubin Neg (Negative) 09/01/20 02:26 Urine Urobilinogen 4.0 mg/dL (<2.0) 09/01/20 02:26 Ur Leukocyte Esterase Tr (Negative) 09/01/20 02:26 Urine WBC (Auto) 5.0 /HPF (0.0-6.0) 09/01/20 02:26 Urine RBC (Auto) 4.0 /HPF (0.0-6.0) 09/01/20 02:26 U Epithel Cells (Auto) 3.0 /HPF (0-13.0) 09/01/20 02:26 Urine Mucus 1+ /HPF 09/01/20 02:26 - Diagnostic Impressions Diagnostic Impressions: Echocardiogram 09/03/20 18:17 Transthoracic Echocardiogram Indication: A-fib BP: 142/90 HR: 67 Conclusions *The left ventricular chamber size is normal. *Global left ventricular wall motion and contractility are within normal limits. *The estimated ejection fraction is 60-65%. *Abnormal left ventricular diastolic filling is observed, consistent with impaired relaxation. *The right ventricular cavity size is normal. *The right ventricular systolic pressure is calculated at 27 mmHg. *There is a moderate pleural effusion. Findings Left Ventricle: The left ventricular chamber size is normal. Global left ventricular wall motion and contractility are within normal limits. Global left ventricular systolic function is normal. The estimated ejection fraction is 60-65%. Abnormal left ventricular diastolic filling is observed, consistent with impaired relaxation. Right Ventricle: The right ventricular cavity size is normal. Right Atrium: The right atrial cavity size is normal. Aortic Valve: The aortic valve leaflets are mildly thickened. There is no evidence of aortic regurgitation. Mitral Valve: The mitral valve leaflets are mildly thickened. There is no evidence of mitral regurgitation. Tricuspid Valve: The tricuspid valve leaflets are normal. There is trace tricuspid regurgitation. The right ventricular systolic pressure is calculated at 27 mmHg. Pulmonic Valve: The pulmonic valve appears normal. There is trace pulmonic regurgitation. Pericardium: There is no pericardial effusion. There is a moderate pleural effusion. Aorta: The aorta appears normal. Venous: The inferior vena cava is not visualized. Measurements Chambers 2D Name Value Normal Range IVSd (2D) 0.94 cm (0.6 - 1.1) LVPWd (2D) 0.99 cm (0.6 - 1.1) LVIDd (2D) 4.76 cm (3.7 - 5.6) LVIDs (2D) 2.72 cm (2 - 3.8) LV FS (2D) 42.82 % - EF Teichholz (2D) 73.86 % - Ao root diameter (2D) 3.08 cm (2 - 3.7) Volumes/Mass Name Value Normal Range LA ESV SP 4CH (A/L) 32.25 ml - LA ESV SP 2CH (A/L) 31.78 ml - LA ESV BP (A/L) 34.38 ml - LA ESV BP (A/L) index 16.69 ml/m2 - LA ESV SP 4CH (MOD) 29.95 ml - LA ESV SP 2CH (MOD) 29.49 ml - LA ESV BP (MOD) 31.87 ml - LA ESV BP (MOD) index 15.47 ml/m2 - Diastolic/Systolic Function Name Value Normal Range MV E-wave Vmax 0.63 m/sec - MV deceleration time 180.43 msec - MV A-wave Vmax 0.71 m/sec - MV E:A ratio 0.89 ratio - Aortic Valve Name Value Normal Range AV Vmax 1.81 m/sec - AV VTI 29.91 cm - AV peak gradient 13.12 mmHg - AV mean gradient 6.84 mmHg - LVOT diameter 2.02 cm - LVOT Vmax 1.34 m/sec - LVOT VTI 24.44 cm - LVOT peak gradient 7.15 mmHg - LVOT mean gradient 3.72 mmHg - SV LVOT 77.91 ml - JUANITA (continuity Vmax) 2.35 cm2 - JUANITA (continuity VTI) 2.6 cm2 - Tricuspid Valve Name Value Normal Range TR Vmax 2.46 m/sec - TR peak gradient 24 mmHg - RAP 3 mmHg - RVSP 27 mmHg - Pulmonic Valve/Qp:Qs Name Value Normal Range PV Vmax 0.82 m/sec - PV peak gradient 2.67 mmHg - PV acceleration time 102.76 msec - Carey/IV: Voiding Method Bedside Commode IV Catheter Type [Left Peripheral IV Antecubital] IV Catheter Type [Left Upper PICC Line arm] IV Catheter Type [Left Forearm Peripheral IV ] IV Catheter Type [Left Hand] INT / Saline Lock Active Medications - Current Medications Current Medications: Generic Name Dose Route Start Last Admin Trade Name Freq PRN Reason Stop Dose Admin Albuterol 2.5 mg 09/07/20 17:46 Proventil IH Q6HRT PRN Wheezing Albuterol/Ipratropium 1 ampul 09/09/20 08:00 09/09/20 14:22 Duoneb *Not For Prn Use* IH 1 ampul TIDRT JAIME Administration Clonidine HCl 0.3 mg 09/05/20 11:00 09/05/20 12:59 Catapres-Tts Patch TD 0.3 mg We JAIME Administration Dextrose 25 ml 09/02/20 18:38 09/02/20 18:50 D50w (25gm) Syringe IV 15 ml Q30MIN PRN Administration Hypoglycemia Protocol Diltiazem HCl 120 mg 09/06/20 12:00 09/09/20 11:44 Cardizem Cd PO 120 mg QDAY JAIME Administration Enoxaparin Sodium 40 mg 09/01/20 10:00 09/09/20 11:44 Enoxaparin SUB-Q 40 mg QDAY JAIME Administration Furosemide 40 mg 09/09/20 10:00 09/09/20 11:44 Lasix IV 40 mg QDAY JAIME Administration Hydralazine HCl 50 mg 09/07/20 14:00 09/09/20 05:51 Apresoline PO 50 mg Q8HR JAIME Administration Hydrophilic Ointment 1 applic 09/01/20 14:47 Vaseline Lip Therapy TP Q2H PRN Dry Lips Morphine Sulfate 2 mg 09/01/20 09:21 09/07/20 09:46 Morphine IV 2 mg Q4H PRN Administration Pain, Moderate (4-6) Multi-Ingred Cream/Lotion/Oil/Oint 1 applic 09/01/20 14:47 Artificial Tears Ophth Oint OU Q4H PRN Dry Eye(s) Oxycodone/Acetaminophen 1 tab 09/06/20 14:07 09/06/20 16:15 Percocet 5/325 PO 1 tab Q6H PRN Administration Pain, Moderate (4-6) Pantoprazole Sodium 40 mg 09/07/20 16:30 09/08/20 16:41 Protonix PO Not Given BIDAC JAIME Sodium Chloride 10 ml 09/01/20 10:00 09/08/20 21:18 Sodium Chloride Flush Syringe 10 Ml IV 10 ml BID JAIME Administration Sodium Chloride 10 ml 09/01/20 09:21 09/03/20 23:33 Sodium Chloride Flush Syringe 10 Ml IV 10 ml PRN PRN Administration LINE FLUSH Nutrition/Malnutrition Assess - Dietary Evaluation Nutrition/Malnutrition Findings: Nutrition Notes Start: 09/02/20 09:42 Freq: Status: Active Protocol: Document 09/08/20 11:21 LM (Rec: 09/08/20 11:28 LM [id number]) Nutrition Notes Initial or Follow up Reassessment Current Diagnosis COPD Other Pertinent Diagnosis Breast Ca with Mets, perforated gastric ulcer S/P exp lap Current Diet Regular diet Labs/Tests Reviewed Pertinent Medications Reviewed Height 5 ft 11 in Weight 86.183 kg [place] Body Weight (kg) 70.45 BMI 26.4 Weight Status Overweight Subjective/Other Information CPN will be tapered and D/C'd . Pt started on Regular diet yesterday. Pt stated she ate 100% of dinner and ate an omelet and oatmeal for breakfast this AM. Pt stated she is tolerating regular diet . Percent of energy/protein needs met: 97%/76% (regular diet only) Burn Absent Trauma Absent GI Symptoms None Current % PO Good (75-100%) Minimum of two criteria No physical signs of malnutrition #1 Nutrition Diagnosis Inadequate oral intake As Evidenced by Signs and Symptoms Pt tolerating regular diet and TPN D/C'd Diagnosis Progress(for reassessment Improved documentation) Is patient on ventilator? No Is Patient Ambulatory and/or Out of Bed No [facility] [phone] Calculation Used for Recommendations [facility] Additional Notes Protein needs are 86-103g (1-1 .2g/kg) Fluid needs are 1ml/kcal Nutrition Intervention Change Diet Order: Continue regular diet Nutrition Support: D/C Goal #1 Meet at least 75% energy and protein needs Anticipated Discharge Needs: Regular Follow-Up By: 09/10/20 Additional Comments F/U for stable intakes
[2020-09-09] MEDS: PANTOPRAZOLE 40 MG TAB PO SCH (20:12)
[2020-09-10] MEDS: hydrALAZINE 25 MG TAB PO SCH ×3 (05:27→21:18)
[2020-09-10 06:38] LABS: Hematocrit 36.2 % (30.3-42.9); Mean Corpuscular HGB Conc 33 % (30-34); Mean Corpuscular Volume 88 fl (79-97); Platelet Count 226 K/mm3 (140-440); Red Cell Distribution Width 15.2 % (13.2-15.2)
[2020-09-10] MEDS: IPRATROPIUM/ALBUTEROL SULFATE 3 ML AMPUL.NEB IH SCH ×3 (08:11→21:51)
[2020-09-10] MEDS: PANTOPRAZOLE 40 MG TAB PO SCH ×2 (08:40→16:27)
--- NOTE | 2020-09-10 09:08 | Progress Note ---
Assessment and Plan Assessment and plan: --Large left pleural effusion; on chest x-ray 09/09/2020 Pulmonary following, Consider thoracentesis tomorrow N.p.o. midnight, pleural fluid analysis --Acute hypoxic respiratory failure intubated on 09/01/2020 and extubated on 09/02/2020 On nasal cannula oxygen, evaluate for home oxygen Ambulatory nasal cannula oxygen 87% Continue oxygen. Supportive care Will repeat home oxygen evaluation tomorrow And home O2 as needed --A. fib with RVR; On Cardizem drip transitioned to oral Cardizem, Cardiology evaluation noted and appreciated No anticoagulation at this point in view of postop state --Hypertension uncontrolled; Partly due to pain, optimal pain medications Increase PRN labetalol to every 4 hours, increase clonidine to TTS 0.3 mg q. weekly --Perforated gastric ulcer with pneumoperitoneum: 09/01/20 s/p exploratory laparotomy for repair of perforated duodenal ulcer. Taper and DC TPN Postop care per surgery, Upper GI 09/05/2020; no leak no obstruction --Sepsis. Present on admission. Perforated viscus secondary to intra-abdominal source secondary to above. Completed Rocephin Flagyl and Diflucan, per ID , monitor off antibiotics --Metastatic breast cancer. Continue supportive care --Right upper extremity edema: Etiology likely secondary to occluded lymphatics from breast CA. RUE Doppler .negative for DVT superficial thrombophlebitis, Elevate the limb --Severe protein calorie malnutrition; Continue TPN and supportive care --DVT prophylaxis; Lovenox We will closely monitor the patient and adjust management as needed Surgery recommendations noted and appreciated 09/02/2020. Patient s/p exploratory laparotomy for repair of perforated viscus. Continue IV anti-infectives of Diflucan, Levaquin and Flagyl. Patient currently intubated postoperatively with PSVT FiO2 40% pressure support 10 and PEEP of 6. Extubate per pulmonary. Initiate TPN. 09/03/2020. Patient s/p exploratory laparotomy for repair of perforated duodenal ulcer. Continue IV ceftriaxone, Flagyl and fluconazole per ID recommendations. TPN has been initiated. Patient is extubated and stable. We will transfer to the floor 09/04: Add IV hydralazine, closely monitor blood pressures and adjust as needed. 09/05; A. fib with rapid ventricular rate on Cardizem drip, upper GI, if negative start clear liquids Discussed with surgeon Dr. Barnes 09/06; Cardizem drip transition to oral Cardizem, on TPN and clear liquids 09/07; patient on regular diet, ambulate as tolerated, DC TPN 09/08; Home oxygen evaluation, drop in O2 sats on ambulation room air, patient received TPN Give 1 dose of IV Lasix, reevaluate tomorrow for home oxygen, possible discharge home 09/09/20 if stable 09/09; evaluation for home oxygen, follow chest x-ray 09/10; large left pleural effusion on chest x-ray, possible left thoracentesis. Pulmonary following History Interval history: I have seen and examined the patient at the bedside this morning Patient's chart and medications reviewed Chest x-ray revealed large left pleural effusion Pulmonary following Patient is slightly hypoxic and in mild distress On nasal cannula oxygen Vital signs noted Hospitalist Physical - Constitutional Vitals: Temp Pulse Resp BP Pulse Ox 97.5 F L 79 20 133/75 18 L 09/10/20 07:24 09/10/20 07:24 09/10/20 05:07 09/10/20 07:24 09/10/20 07:24 General appearance: Present: no acute distress, well-nourished - EENT Eyes: Present: PERRL, EOM intact - Neck Neck: Present: supple, normal ROM - Respiratory Respiratory effort: normal Respiratory: bilateral: diminished (Left more than right), rhonchi, negative: rales, wheezing - Cardiovascular Rhythm: regular Heart Sounds: Present: S1 & S2 - Extremities Extremities: no ischemia, No edema - Abdominal General gastrointestinal: soft, non-tender, non-distended, normal bowel sounds - Integumentary Integumentary: Present: clear, warm - Psychiatric Psychiatric: appropriate mood/affect, cooperative - Neurologic Neurologic: CNII-XII intact, moves all extremities Results - Labs CBC & Chem 7: 09/10/20 05:56 09/07/20 04:35 Labs: Laboratory Last Values WBC 14.7 K/mm3 (4.5-11.0) H 09/10/20 05:56 RBC 4.10 M/mm3 (3.65-5.03) 09/10/20 05:56 Hgb 12.0 gm/dl (10.1-14.3) 09/10/20 05:56 Hct 36.2 % (30.3-42.9) 09/10/20 05:56 MCV 88 fl (79-97) 09/10/20 05:56 MCH 29 pg (28-32) 09/10/20 05:56 MCHC 33 % (30-34) 09/10/20 05:56 RDW 15.2 % (13.2-15.2) 09/10/20 05:56 Plt Count 226 K/mm3 (140-440) 09/10/20 05:56 Lymph % (Auto) 4.0 % (13.4-35.0) L 09/02/20 08:40 [place] % (Auto) 6.1 % (0.0-7.3) 09/02/20 08:40 Eos % (Auto) 0.0 % (0.0-4.3) 09/02/20 08:40 Baso % (Auto) 0.1 % (0.0-1.8) 09/02/20 08:40 Lymph # (Auto) 0.7 K/mm3 (1.2-5.4) L 09/02/20 08:40 [place] # (Auto) 1.1 K/mm3 (0.0-0.8) H 09/02/20 08:40 Eos # (Auto) 0.0 K/mm3 (0.0-0.4) 09/02/20 08:40 Baso # (Auto) 0.0 K/mm3 (0.0-0.1) 09/02/20 08:40 Add Manual Diff Complete 09/09/20 04:03 Total Counted 100 09/09/20 04:03 Seg Neutrophils % Economist Research Assistant 09/03/20 04:00 Seg Neuts % (Manual) 90.0 % (40.0-70.0) H 09/09/20 04:03 Band Neutrophils % 3.0 % 09/09/20 04:03 Lymphocytes % (Manual) 3.0 % (13.4-35.0) L 09/09/20 04:03 Reactive Lymphs % (Man) 0 % 09/09/20 04:03 Monocytes % (Manual) 2.0 % (0.0-7.3) 09/09/20 04:03 Eosinophils % (Manual) 2.0 % (0.0-4.3) 09/09/20 04:03 Basophils % (Manual) 0 % (0.0-1.8) 09/09/20 04:03 Metamyelocytes % 0 % 09/09/20 04:03 Myelocytes % 0 % 09/09/20 04:03 Promyelocytes % 0 % 09/09/20 04:03 Blast Cells % 0 % 09/09/20 04:03 Nucleated RBC % Not Reportable 09/09/20 04:03 Seg Neutrophils # 16.3 K/mm3 (1.8-7.7) H 09/02/20 08:40 Seg Neutrophils # Man 12.5 K/mm3 (1.8-7.7) H 09/09/20 04:03 Band Neutrophils # 0.4 K/mm3 09/09/20 04:03 Lymphocytes # (Manual) 0.4 K/mm3 (1.2-5.4) L 09/09/20 04:03 Abs React Lymphs (Man) 0.0 K/mm3 09/09/20 04:03 Monocytes # (Manual) 0.3 K/mm3 (0.0-0.8) 09/09/20 04:03 Eosinophils # (Manual) 0.3 K/mm3 (0.0-0.4) 09/09/20 04:03 Basophils # (Manual) 0.0 K/mm3 (0.0-0.1) 09/09/20 04:03 Metamyelocytes # 0.0 K/mm3 09/09/20 04:03 Myelocytes # 0.0 K/mm3 09/09/20 04:03 Promyelocytes # 0.0 K/mm3 09/09/20 04:03 Blast Cells # 0.0 K/mm3 09/09/20 04:03 WBC Morphology Not Reportable 09/09/20 04:03 Hypersegmented Neuts Not Reportable 09/09/20 04:03 Hyposegmented Neuts Not Reportable 09/09/20 04:03 Hypogranular Neuts Not Reportable 09/09/20 04:03 Smudge Cells Not Reportable 09/09/20 04:03 Toxic Granulation Not Reportable 09/09/20 04:03 Toxic Vacuolation Not Reportable 09/09/20 04:03 Dohle Bodies Not Reportable 09/09/20 04:03 Pelger-Huet Anomaly Not Reportable 09/09/20 04:03 [place] Rods Not Reportable 09/09/20 04:03 Platelet Estimate Consistent w auto 09/09/20 04:03 Clumped Platelets Not Reportable 09/09/20 04:03 Plt Clumps, EDTA Not Reportable 09/09/20 04:03 Large Platelets Not Reportable 09/09/20 04:03 Giant Platelets Not Reportable 09/09/20 04:03 Platelet Satelliting Not Reportable 09/09/20 04:03 Plt Morphology Comment Not Reportable 09/09/20 04:03 RBC Morphology Not Reportable 09/09/20 04:03 Dimorphic RBCs Not Reportable 09/09/20 04:03 Polychromasia Not Reportable 09/09/20 04:03 Hypochromasia Not Reportable 09/09/20 04:03 Poikilocytosis Not Reportable 09/09/20 04:03 Anisocytosis 1+ 09/09/20 04:03 Microcytosis Not Reportable 09/09/20 04:03 Macrocytosis Not Reportable 09/09/20 04:03 Spherocytes Not Reportable 09/09/20 04:03 Pappenheimer Bodies Not Reportable 09/09/20 04:03 Sickle Cells Not Reportable 09/09/20 04:03 Target Cells Not Reportable 09/09/20 04:03 Tear Drop Cells Not Reportable 09/09/20 04:03 Ovalocytes Not Reportable 09/09/20 04:03 Helmet Cells Not Reportable 09/09/20 04:03 Fernandez-Pierre Part Bodies Not Reportable 09/09/20 04:03 [place] Rings Not Reportable 09/09/20 04:03 Ginger Cells Not Reportable 09/09/20 04:03 Bite Cells Not Reportable 09/09/20 04:03 Crenated Cell Not Reportable 09/09/20 04:03 Elliptocytes Not Reportable 09/09/20 04:03 Acanthocytes (Spur) Not Reportable 09/09/20 04:03 Rouleaux Not Reportable 09/09/20 04:03 Hemoglobin C Crystals Not Reportable 09/09/20 04:03 Schistocytes Not Reportable 09/09/20 04:03 Malaria parasites Not Reportable 09/09/20 04:03 [place] Bodies Not Reportable 09/09/20 04:03 Hem Pathologist Commnt No 09/09/20 04:03 ABG pH 7.463 (7.320-7.450) H 09/04/20 09:27 POC ABG pCO2 30.1 mmHg (32.0-48.0) L 09/04/20 09:27 ABG pCO2 34.7 mm Hg 09/02/20 05:20 POC ABG pO2 45.6 mmHg (83-108) L 09/04/20 09: ABG pO2 270.7 mm Hg (80.0-90.0) H 09/02/20 05:20 POC ABG HCO3 21.1 09/04/20 09: ABG HCO3 23.7 mmol/L (20.0-26.0) 09/02/20 05: ABG O2 Saturation 99.5 % (95.0-99.0) H 09/02/20 05:20 ABG O2 Content 20.6 (0.0-44) 09/02/20 05:20 POC ABG Base Excess -1.4 09/04/20 09: ABG Base Excess 0.3 mmol/L (-2.0-3.0) 09/02/20 05:20 ABG Hemoglobin 15.8 (12.0-17.5) 09/04/20 09:27 ABG Carboxyhemoglobin 1.3 % (0.0-5.0) 09/02/20 05:20 ABG Methemoglobin 0.4 % (0.0-1.5) 09/02/20 05:20 ABG Sodium 132.6 mmol/L (136.0-145.0) L 09/04/20 09:27 ABG Potassium 3.7 mmol/L (3.40-4.50) 09/04/20 09:27 ABG Chloride 102.0 mmol/L (98-107) 09/04/20 09: ABG Glucose 135 mg/dL (65-95) H 09/04/20 09:27 Oxyhemoglobin 97.7 % (95.0-99.0) 09/02/20 05:20 FiO2 21.0 09/04/20 09:27 Sodium 147 mmol/L (137-145) H 09/07/20 04:35 Potassium 4.3 mmol/L (3.6-5.0) D 09/07/20 04:35 Chloride 103.8 mmol/L (98-107) 09/07/20 04:35 Carbon Dioxide 24 mmol/L (22-30) 09/07/20 04:35 Anion Gap 24 mmol/L 09/07/20 04:35 BUN 18 mg/dL (7-17) H 09/07/20 04:35 Creatinine 0.6 mg/dL (0.6-1.2) 09/07/20 04:35 Estimated GFR > 60 ml/min 09/07/20 04:35 BUN/Creatinine Ratio 30 % 09/07/20 04:35 Glucose 114 mg/dL (65-100) H 09/07/20 04:35 POC Glucose 82 (70-105) 09/10/20 07:35 Calcium 8.7 mg/dL (8.4-10.2) 09/07/20 04:35 Phosphorus 3.30 mg/dL (2.5-4.5) 09/07/20 04:35 Magnesium 1.80 mg/dL (1.7-2.3) 09/07/20 04:35 Total Bilirubin 0.30 mg/dL (0.1-1.2) 09/05/20 07:12 AST 17 units/L (5-40) 09/05/20 07:12 ALT 8 units/L (7-56) 09/05/20 07:12 Alkaline Phosphatase 52 units/L (35-129) 09/05/20 07:12 Total Protein 5.7 g/dL (6.3-8.2) L D 09/05/20 07:12 Albumin 2.3 g/dL (3.9-5) L 09/05/20 07:12 Albumin/Globulin Ratio 0.7 % 09/05/20 07:12 Prealbumin 0.109 g/L (0.200-0.400) L 09/04/20 06:00 Triglycerides 86 mg/dL (2-149) 09/04/20 06:00 Lipase 24 units/L (13-60) 09/01/20 02:30 Procalcitonin 5.44 ng/mL (<0.15) 09/01/20 20:23 TSH 0.776 mlU/mL (0.270-4.200) 09/04/20 14:16 Free T4 0.89 ng/dL (0.76-1.46) 09/04/20 14:16 Arterial Blood Glucose 135 mg/dL (65-95) H 09/04/20 09:27 Arterial Blood Ionized Calcium 4.9 mg/dL (4.6-5.3) 09/04/20 09:27 Urine Color Yellow (Yellow) 09/01/20 02:26 Urine Turbidity Clear (Clear) 09/01/20 02:26 Urine pH 6.0 (5.0-7.0) 09/01/20 02:26 Ur Specific [place] 1.023 (1.003-1.030) 09/01/20 02:26 Urine Protein 30 mg/dl mg/dL (Negative) 09/01/20 02:26 Urine Glucose (UA) Neg mg/dL (Negative) 09/01/20 02:26 Urine Ketones Neg mg/dL (Negative) 09/01/20 02:26 Urine Blood Neg (Negative) 09/01/20 02:26 Urine Nitrite Neg (Negative) 09/01/20 02:26 Urine Bilirubin Neg (Negative) 09/01/20 02:26 Urine Urobilinogen 4.0 mg/dL (<2.0) 09/01/20 02:26 Ur Leukocyte Esterase Tr (Negative) 09/01/20 02:26 Urine WBC (Auto) 5.0 /HPF (0.0-6.0) 09/01/20 02:26 Urine RBC (Auto) 4.0 /HPF (0.0-6.0) 09/01/20 02:26 U Epithel Cells (Auto) 3.0 /HPF (0-13.0) 09/01/20 02:26 Urine Mucus 1+ /HPF 09/01/20 02:26 - Diagnostic Impressions Diagnostic Impressions: Echocardiogram 09/03/20 18:17 Transthoracic Echocardiogram Indication: A-fib BP: 142/90 HR: 67 Conclusions *The left ventricular chamber size is normal. *Global left ventricular wall motion and contractility are within normal limits. *The estimated ejection fraction is 60-65%. *Abnormal left ventricular diastolic filling is observed, consistent with impaired relaxation. *The right ventricular cavity size is normal. *The right ventricular systolic pressure is calculated at 27 mmHg. *There is a moderate pleural effusion. Findings Left Ventricle: The left ventricular chamber size is normal. Global left ventricular wall motion and contractility are within normal limits. Global left ventricular systolic function is normal. The estimated ejection fraction is 60-65%. Abnormal left ventricular diastolic filling is observed, consistent with impaired relaxation. Right Ventricle: The right ventricular cavity size is normal. Right Atrium: The right atrial cavity size is normal. Aortic Valve: The aortic valve leaflets are mildly thickened. There is no evidence of aortic regurgitation. Mitral Valve: The mitral valve leaflets are mildly thickened. There is no evidence of mitral regurgitation. Tricuspid Valve: The tricuspid valve leaflets are normal. There is trace tricuspid regurgitation. The right ventricular systolic pressure is calculated at 27 mmHg. Pulmonic Valve: The pulmonic valve appears normal. There is trace pulmonic regurgitation. Pericardium: There is no pericardial effusion. There is a moderate pleural effusion. Aorta: The aorta appears normal. Venous: The inferior vena cava is not visualized. Measurements Chambers 2D Name Value Normal Range IVSd (2D) 0.94 cm (0.6 - 1.1) LVPWd (2D) 0.99 cm (0.6 - 1.1) LVIDd (2D) 4.76 cm (3.7 - 5.6) LVIDs (2D) 2.72 cm (2 - 3.8) LV FS (2D) 42.82 % - EF Teichholz (2D) 73.86 % - Ao root diameter (2D) 3.08 cm (2 - 3.7) Volumes/Mass Name Value Normal Range LA ESV SP 4CH (A/L) 32.25 ml - LA ESV SP 2CH (A/L) 31.78 ml - LA ESV BP (A/L) 34.38 ml - LA ESV BP (A/L) index 16.69 ml/m2 - LA ESV SP 4CH (MOD) 29.95 ml - LA ESV SP 2CH (MOD) 29.49 ml - LA ESV BP (MOD) 31.87 ml - LA ESV BP (MOD) index 15.47 ml/m2 - Diastolic/Systolic Function Name Value Normal Range MV E-wave Vmax 0.63 m/sec - MV deceleration time 180.43 msec - MV A-wave Vmax 0.71 m/sec - MV E:A ratio 0.89 ratio - Aortic Valve Name Value Normal Range AV Vmax 1.81 m/sec - AV VTI 29.91 cm - AV peak gradient 13.12 mmHg - AV mean gradient 6.84 mmHg - LVOT diameter 2.02 cm - LVOT Vmax 1.34 m/sec - LVOT VTI 24.44 cm - LVOT peak gradient 7.15 mmHg - LVOT mean gradient 3.72 mmHg - SV LVOT 77.91 ml - JUANITA (continuity Vmax) 2.35 cm2 - JUANITA (continuity VTI) 2.6 cm2 - Tricuspid Valve Name Value Normal Range TR Vmax 2.46 m/sec - TR peak gradient 24 mmHg - RAP 3 mmHg - RVSP 27 mmHg - Pulmonic Valve/Qp:Qs Name Value Normal Range PV Vmax 0.82 m/sec - PV peak gradient 2.67 mmHg - PV acceleration time 102.76 msec - Carey/IV: Voiding Method Bedside Commode IV Catheter Type [Left Peripheral IV Antecubital] IV Catheter Type [Left Upper PICC Line arm] IV Catheter Type [Left Forearm Peripheral IV ] IV Catheter Type [Left Hand] INT / Saline Lock Active Medications - Current Medications Current Medications: Generic Name Dose Route Start Last Admin Trade Name Freq PRN Reason Stop Dose Admin Albuterol 2.5 mg 09/07/20 17:46 Proventil IH Q6HRT PRN Wheezing Albuterol/Ipratropium 1 ampul 09/09/20 08:00 09/10/20 08:11 Duoneb *Not For Prn Use* IH 1 ampul TIDRT JAMIE Administration Clonidine HCl 0.3 mg 09/05/20 11:00 09/05/20 12:59 Catapres-Tts Patch TD 0.3 mg We JAIME Administration Dextrose 25 ml 09/02/20 18:38 09/02/20 18:50 D50w (25gm) Syringe IV 15 ml Q30MIN PRN Administration Hypoglycemia Protocol Diltiazem HCl 120 mg 09/06/20 12:00 09/09/20 11:44 Cardizem Cd PO 120 mg QDAY JAIME Administration Enoxaparin Sodium 40 mg 09/01/20 10:00 09/09/20 11:44 Enoxaparin SUB-Q 40 mg QDAY JAIME Administration Furosemide 40 mg 09/09/20 10:00 09/09/20 11:44 Lasix IV 40 mg QDAY JAIME Administration Hydralazine HCl 50 mg 09/07/20 14:00 09/10/20 05:27 Apresoline PO 50 mg Q8HR JAIME Administration Hydrophilic Ointment 1 applic 09/01/20 14:47 Vaseline Lip Therapy TP Q2H PRN Dry Lips Morphine Sulfate 2 mg 09/01/20 09:21 09/07/20 09:46 Morphine IV 2 mg Q4H PRN Administration Pain, Moderate (4-6) Multi-Ingred Cream/Lotion/Oil/Oint 1 applic 09/01/20 14:47 Artificial Tears Ophth Oint OU Q4H PRN Dry Eye(s) Oxycodone/Acetaminophen 1 tab 09/06/20 14:07 09/06/20 16:15 Percocet 5/325 PO 1 tab Q6H PRN Administration Pain, Moderate (4-6) Pantoprazole Sodium 40 mg 09/07/20 16:30 09/09/20 20:12 Protonix PO Not Given BIDAC JAIME Sodium Chloride 10 ml 09/01/20 10:00 09/09/20 21:48 Sodium Chloride Flush Syringe 10 Ml IV 10 ml BID JAIME Administration Sodium Chloride 10 ml 09/01/20 09:21 09/03/20 23:33 Sodium Chloride Flush Syringe 10 Ml IV 10 ml PRN PRN Administration LINE FLUSH Nutrition/Malnutrition Assess - Dietary Evaluation Nutrition/Malnutrition Findings: Nutrition Notes Start: 09/02/20 09:42 Freq: Status: Active Protocol: Document 09/08/20 11:21 LM (Rec: 09/08/20 11:28 LM [id number]) Nutrition Notes Initial or Follow up Reassessment Current Diagnosis COPD Other Pertinent Diagnosis Breast Ca with Mets, perforated gastric ulcer S/P exp lap Current Diet Regular diet Labs/Tests Reviewed Pertinent Medications Reviewed Height 5 ft 11 in Weight 86.183 kg [place] Body Weight (kg) 70.45 BMI 26.4 Weight Status Overweight Subjective/Other Information CPN will be tapered and D/C'd . Pt started on Regular diet yesterday. Pt stated she ate 100% of dinner and ate an omelet and oatmeal for breakfast this AM. Pt stated she is tolerating regular diet . Percent of energy/protein needs met: 97%/76% (regular diet only) Burn Absent Trauma Absent GI Symptoms None Current % PO Good (75-100%) Minimum of two criteria No physical signs of malnutrition #1 Nutrition Diagnosis Inadequate oral intake As Evidenced by Signs and Symptoms Pt tolerating regular diet and TPN D/C'd Diagnosis Progress(for reassessment Improved documentation) Is patient on ventilator? No Is Patient Ambulatory and/or Out of Bed No REE-([facility]-confined to bed) [phone] Calculation Used for Recommendations [facility] Additional Notes Protein needs are 86-103g (1-1 .2g/kg) Fluid needs are 1ml/kcal Nutrition Intervention Change Diet Order: Continue regular diet Nutrition Support: D/C Goal #1 Meet at least 75% energy and protein needs Anticipated Discharge Needs: Regular Follow-Up By: 09/10/20 Additional Comments F/U for stable intakes
[2020-09-10 09:09] LABS: Band Neutrophils # (Manual) 0.3 K/mm3; Basophils % (Manual) 0 % (0.0-1.8); Total Cells Counted 100
[2020-09-10 09:10] LABS: Anisocytosis 1+; Platelet Estimate Consistent w Auto
[2020-09-10] MEDS: ENOXAPARIN 40 MG/0.4 ML INJ SUB-Q SCH (09:14)
[2020-09-10] MEDS: dilTIAZem CD 120 MG CAP PO SCH (09:15)
[2020-09-10] MEDS: FUROSEMIDE 40 MG/4 ML INJ IV SCH (09:16)
--- NOTE | 2020-09-10 16:35 | Progress Note ---
Assessment and Plan Patient alert, awake, resting on 2 litres O2. O2 saturation 94%. Complaining shortness of breath at times. No complaint of chest pain, or cough. ABG on room air ABG pH 7.463 (7.320-7.450) H 09/04/20 09:27 POC ABG pCO2 30.1 mmHg (32.0-48.0) L 09/04/20 09:27 ABG pCO2 34.7 mm Hg 09/02/20 05:20 POC ABG pO2 45.6 mmHg (83-108) L 09/04/20 09:27 ABG pO2 270.7 mm Hg (80.0-90.0) H 09/02/20 05:20 POC ABG HCO3 21.1 09/04/20 09:27 ABG O2 Saturation 99.5 % (95.0-99.0) H 09/02/20 05:20 Patient is candidate for home O2. Chest xray 09/04/20 reported Worsening pleural-parenchymal opacity of the left lower lung when compared to yesterday's exam. Appears Atelectasis. Recommend Chest PT. Continue incentive spirometry. Patient afebrile. Has leukocytosis. Patient was treated with ceftriaxone and metronidazole and Fluconazole. Venous doppler studies of legs reported superficial thrombosis. Patient is on Apixaban. - Patient Problems (1) Breast cancer Current Visit: Yes Status: Acute Plan to address problem: Management as per primary care and Oncology. (2) Perforated gastric ulcer Current Visit: Yes Status: Acute Plan to address problem: S/P Exploratory laparotomy and repair of perforated gastric ulcer. Management as per surgery. (3) Atelectasis of left lung Current Visit: Yes Status: Acute Plan to address problem: O2 supplementation 2 litres. Recommend Chest PT. Continue incentive spirometry. Albuterol/atrovent aerosol treatments q 6 hours. Patient afebrile. Has leukocytosis. Patient was treated with ceftriaxone and metronidazole and Fluconazole. Subjective Date of service: 09/10/20 Principal diagnosis: Ac hypoxemic resp failure; Perforated gastric ulcer; pneumoperitoneum Interval history: Patient alert, awake, resting on 2 litres O2. O2 saturation 94%. Complaining shortness of breath at times. No complaint of chest pain, or cough. ABG on room air ABG pH 7.463 (7.320-7.450) H 09/04/20 09:27 POC ABG pCO2 30.1 mmHg (32.0-48.0) L 09/04/20 09:27 ABG pCO2 34.7 mm Hg 09/02/20 05:20 POC ABG pO2 45.6 mmHg (83-108) L 09/04/20 09:27 ABG pO2 270.7 mm Hg (80.0-90.0) H 09/02/20 05:20 POC ABG HCO3 21.1 09/04/20 09:27 ABG O2 Saturation 99.5 % (95.0-99.0) H 09/02/20 05:20 Patient is candidate for home O2. Chest xray 09/04/20 reported Worsening pleural-parenchymal opacity of the left lower lung when compared to yesterday's exam. Appears Atelectasis. Recommend Chest PT. Continue incentive spirometry. Patient afebrile. Has leukocytosis. Patient was treated with ceftriaxone and metronidazole and Fluconazole. Venous doppler studies of legs reported superficial thrombosis. Patient is on Apixaban. Objective Vital Signs - 12hr 09/10/20 09/10/20 09/10/20 05:07 07:24 09:15 Temperature 97.1 F L 97.5 F L Pulse Rate 64 79 84 Pulse Rate [ Apical] Pulse Rate [ From Monitor] Respiratory 20 Rate Blood Pressure 119/75 137/70 Blood Pressure 133/75 [Left] O2 Sat by Pulse 93 18 L Oximetry 09/10/20 09/10/20 09/10/20 09:19 09:52 10:00 Temperature Pulse Rate 80 61 Pulse Rate [ 71 Apical] Pulse Rate [ 71 From Monitor] Respiratory Rate Blood Pressure 137/70 Blood Pressure [Left] O2 Sat by Pulse 96 95 Oximetry 09/10/20 09/10/20 09/10/20 12:03 12:06 14:07 Temperature 98.1 F Pulse Rate 80 77 Pulse Rate [ Apical] Pulse Rate [ From Monitor] Respiratory 17 Rate Blood Pressure 125/72 125/71 Blood Pressure [Left] O2 Sat by Pulse 96 96 Oximetry Constitutional: no acute distress, alert, other (elderly female with mildly increased respiratory effort at rest. Left mastectomy with nodular scar) Eyes: non-icteric ENT: oropharynx moist Neck: supple, no lymphadenopathy Effort: mildly labored Ascultation: Bilateral: diminished breath sounds, rhonchi (scant in bases), other (Diminished breath sounds left lower lobe.) Percussion: Bilateral: not dull Cardiovascular: regular rate and rhythm Gastrointestinal: hypoactive bowel sounds, soft, non-tender, non-distended (protuberant) Integumentary: normal, other (post-op changes) Extremities: no cyanosis, pink and warm, pulses normal, other (Left upper extemity lymphedema) Neurologic: normal mental status, non-focal exam, pupils equal and round, motor strength normal and Psychiatric: mood appropriate, affect normal CBC and BMP: 09/10/20 05:56 09/07/20 04:35 ABG, PT/INR, D-dimer: ABG ABG pH 7.463 (7.320-7.450) H 09/04/20 09:27 POC ABG pCO2 30.1 mmHg (32.0-48.0) L 09/04/20 09:27 ABG pCO2 34.7 mm Hg 09/02/20 05:20 POC ABG pO2 45.6 mmHg (83-108) L 09/04/20 09:27 ABG pO2 270.7 mm Hg (80.0-90.0) H 09/02/20 05:20 POC ABG HCO3 21.1 09/04/20 09:27 ABG O2 Saturation 99.5 % (95.0-99.0) H 09/02/20 05:20 Abnormal lab findings: Abnormal Labs 09/01/20 09/01/20 09/01/20 02:30 02:30 14:42 WBC 21.0 H RBC 5.49 H Hgb 16.3 H Hct 48.5 H Lymph % (Auto) Lymph # (Auto) Campbell # (Auto) Seg Neutrophils % Seg Neuts % (Manual) 90.0 H Lymphocytes % (Manual) 4.0 L Monocytes % (Manual) Seg Neutrophils # Seg Neutrophils # Man 18.9 H Lymphocytes # (Manual) 0.8 L Monocytes # (Manual) Eosinophils # (Manual) ABG pH POC ABG pCO2 POC ABG pO2 182.2 H ABG pO2 ABG O2 Saturation ABG Sodium 133.4 L ABG Glucose 132 H Sodium 134 L Potassium Chloride 89.2 L BUN 20 H Creatinine Glucose 190 H POC Glucose Calcium 10.5 H Phosphorus Total Protein 8.6 H Albumin Prealbumin Arterial Blood Glucose 132 H 10/03/20 10/04/20 10/04/20 15:22 05:15 05:20 WBC RBC Hgb Hct Lymph % (Auto) Lymph # (Auto) Campbell # (Auto) Seg Neutrophils % Seg Neuts % (Manual) Lymphocytes % (Manual) Monocytes % (Manual) Seg Neutrophils # Seg Neutrophils # Man Lymphocytes # (Manual) Monocytes # (Manual) Eosinophils # (Manual) ABG pH 7.452 H POC ABG pCO2 POC ABG pO2 ABG pO2 270.7 H ABG O2 Saturation 99.5 H ABG Sodium ABG Glucose Sodium Potassium Chloride BUN 18 H Creatinine Glucose POC Glucose Calcium Phosphorus 5.40 H Total Protein Albumin Prealbumin Arterial Blood Glucose 09/02/20 09/02/20 09/02/20 08:40 11:24 17:35 WBC 18.2 H RBC Hgb Hct Lymph % (Auto) 4.0 L Lymph # (Auto) 0.7 L Campbell # (Auto) 1.1 H Seg Neutrophils % 89.8 H Seg Neuts % (Manual) Lymphocytes % (Manual) Monocytes % (Manual) Seg Neutrophils # 16.3 H Seg Neutrophils # Man Lymphocytes # (Manual) Monocytes # (Manual) Eosinophils # (Manual) ABG pH POC ABG pCO2 POC ABG pO2 75.5 L ABG pO2 ABG O2 Saturation ABG Sodium 134.2 L ABG Glucose Sodium Potassium Chloride BUN Creatinine Glucose POC Glucose 68 L Calcium Phosphorus Total Protein Albumin Prealbumin Arterial Blood Glucose 09/03/20 09/03/20 09/03/20 00:01 04:00 04:00 WBC 19.1 H RBC Hgb 14.4 H Hct Lymph % (Auto) Lymph # (Auto) Campbell # (Auto) Seg Neutrophils % Seg Neuts % (Manual) 93.0 H Lymphocytes % (Manual) 3.0 L Monocytes % (Manual) Seg Neutrophils # Seg Neutrophils # Man 17.8 H Lymphocytes # (Manual) 0.6 L Monocytes # (Manual) Eosinophils # (Manual) ABG pH POC ABG pCO2 POC ABG pO2 ABG pO2 ABG O2 Saturation ABG Sodium ABG Glucose Sodium Potassium Chloride BUN 23 H Creatinine Glucose 124 H POC Glucose 114 H Calcium Phosphorus Total Protein Albumin Prealbumin Arterial Blood Glucose 09/03/20 09/03/20 09/04/20 05:48 17:01 00:57 WBC RBC Hgb Hct Lymph % (Auto) Lymph # (Auto) Campbell # (Auto) Seg Neutrophils % Seg Neuts % (Manual) Lymphocytes % (Manual) Monocytes % (Manual) Seg Neutrophils # Seg Neutrophils # Man Lymphocytes # (Manual) Monocytes # (Manual) Eosinophils # (Manual) ABG pH POC ABG pCO2 POC ABG pO2 ABG pO2 ABG O2 Saturation ABG Sodium ABG Glucose Sodium Potassium Chloride BUN Creatinine Glucose POC Glucose 123 H 120 H 121 H Calcium Phosphorus Total Protein Albumin Prealbumin Arterial Blood Glucose 09/04/20 09/04/20 09/05/20 06:00 09:27 06:20 WBC 12.8 H RBC Hgb Hct Lymph % (Auto) Lymph # (Auto) Campbell # (Auto) Seg Neutrophils % Seg Neuts % (Manual) 92.0 H Lymphocytes % (Manual) 4.0 L Monocytes % (Manual) Seg Neutrophils # Seg Neutrophils # Man 11.8 H Lymphocytes # (Manual) 0.5 L Monocytes # (Manual) Eosinophils # (Manual) ABG pH 7.463 H POC ABG pCO2 30.1 L POC ABG pO2 45.6 L ABG pO2 ABG O2 Saturation ABG Sodium 132.6 L ABG Glucose 135 H Sodium Potassium Chloride BUN 27 H Creatinine Glucose 113 H POC Glucose Calcium Phosphorus Total Protein Albumin Prealbumin 0.109 L Arterial Blood Glucose 135 H 09/05/20 09/05/20 09/05/20 06:34 07:12 11:39 WBC RBC Hgb Hct Lymph % (Auto) Lymph # (Auto) Campbell # (Auto) Seg Neutrophils % Seg Neuts % (Manual) Lymphocytes % (Manual) Monocytes % (Manual) Seg Neutrophils # Seg Neutrophils # Man Lymphocytes # (Manual) Monocytes # (Manual) Eosinophils # (Manual) ABG pH POC ABG pCO2 POC ABG pO2 ABG pO2 ABG O2 Saturation ABG Sodium ABG Glucose Sodium 136 L Potassium Chloride BUN 25 H Creatinine 0.5 L Glucose 113 H POC Glucose 123 H 115 H Calcium Phosphorus Total Protein 5.7 L D Albumin 2.3 L Prealbumin Arterial Blood Glucose 09/05/20 09/06/20 09/06/20 15:54 01:16 07:03 WBC RBC Hgb Hct Lymph % (Auto) Lymph # (Auto) Campbell # (Auto) Seg Neutrophils % Seg Neuts % (Manual) Lymphocytes % (Manual) Monocytes % (Manual) Seg Neutrophils # Seg Neutrophils # Man Lymphocytes # (Manual) Monocytes # (Manual) Eosinophils # (Manual) ABG pH POC ABG pCO2 POC ABG pO2 ABG pO2 ABG O2 Saturation ABG Sodium ABG Glucose Sodium Potassium Chloride BUN Creatinine Glucose POC Glucose 116 H 130 H 115 H Calcium Phosphorus Total Protein Albumin Prealbumin Arterial Blood Glucose 09/06/20 09/06/20 09/06/20 08:12 08:12 11:46 WBC 14.3 H RBC Hgb Hct Lymph % (Auto) Lymph # (Auto) Campbell # (Auto) Seg Neutrophils % Seg Neuts % (Manual) 84.0 H Lymphocytes % (Manual) 13.0 L Monocytes % (Manual) Seg Neutrophils # Seg Neutrophils # Man 12.0 H Lymphocytes # (Manual) Monocytes # (Manual) Eosinophils # (Manual) ABG pH POC ABG pCO2 POC ABG pO2 ABG pO2 ABG O2 Saturation ABG Sodium ABG Glucose Sodium Potassium 3.5 L Chloride BUN 20 H Creatinine 0.5 L Glucose 138 H POC Glucose 126 H Calcium Phosphorus Total Protein Albumin Prealbumin Arterial Blood Glucose 09/06/20 09/07/20 09/07/20 16:49 04:35 06:19 WBC RBC Hgb Hct Lymph % (Auto) Lymph # (Auto) Campbell # (Auto) Seg Neutrophils % Seg Neuts % (Manual) Lymphocytes % (Manual) Monocytes % (Manual) Seg Neutrophils # Seg Neutrophils # Man Lymphocytes # (Manual) Monocytes # (Manual) Eosinophils # (Manual) ABG pH POC ABG pCO2 POC ABG pO2 ABG pO2 ABG O2 Saturation ABG Sodium ABG Glucose Sodium 147 H Potassium Chloride BUN 18 H Creatinine Glucose 114 H POC Glucose 119 H 111 H Calcium Phosphorus Total Protein Albumin Prealbumin Arterial Blood Glucose 09/07/20 09/07/20 09/08/20 14:57 23:09 07:25 WBC 14.1 H RBC Hgb Hct Lymph % (Auto) Lymph # (Auto) Campbell # (Auto) Seg Neutrophils % Seg Neuts % (Manual) 78.0 H Lymphocytes % (Manual) 9.0 L Monocytes % (Manual) 9.0 H Seg Neutrophils # Seg Neutrophils # Man 11.0 H Lymphocytes # (Manual) Monocytes # (Manual) 1.3 H Eosinophils # (Manual) 0.6 H ABG pH POC ABG pCO2 POC ABG pO2 ABG pO2 ABG O2 Saturation ABG Sodium ABG Glucose Sodium Potassium Chloride BUN Creatinine Glucose POC Glucose 110 H 108 H Calcium Phosphorus Total Protein Albumin Prealbumin Arterial Blood Glucose 09/08/20 09/08/20 09/09/20 12:07 17:18 00:36 WBC RBC Hgb Hct Lymph % (Auto) Lymph # (Auto) Campbell # (Auto) Seg Neutrophils % Seg Neuts % (Manual) Lymphocytes % (Manual) Monocytes % (Manual) Seg Neutrophils # Seg Neutrophils # Man Lymphocytes # (Manual) Monocytes # (Manual) Eosinophils # (Manual) ABG pH POC ABG pCO2 POC ABG pO2 ABG pO2 ABG O2 Saturation ABG Sodium ABG Glucose Sodium Potassium Chloride BUN Creatinine Glucose POC Glucose 129 H 122 H 122 H Calcium Phosphorus Total Protein Albumin Prealbumin Arterial Blood Glucose 09/09/20 09/09/20 09/10/20 04:03 12:49 05:56 WBC 13.9 H 14.7 H RBC Hgb Hct Lymph % (Auto) Lymph # (Auto) Campbell # (Auto) Seg Neutrophils % Seg Neuts % (Manual) 90.0 H 94.0 H Lymphocytes % (Manual) 3.0 L 2.0 L Monocytes % (Manual) Seg Neutrophils # Seg Neutrophils # Man 12.5 H 13.8 H Lymphocytes # (Manual) 0.4 L 0.3 L Monocytes # (Manual) Eosinophils # (Manual) ABG pH POC ABG pCO2 POC ABG pO2 ABG pO2 ABG O2 Saturation ABG Sodium ABG Glucose Sodium Potassium Chloride BUN Creatinine Glucose POC Glucose 113 H Calcium Phosphorus Total Protein Albumin Prealbumin Arterial Blood Glucose Chest x-ray: report reviewed, image reviewed Additional Studies: CHEST 1 VIEW 09/09/20 INDICATION / CLINICAL INFORMATION: Left lung infiltrates. FINDINGS: SUPPORT DEVICES: See below. HEART / MEDIASTINUM: No significant abnormality. LUNGS / PLEURA: Large left pleural effusion with underlying parenchymal airspace opacity. Left arm PICC line terminates at the SVC/right atrial junction. Allied health notes reviewed: RT
--- NOTE | 2020-09-10 16:44 | Progress Note ---
Assessment and Plan s/p Perf Duodenal ulcer repair--- no evid surgical complication LLL pneumonia/effusion--- pulm following; could consider thoracentesis before discharge to improve pt's PINZON-- final decision per pulm/primary team. Will sign off. Subjective Date of service: 09/10/20 Narrative: c/o SOB with minimal activity; CXR with significant left pleural effusion Objective Vital Signs - 12hr 09/10/20 09/10/20 09/10/20 05:07 07:24 09:15 Temperature 97.1 F L 97.5 F L Pulse Rate 64 79 84 Pulse Rate [ Apical] Pulse Rate [ From Monitor] Respiratory 20 Rate Blood Pressure 119/75 137/70 Blood Pressure 133/75 [Left] O2 Sat by Pulse 93 18 L Oximetry 09/10/20 09/10/20 09/10/20 09:19 09:52 10:00 Temperature Pulse Rate 80 61 Pulse Rate [ 71 Apical] Pulse Rate [ 71 From Monitor] Respiratory Rate Blood Pressure 137/70 Blood Pressure [Left] O2 Sat by Pulse 96 95 Oximetry 09/10/20 09/10/20 09/10/20 12:03 12:06 12:14 Temperature 98.1 F 97.6 F Pulse Rate 80 79 Pulse Rate [ Apical] Pulse Rate [ From Monitor] Respiratory 17 18 Rate Blood Pressure 125/72 125/72 Blood Pressure [Left] O2 Sat by Pulse 96 96 97 Oximetry 09/10/20 09/10/20 09/10/20 14:07 14:08 16:35 Temperature 98.7 F Pulse Rate 77 76 76 Pulse Rate [ Apical] Pulse Rate [ From Monitor] Respiratory 18 Rate Blood Pressure 125/71 125/71 132/67 Blood Pressure [Left] O2 Sat by Pulse 96 94 Oximetry - Abdomen soft, not tender, bowel sounds normal, not distended, wound (wound c/d/i) - Labs 09/10/20 05:56 09/07/20 04:35
[2020-09-10] MEDS: ACETYLCYSTEINE 20% 200 MG/1 ML *FOR INHALATION USE INHALATION SCH ×2 (18:20→21:51)
[2020-09-10] MEDS: oxyCODONE /ACETAMINOPHEN 5-325MG TAB PO PRN (19:35)
[2020-09-10] MEDS ORDERED: APIXABAN 5 MG TAB PO SCH (22:00)
[2020-09-11] MEDS: ACETYLCYSTEINE 20% 200 MG/1 ML *FOR INHALATION USE INHALATION SCH ×4 (00:46→15:08)
[2020-09-11 05:11] LABS: Hematocrit 35.6 % (30.3-42.9); Hemoglobin 11.8 gm/dl (10.1-14.3); Mean Corpuscular HGB Conc 33 % (30-34); Mean Corpuscular Volume 88 fl (79-97); Platelet Count 257 K/mm3 (140-440); Red Blood Count 4.06 M/mm3 (3.65-5.03); Red Cell Distribution Width 15.2 % (13.2-15.2)
[2020-09-11 05:33] LABS: BUN/Creatinine Ratio 18; Blood Urea Nitrogen 14 mg/dL (7-17); Calcium 8.1 mg/dL (8.4-10.2); Hemolysis Index 3
[2020-09-11] MEDS: hydrALAZINE 25 MG TAB PO SCH ×3 (06:08→21:08)
[2020-09-11 06:45] LABS: Basophils % (Manual) 0 % (0.0-1.8); Platelet Estimate Consistent w Auto; Total Cells Counted 100
[2020-09-11] MEDS: IPRATROPIUM/ALBUTEROL SULFATE 3 ML AMPUL.NEB IH SCH ×3 (08:22→21:04)
[2020-09-11] MEDS: PANTOPRAZOLE 40 MG TAB PO SCH ×2 (09:49→16:50)
[2020-09-11] MEDS: dilTIAZem CD 120 MG CAP PO SCH (09:49)
[2020-09-11] MEDS: FUROSEMIDE 40 MG/4 ML INJ IV SCH (09:50)
--- NOTE | 2020-09-11 10:42 | Progress Note ---
Assessment and Plan Patient alert, awake, resting on 2 litres O2. O2 saturation 98%. No Complaint shortness of breath . No complaint of chest pain, or cough. ABG on room air ABG pH 7.463 (7.320-7.450) H 09/04/20 09:27 POC ABG pCO2 30.1 mmHg (32.0-48.0) L 09/04/20 09:27 ABG pCO2 34.7 mm Hg 09/02/20 05:20 POC ABG pO2 45.6 mmHg (83-108) L 09/04/20 09:27 ABG pO2 270.7 mm Hg (80.0-90.0) H 09/02/20 05:20 POC ABG HCO3 21.1 09/04/20 09:27 ABG O2 Saturation 99.5 % (95.0-99.0) H 09/02/20 05:20 Patient is candidate for home O2. Chest xray 09/04/20 reported Worsening pleural-parenchymal opacity of the left lower lung when compared to yesterday's exam. Appears Atelectasis. Recommend Chest PT. Continue incentive spirometry. Patient afebrile. Has leukocytosis. Patient was treated with ceftriaxone and m etronidazole and Fluconazole. Venous doppler studies of legs reported superficial thrombosis. Patient is on Apixaban. - Patient Problems (1) Breast cancer Current Visit: Yes Status: Acute Plan to address problem: Management as per primary care and Oncology. (2) Perforated gastric ulcer Current Visit: Yes Status: Acute Plan to address problem: S/P Exploratory laparotomy and repair of perforated gastric ulcer. Management as per surgery. (3) Atelectasis of left lung Current Visit: Yes Status: Acute Plan to address problem: O2 supplementation 2 litres. Recommend Chest PT. Continue incentive spirometry. Albuterol/atrovent aerosol treatments q 6 hours. Patient afebrile. Has leukocytosis. Patient was treated with ceftriaxone and metronidazole and Fluconazole. (4) Pleural effusion, left Current Visit: Yes Status: Acute Plan to address problem: Recommend thoracentesis by interventional radiology. Hold Apixaban few days before thoracentesis. Subjective Date of service: 09/11/20 Principal diagnosis: Ac hypoxemic resp failure; Perforated gastric ulcer; pneumoperitoneum Interval history: Patient alert, awake, resting on 2 litres O2. O2 saturation 98%. No Complaint shortness of breath . No complaint of chest pain, or cough. ABG on room air ABG pH 7.463 (7.320-7.450) H 09/04/20 09:27 POC ABG pCO2 30.1 mmHg (32.0-48.0) L 09/04/20 09:27 ABG pCO2 34.7 mm Hg 09/02/20 05:20 POC ABG pO2 45.6 mmHg (83-108) L 09/04/20 09:27 ABG pO2 270.7 mm Hg (80.0-90.0) H 09/02/20 05:20 POC ABG HCO3 21.1 09/04/20 09:27 ABG O2 Saturation 99.5 % (95.0-99.0) H 09/02/20 05:20 Patient is candidate for home O2. Chest xray 09/04/20 reported Worsening pleural-parenchymal opacity of the left lower lung when compared to yesterday's exam. Appears Atelectasis. Recommend Chest PT. Continue incentive spirometry. Patient afebrile. Has leukocytosis. Patient was treated with ceftriaxone and metronidazole and Fluconazole. Venous doppler studies of legs reported superficial thrombosis. Patient is on Apixaban. Objective Vital Signs - 12hr 09/10/20 09/11/20 09/11/20 23:08 03:34 06:08 Temperature 97.4 F L 97.8 F Pulse Rate 62 69 69 Pulse Rate [ Anterior Bilateral Throughout] Respiratory 18 16 Rate Respiratory Rate [Anterior Bilateral Throughout] Blood Pressure 114/52 126/67 126/67 O2 Sat by Pulse 95 98 Oximetry 09/11/20 09/11/20 09/11/20 07:35 08:22 08:23 Temperature 98.0 F Pulse Rate 65 Pulse Rate [ 76 Anterior Bilateral Throughout] Respiratory 18 Rate Respiratory 18 Rate [Anterior Bilateral Throughout] Blood Pressure 122/68 O2 Sat by Pulse 93 98 Oximetry 09/11/20 09/11/20 08:36 09:49 Temperature Pulse Rate 76 Pulse Rate [ Anterior Bilateral Throughout] Respiratory 18 Rate Respiratory Rate [Anterior Bilateral Throughout] Blood Pressure 122/68 O2 Sat by Pulse 98 Oximetry Constitutional: no acute distress, alert, other (elderly female with mildly increased respiratory effort at rest. Left mastectomy with nodular scar) Eyes: non-icteric ENT: oropharynx moist Neck: supple, no lymphadenopathy Effort: mildly labored Ascultation: Left: diminished breath sounds (Left base.), Bilateral: rhonchi (scant in bases), other (Diminished breath sounds left lower lobe.) Percussion: Bilateral: not dull Cardiovascular: regular rate and rhythm Gastrointestinal: hypoactive bowel sounds, soft, non-tender, non-distended (protuberant) Integumentary: normal, other (post-op changes) Extremities: no cyanosis, pink and warm, pulses normal, other (Left upper ex temity lymphedema) Neurologic: normal mental status, non-focal exam, pupils equal and round, motor strength normal and Psychiatric: mood appropriate, affect normal CBC and BMP: 09/11/20 04:41 09/11/20 04:41 ABG, PT/INR, D-dimer: ABG ABG pH 7.463 (7.320-7.450) H 09/04/20 09:27 POC ABG pCO2 30.1 mmHg (32.0-48.0) L 09/04/20 09:27 ABG pCO2 34.7 mm Hg 09/02/20 05:20 POC ABG pO2 45.6 mmHg (83-108) L 09/04/20 09:27 ABG pO2 270.7 mm Hg (80.0-90.0) H 09/02/20 05:20 POC ABG HCO3 21.1 09/04/20 09:27 ABG O2 Saturation 99.5 % (95.0-99.0) H 09/02/20 05:20 Abnormal lab findings: Abnormal Labs 09/01/20 09/01/20 09/01/20 02:30 02:30 14:42 WBC 21.0 H RBC 5.49 H Hgb 16.3 H Hct 48.5 H Lymph % (Auto) Lymph # (Auto) [place] # (Auto) Seg Neutrophils % Seg Neuts % (Manual) 90.0 H Lymphocytes % (Manual) 4.0 L Monocytes % (Manual) Seg Neutrophils # Seg Neutrophils # Man 18.9 H Lymphocytes # (Manual) 0.8 L Monocytes # (Manual) Eosinophils # (Manual) ABG pH POC ABG pCO2 POC ABG pO2 182.2 H ABG pO2 ABG O2 Saturation ABG Sodium 133.4 L ABG Glucose 132 H Sodium 134 L Potassium Chloride 89.2 L BUN 20 H Creatinine Glucose 190 H POC Glucose Calcium 10.5 H Phosphorus Total Protein 8.6 H Albumin Prealbumin Arterial Blood Glucose 132 H 09/01/20 09/02/20 09/02/20 15:22 05:15 05:20 WBC RBC Hgb Hct Lymph % (Auto) Lymph # (Auto) [place] # (Auto) Seg Neutrophils % Seg Neuts % (Manual) Lymphocytes % (Manual) Monocytes % (Manual) Seg Neutrophils # Seg Neutrophils # Man Lymphocytes # (Manual) Monocytes # (Manual) Eosinophils # (Manual) ABG pH 7.452 H POC ABG pCO2 POC ABG pO2 ABG pO2 270.7 H ABG O2 Saturation 99.5 H ABG Sodium ABG Glucose Sodium Potassium Chloride BUN 18 H Creatinine Glucose POC Glucose Calcium Phosphorus 5.40 H Total Protein Albumin Prealbumin Arterial Blood Glucose 09/02/20 09/02/20 09/02/20 08:40 11:24 17:35 WBC 18.2 H RBC Hgb Hct Lymph % (Auto) 4.0 L Lymph # (Auto) 0.7 L [place] # (Auto) 1.1 H Seg Neutrophils % 89.8 H Seg Neuts % (Manual) Lymphocytes % (Manual) Monocytes % (Manual) Seg Neutrophils # 16.3 H Seg Neutrophils # Man Lymphocytes # (Manual) Monocytes # (Manual) Eosinophils # (Manual) ABG pH POC ABG pCO2 POC ABG pO2 75.5 L ABG pO2 ABG O2 Saturation ABG Sodium 134.2 L ABG Glucose Sodium Potassium Chloride BUN Creatinine Glucose POC Glucose 68 L Calcium Phosphorus Total Protein Albumin Prealbumin Arterial Blood Glucose 09/03/20 09/03/20 09/03/20 00:01 04:00 04:00 WBC 19.1 H RBC Hgb 14.4 H Hct Lymph % (Auto) Lymph # (Auto) [place] # (Auto) Seg Neutrophils % Seg Neuts % (Manual) 93.0 H Lymphocytes % (Manual) 3.0 L Monocytes % (Manual) Seg Neutrophils # Seg Neutrophils # Man 17.8 H Lymphocytes # (Manual) 0.6 L Monocytes # (Manual) Eosinophils # (Manual) ABG pH POC ABG pCO2 POC ABG pO2 ABG pO2 ABG O2 Saturation ABG Sodium ABG Glucose Sodium Potassium Chloride BUN 23 H Creatinine Glucose 124 H POC Glucose 114 H Calcium Phosphorus Total Protein Albumin Prealbumin Arterial Blood Glucose 09/03/20 09/03/20 09/04/20 05:48 17:01 00:57 WBC RBC Hgb Hct Lymph % (Auto) Lymph # (Auto) [place] # (Auto) Seg Neutrophils % Seg Neuts % (Manual) Lymphocytes % (Manual) Monocytes % (Manual) Seg Neutrophils # Seg Neutrophils # Man Lymphocytes # (Manual) Monocytes # (Manual) Eosinophils # (Manual) ABG pH POC ABG pCO2 POC ABG pO2 ABG pO2 ABG O2 Saturation ABG Sodium ABG Glucose Sodium Potassium Chloride BUN Creatinine Glucose POC Glucose 123 H 120 H 121 H Calcium Phosphorus Total Protein Albumin Prealbumin Arterial Blood Glucose 09/04/20 09/04/20 09/05/20 06:00 09:27 06:20 WBC 12.8 H RBC Hgb Hct Lymph % (Auto) Lymph # (Auto) [place] # (Auto) Seg Neutrophils % Seg Neuts % (Manual) 92.0 H Lymphocytes % (Manual) 4.0 L Monocytes % (Manual) Seg Neutrophils # Seg Neutrophils # Man 11.8 H Lymphocytes # (Manual) 0.5 L Monocytes # (Manual) Eosinophils # (Manual) ABG pH 7.463 H POC ABG pCO2 30.1 L POC ABG pO2 45.6 L ABG pO2 ABG O2 Saturation ABG Sodium 132.6 L ABG Glucose 135 H Sodium Potassium Chloride BUN 27 H Creatinine Glucose 113 H POC Glucose Calcium Phosphorus Total Protein Albumin Prealbumin 0.109 L Arterial Blood Glucose 135 H 09/05/20 09/05/20 09/05/20 06:34 07:12 11:39 WBC RBC Hgb Hct Lymph % (Auto) Lymph # (Auto) [place] # (Auto) Seg Neutrophils % Seg Neuts % (Manual) Lymphocytes % (Manual) Monocytes % (Manual) Seg Neutrophils # Seg Neutrophils # Man Lymphocytes # (Manual) Monocytes # (Manual) Eosinophils # (Manual) ABG pH POC ABG pCO2 POC ABG pO2 ABG pO2 ABG O2 Saturation ABG Sodium ABG Glucose Sodium 136 L Potassium Chloride BUN 25 H Creatinine 0.5 L Glucose 113 H POC Glucose 123 H 115 H Calcium Phosphorus Total Protein 5.7 L D Albumin 2.3 L Prealbumin Arterial Blood Glucose 09/05/20 09/06/20 09/06/20 15:54 01:16 07:03 WBC RBC Hgb Hct Lymph % (Auto) Lymph # (Auto) [place] # (Auto) Seg Neutrophils % Seg Neuts % (Manual) Lymphocytes % (Manual) Monocytes % (Manual) Seg Neutrophils # Seg Neutrophils # Man Lymphocytes # (Manual) Monocytes # (Manual) Eosinophils # (Manual) ABG pH POC ABG pCO2 POC ABG pO2 ABG pO2 ABG O2 Saturation ABG Sodium ABG Glucose Sodium Potassium Chloride BUN Creatinine Glucose POC Glucose 116 H 130 H 115 H Calcium Phosphorus Total Protein Albumin Prealbumin Arterial Blood Glucose 09/06/20 09/06/20 09/06/20 08:12 08:12 11:46 WBC 14.3 H RBC Hgb Hct Lymph % (Auto) Lymph # (Auto) [place] # (Auto) Seg Neutrophils % Seg Neuts % (Manual) 84.0 H Lymphocytes % (Manual) 13.0 L Monocytes % (Manual) Seg Neutrophils # Seg Neutrophils # Man 12.0 H Lymphocytes # (Manual) Monocytes # (Manual) Eosinophils # (Manual) ABG pH POC ABG pCO2 POC ABG pO2 ABG pO2 ABG O2 Saturation ABG Sodium ABG Glucose Sodium Potassium 3.5 L Chloride BUN 20 H Creatinine 0.5 L Glucose 138 H POC Glucose 126 H Calcium Phosphorus Total Protein Albumin Prealbumin Arterial Blood Glucose 09/06/20 09/07/20 09/07/20 16:49 04:35 06:19 WBC RBC Hgb Hct Lymph % (Auto) Lymph # (Auto) [place] # (Auto) Seg Neutrophils % Seg Neuts % (Manual) Lymphocytes % (Manual) Monocytes % (Manual) Seg Neutrophils # Seg Neutrophils # Man Lymphocytes # (Manual) Monocytes # (Manual) Eosinophils # (Manual) ABG pH POC ABG pCO2 POC ABG pO2 ABG pO2 ABG O2 Saturation ABG Sodium ABG Glucose Sodium 147 H Potassium Chloride BUN 18 H Creatinine Glucose 114 H POC Glucose 119 H 111 H Calcium Phosphorus Total Protein Albumin Prealbumin Arterial Blood Glucose 09/07/20 09/07/20 09/08/20 14:57 23:09 07:25 WBC 14.1 H RBC Hgb Hct Lymph % (Auto) Lymph # (Auto) [place] # (Auto) Seg Neutrophils % Seg Neuts % (Manual) 78.0 H Lymphocytes % (Manual) 9.0 L Monocytes % (Manual) 9.0 H Seg Neutrophils # Seg Neutrophils # Man 11.0 H Lymphocytes # (Manual) Monocytes # (Manual) 1.3 H Eosinophils # (Manual) 0.6 H ABG pH POC ABG pCO2 POC ABG pO2 ABG pO2 ABG O2 Saturation ABG Sodium ABG Glucose Sodium Potassium Chloride BUN Creatinine Glucose POC Glucose 110 H 108 H Calcium Phosphorus Total Protein Albumin Prealbumin Arterial Blood Glucose 09/08/20 09/08/20 09/09/20 12:07 17:18 00:36 WBC RBC Hgb Hct Lymph % (Auto) Lymph # (Auto) [place] # (Auto) Seg Neutrophils % Seg Neuts % (Manual) Lymphocytes % (Manual) Monocytes % (Manual) Seg Neutrophils # Seg Neutrophils # Man Lymphocytes # (Manual) Monocytes # (Manual) Eosinophils # (Manual) ABG pH POC ABG pCO2 POC ABG pO2 ABG pO2 ABG O2 Saturation ABG Sodium ABG Glucose Sodium Potassium Chloride BUN Creatinine Glucose POC Glucose 129 H 122 H 122 H Calcium Phosphorus Total Protein Albumin Prealbumin Arterial Blood Glucose 09/09/20 09/09/20 09/10/20 04:03 12:49 05:56 WBC 13.9 H 14.7 H RBC Hgb Hct Lymph % (Auto) Lymph # (Auto) [place] # (Auto) Seg Neutrophils % Seg Neuts % (Manual) 90.0 H 94.0 H Lymphocytes % (Manual) 3.0 L 2.0 L Monocytes % (Manual) Seg Neutrophils # Seg Neutrophils # Man 12.5 H 13.8 H Lymphocytes # (Manual) 0.4 L 0.3 L Monocytes # (Manual) Eosinophils # (Manual) ABG pH POC ABG pCO2 POC ABG pO2 ABG pO2 ABG O2 Saturation ABG Sodium ABG Glucose Sodium Potassium Chloride BUN Creatinine Glucose POC Glucose 113 H Calcium Phosphorus Total Protein Albumin Prealbumin Arterial Blood Glucose 09/10/20 09/10/20 09/11/20 16:49 20:30 04:41 WBC 13.4 H RBC Hgb Hct Lymph % (Auto) Lymph # (Auto) [place] # (Auto) Seg Neutrophils % Seg Neuts % (Manual) 80.0 H Lymphocytes % (Manual) 10.0 L Monocytes % (Manual) 8.0 H Seg Neutrophils # Seg Neutrophils # Man 10.7 H Lymphocytes # (Manual) Monocytes # (Manual) 1.1 H Eosinophils # (Manual) ABG pH POC ABG pCO2 POC ABG pO2 ABG pO2 ABG O2 Saturation ABG Sodium ABG Glucose Sodium Potassium Chloride BUN Creatinine Glucose POC Glucose 132 H 128 H Calcium Phosphorus Total Protein Albumin Prealbumin Arterial Blood Glucose 09/11/20 04:41 WBC RBC Hgb Hct Lymph % (Auto) Lymph # (Auto) [place] # (Auto) Seg Neutrophils % Seg Neuts % (Manual) Lymphocytes % (Manual) Monocytes % (Manual) Seg Neutrophils # Seg Neutrophils # Man Lymphocytes # (Manual) Monocytes # (Manual) Eosinophils # (Manual) ABG pH POC ABG pCO2 POC ABG pO2 ABG pO2 ABG O2 Saturation ABG Sodium ABG Glucose Sodium 134 L D Potassium Chloride 95.6 L BUN Creatinine Glucose 101 H POC Glucose Calcium 8.1 L Phosphorus Total Protein Albumin Prealbumin Arterial Blood Glucose Chest x-ray: report reviewed, image reviewed Additional Studies: CHEST 1 VIEW 09/09/20 INDICATION / CLINICAL INFORMATION: Left lung infiltrates. FINDINGS: SUPPORT DEVICES: See below. HEART / MEDIASTINUM: No significant abnormality. LUNGS / PLEURA: Large left pleural effusion with underlying parenchymal airspace opacity. Left arm PICC line terminates at the SVC/right atrial junction. Allied health notes reviewed: RT
--- NOTE | 2020-09-11 10:59 | Progress Note ---
Assessment and Plan Assessment and plan: --Large left pleural effusion; on chest x-ray 09/09/2020 Pulmonary following, Consider thoracentesis tomorrow N.p.o. midnight, pleural fluid analysis --Acute hypoxic respiratory failure intubated on 09/01/2020 and extubated on 09/02/2020 On nasal cannula oxygen, evaluate for home oxygen Ambulatory nasal cannula oxygen 87% Home oxygen is already set up by CM --A. fib with RVR; On Cardizem drip transitioned to oral Cardizem, Cardiology evaluation noted and appreciated Eliquis is held pending thoracentesis tomorrow --Hypertension well-controlled; Continue current antihypertensives PRN labetalol --Perforated gastric ulcer with pneumoperitoneum: 09/01/20 s/p exploratory laparotomy for repair of perforated duodenal ulcer. Upper GI 09/05/2020; no leak no obstruction, surgery cleared for discharge s/p TPN, now tolerating regular diet --Sepsis. Present on admission. Perforated viscus secondary to intra-abdominal infection Completed Rocephin Flagyl and Diflucan, per ID , monitor off antibiotics --Metastatic breast cancer. Continue supportive care --Right upper extremity edema: Etiology likely secondary to occluded lymphatics from breast CA. RUE Doppler .negative for DVT superficial thrombophlebitis, Elevate the limb --Severe protein calorie malnutrition; Nutrition supplements, supportive care, dietitian evaluated --DVT prophylaxis; Eliquis held for the procedure, SCDs We will closely monitor the patient and adjust management as needed Follow thoracentesis tomorrow, fluid analysis Possible discharge in 1 to 2 days if stable 09/02/2020. Patient s/p exploratory laparotomy for repair of perforated viscus. Continue IV anti-infectives of Diflucan, Levaquin and Flagyl. Patient currently intubated postoperatively with PSVT FiO2 40% pressure support 10 and PEEP of 6. Extubate per pulmonary. Initiate TPN. 09/03/2020. Patient s/p exploratory laparotomy for repair of perforated duodenal ulcer. Continue IV ceftriaxone, Flagyl and fluconazole per ID recommendations. TPN has been initiated. Patient is extubated and stable. We will transfer to the floor 09/04: Add IV hydralazine, closely monitor blood pressures and adjust as needed. 09/05; A. fib with rapid ventricular rate on Cardizem drip, upper GI, if negative start clear liquids Discussed with surgeon Dr. Barnes 09/06; Cardizem drip transition to oral Cardizem, on TPN and clear liquids 09/07; patient on regular diet, ambulate as tolerated, DC TPN 09/08; Home oxygen evaluation, drop in O2 sats on ambulation room air, patient received TPN Give 1 dose of IV Lasix, reevaluate tomorrow for home oxygen, possible discharge home 09/09/20 if stable 09/09; evaluation for home oxygen, follow chest x-ray 09/10; large left pleural effusion on chest x-ray, possible left thoracentesis. Pulmonary following 09/11; thoracentesis rescheduled for tomorrow, Erika held History Interval history: I have seen and examined the patient at the bedside Patient's chart and medications reviewed Scheduled for ultrasound-guided thoracentesis today Unable to do as radiologist was not available per nurse Rescheduled for tomorrow Patient is anxious to go home Upset that the procedure was not done today Explained to her the importance of thoracentesis Alert and awake, on nasal cannula oxygen Vital signs reviewed Hospitalist Physical - Constitutional Vitals: Temp Pulse Resp BP Pulse Ox 98.0 F 76 18 122/68 98 09/11/20 07:35 09/11/20 09:49 09/11/20 08:36 09/11/20 09:49 09/11/20 08:36 General appearance: Present: no acute distress, well-nourished, other (On nasal cannula oxygen) - EENT Eyes: Present: PERRL, EOM intact - Neck Neck: Present: supple, normal ROM - Respiratory Respiratory effort: normal Respiratory: bilateral: diminished (Left more than right), rhonchi, negative: rales, wheezing - Cardiovascular Rhythm: regular Heart Sounds: Present: S1 & S2 - Extremities Extremities: no ischemia Extremity abnormal: edema - Abdominal General gastrointestinal: soft, non-tender, non-distended, normal bowel sounds - Integumentary Integumentary: Present: clear, warm - Psychiatric Psychiatric: appropriate mood/affect, cooperative - Neurologic Neurologic: moves all extremities Results - Labs CBC & Chem 7: 09/11/20 04:41 09/11/20 04:41 Labs: Laboratory Last Values WBC 13.4 K/mm3 (4.5-11.0) H 09/11/20 04:41 RBC 4.06 M/mm3 (3.65-5.03) 09/11/20 04:41 Hgb 11.8 gm/dl (10.1-14.3) 09/11/20 04:41 Hct 35.6 % (30.3-42.9) 09/11/20 04:41 MCV 88 fl (79-97) 09/11/20 04:41 MCH 29 pg (28-32) 09/11/20 04:41 MCHC 33 % (30-34) 09/11/20 04:41 RDW 15.2 % (13.2-15.2) 09/11/20 04:41 Plt Count 257 K/mm3 (140-440) 09/11/20 04:41 Lymph % (Auto) 4.0 % (13.4-35.0) L 09/02/20 08:40 [place] % (Auto) 6.1 % (0.0-7.3) 09/02/20 08:40 Eos % (Auto) 0.0 % (0.0-4.3) 09/02/20 08:40 Baso % (Auto) 0.1 % (0.0-1.8) 09/02/20 08:40 Lymph # (Auto) 0.7 K/mm3 (1.2-5.4) L 09/02/20 08:40 [place] # (Auto) 1.1 K/mm3 (0.0-0.8) H 09/02/20 08:40 Eos # (Auto) 0.0 K/mm3 (0.0-0.4) 09/02/20 08:40 Baso # (Auto) 0.0 K/mm3 (0.0-0.1) 09/02/20 08:40 Add Manual Diff Complete 09/11/20 04:41 Total Counted 100 09/11/20 04:41 Seg Neutrophils % Internet Marketing Analyst 09/03/20 04:00 Seg Neuts % (Manual) 80.0 % (40.0-70.0) H 09/11/20 04:41 Band Neutrophils % 0 % 09/11/20 04:41 Lymphocytes % (Manual) 10.0 % (13.4-35.0) L 09/11/20 04:41 Reactive Lymphs % (Man) 0 % 09/11/20 04:41 Monocytes % (Manual) 8.0 % (0.0-7.3) H 09/11/20 04:41 Eosinophils % (Manual) 2.0 % (0.0-4.3) 09/11/20 04:41 Basophils % (Manual) 0 % (0.0-1.8) 09/11/20 04:41 Metamyelocytes % 0 % 09/11/20 04:41 Myelocytes % 0 % 09/11/20 04:41 Promyelocytes % 0 % 09/11/20 04:41 Blast Cells % 0 % 09/11/20 04:41 Nucleated RBC % Not Reportable 09/11/20 04:41 Seg Neutrophils # 16.3 K/mm3 (1.8-7.7) H 09/02/20 08:40 Seg Neutrophils # Man 10.7 K/mm3 (1.8-7.7) H 09/11/20 04:41 Band Neutrophils # 0.0 K/mm3 09/11/20 04:41 Lymphocytes # (Manual) 1.3 K/mm3 (1.2-5.4) 09/11/20 04:41 Abs React Lymphs (Man) 0.0 K/mm3 09/11/20 04:41 Monocytes # (Manual) 1.1 K/mm3 (0.0-0.8) H 09/11/20 04:41 Eosinophils # (Manual) 0.3 K/mm3 (0.0-0.4) 09/11/20 04:41 Basophils # (Manual) 0.0 K/mm3 (0.0-0.1) 09/11/20 04:41 Metamyelocytes # 0.0 K/mm3 09/11/20 04:41 Myelocytes # 0.0 K/mm3 09/11/20 04:41 Promyelocytes # 0.0 K/mm3 09/11/20 04:41 Blast Cells # 0.0 K/mm3 09/11/20 04:41 WBC Morphology Not Reportable 09/11/20 04:41 Hypersegmented Neuts Not Reportable 09/11/20 04:41 Hyposegmented Neuts Not Reportable 09/11/20 04:41 Hypogranular Neuts Not Reportable 09/11/20 04:41 Smudge Cells Not Reportable 09/11/20 04:41 Toxic Granulation Not Reportable 09/11/20 04:41 Toxic Vacuolation Not Reportable 09/11/20 04:41 Dohle Bodies Not Reportable 09/11/20 04:41 Pelger-Huet Anomaly Not Reportable 09/11/20 04:41 [place] Rods Not Reportable 09/11/20 04:41 Platelet Estimate Consistent w auto 09/11/20 04:41 Clumped Platelets Not Reportable 09/11/20 04:41 Plt Clumps, EDTA Not Reportable 09/11/20 04:41 Large Platelets Not Reportable 09/11/20 04:41 Giant Platelets Not Reportable 09/11/20 04:41 Platelet Satelliting Not Reportable 09/11/20 04:41 Plt Morphology Comment Not Reportable 09/11/20 04:41 RBC Morphology Not Reportable 09/11/20 04:41 Dimorphic RBCs Not Reportable 09/11/20 04:41 Polychromasia Not Reportable 09/11/20 04:41 Hypochromasia Not Reportable 09/11/20 04:41 Poikilocytosis Not Reportable 09/11/20 04:41 Anisocytosis Not Reportable 09/11/20 04:41 Microcytosis Not Reportable 09/11/20 04:41 Macrocytosis Not Reportable 09/11/20 04:41 Spherocytes Not Reportable 09/11/20 04:41 Pappenheimer Bodies Not Reportable 09/11/20 04:41 Sickle Cells Not Reportable 09/11/20 04:41 Target Cells Not Reportable 09/11/20 04:41 Tear Drop Cells Not Reportable 09/11/20 04:41 Ovalocytes Not Reportable 09/11/20 04:41 Helmet Cells Not Reportable 09/11/20 04:41 [place] Bodies Not Reportable 09/11/20 04:41 [place] Rings Not Reportable 09/11/20 04:41 [place] Cells Not Reportable 09/11/20 04:41 Bite Cells Not Reportable 09/11/20 04:41 Crenated Cell Not Reportable 09/11/20 04:41 Elliptocytes Not Reportable 09/11/20 04:41 Acanthocytes (Spur) Not Reportable 09/11/20 04:41 Rouleaux Not Reportable 09/11/20 04:41 Hemoglobin C Crystals Not Reportable 09/11/20 04:41 Schistocytes Not Reportable 09/11/20 04:41 Malaria parasites Not Reportable 09/11/20 04:41 [place] Bodies Not Reportable 09/11/20 04:41 Hem Pathologist Commnt No 09/11/20 04:41 ABG pH 7.463 (7.320-7.450) H 09/04/20 09:27 POC ABG pCO2 30.1 mmHg (32.0-48.0) L 09/04/20 09:27 ABG pCO2 34.7 mm Hg 09/02/20 05:20 POC ABG pO2 45.6 mmHg (83-108) L 09/04/20 09:27 ABG pO2 270.7 mm Hg (80.0-90.0) H 09/02/20 05:20 POC ABG HCO3 21.1 09/04/20 09:27 ABG HCO3 23.7 mmol/L (20.0-26.0) 09/02/20 05:20 ABG O2 Saturation 99.5 % (95.0-99.0) H 09/02/20 05:20 ABG O2 Content 20.6 (0.0-44) 09/02/20 05:20 POC ABG Base Excess -1.4 09/04/20 09:27 ABG Base Excess 0.3 mmol/L (-2.0-3.0) 09/02/20 05:20 ABG Hemoglobin 15.8 (12.0-17.5) 09/04/20 09:27 ABG Carboxyhemoglobin 1.3 % (0.0-5.0) 09/02/20 05:20 ABG Methemoglobin 0.4 % (0.0-1.5) 09/02/20 05:20 ABG Sodium 132.6 mmol/L (136.0-145.0) L 09/04/20 09:27 ABG Potassium 3.7 mmol/L (3.40-4.50) 09/04/20 09:27 ABG Chloride 102.0 mmol/L (98-107) 09/04/20 09:27 ABG Glucose 135 mg/dL (65-95) H 09/04/20 09:27 Oxyhemoglobin 97.7 % (95.0-99.0) 09/02/20 05:20 FiO2 21.0 09/04/20 09:27 Sodium 134 mmol/L (137-145) L D 09/11/20 04:41 Potassium 4.2 mmol/L (3.6-5.0) 09/11/20 04:41 Chloride 95.6 mmol/L (98-107) L 09/11/20 04:41 Carbon Dioxide 26 mmol/L (22-30) 09/11/20 04:41 Anion Gap 17 mmol/L 09/11/20 04:41 BUN 14 mg/dL (7-17) 09/11/20 04:41 Creatinine 0.8 mg/dL (0.6-1.2) 09/11/20 04:41 Estimated GFR > 60 ml/min 09/11/20 04:41 BUN/Creatinine Ratio 18 % 09/11/20 04:41 Glucose 101 mg/dL (65-100) H 09/11/20 04:41 POC Glucose 92 (70-105) 09/11/20 07:55 Calcium 8.1 mg/dL (8.4-10.2) L 09/11/20 04:41 Phosphorus 3.30 mg/dL (2.5-4.5) 09/07/20 04:35 Magnesium 1.80 mg/dL (1.7-2.3) 09/07/20 04:35 Total Bilirubin 0.30 mg/dL (0.1-1.2) 09/05/20 07:12 AST 17 units/L (5-40) 09/05/20 07:12 ALT 8 units/L (7-56) 09/05/20 07:12 Alkaline Phosphatase 52 units/L (35-129) 09/05/20 07:12 Total Protein 5.7 g/dL (6.3-8.2) L D 09/05/20 07:12 Albumin 2.3 g/dL (3.9-5) L 09/05/20 07:12 Albumin/Globulin Ratio 0.7 % 09/05/20 07:12 Prealbumin 0.109 g/L (0.200-0.400) L 09/04/20 06:00 Triglycerides 86 mg/dL (2-149) 09/04/20 06:00 Lipase 24 units/L (13-60) 09/01/20 02:30 Procalcitonin 5.44 ng/mL (<0.15) 09/01/20 20:23 TSH 0.776 mlU/mL (0.270-4.200) 09/04/20 14:16 Free T4 0.89 ng/dL (0.76-1.46) 09/04/20 14:16 Arterial Blood Glucose 135 mg/dL (65-95) H 09/04/20 09:27 Arterial Blood Ionized Calcium 4.9 mg/dL (4.6-5.3) 09/04/20 09:27 Urine Color Yellow (Yellow) 09/01/20 02:26 Urine Turbidity Clear (Clear) 09/01/20 02:26 Urine pH 6.0 (5.0-7.0) 09/01/20 02:26 Ur Specific [place] 1.023 (1.003-1.030) 09/01/20 02:26 Urine Protein 30 mg/dl mg/dL (Negative) 09/01/20 02:26 Urine Glucose (UA) Neg mg/dL (Negative) 09/01/20 02:26 Urine Ketones Neg mg/dL (Negative) 09/01/20 02:26 Urine Blood Neg (Negative) 09/01/20 02:26 Urine Nitrite Neg (Negative) 09/01/20 02:26 Urine Bilirubin Neg (Negative) 09/01/20 02:26 Urine Urobilinogen 4.0 mg/dL (<2.0) 09/01/20 02:26 Ur Leukocyte Esterase Tr (Negative) 09/01/20 02:26 Urine WBC (Auto) 5.0 /HPF (0.0-6.0) 09/01/20 02:26 Urine RBC (Auto) 4.0 /HPF (0.0-6.0) 09/01/20 02:26 U Epithel Cells (Auto) 3.0 /HPF (0-13.0) 09/01/20 02:26 Urine Mucus 1+ /HPF 09/01/20 02:26 - Diagnostic Impressions Diagnostic Impressions: Echocardiogram 09/03/20 18:17 Transthoracic Echocardiogram Indication: A-fib BP: 142/90 HR: 67 Conclusions *The left ventricular chamber size is normal. *Global left ventricular wall motion and contractility are within normal limits. *The estimated ejection fraction is 60-65%. *Abnormal left ventricular diastolic filling is observed, consistent with impaired relaxation. *The right ventricular cavity size is normal. *The right ventricular systolic pressure is calculated at 27 mmHg. *There is a moderate pleural effusion. Findings Left Ventricle: The left ventricular chamber size is normal. Global left ventricular wall motion and contractility are within normal limits. Global left ventricular systolic function is normal. The estimated ejection fraction is 60-65%. Abnormal left ventricular diastolic filling is observed, consistent with impaired relaxation. Right Ventricle: The right ventricular cavity size is normal. Right Atrium: The right atrial cavity size is normal. Aortic Valve: The aortic valve leaflets are mildly thickened. There is no evidence of aortic regurgitation. Mitral Valve: The mitral valve leaflets are mildly thickened. There is no evidence of mitral regurgitation. Tricuspid Valve: The tricuspid valve leaflets are normal. There is trace tricuspid regurgitation. The right ventricular systolic pressure is calculated at 27 mmHg. Pulmonic Valve: The pulmonic valve appears normal. There is trace pulmonic regurgitation. Pericardium: There is no pericardial effusion. There is a moderate pleural effusion. Aorta: The aorta appears normal. Venous: The inferior vena cava is not visualized. Measurements Chambers 2D Name Value Normal Range IVSd (2D) 0.94 cm (0.6 - 1.1) LVPWd (2D) 0.99 cm (0.6 - 1.1) LVIDd (2D) 4.76 cm (3.7 - 5.6) LVIDs (2D) 2.72 cm (2 - 3.8) LV FS (2D) 42.82 % - EF Teichholz (2D) 73.86 % - Ao root diameter (2D) 3.08 cm (2 - 3.7) Volumes/Mass Name Value Normal Range LA ESV SP 4CH (A/L) 32.25 ml - LA ESV SP 2CH (A/L) 31.78 ml - LA ESV BP (A/L) 34.38 ml - LA ESV BP (A/L) index 16.69 ml/m2 - LA ESV SP 4CH (MOD) 29.95 ml - LA ESV SP 2CH (MOD) 29.49 ml - LA ESV BP (MOD) 31.87 ml - LA ESV BP (MOD) index 15.47 ml/m2 - Diastolic/Systolic Function Name Value Normal Range MV E-wave Vmax 0.63 m/sec - MV deceleration time 180.43 msec - MV A-wave Vmax 0.71 m/sec - MV E:A ratio 0.89 ratio - Aortic Valve Name Value Normal Range AV Vmax 1.81 m/sec - AV VTI 29.91 cm - AV peak gradient 13.12 mmHg - AV mean gradient 6.84 mmHg - LVOT diameter 2.02 cm - LVOT Vmax 1.34 m/sec - LVOT VTI 24.44 cm - LVOT peak gradient 7.15 mmHg - LVOT mean gradient 3.72 mmHg - SV LVOT 77.91 ml - JUANITA (continuity Vmax) 2.35 cm2 - JUANITA (continuity VTI) 2.6 cm2 - Tricuspid Valve Name Value Normal Range TR Vmax 2.46 m/sec - TR peak gradient 24 mmHg - RAP 3 mmHg - RVSP 27 mmHg - Pulmonic Valve/Qp:Qs Name Value Normal Range PV Vmax 0.82 m/sec - PV peak gradient 2.67 mmHg - PV acceleration time 102.76 msec - Carey/IV: Voiding Method Bedside Commode IV Catheter Type [Left Peripheral IV Antecubital] IV Catheter Type [Left Upper PICC Line arm] IV Catheter Type [Left Forearm Peripheral IV ] IV Catheter Type [Left Hand] INT / Saline Lock Active Medications - Current Medications Current Medications: Generic Name Dose Route Start Last Admin Trade Name Freq PRN Reason Stop Dose Admin Acetylcysteine 200 mg 09/10/20 11:30 09/11/20 08:22 Mucomyst Inhalation INHALATION 200 mg Q8HRT JAIME Administration Albuterol 2.5 mg 09/07/20 17:46 Proventil IH Q6HRT PRN Wheezing Albuterol/Ipratropium 1 ampul 09/09/20 08:00 09/11/20 08:22 Duoneb *Not For Prn Use* IH 1 ampul TIDRT JAIME Administration Clonidine HCl 0.3 mg 09/05/20 11:00 09/05/20 12:59 Catapres-Tts Patch TD 0.3 mg We JAIME Administration Dextrose 25 ml 09/02/20 18:38 09/02/20 18:50 D50w (25gm) Syringe IV 15 ml Q30MIN PRN Administration Hypoglycemia Protocol Diltiazem HCl 120 mg 09/06/20 12:00 09/11/20 09:49 Cardizem Cd PO 120 mg QDAY JAIME Administration Furosemide 40 mg 09/09/20 10:00 09/11/20 09:50 Lasix IV 40 mg QDAY JAIME Administration Hydralazine HCl 50 mg 09/07/20 14:00 09/11/20 06:08 Apresoline PO 50 mg Q8HR JAIME Administration Hydrophilic Ointment 1 applic 09/01/20 14:47 Vaseline Lip Therapy TP Q2H PRN Dry Lips Morphine Sulfate 2 mg 09/01/20 09:21 09/07/20 09:46 Morphine IV 2 mg Q4H PRN Administration Pain, Moderate (4-6) Multi-Ingred Cream/Lotion/Oil/Oint 1 applic 09/01/20 14:47 Artificial Tears Ophth Oint OU Q4H PRN Dry Eye(s) Oxycodone/Acetaminophen 1 tab 09/06/20 14:07 09/10/20 19:35 Percocet 5/325 PO 1 tab Q6H PRN Administration Pain, Moderate (4-6) Pantoprazole Sodium 40 mg 09/07/20 16:30 09/11/20 09:49 Protonix PO 40 mg BIDAC JAIME Administration Sodium Chloride 10 ml 09/01/20 10:00 09/11/20 09:50 Sodium Chloride Flush Syringe 10 Ml IV 10 ml BID JAIME Administration Sodium Chloride 10 ml 09/01/20 09:21 09/03/20 23:33 Sodium Chloride Flush Syringe 10 Ml IV 10 ml PRN PRN Administration LINE FLUSH Nutrition/Malnutrition Assess - Dietary Evaluation Nutrition/Malnutrition Findings: Nutrition Notes Start: 09/02/20 09:42 Freq: Status: Active Protocol: Document 09/10/20 11:59 LM (Rec: 09/10/20 12:03 LM [id number]) Nutrition Notes Initial or Follow up Reassessment Current Diagnosis COPD Other Pertinent Diagnosis Breast Ca with Mets, perforated gastric ulcer S/P exp lap Current Diet Regular diet Labs/Tests Reviewed Pertinent Medications Lasix Height 5 ft 11 in Weight 86.183 kg [place] Body Weight (kg) 70.45 BMI 26.4 Weight Status Overweight Subjective/Other Information Pt stated she ate 75% of breakfast this AM. Percent of energy/protein needs met: 97%/76% Burn Absent Trauma Absent GI Symptoms None Current % PO Good (75-100%) Minimum of two criteria No physical signs of malnutrition #1 Nutrition Diagnosis Inadequate oral intake Diagnosis Progress(for reassessment Resolved documentation) Nutrition Intervention Revisit per MD consult or patient Sign Off request:
[2020-09-12] MEDS: ACETYLCYSTEINE 20% 200 MG/1 ML *FOR INHALATION USE INHALATION SCH ×4 (00:56→20:50)
[2020-09-12] MEDS: hydrALAZINE 25 MG TAB PO SCH ×3 (05:48→21:10)
[2020-09-12 06:16] LABS: INR 1.02 (0.87-1.13)
[2020-09-12 06:18] LABS: Partial Thromboplastin Time 23.3 Sec. (24.2-36.6)
--- NOTE | 2020-09-12 10:36 | Procedure Note ---
Date of procedure: 09/12/20 Pre-op diagnosis: left pleural effusion Post-op diagnosis: same Procedure: US guided left thoracentesis Findings: small left pleural effusioin Anesthesia: local Surgeon: KARY FORTE Estimated blood loss: none Pathology: list (120cc) Specimen disposition: to lab Condition: stable Disposition: floor
--- NOTE | 2020-09-12 10:43 | Ultrasound Report ---
Ultrasound-guided thoracentesis HISTORY: Shortness of breath/large left pleural effusion. COMPARISON: No relevant comparison PROCEDURE: The risks (including but not limited to bleeding, infection, and pneumothorax) and benefi ts were explained to the patient and informed consent was obtained. A time out procedure was perform ed. Ultrasound was used to evaluate the left pleural effusion and locate the optimal site for needle entr y. Once the skin was marked, the procedure site was prepped and draped in the usual sterile fashion and lidocaine was used for local anesthesia. A skin galo was made and a 6-[place] thoracentesis [address] ter was placed. The patient was monitored closely throughout the procedure, and a total of 200 mL of relatively clear yellow fluid was aspirated. There was complete evacuation of the pleural fluid. Antwon ples were sent to the lab for further evaluation per the primary clinicians orders. The patient tolerated the procedure well with no complications. A post-procedure chest x-ray was imm ediately ordered. IMPRESSION: Successful thoracentesis as above with a total of 200 mL of relatively clear yellow fluid aspirated. Signer Name: Mark Mcdonald Jr, MD Signed: 09/12/2020 10:38 AM Workstation Name: [id number]
[2020-09-12] MEDS: IPRATROPIUM/ALBUTEROL SULFATE 3 ML AMPUL.NEB IH SCH ×3 (11:40→20:51)
[2020-09-12] MEDS: PANTOPRAZOLE 40 MG TAB PO SCH ×2 (11:43→18:37)
[2020-09-12] MEDS: oxyCODONE /ACETAMINOPHEN 5-325MG TAB PO PRN (11:43)
[2020-09-12] MEDS: FUROSEMIDE 40 MG/4 ML INJ IV SCH (11:44)
[2020-09-12] MEDS: dilTIAZem CD 120 MG CAP PO SCH (11:44)
[2020-09-12] MEDS: cloNIDine TTS 0.3 MG/24 HR PATCH TD SCH (11:57)
--- NOTE | 2020-09-12 13:12 | XRay Report ---
Chest single view INDICATION: Chest pain IMPRESSION: Small residual left pleural effusion. No pneumothorax. Signer Name: Charles Bañuelos MD Signed: 09/12/2020 1:07 PM Workstation Name: [id number]
[2020-09-12 15:14] LABS: Total Cells Counted 100 /mm3
--- NOTE | 2020-09-12 17:14 | Progress Note ---
Assessment and Plan Patient alert, awake, resting on 2 litres O2. O2 saturation 99%. No Complaint shortness of breath . No complaint of chest pain, or cough. Patient undergone left thoracentesis to day. Pleural fluid results pending. Repeat chest xray reported minimal left effusion. No pneumothorax. ABG on room air ABG pH 7.463 (7.320-7.450) H 09/04/20 09:27 POC ABG pCO2 30.1 mmHg (32.0-48.0) L 09/04/20 09:27 ABG pCO2 34.7 mm Hg 09/02/20 05:20 POC ABG pO2 45.6 mmHg (83-108) L 09/04/20 09:27 ABG pO2 270.7 mm Hg (80.0-90.0) H 09/02/20 05:20 POC ABG HCO3 21.1 09/04/20 09:27 ABG O2 Saturation 99.5 % (95.0-99.0) H 09/02/20 05:20 Patient is candidate for home Continue incentive spirometry. Patient afebrile. Has leukocytosis. Patient was treated with ceftriaxone and metronidazole and Fluconazole. Venous doppler studies of legs reported superficial thrombosis. Patient is on Apixaban. Patient wants to go home. Patient goes home on oxygen. Strongly recommend to follow with freight flow sales leader as out patient on pleural fluid results. Patient says she lives in [place], [place].She wants to follow with p ulmonologist nearby where she lives. - Patient Problems (1) Breast cancer Current Visit: Yes Status: Acute Plan to address problem: Management as per primary care and Oncology. (2) Perforated gastric ulcer Current Visit: Yes Status: Acute Plan to address problem: S/P Exploratory laparotomy and repair of perforated gastric ulcer. Management as per surgery. (3) Atelectasis of left lung Current Visit: Yes Status: Acute Plan to address problem: O2 supplementation 2 litres. Recommend Chest PT. Continue incentive spirometry. Albuterol/atrovent aerosol treatments q 6 hours. Patient afebrile. Has leukocytosis. Patient was treated with ceftriaxone and metronidazole and Fluconazole. (4) Pleural effusion, left Current Visit: Yes Status: Acute Plan to address problem: Patient undergone left thoracentesis. Pleural fluid results pending. Subjective Date of service: 09/12/20 Principal diagnosis: Ac hypoxemic resp failure; Perforated gastric ulcer; pneumoperitoneum Interval history: Patient alert, awake, resting on 2 litres O2. O2 saturation 99%. No Complaint shortness of breath . No complaint of chest pain, or cough. Patient undergone left thoracentesis to day. Pleural fluid results pending. Repeat chest xray reported minimal left effusion. No pneumothorax. ABG on room air ABG pH 7.463 (7.320-7.450) H 09/04/20 09:27 POC ABG pCO2 30.1 mmHg (32.0-48.0) L 09/04/20 09:27 ABG pCO2 34.7 mm Hg 09/02/20 05:20 POC ABG pO2 45.6 mmHg (83-108) L 09/04/20 09:27 ABG pO2 270.7 mm Hg (80.0-90.0) H 09/02/20 05:20 POC ABG HCO3 21.1 09/04/20 09:27 ABG O2 Saturation 99.5 % (95.0-99.0) H 09/02/20 05:20 Patient is candidate for home Continue incentive spirometry. Patient afebrile. Has leukocytosis. Patient was treated with ceftriaxone and metronidazole and Fluconazole. Venous doppler studies of legs reported superficial thrombosis. Patient is on Apixaban. Patient wants to go home. Patient goes home on oxygen. Strongly recommend to follow with freight flow sales leader as out patient on pleural fluid results. Patient says she lives in [place], [place].She wants to follow with freight flow sales leader nearby where she lives. Objective Vital Signs - 12hr 09/12/20 09/12/20 09/12/20 05:48 08:21 11:44 Temperature 97.7 F Pulse Rate 69 64 75 Respiratory 24 Rate Blood Pressure 136/66 118/57 O2 Sat by Pulse 98 Oximetry Constitutional: no acute distress, alert, other (elderly female with mildly increased respiratory effort at rest. Left mastectomy with nodular scar) Eyes: non-icteric ENT: oropharynx moist Neck: supple, no lymphadenopathy Effort: normal, mildly labored Ascultation: Left: diminished breath sounds (Left base.), Bilateral: rhonchi (scant in bases), other (Diminished breath sounds left lower lobe.) Percussion: Bilateral: not dull Cardiovascular: regular rate and rhythm Gastrointestinal: hypoactive bowel sounds, soft, non-tender, non-distended (protuberant) Integumentary: normal, other (post-op changes) Extremities: no cyanosis, pink and warm, pulses normal, other (Left upper extemity lymphedema) Neurologic: normal mental status, non-focal exam, pupils equal and round, motor strength normal and Psychiatric: mood appropriate, affect normal CBC and BMP: 09/11/20 04:41 09/13/20 06:20 ABG, PT/INR, D-dimer: ABG ABG pH 7.463 (7.320-7.450) H 09/04/20 09:27 POC ABG pCO2 30.1 mmHg (32.0-48.0) L 09/04/20 09:27 ABG pCO2 34.7 mm Hg 09/02/20 05:20 POC ABG pO2 45.6 mmHg (83-108) L 09/04/20 09:27 ABG pO2 270.7 mm Hg (80.0-90.0) H 09/02/20 05:20 POC ABG HCO3 21.1 09/04/20 09:27 ABG O2 Saturation 99.5 % (95.0-99.0) H 09/02/20 05:20 PT/INR, D-dimer PT 13.5 Sec. (12.2-14.9) 09/12/20 05:13 INR 1.02 (0.87-1.13) 09/12/20 05:13 Abnormal lab findings: Abnormal Labs 09/01/20 09/01/20 09/01/20 02:30 02:30 14:42 WBC 21.0 H RBC 5.49 H Hgb 16.3 H Hct 48.5 H Lymph % (Auto) Lymph # (Auto) [place] # (Auto) Seg Neutrophils % Seg Neuts % (Manual) 90.0 H Lymphocytes % (Manual) 4.0 L Monocytes % (Manual) Seg Neutrophils # Seg Neutrophils # Man 18.9 H Lymphocytes # (Manual) 0.8 L Monocytes # (Manual) Eosinophils # (Manual) APTT ABG pH POC ABG pCO2 POC ABG pO2 182.2 H ABG pO2 ABG O2 Saturation ABG Sodium 133.4 L ABG Glucose 132 H Sodium 134 L Potassium Chloride 89.2 L BUN 20 H Creatinine Glucose 190 H POC Glucose Calcium 10.5 H Phosphorus Total Protein 8.6 H Albumin Prealbumin Arterial Blood Glucose 132 H 09/01/20 09/02/20 09/02/20 15:22 05:15 05:20 WBC RBC Hgb Hct Lymph % (Auto) Lymph # (Auto) [place] # (Auto) Seg Neutrophils % Seg Neuts % (Manual) Lymphocytes % (Manual) Monocytes % (Manual) Seg Neutrophils # Seg Neutrophils # Man Lymphocytes # (Manual) Monocytes # (Manual) Eosinophils # (Manual) APTT ABG pH 7.452 H POC ABG pCO2 POC ABG pO2 ABG pO2 270.7 H ABG O2 Saturation 99.5 H ABG Sodium ABG Glucose Sodium Potassium Chloride BUN 18 H Creatinine Glucose POC Glucose Calcium Phosphorus 5.40 H Total Protein Albumin Prealbumin Arterial Blood Glucose 09/02/20 09/02/20 09/02/20 08:40 11:24 17:35 WBC 18.2 H RBC Hgb Hct Lymph % (Auto) 4.0 L Lymph # (Auto) 0.7 L [place] # (Auto) 1.1 H Seg Neutrophils % 89.8 H Seg Neuts % (Manual) Lymphocytes % (Manual) Monocytes % (Manual) Seg Neutrophils # 16.3 H Seg Neutrophils # Man Lymphocytes # (Manual) Monocytes # (Manual) Eosinophils # (Manual) APTT ABG pH POC ABG pCO2 POC ABG pO2 75.5 L ABG pO2 ABG O2 Saturation ABG Sodium 134.2 L ABG Glucose Sodium Potassium Chloride BUN Creatinine Glucose POC Glucose 68 L Calcium Phosphorus Total Protein Albumin Prealbumin Arterial Blood Glucose 09/03/20 09/03/20 09/03/20 00:01 04:00 04:00 WBC 19.1 H RBC Hgb 14.4 H Hct Lymph % (Auto) Lymph # (Auto) [place] # (Auto) Seg Neutrophils % Seg Neuts % (Manual) 93.0 H Lymphocytes % (Manual) 3.0 L Monocytes % (Manual) Seg Neutrophils # Seg Neutrophils # Man 17.8 H Lymphocytes # (Manual) 0.6 L Monocytes # (Manual) Eosinophils # (Manual) APTT ABG pH POC ABG pCO2 POC ABG pO2 ABG pO2 ABG O2 Saturation ABG Sodium ABG Glucose Sodium Potassium Chloride BUN 23 H Creatinine Glucose 124 H POC Glucose 114 H Calcium Phosphorus Total Protein Albumin Prealbumin Arterial Blood Glucose 09/03/20 09/03/20 09/04/20 05:48 17:01 00:57 WBC RBC Hgb Hct Lymph % (Auto) Lymph # (Auto) [place] # (Auto) Seg Neutrophils % Seg Neuts % (Manual) Lymphocytes % (Manual) Monocytes % (Manual) Seg Neutrophils # Seg Neutrophils # Man Lymphocytes # (Manual) Monocytes # (Manual) Eosinophils # (Manual) APTT ABG pH POC ABG pCO2 POC ABG pO2 ABG pO2 ABG O2 Saturation ABG Sodium ABG Glucose Sodium Potassium Chloride BUN Creatinine Glucose POC Glucose 123 H 120 H 121 H Calcium Phosphorus Total Protein Albumin Prealbumin Arterial Blood Glucose 09/04/20 09/04/20 09/05/20 06:00 09:27 06:20 WBC 12.8 H RBC Hgb Hct Lymph % (Auto) Lymph # (Auto) [place] # (Auto) Seg Neutrophils % Seg Neuts % (Manual) 92.0 H Lymphocytes % (Manual) 4.0 L Monocytes % (Manual) Seg Neutrophils # Seg Neutrophils # Man 11.8 H Lymphocytes # (Manual) 0.5 L Monocytes # (Manual) Eosinophils # (Manual) APTT ABG pH 7.463 H POC ABG pCO2 30.1 L POC ABG pO2 45.6 L ABG pO2 ABG O2 Saturation ABG Sodium 132.6 L ABG Glucose 135 H Sodium Potassium Chloride BUN 27 H Creatinine Glucose 113 H POC Glucose Calcium Phosphorus Total Protein Albumin Prealbumin 0.109 L Arterial Blood Glucose 135 H 09/05/20 09/05/20 09/05/20 06:34 07:12 11:39 WBC RBC Hgb Hct Lymph % (Auto) Lymph # (Auto) [place] # (Auto) Seg Neutrophils % Seg Neuts % (Manual) Lymphocytes % (Manual) Monocytes % (Manual) Seg Neutrophils # Seg Neutrophils # Man Lymphocytes # (Manual) Monocytes # (Manual) Eosinophils # (Manual) APTT ABG pH POC ABG pCO2 POC ABG pO2 ABG pO2 ABG O2 Saturation ABG Sodium ABG Glucose Sodium 136 L Potassium Chloride BUN 25 H Creatinine 0.5 L Glucose 113 H POC Glucose 123 H 115 H Calcium Phosphorus Total Protein 5.7 L D Albumin 2.3 L Prealbumin Arterial Blood Glucose 09/05/20 09/06/20 09/06/20 15:54 01:16 07:03 WBC RBC Hgb Hct Lymph % (Auto) Lymph # (Auto) [place] # (Auto) Seg Neutrophils % Seg Neuts % (Manual) Lymphocytes % (Manual) Monocytes % (Manual) Seg Neutrophils # Seg Neutrophils # Man Lymphocytes # (Manual) Monocytes # (Manual) Eosinophils # (Manual) APTT ABG pH POC ABG pCO2 POC ABG pO2 ABG pO2 ABG O2 Saturation ABG Sodium ABG Glucose Sodium Potassium Chloride BUN Creatinine Glucose POC Glucose 116 H 130 H 115 H Calcium Phosphorus Total Protein Albumin Prealbumin Arterial Blood Glucose 09/06/20 09/06/20 09/06/20 08:12 08:12 11:46 WBC 14.3 H RBC Hgb Hct Lymph % (Auto) Lymph # (Auto) [place] # (Auto) Seg Neutrophils % Seg Neuts % (Manual) 84.0 H Lymphocytes % (Manual) 13.0 L Monocytes % (Manual) Seg Neutrophils # Seg Neutrophils # Man 12.0 H Lymphocytes # (Manual) Monocytes # (Manual) Eosinophils # (Manual) APTT ABG pH POC ABG pCO2 POC ABG pO2 ABG pO2 ABG O2 Saturation ABG Sodium ABG Glucose Sodium Potassium 3.5 L Chloride BUN 20 H Creatinine 0.5 L Glucose 138 H POC Glucose 126 H Calcium Phosphorus Total Protein Albumin Prealbumin Arterial Blood Glucose 09/06/20 09/07/20 09/07/20 16:49 04:35 06:19 WBC RBC Hgb Hct Lymph % (Auto) Lymph # (Auto) [place] # (Auto) Seg Neutrophils % Seg Neuts % (Manual) Lymphocytes % (Manual) Monocytes % (Manual) Seg Neutrophils # Seg Neutrophils # Man Lymphocytes # (Manual) Monocytes # (Manual) Eosinophils # (Manual) APTT ABG pH POC ABG pCO2 POC ABG pO2 ABG pO2 ABG O2 Saturation ABG Sodium ABG Glucose Sodium 147 H Potassium Chloride BUN 18 H Creatinine Glucose 114 H POC Glucose 119 H 111 H Calcium Phosphorus Total Protein Albumin Prealbumin Arterial Blood Glucose 09/07/20 09/07/20 09/08/20 14:57 23:09 07:25 WBC 14.1 H RBC Hgb Hct Lymph % (Auto) Lymph # (Auto) [place] # (Auto) Seg Neutrophils % Seg Neuts % (Manual) 78.0 H Lymphocytes % (Manual) 9.0 L Monocytes % (Manual) 9.0 H Seg Neutrophils # Seg Neutrophils # Man 11.0 H Lymphocytes # (Manual) Monocytes # (Manual) 1.3 H Eosinophils # (Manual) 0.6 H APTT ABG pH POC ABG pCO2 POC ABG pO2 ABG pO2 ABG O2 Saturation ABG Sodium ABG Glucose Sodium Potassium Chloride BUN Creatinine Glucose POC Glucose 110 H 108 H Calcium Phosphorus Total Protein Albumin Prealbumin Arterial Blood Glucose 09/08/20 09/08/20 09/09/20 12:07 17:18 00:36 WBC RBC Hgb Hct Lymph % (Auto) Lymph # (Auto) [place] # (Auto) Seg Neutrophils % Seg Neuts % (Manual) Lymphocytes % (Manual) Monocytes % (Manual) Seg Neutrophils # Seg Neutrophils # Man Lymphocytes # (Manual) Monocytes # (Manual) Eosinophils # (Manual) APTT ABG pH POC ABG pCO2 POC ABG pO2 ABG pO2 ABG O2 Saturation ABG Sodium ABG Glucose Sodium Potassium Chloride BUN Creatinine Glucose POC Glucose 129 H 122 H 122 H Calcium Phosphorus Total Protein Albumin Prealbumin Arterial Blood Glucose 09/09/20 09/09/20 09/10/20 04:03 12:49 05:56 WBC 13.9 H 14.7 H RBC Hgb Hct Lymph % (Auto) Lymph # (Auto) [place] # (Auto) Seg Neutrophils % Seg Neuts % (Manual) 90.0 H 94.0 H Lymphocytes % (Manual) 3.0 L 2.0 L Monocytes % (Manual) Seg Neutrophils # Seg Neutrophils # Man 12.5 H 13.8 H Lymphocytes # (Manual) 0.4 L 0.3 L Monocytes # (Manual) Eosinophils # (Manual) APTT ABG pH POC ABG pCO2 POC ABG pO2 ABG pO2 ABG O2 Saturation ABG Sodium ABG Glucose Sodium Potassium Chloride BUN Creatinine Glucose POC Glucose 113 H Calcium Phosphorus Total Protein Albumin Prealbumin Arterial Blood Glucose 09/10/20 09/10/20 09/11/20 16:49 20:30 04:41 WBC 13.4 H RBC Hgb Hct Lymph % (Auto) Lymph # (Auto) [place] # (Auto) Seg Neutrophils % Seg Neuts % (Manual) 80.0 H Lymphocytes % (Manual) 10.0 L Monocytes % (Manual) 8.0 H Seg Neutrophils # Seg Neutrophils # Man 10.7 H Lymphocytes # (Manual) Monocytes # (Manual) 1.1 H Eosinophils # (Manual) APTT ABG pH POC ABG pCO2 POC ABG pO2 ABG pO2 ABG O2 Saturation ABG Sodium ABG Glucose Sodium Potassium Chloride BUN Creatinine Glucose POC Glucose 132 H 128 H Calcium Phosphorus Total Protein Albumin Prealbumin Arterial Blood Glucose 09/11/20 09/11/20 09/11/20 04:41 12:16 21:10 WBC RBC Hgb Hct Lymph % (Auto) Lymph # (Auto) [place] # (Auto) Seg Neutrophils % Seg Neuts % (Manual) Lymphocytes % (Manual) Monocytes % (Manual) Seg Neutrophils # Seg Neutrophils # Man Lymphocytes # (Manual) Monocytes # (Manual) Eosinophils # (Manual) APTT ABG pH POC ABG pCO2 POC ABG pO2 ABG pO2 ABG O2 Saturation ABG Sodium ABG Glucose Sodium 134 L D Potassium Chloride 95.6 L BUN Creatinine Glucose 101 H POC Glucose 120 H 107 H Calcium 8.1 L Phosphorus Total Protein Albumin Prealbumin Arterial Blood Glucose 09/12/20 09/12/20 05:13 12:00 WBC RBC Hgb Hct Lymph % (Auto) Lymph # (Auto) [place] # (Auto) Seg Neutrophils % Seg Neuts % (Manual) Lymphocytes % (Manual) Monocytes % (Manual) Seg Neutrophils # Seg Neutrophils # Man Lymphocytes # (Manual) Monocytes # (Manual) Eosinophils # (Manual) APTT 23.3 L ABG pH POC ABG pCO2 POC ABG pO2 ABG pO2 ABG O2 Saturation ABG Sodium ABG Glucose Sodium Potassium Chloride BUN Creatinine Glucose POC Glucose 153 H Calcium Phosphorus Total Protein Albumin Prealbumin Arterial Blood Glucose Chest x-ray: report reviewed, image reviewed Additional Studies: Chest single view 09/12/20 INDICATION: Chest pain IMPRESSION: Small residual left pleural effusion. No pneumothorax. Allied health notes reviewed: RT
--- NOTE | 2020-09-12 18:47 | Progress Note ---
Assessment and Plan Assessment and plan: --s/p thoracentesis and removal of more than 200 mL of fluid Patient feels slightly better, continue supportive care --Large left pleural effusion; on chest x-ray 09/09/2020 Pulmonary following, Consider thoracentesis tomorrow --Acute hypoxic respiratory failure intubated on 09/01/2020 and extubated on 09/02/2020 On nasal cannula oxygen, evaluate for home oxygen Ambulatory nasal cannula oxygen 87% Home oxygen is already set up by CM --A. fib with RVR; On Cardizem drip transitioned to oral Cardizem, Cardiology evaluation noted and appreciated Eliquis is held pending thoracentesis tomorrow --Hypertension well-controlled; Continue current antihypertensives PRN labetalol --Perforated gastric ulcer with pneumoperitoneum: 09/01/20 s/p exploratory laparotomy for repair of perforated duodenal ulcer. Upper GI 09/05/2020; no leak no obstruction, surgery cleared for discharge s/p TPN, now tolerating regular diet --Sepsis. Present on admission. Perforated viscus secondary to intra-abdominal infection Completed Rocephin Flagyl and Diflucan, per ID , monitor off antibiotics --Metastatic breast cancer. Continue supportive care --Right upper extremity edema: Etiology likely secondary to occluded lymphatics from breast CA. RUE Doppler .negative for DVT superficial thrombophlebitis, Elevate the limb --Severe protein calorie malnutrition; Nutrition supplements, supportive care, dietitian evaluated --DVT prophylaxis; Eliquis held for the procedure, SCDs We will closely monitor the patient and adjust management as needed Follow thoracentesis tomorrow, fluid analysis Possible discharge in 1 to 2 days if stable 09/02/2020. Patient s/p exploratory laparotomy for repair of perforated viscus. Continue IV anti-infectives of Diflucan, Levaquin and Flagyl. Patient currently intubated postoperatively with PSVT FiO2 40% pressure support 10 and PEEP of 6. Extubate per pulmonary. Initiate TPN. 09/03/2020. Patient s/p exploratory laparotomy for repair of perforated duodenal ulcer. Continue IV ceftriaxone, Flagyl and fluconazole per ID recommendations. TPN has been initiated. Patient is extubated and stable. We will transfer to the floor 09/04: Add IV hydralazine, closely monitor blood pressures and adjust as needed. 09/05; A. fib with rapid ventricular rate on Cardizem drip, upper GI, if negative start clear liquids Discussed with surgeon Dr. Barnes 09/06; Cardizem drip transition to oral Cardizem, on TPN and clear liquids 09/07; patient on regular diet, ambulate as tolerated, DC TPN 09/08; Home oxygen evaluation, drop in O2 sats on ambulation room air, patient received TPN Give 1 dose of IV Lasix, reevaluate tomorrow for home oxygen, possible discharge home 09/09/20 if stable 09/09; evaluation for home oxygen, follow chest x-ray 09/10; large left pleural effusion on chest x-ray, possible left thoracentesis. Pulmonary following 09/11; thoracentesis rescheduled for tomorrow, Eliquis held 09/12:s/p thoracentesis, removal of more than 200 mL of pleural fluid, patient feels slightly better, oxygen is set up We will resume Eliquis tomorrow, possible DC home History Interval history: I have seen and examined the patient at the bedside Patient's chart and medications reviewed Patient feels slightly better Had thoracentesis and removal of 200 mL of clear fluid Vital signs noted stable Hospitalist Physical - Constitutional Vitals: Temp Pulse Resp BP Pulse Ox 98.3 F 76 20 117/73 100 09/12/20 16:08 09/12/20 18:37 09/12/20 16:08 09/12/20 16:08 09/12/20 16:09 General appearance: Present: no acute distress, well-nourished, other (On nasal cannula oxygen) - EENT Eyes: Present: PERRL, EOM intact - Neck Neck: Present: supple, normal ROM - Respiratory Respiratory effort: normal Respiratory: bilateral: diminished, negative: rales, rhonchi, wheezing - Cardiovascular Rhythm: regular Heart Sounds: Present: S1 & S2 - Extremities Extremities: no ischemia, No edema - Abdominal General gastrointestinal: soft, non-tender, non-distended, normal bowel sounds - Integumentary Integumentary: Present: clear, warm - Psychiatric Psychiatric: appropriate mood/affect, cooperative - Neurologic Neurologic: moves all extremities Results - Labs CBC & Chem 7: 09/11/20 04:41 09/11/20 04:41 Labs: Laboratory Last Values WBC 13.4 K/mm3 (4.5-11.0) H 09/11/20 04:41 RBC 4.06 M/mm3 (3.65-5.03) 09/11/20 04:41 Hgb 11.8 gm/dl (10.1-14.3) 09/11/20 04:41 Hct 35.6 % (30.3-42.9) 09/11/20 04:41 MCV 88 fl (79-97) 09/11/20 04:41 MCH 29 pg (28-32) 09/11/20 04:41 MCHC 33 % (30-34) 09/11/20 04:41 RDW 15.2 % (13.2-15.2) 09/11/20 04:41 Plt Count 257 K/mm3 (140-440) 09/11/20 04:41 Lymph % (Auto) 4.0 % (13.4-35.0) L 09/02/20 08:40 [place] % (Auto) 6.1 % (0.0-7.3) 09/02/20 08:40 Eos % (Auto) 0.0 % (0.0-4.3) 09/02/20 08:40 Baso % (Auto) 0.1 % (0.0-1.8) 09/02/20 08:40 Lymph # (Auto) 0.7 K/mm3 (1.2-5.4) L 09/02/20 08:40 [place] # (Auto) 1.1 K/mm3 (0.0-0.8) H 09/02/20 08:40 Eos # (Auto) 0.0 K/mm3 (0.0-0.4) 09/02/20 08:40 Baso # (Auto) 0.0 K/mm3 (0.0-0.1) 09/02/20 08:40 Add Manual Diff Complete 09/11/20 04:41 Total Counted 100 09/11/20 04:41 Seg Neutrophils % Divorce Lawyer 09/03/20 04:00 Seg Neuts % (Manual) 80.0 % (40.0-70.0) H 09/11/20 04:41 Band Neutrophils % 0 % 09/11/20 04:41 Lymphocytes % (Manual) 10.0 % (13.4-35.0) L 09/11/20 04:41 Reactive Lymphs % (Man) 0 % 09/11/20 04:41 Monocytes % (Manual) 8.0 % (0.0-7.3) H 09/11/20 04:41 Eosinophils % (Manual) 2.0 % (0.0-4.3) 09/11/20 04:41 Basophils % (Manual) 0 % (0.0-1.8) 09/11/20 04:41 Metamyelocytes % 0 % 09/11/20 04:41 Myelocytes % 0 % 09/11/20 04:41 Promyelocytes % 0 % 09/11/20 04:41 Blast Cells % 0 % 09/11/20 04:41 Nucleated RBC % Not Reportable 09/11/20 04:41 Seg Neutrophils # 16.3 K/mm3 (1.8-7.7) H 09/02/20 08:40 Seg Neutrophils # Man 10.7 K/mm3 (1.8-7.7) H 09/11/20 04:41 Band Neutrophils # 0.0 K/mm3 09/11/20 04:41 Lymphocytes # (Manual) 1.3 K/mm3 (1.2-5.4) 09/11/20 04:41 Abs React Lymphs (Man) 0.0 K/mm3 09/11/20 04:41 Monocytes # (Manual) 1.1 K/mm3 (0.0-0.8) H 09/11/20 04:41 Eosinophils # (Manual) 0.3 K/mm3 (0.0-0.4) 09/11/20 04:41 Basophils # (Manual) 0.0 K/mm3 (0.0-0.1) 09/11/20 04:41 Metamyelocytes # 0.0 K/mm3 09/11/20 04:41 Myelocytes # 0.0 K/mm3 09/11/20 04:41 Promyelocytes # 0.0 K/mm3 09/11/20 04:41 Blast Cells # 0.0 K/mm3 09/11/20 04:41 WBC Morphology Not Reportable 09/11/20 04:41 Hypersegmented Neuts Not Reportable 09/11/20 04:41 Hyposegmented Neuts Not Reportable 09/11/20 04:41 Hypogranular Neuts Not Reportable 09/11/20 04:41 Smudge Cells Not Reportable 09/11/20 04:41 Toxic Granulation Not Reportable 09/11/20 04:41 Toxic Vacuolation Not Reportable 09/11/20 04:41 Dohle Bodies Not Reportable 09/11/20 04:41 Pelger-Huet Anomaly Not Reportable 09/11/20 04:41 [place] Rods Not Reportable 09/11/20 04:41 Platelet Estimate Consistent w auto 09/11/20 04:41 Clumped Platelets Not Reportable 09/11/20 04:41 Plt Clumps, EDTA Not Reportable 09/11/20 04:41 Large Platelets Not Reportable 09/11/20 04:41 Giant Platelets Not Reportable 09/11/20 04:41 Platelet Satelliting Not Reportable 09/11/20 04:41 Plt Morphology Comment Not Reportable 09/11/20 04:41 RBC Morphology Not Reportable 09/11/20 04:41 Dimorphic RBCs Not Reportable 09/11/20 04:41 Polychromasia Not Reportable 09/11/20 04:41 Hypochromasia Not Reportable 09/11/20 04:41 Poikilocytosis Not Reportable 09/11/20 04:41 Anisocytosis Not Reportable 09/11/20 04:41 Microcytosis Not Reportable 09/11/20 04:41 Macrocytosis Not Reportable 09/11/20 04:41 Spherocytes Not Reportable 09/11/20 04:41 Pappenheimer Bodies Not Reportable 09/11/20 04:41 Sickle Cells Not Reportable 09/11/20 04:41 Target Cells Not Reportable 09/11/20 04:41 Tear Drop Cells Not Reportable 09/11/20 04:41 Ovalocytes Not Reportable 09/11/20 04:41 Helmet Cells Not Reportable 09/11/20 04:41 Fernandez-[place]wood Bodies Not Reportable 09/11/20 04:41 [place] Rings Not Reportable 09/11/20 04:41 [place] Cells Not Reportable 09/11/20 04:41 Bite Cells Not Reportable 09/11/20 04:41 Crenated Cell Not Reportable 09/11/20 04:41 Elliptocytes Not Reportable 09/11/20 04:41 Acanthocytes (Spur) Not Reportable 09/11/20 04:41 Rouleaux Not Reportable 09/11/20 04:41 Hemoglobin C Crystals Not Reportable 09/11/20 04:41 Schistocytes Not Reportable 09/11/20 04:41 Malaria parasites Not Reportable 09/11/20 04:41 Quinton Bodies Not Reportable 09/11/20 04:41 Hem Pathologist Commnt No 09/11/20 04:41 PT 13.5 Sec. (12.2-14.9) 09/12/20 05:13 INR 1.02 (0.87-1.13) 09/12/20 05:13 APTT 23.3 Sec. (24.2-36.6) L 09/12/20 05:13 ABG pH 7.463 (7.320-7.450) H 09/04/20 09:27 POC ABG pCO2 30.1 mmHg (32.0-48.0) L 09/04/20 09:27 ABG pCO2 34.7 mm Hg 09/02/20 05:20 POC ABG pO2 45.6 mmHg (83-108) L 09/04/20 09:27 ABG pO2 270.7 mm Hg (80.0-90.0) H 09/02/20 05:20 POC ABG HCO3 21.1 09/04/20 09:27 ABG HCO3 23.7 mmol/L (20.0-26.0) 09/02/20 05:20 ABG O2 Saturation 99.5 % (95.0-99.0) H 09/02/20 05:20 ABG O2 Content 20.6 (0.0-44) 09/02/20 05:20 POC ABG Base Excess -1.4 09/04/20 09:27 ABG Base Excess 0.3 mmol/L (-2.0-3.0) 09/02/20 05:20 ABG Hemoglobin 15.8 (12.0-17.5) 09/04/20 09:27 ABG Carboxyhemoglobin 1.3 % (0.0-5.0) 09/02/20 05:20 ABG Methemoglobin 0.4 % (0.0-1.5) 09/02/20 05:20 ABG Sodium 132.6 mmol/L (136.0-145.0) L 10/06/20 09:27 ABG Potassium 3.7 mmol/L (3.40-4.50) 09/04/20 09:27 ABG Chloride 102.0 mmol/L (98-107) 09/04/20 09:27 ABG Glucose 135 mg/dL (65-95) H 09/04/20 09:27 Oxyhemoglobin 97.7 % (95.0-99.0) 09/02/20 05:20 FiO2 21.0 09/04/20 09:27 Sodium 134 mmol/L (137-145) L D 09/11/20 04:41 Potassium 4.2 mmol/L (3.6-5.0) 09/11/20 04:41 Chloride 95.6 mmol/L (98-107) L 09/11/20 04:41 Carbon Dioxide 26 mmol/L (22-30) 09/11/20 04:41 Anion Gap 17 mmol/L 09/11/20 04:41 BUN 14 mg/dL (7-17) 09/11/20 04:41 Creatinine 0.8 mg/dL (0.6-1.2) 09/11/20 04:41 Estimated GFR > 60 ml/min 09/11/20 04:41 BUN/Creatinine Ratio 18 % 09/11/20 04:41 Glucose 101 mg/dL (65-100) H 09/11/20 04:41 POC Glucose 123 (70-105) H 09/12/20 15:52 Calcium 8.1 mg/dL (8.4-10.2) L 09/11/20 04:41 Phosphorus 3.30 mg/dL (2.5-4.5) 09/07/20 04:35 Magnesium 1.80 mg/dL (1.7-2.3) 09/07/20 04:35 Total Bilirubin 0.30 mg/dL (0.1-1.2) 09/05/20 07:12 AST 17 units/L (5-40) 09/05/20 07:12 ALT 8 units/L (7-56) 09/05/20 07:12 Alkaline Phosphatase 52 units/L (35-129) 09/05/20 07:12 Total Protein 5.7 g/dL (6.3-8.2) L D 09/05/20 07:12 Albumin 2.3 g/dL (3.9-5) L 09/05/20 07:12 Albumin/Globulin Ratio 0.7 % 09/05/20 07:12 Prealbumin 0.109 g/L (0.200-0.400) L 09/04/20 06:00 Triglycerides 86 mg/dL (2-149) 09/04/20 06:00 Lipase 24 units/L (13-60) 09/01/20 02:30 Procalcitonin 5.44 ng/mL (<0.15) 09/01/20 20:23 TSH 0.776 mlU/mL (0.270-4.200) 09/04/20 14:16 Free T4 0.89 ng/dL (0.76-1.46) 09/04/20 14:16 Arterial Blood Glucose 135 mg/dL (65-95) H 09/04/20 09:27 Arterial Blood Ionized Calcium 4.9 mg/dL (4.6-5.3) 09/04/20 09:27 Urine Color Yellow (Yellow) 09/01/20 02:26 Urine Turbidity Clear (Clear) 09/01/20 02:26 Urine pH 6.0 (5.0-7.0) 09/01/20 02:26 Ur Specific [place] 1.023 (1.003-1.030) 09/01/20 02:26 Urine Protein 30 mg/dl mg/dL (Negative) 09/01/20 02:26 Urine Glucose (UA) Neg mg/dL (Negative) 09/01/20 02:26 Urine Ketones Neg mg/dL (Negative) 09/01/20 02:26 Urine Blood Neg (Negative) 09/01/20 02:26 Urine Nitrite Neg (Negative) 09/01/20 02:26 Urine Bilirubin Neg (Negative) 09/01/20 02:26 Urine Urobilinogen 4.0 mg/dL (<2.0) 09/01/20 02:26 Ur Leukocyte Esterase Tr (Negative) 09/01/20 02:26 Urine WBC (Auto) 5.0 /HPF (0.0-6.0) 09/01/20 02:26 Urine RBC (Auto) 4.0 /HPF (0.0-6.0) 09/01/20 02:26 U Epithel Cells (Auto) 3.0 /HPF (0-13.0) 09/01/20 02:26 Urine Mucus 1+ /HPF 09/01/20 02:26 Fluid Type Pleural 09/11/20 Unknown Fluid Color Yellow 09/11/20 Unknown Fluid Appearance Hazy 09/11/20 Unknown Fluid WBC 466 /mm3 09/11/20 Unknown Fluid RBC 39 /mm3 09/11/20 Unknown Fluid Seg Neutrophils 39.0 % 09/11/20 Unknown Fluid Lymphocytes 7.0 % 09/11/20 Unknown Fluid Reactive Lymphs Not Reportable 09/11/20 Unknown Fluid Monocytes 52.0 % 09/11/20 Unknown Fluid Eosinophils 2.0 % 09/11/20 Unknown Fluid Basophils Not Reportable 09/11/20 Unknown - Diagnostic Impressions Diagnostic Impressions: Echocardiogram 09/03/20 18:17 Transthoracic Echocardiogram Indication: A-fib BP: 142/90 HR: 67 Conclusions *The left ventricular chamber size is normal. *Global left ventricular wall motion and contractility are within normal limits. *The estimated ejection fraction is 60-65%. *Abnormal left ventricular diastolic filling is observed, consistent with impaired relaxation. *The right ventricular cavity size is normal. *The right ventricular systolic pressure is calculated at 27 mmHg. *There is a moderate pleural effusion. Findings Left Ventricle: The left ventricular chamber size is normal. Global left ventricular wall motion and contractility are within normal limits. Global left ventricular systolic function is normal. The estimated ejection fraction is 60-65%. Abnormal left ventricular diastolic filling is observed, consistent with impaired relaxation. Right Ventricle: The right ventricular cavity size is normal. Right Atrium: The right atrial cavity size is normal. Aortic Valve: The aortic valve leaflets are mildly thickened. There is no evidence of aortic regurgitation. Mitral Valve: The mitral valve leaflets are mildly thickened. There is no evidence of mitral regurgitation. Tricuspid Valve: The tricuspid valve leaflets are normal. There is trace tricuspid regurgitation. The right ventricular systolic pressure is calculated at 27 mmHg. Pulmonic Valve: The pulmonic valve appears normal. There is trace pulmonic regurgitation. Pericardium: There is no pericardial effusion. There is a moderate pleural effusion. Aorta: The aorta appears normal. Venous: The inferior vena cava is not visualized. Measurements Chambers 2D Name Value Normal Range IVSd (2D) 0.94 cm (0.6 - 1.1) LVPWd (2D) 0.99 cm (0.6 - 1.1) LVIDd (2D) 4.76 cm (3.7 - 5.6) LVIDs (2D) 2.72 cm (2 - 3.8) LV FS (2D) 42.82 % - EF Teichholz (2D) 73.86 % - Ao root diameter (2D) 3.08 cm (2 - 3.7) Volumes/Mass Name Value Normal Range LA ESV SP 4CH (A/L) 32.25 ml - LA ESV SP 2CH (A/L) 31.78 ml - LA ESV BP (A/L) 34.38 ml - LA ESV BP (A/L) index 16.69 ml/m2 - LA ESV SP 4CH (MOD) 29.95 ml - LA ESV SP 2CH (MOD) 29.49 ml - LA ESV BP (MOD) 31.87 ml - LA ESV BP (MOD) index 15.47 ml/m2 - Diastolic/Systolic Function Name Value Normal Range MV E-wave Vmax 0.63 m/sec - MV deceleration time 180.43 msec - MV A-wave Vmax 0.71 m/sec - MV E:A ratio 0.89 ratio - Aortic Valve Name Value Normal Range AV Vmax 1.81 m/sec - AV VTI 29.91 cm - AV peak gradient 13.12 mmHg - AV mean gradient 6.84 mmHg - LVOT diameter 2.02 cm - LVOT Vmax 1.34 m/sec - LVOT VTI 24.44 cm - LVOT peak gradient 7.15 mmHg - LVOT mean gradient 3.72 mmHg - SV LVOT 77.91 ml - JUANITA (continuity Vmax) 2.35 cm2 - JUANITA (continuity VTI) 2.6 cm2 - Tricuspid Valve Name Value Normal Range TR Vmax 2.46 m/sec - TR peak gradient 24 mmHg - RAP 3 mmHg - RVSP 27 mmHg - Pulmonic Valve/Qp:Qs Name Value Normal Range PV Vmax 0.82 m/sec - PV peak gradient 2.67 mmHg - PV acceleration time 102.76 msec - Carey/IV: Voiding Method Bedside Commode IV Catheter Type [Left Peripheral IV Antecubital] IV Catheter Type [Left Upper PICC Line arm] IV Catheter Type [Left Forearm Peripheral IV ] IV Catheter Type [Left Hand] INT / Saline Lock Active Medications - Current Medications Current Medications: Generic Name Dose Route Start Last Admin Trade Name Freq PRN Reason Stop Dose Admin Acetylcysteine 200 mg 09/10/20 11:30 09/12/20 00:56 Mucomyst Inhalation INHALATION Not Given Q8HRT JAIME Albuterol 2.5 mg 09/07/20 17:46 Proventil IH Q6HRT PRN Wheezing Albuterol/Ipratropium 1 ampul 09/09/20 08:00 09/11/20 21:04 Duoneb *Not For Prn Use* IH 1 ampul TIDRT JAIME Administration Clonidine HCl 0.3 mg 09/05/20 11:00 09/12/20 11:57 Catapres-Tts Patch TD 0.3 mg We JAIME Administration Dextrose 25 ml 09/02/20 18:38 09/02/20 18:50 D50w (25gm) Syringe IV 15 ml Q30MIN PRN Administration Hypoglycemia Protocol Diltiazem HCl 120 mg 09/06/20 12:00 09/12/20 11:44 Cardizem Cd PO 120 mg QDAY JAIME Administration Furosemide 40 mg 09/09/20 10:00 09/12/20 11:44 Lasix IV 40 mg QDAY JAIME Administration Hydralazine HCl 50 mg 09/07/20 14:00 09/12/20 18:37 Apresoline PO 50 mg Q8HR JAIME Administration Hydrophilic Ointment 1 applic 09/01/20 14:47 Vaseline Lip Therapy TP Q2H PRN Dry Lips Morphine Sulfate 2 mg 09/01/20 09:21 09/07/20 09:46 Morphine IV 2 mg Q4H PRN Administration Pain, Moderate (4-6) Multi-Ingred Cream/Lotion/Oil/Oint 1 applic 09/01/20 14:47 Artificial Tears Ophth Oint OU Q4H PRN Dry Eye(s) Oxycodone/Acetaminophen 1 tab 09/06/20 14:07 09/12/20 11:43 Percocet 5/325 PO 1 tab Q6H PRN Administration Pain, Moderate (4-6) Pantoprazole Sodium 40 mg 09/07/20 16:30 09/12/20 18:37 Protonix PO 40 mg BIDAC JAIME Administration Sodium Chloride 10 ml 09/01/20 10:00 09/12/20 11:45 Sodium Chloride Flush Syringe 10 Ml IV 10 ml BID JAIME Administration Sodium Chloride 10 ml 09/01/20 09:21 09/03/20 23:33 Sodium Chloride Flush Syringe 10 Ml IV 10 ml PRN PRN Administration LINE FLUSH Nutrition/Malnutrition Assess - Dietary Evaluation Nutrition/Malnutrition Findings: Nutrition Notes Start: 09/02/20 09:42 Freq: Status: Active Protocol: Document 09/10/20 11:59 LM (Rec: 09/10/20 12:03 LM [id number]) Nutrition Notes Initial or Follow up Reassessment Current Diagnosis COPD Other Pertinent Diagnosis Breast Ca with Mets, perforated gastric ulcer S/P exp lap Current Diet Regular diet Labs/Tests Reviewed Pertinent Medications Lasix Height 5 ft 11 in Weight 86.183 kg [place] Body Weight (kg) 70.45 BMI 26.4 Weight Status Overweight Subjective/Other Information Pt stated she ate 75% of breakfast this AM. Percent of energy/protein needs met: 97%/76% Burn Absent Trauma Absent GI Symptoms None Current % PO Good (75-100%) Minimum of two criteria No physical signs of malnutrition #1 Nutrition Diagnosis Inadequate oral intake Diagnosis Progress(for reassessment Resolved documentation) Nutrition Intervention Revisit per MD consult or patient Sign Off request:
[2020-09-13] MEDS: ACETYLCYSTEINE 20% 200 MG/1 ML *FOR INHALATION USE INHALATION SCH ×3 (01:52→17:40)
[2020-09-13] MEDS: hydrALAZINE 25 MG TAB PO SCH ×2 (06:10→13:55)
[2020-09-13 06:55] LABS: Alanine Aminotransferase 18 units/L (7-56); Albumin 2.8 g/dL (3.9-5); Blood Urea Nitrogen 14 mg/dL (7-17); Calcium 8.6 mg/dL (8.4-10.2); Hemolysis Index 6
[2020-09-13 06:56] LABS: BUN/Creatinine Ratio 20
[2020-09-13] MEDS: IPRATROPIUM/ALBUTEROL SULFATE 3 ML AMPUL.NEB IH SCH ×2 (07:47→14:55)
--- NOTE | 2020-09-13 10:00 | Progress Note ---
Assessment and Plan Acute hypoxemic respiratory failure, s/p mechanical ventilatory support. Perforated gastric ulcer with pneumoperitoneum, status post exploratory laparotomy. Breast cancer, possibly metastatic with right axillary lymphadenopathy. Bilateral adrenal enlargement. Oropharyngeal dysphagia. Tobacco use disorder. Leukocytosis. Hemoconcentration. Mild hyponatremia. Hyperglycemia. Right upper extremity swelling. LUExt thrombus at the tip of PICC Home with supplemental oxygen Discharge planning Discussed with patient and hospitalist service - continue to wean supplemental oxygen for target O2 sats > 90% - continue bronchodilators with pulmonary hygiene per RT -Incentive spirometry - avoid nephrotoxins, renally dose all medications - continue to avoid benzodiazepines, reduce the possibility of delirium - Antibiotics per ID recs to complete course - Maintenance of sleep-wake cycle, avoid delirium - Stress ulcer prophylaxis - PT/OT/ROM exercises - continue mobility protocols for pressure ulcer prevention -Nicotine withdrawal precautions, smoking cessation counselling - Monitor hemodynamics closely - continue other care per attending / other consultants Subjective Date of service: 09/13/20 Principal diagnosis: Ac hypoxemic resp failure; Perforated gastric ulcer; pneumoperitoneum Interval history: Patient is seen today for: Acute hypoxemic respiratory failure; Perforated gastric; pneumoperitoneum; Breast cancer; Oropharyngeal dysphagia; Tobacco use disorder; Leukocytosis. Seen and examined at bedside; 24hour events reviewed; nursing and respiratory care staff consulted; no adverse overnight events reported to me;sitting up in a chair ; No N/V/F/C; denies acute chest or abdominal pain . Sitting up in a chair on supplemental oxygen, eating Objective Vital Signs - 12hr 09/12/20 09/12/20 09/13/20 22:00 23:26 03:52 Temperature 98.0 F 98.0 F Pulse Rate 71 71 72 Pulse Rate [ 72 From Monitor] Respiratory 18 20 18 Rate Blood Pressure 131/68 124/69 O2 Sat by Pulse 99 99 97 Oximetry 09/13/20 09/13/20 06:10 07:20 Temperature 98.2 F Pulse Rate 72 62 Pulse Rate [ From Monitor] Respiratory 20 Rate Blood Pressure 124/69 125/66 O2 Sat by Pulse 98 Oximetry Constitutional: no acute distress, alert, other (elderly female with mildly increased respiratory effort at rest. Left mastectomy with nodular scar) Eyes: non-icteric ENT: oropharynx moist Neck: supple, no lymphadenopathy Effort: mildly labored Ascultation: Left: diminished breath sounds (Left base.), Bilateral: rhonchi (scant in bases), other (Diminished breath sounds left lower lobe.) Percussion: Bilateral: not dull Cardiovascular: regular rate and rhythm, other (S1,S2) Gastrointestinal: hypoactive bowel sounds, soft, non-tender, non-distended (protuberant) Integumentary: normal, other (post-op changes) Extremities: no cyanosis, pink and warm, pulses normal, other (Left upper extemity lymphedema) Neurologic: normal mental status, non-focal exam, pupils equal and round, motor strength normal and Psychiatric: mood appropriate, affect normal CBC and BMP: 09/11/20 04:41 09/13/20 06:20 ABG, PT/INR, D-dimer: ABG ABG pH 7.463 (7.320-7.450) H 09/04/20 09:27 POC ABG pCO2 30.1 mmHg (32.0-48.0) L 09/04/20 09:27 ABG pCO2 34.7 mm Hg 09/02/20 05:20 POC ABG pO2 45.6 mmHg (83-108) L 09/04/20 09:27 ABG pO2 270.7 mm Hg (80.0-90.0) H 09/02/20 05:20 POC ABG HCO3 21.1 09/04/20 09:27 ABG O2 Saturation 99.5 % (95.0-99.0) H 09/02/20 05:20 PT/INR, D-dimer PT 13.5 Sec. (12.2-14.9) 09/12/20 05:13 INR 1.02 (0.87-1.13) 09/12/20 05:13 Abnormal lab findings: Abnormal Labs 09/01/20 09/01/20 09/01/20 02:30 02:30 14:42 WBC 21.0 H RBC 5.49 H Hgb 16.3 H Hct 48.5 H Lymph % (Auto) Lymph # (Auto) Elbert # (Auto) Seg Neutrophils % Seg Neuts % (Manual) 90.0 H Lymphocytes % (Manual) 4.0 L Monocytes % (Manual) Seg Neutrophils # Seg Neutrophils # Man 18.9 H Lymphocytes # (Manual) 0.8 L Monocytes # (Manual) Eosinophils # (Manual) APTT ABG pH POC ABG pCO2 POC ABG pO2 182.2 H ABG pO2 ABG O2 Saturation ABG Sodium 133.4 L ABG Glucose 132 H Sodium 134 L Potassium Chloride 89.2 L BUN 20 H Creatinine Glucose 190 H POC Glucose Calcium 10.5 H Phosphorus Lactate Dehydrogenase Total Protein 8.6 H Albumin Prealbumin Arterial Blood Glucose 132 H 09/01/20 09/02/20 09/02/20 15:22 05:15 05:20 WBC RBC Hgb Hct Lymph % (Auto) Lymph # (Auto) Elbert # (Auto) Seg Neutrophils % Seg Neuts % (Manual) Lymphocytes % (Manual) Monocytes % (Manual) Seg Neutrophils # Seg Neutrophils # Man Lymphocytes # (Manual) Monocytes # (Manual) Eosinophils # (Manual) APTT ABG pH 7.452 H POC ABG pCO2 POC ABG pO2 ABG pO2 270.7 H ABG O2 Saturation 99.5 H ABG Sodium ABG Glucose Sodium Potassium Chloride BUN 18 H Creatinine Glucose POC Glucose Calcium Phosphorus 5.40 H Lactate Dehydrogenase Total Protein Albumin Prealbumin Arterial Blood Glucose 09/02/20 09/02/20 09/02/20 08:40 11:24 17:35 WBC 18.2 H RBC Hgb Hct Lymph % (Auto) 4.0 L Lymph # (Auto) 0.7 L Elbert # (Auto) 1.1 H Seg Neutrophils % 89.8 H Seg Neuts % (Manual) Lymphocytes % (Manual) Monocytes % (Manual) Seg Neutrophils # 16.3 H Seg Neutrophils # Man Lymphocytes # (Manual) Monocytes # (Manual) Eosinophils # (Manual) APTT ABG pH POC ABG pCO2 POC ABG pO2 75.5 L ABG pO2 ABG O2 Saturation ABG Sodium 134.2 L ABG Glucose Sodium Potassium Chloride BUN Creatinine Glucose POC Glucose 68 L Calcium Phosphorus Lactate Dehydrogenase Total Protein Albumin Prealbumin Arterial Blood Glucose 09/03/20 09/03/20 09/03/20 00:01 04:00 04:00 WBC 19.1 H RBC Hgb 14.4 H Hct Lymph % (Auto) Lymph # (Auto) Elbert # (Auto) Seg Neutrophils % Seg Neuts % (Manual) 93.0 H Lymphocytes % (Manual) 3.0 L Monocytes % (Manual) Seg Neutrophils # Seg Neutrophils # Man 17.8 H Lymphocytes # (Manual) 0.6 L Monocytes # (Manual) Eosinophils # (Manual) APTT ABG pH POC ABG pCO2 POC ABG pO2 ABG pO2 ABG O2 Saturation ABG Sodium ABG Glucose Sodium Potassium Chloride BUN 23 H Creatinine Glucose 124 H POC Glucose 114 H Calcium Phosphorus Lactate Dehydrogenase Total Protein Albumin Prealbumin Arterial Blood Glucose 09/03/20 09/03/20 09/04/20 05:48 17:01 00:57 WBC RBC Hgb Hct Lymph % (Auto) Lymph # (Auto) Elbert # (Auto) Seg Neutrophils % Seg Neuts % (Manual) Lymphocytes % (Manual) Monocytes % (Manual) Seg Neutrophils # Seg Neutrophils # Man Lymphocytes # (Manual) Monocytes # (Manual) Eosinophils # (Manual) APTT ABG pH POC ABG pCO2 POC ABG pO2 ABG pO2 ABG O2 Saturation ABG Sodium ABG Glucose Sodium Potassium Chloride BUN Creatinine Glucose POC Glucose 123 H 120 H 121 H Calcium Phosphorus Lactate Dehydrogenase Total Protein Albumin Prealbumin Arterial Blood Glucose 09/04/20 09/04/20 09/05/20 06:00 09:27 06:20 WBC 12.8 H RBC Hgb Hct Lymph % (Auto) Lymph # (Auto) Elbert # (Auto) Seg Neutrophils % Seg Neuts % (Manual) 92.0 H Lymphocytes % (Manual) 4.0 L Monocytes % (Manual) Seg Neutrophils # Seg Neutrophils # Man 11.8 H Lymphocytes # (Manual) 0.5 L Monocytes # (Manual) Eosinophils # (Manual) APTT ABG pH 7.463 H POC ABG pCO2 30.1 L POC ABG pO2 45.6 L ABG pO2 ABG O2 Saturation ABG Sodium 132.6 L ABG Glucose 135 H Sodium Potassium Chloride BUN 27 H Creatinine Glucose 113 H POC Glucose Calcium Phosphorus Lactate Dehydrogenase Total Protein Albumin Prealbumin 0.109 L Arterial Blood Glucose 135 H 09/05/20 09/05/20 09/05/20 06:34 07:12 11:39 WBC RBC Hgb Hct Lymph % (Auto) Lymph # (Auto) Elbert # (Auto) Seg Neutrophils % Seg Neuts % (Manual) Lymphocytes % (Manual) Monocytes % (Manual) Seg Neutrophils # Seg Neutrophils # Man Lymphocytes # (Manual) Monocytes # (Manual) Eosinophils # (Manual) APTT ABG pH POC ABG pCO2 POC ABG pO2 ABG pO2 ABG O2 Saturation ABG Sodium ABG Glucose Sodium 136 L Potassium Chloride BUN 25 H Creatinine 0.5 L Glucose 113 H POC Glucose 123 H 115 H Calcium Phosphorus Lactate Dehydrogenase Total Protein 5.7 L D Albumin 2.3 L Prealbumin Arterial Blood Glucose 09/05/20 09/06/20 09/06/20 15:54 01:16 07:03 WBC RBC Hgb Hct Lymph % (Auto) Lymph # (Auto) Elbert # (Auto) Seg Neutrophils % Seg Neuts % (Manual) Lymphocytes % (Manual) Monocytes % (Manual) Seg Neutrophils # Seg Neutrophils # Man Lymphocytes # (Manual) Monocytes # (Manual) Eosinophils # (Manual) APTT ABG pH POC ABG pCO2 POC ABG pO2 ABG pO2 ABG O2 Saturation ABG Sodium ABG Glucose Sodium Potassium Chloride BUN Creatinine Glucose POC Glucose 116 H 130 H 115 H Calcium Phosphorus Lactate Dehydrogenase Total Protein Albumin Prealbumin Arterial Blood Glucose 09/06/20 09/06/20 09/06/20 08:12 08:12 11:46 WBC 14.3 H RBC Hgb Hct Lymph % (Auto) Lymph # (Auto) Elbert # (Auto) Seg Neutrophils % Seg Neuts % (Manual) 84.0 H Lymphocytes % (Manual) 13.0 L Monocytes % (Manual) Seg Neutrophils # Seg Neutrophils # Man 12.0 H Lymphocytes # (Manual) Monocytes # (Manual) Eosinophils # (Manual) APTT ABG pH POC ABG pCO2 POC ABG pO2 ABG pO2 ABG O2 Saturation ABG Sodium ABG Glucose Sodium Potassium 3.5 L Chloride BUN 20 H Creatinine 0.5 L Glucose 138 H POC Glucose 126 H Calcium Phosphorus Lactate Dehydrogenase Total Protein Albumin Prealbumin Arterial Blood Glucose 09/06/20 09/07/20 09/07/20 16:49 04:35 06:19 WBC RBC Hgb Hct Lymph % (Auto) Lymph # (Auto) Elbert # (Auto) Seg Neutrophils % Seg Neuts % (Manual) Lymphocytes % (Manual) Monocytes % (Manual) Seg Neutrophils # Seg Neutrophils # Man Lymphocytes # (Manual) Monocytes # (Manual) Eosinophils # (Manual) APTT ABG pH POC ABG pCO2 POC ABG pO2 ABG pO2 ABG O2 Saturation ABG Sodium ABG Glucose Sodium 147 H Potassium Chloride BUN 18 H Creatinine Glucose 114 H POC Glucose 119 H 111 H Calcium Phosphorus Lactate Dehydrogenase Total Protein Albumin Prealbumin Arterial Blood Glucose 09/07/20 09/07/20 09/08/20 14:57 23:09 07:25 WBC 14.1 H RBC Hgb Hct Lymph % (Auto) Lymph # (Auto) Elbert # (Auto) Seg Neutrophils % Seg Neuts % (Manual) 78.0 H Lymphocytes % (Manual) 9.0 L Monocytes % (Manual) 9.0 H Seg Neutrophils # Seg Neutrophils # Man 11.0 H Lymphocytes # (Manual) Monocytes # (Manual) 1.3 H Eosinophils # (Manual) 0.6 H APTT ABG pH POC ABG pCO2 POC ABG pO2 ABG pO2 ABG O2 Saturation ABG Sodium ABG Glucose Sodium Potassium Chloride BUN Creatinine Glucose POC Glucose 110 H 108 H Calcium Phosphorus Lactate Dehydrogenase Total Protein Albumin Prealbumin Arterial Blood Glucose 09/08/20 09/08/20 09/09/20 12:07 17:18 00:36 WBC RBC Hgb Hct Lymph % (Auto) Lymph # (Auto) Elbert # (Auto) Seg Neutrophils % Seg Neuts % (Manual) Lymphocytes % (Manual) Monocytes % (Manual) Seg Neutrophils # Seg Neutrophils # Man Lymphocytes # (Manual) Monocytes # (Manual) Eosinophils # (Manual) APTT ABG pH POC ABG pCO2 POC ABG pO2 ABG pO2 ABG O2 Saturation ABG Sodium ABG Glucose Sodium Potassium Chloride BUN Creatinine Glucose POC Glucose 129 H 122 H 122 H Calcium Phosphorus Lactate Dehydrogenase Total Protein Albumin Prealbumin Arterial Blood Glucose 09/09/20 09/09/20 09/10/20 04:03 12:49 05:56 WBC 13.9 H 14.7 H RBC Hgb Hct Lymph % (Auto) Lymph # (Auto) Elbert # (Auto) Seg Neutrophils % Seg Neuts % (Manual) 90.0 H 94.0 H Lymphocytes % (Manual) 3.0 L 2.0 L Monocytes % (Manual) Seg Neutrophils # Seg Neutrophils # Man 12.5 H 13.8 H Lymphocytes # (Manual) 0.4 L 0.3 L Monocytes # (Manual) Eosinophils # (Manual) APTT ABG pH POC ABG pCO2 POC ABG pO2 ABG pO2 ABG O2 Saturation ABG Sodium ABG Glucose Sodium Potassium Chloride BUN Creatinine Glucose POC Glucose 113 H Calcium Phosphorus Lactate Dehydrogenase Total Protein Albumin Prealbumin Arterial Blood Glucose 09/10/20 09/10/20 09/11/20 16:49 20:30 04:41 WBC 13.4 H RBC Hgb Hct Lymph % (Auto) Lymph # (Auto) Elbert # (Auto) Seg Neutrophils % Seg Neuts % (Manual) 80.0 H Lymphocytes % (Manual) 10.0 L Monocytes % (Manual) 8.0 H Seg Neutrophils # Seg Neutrophils # Man 10.7 H Lymphocytes # (Manual) Monocytes # (Manual) 1.1 H Eosinophils # (Manual) APTT ABG pH POC ABG pCO2 POC ABG pO2 ABG pO2 ABG O2 Saturation ABG Sodium ABG Glucose Sodium Potassium Chloride BUN Creatinine Glucose POC Glucose 132 H 128 H Calcium Phosphorus Lactate Dehydrogenase Total Protein Albumin Prealbumin Arterial Blood Glucose 09/11/20 09/11/20 09/11/20 04:41 12:16 21:10 WBC RBC Hgb Hct Lymph % (Auto) Lymph # (Auto) Elbert # (Auto) Seg Neutrophils % Seg Neuts % (Manual) Lymphocytes % (Manual) Monocytes % (Manual) Seg Neutrophils # Seg Neutrophils # Man Lymphocytes # (Manual) Monocytes # (Manual) Eosinophils # (Manual) APTT ABG pH POC ABG pCO2 POC ABG pO2 ABG pO2 ABG O2 Saturation ABG Sodium ABG Glucose Sodium 134 L D Potassium Chloride 95.6 L BUN Creatinine Glucose 101 H POC Glucose 120 H 107 H Calcium 8.1 L Phosphorus Lactate Dehydrogenase Total Protein Albumin Prealbumin Arterial Blood Glucose 09/12/20 09/12/20 09/12/20 05:13 12:00 15:52 WBC RBC Hgb Hct Lymph % (Auto) Lymph # (Auto) Elbert # (Auto) Seg Neutrophils % Seg Neuts % (Manual) Lymphocytes % (Manual) Monocytes % (Manual) Seg Neutrophils # Seg Neutrophils # Man Lymphocytes # (Manual) Monocytes # (Manual) Eosinophils # (Manual) APTT 23.3 L ABG pH POC ABG pCO2 POC ABG pO2 ABG pO2 ABG O2 Saturation ABG Sodium ABG Glucose Sodium Potassium Chloride BUN Creatinine Glucose POC Glucose 153 H 123 H Calcium Phosphorus Lactate Dehydrogenase Total Protein Albumin Prealbumin Arterial Blood Glucose 09/13/20 09/13/20 06:20 06:48 WBC RBC Hgb Hct Lymph % (Auto) Lymph # (Auto) Elbert # (Auto) Seg Neutrophils % Seg Neuts % (Manual) Lymphocytes % (Manual) Monocytes % (Manual) Seg Neutrophils # Seg Neutrophils # Man Lymphocytes # (Manual) Monocytes # (Manual) Eosinophils # (Manual) APTT ABG pH POC ABG pCO2 POC ABG pO2 ABG pO2 ABG O2 Saturation ABG Sodium ABG Glucose Sodium 134 L Potassium Chloride 93.7 L BUN Creatinine Glucose 101 H POC Glucose 128 H Calcium Phosphorus Lactate Dehydrogenase 328 H Total Protein Albumin 2.8 L Prealbumin Arterial Blood Glucose Allied health notes reviewed: nursing
[2020-09-13] MEDS: PANTOPRAZOLE 40 MG TAB PO SCH (10:16)
[2020-09-13] MEDS: FUROSEMIDE 40 MG/4 ML INJ IV SCH (10:16)
[2020-09-13] MEDS: dilTIAZem CD 120 MG CAP PO SCH (10:18)
--- NOTE | 2020-09-13 12:18 | Discharge Summary ---
Providers - Providers Date of Admission: 09/01/20 10:55 Date of discharge: 09/13/20 Attending physician: SARAH FRANZ 09/01/20 09:22 Consult to Dietitian/Nutrition [CONS] Routine Physician Instructions: Reason For Exam: Reason for Consult: Write/Manage TPN/PPN Consult to Physician [CONS] Routine Comment: Consulting Provider: CHARY KEMP Physician Instructions: Reason For Exam: gastric perforation 09/01/20 09:28 Consult to PICC Line RN [CONS] Routine Reason For Exam: TPN Type Line:: PICC 09/01/20 15:55 Consult to Physician [CONS] Routine Comment: Consulting Provider: DUSTIN BLACKBURN Physician Instructions: Reason For Exam: Sepsis 09/03/20 17:54 Consult to Cardiology [CONS] Stat Consulting Provider: ARUNA PERALTA Reason For Exam: new onset a fib 09/05/20 11:20 Physical Therapy Evaluation and Treat [CONS] Routine Comment: Reason For Exam: General debility/post op/evaluate and treat Primary care physician: BAR WAITER/WAITRESS Hospitalization Condition: Stable Disposition: DC-01 TO HOME OR SELFCARE Time spent for discharge: 35 min Core Measure Documentation - Palliative Care Palliative Care/ Comfort Measures: Not Applicable - Core Measures Any of the following diagnoses?: none Exam - Constitutional Vitals: Temp Pulse Resp BP Pulse Ox 98.2 F 62 16 125/66 98 09/13/20 07:20 09/13/20 10:18 09/13/20 07:50 09/13/20 10:18 09/13/20 10:00 General appearance: Present: no acute distress, well-nourished - EENT Eyes: Present: PERRL, EOM intact - Neck Neck: Present: supple, normal ROM - Respiratory Respiratory effort: normal Respiratory: bilateral: diminished, negative: rales, rhonchi, wheezing - Cardiovascular Rhythm: regular Heart Sounds: Present: S1 & S2 - Extremities Extremities: no ischemia, No edema - Abdominal General gastrointestinal: Present: soft, non-tender, non-distended, normal bowel sounds - Integumentary Integumentary: Present: clear, warm - Musculoskeletal Musculoskeletal: strength equal bilaterally, generalized weakness - Psychiatric Psychiatric: appropriate mood/affect, cooperative - Neurologic Neurologic: moves all extremities Plan Activity: advance as tolerated Diet: other (cardi) Additional Instructions: If your symptoms worsen contact MD or go to emergency room. Home oxygen 2 to 3 L via nasal cannula as needed. Follow with pulmonary and surgery per schedule Follow up with: PRIMARY CARE, [Primary Care Provider] - 3-5 Days TONYA GARCIA MD [Staff Physician] - 7 Days CHARY KEMP MD [Staff Physician] - 7 Days Prescriptions: hydrALAZINE [Apresoline TAB] 50 mg PO Q8HR #90 tablet dilTIAZem CD [Cardizem CD] 120 mg PO QDAY #30 capsule oxyCODONE /ACETAMINOPHEN [Percocet 5/325 mg] 1 tab PO BID PRN #10 tablet PRN Reason: Pain, Moderate (4-6) Pantoprazole [Protonix TAB] 40 mg PO BIDAC #60 tablet
[2020-09-13 13:47] VITALS: BP 118/61
== END 2020-09-13 16:15 | disposition home health service (06) | DRG 853 ==
LOC: ED 01:18 → CC1 10:55 → 4A 09-03 12:09
PROVIDERS: ADMIT Hospitalist; ATTEND Internal Medicine
PROC: 0DJ00ZZ Inspection of Upper Intestinal Tract, Open Approach (ICD-10-PCS; principal; 2020-09-01)
PROC: 0BH17EZ Insertion of Endotracheal Airway into Trachea, Via Natural or Artificial Opening (ICD-10-PCS; 2020-09-01)
PROC: 5A1945Z Respiratory Ventilation, 24-96 Consecutive Hours (ICD-10-PCS; 2020-09-01)
PROC: 4A033R1 Measurement of Arterial Saturation, Peripheral, Percutaneous Approach (ICD-10-PCS; 2020-09-01)
PROC: 3E0336Z Introduction of Nutritional Substance into Peripheral Vein, Percutaneous Approach (ICD-10-PCS; 2020-09-02)
PROC: 0W9B30Z Drainage of Left Pleural Cavity with Drainage Device, Percutaneous Approach (ICD-10-PCS; 2020-09-12)
DX: A41.9 Sepsis, unspecified organism (principal); K25.1 Acute gastric ulcer with perforation; J96.01 Acute respiratory failure with hypoxia; K26.5 Chronic or unspecified duodenal ulcer with perforation; E43 Unspecified severe protein-calorie malnutrition; J18.9 Pneumonia, unspecified organism; E87.1 Hypo-osmolality and hyponatremia; C50.911 Malignant neoplasm of unspecified site of right female breast; K66.8 Other specified disorders of peritoneum; J44.9 Chronic obstructive pulmonary disease, unspecified; F17.210 Nicotine dependence, cigarettes, uncomplicated; R59.0 Localized enlarged lymph nodes; D72.829 Elevated white blood cell count, unspecified; R73.9 Hyperglycemia, unspecified; T82.868A Thrombosis due to vascular prosthetic devices, implants and grafts, initial encounter; Y84.8 Other medical procedures as the cause of abnormal reaction of the patient, or of later complication, without mention of misadventure at the time of the procedure; J90 Pleural effusion, not elsewhere classified; I48.20 Chronic atrial fibrillation, unspecified; J98.11 Atelectasis
CPT/HCPCS: 32555; 36415; 36600; 71045; 74018; 74177; 74246; 80048; 80053; 81001; 82803; 82805; 82947; 82962; 83605; 83615; 83690; 83735; 84100; 84134; 84145; 84160; 84439; 84443; 84478; 85007; 85025; 85610; 85730; 87116; 88112; 88305; 88341; 88342; 89051; 93306; 93970; 94002; 94003; 94640; 94667; 94668; 94760; 96372; G0378; C9113; J0330; J0696; J1170; J1450; J1650; J1940; J1956; J2270; J2405; J2543; J2704; J3010; J7030; J7120; Q9963; Q9967